=== PATIENT | female | born 1950 | race Caucasian/White ===

== ENCOUNTER 2020-05-15 08:18 | Inpatient (IN) ==
[2020-05-15] MEDS ORDERED: LORazepam 1 MG/2 ML VIAL IV STA (08:55)
[2020-05-15 08:59] LABS: Appearance Urine Clear (Clear); Bilirubin Urine Negative (Negative); Blood Urine Negative (Negative); Color Urine Yellow; Glucose Urine UA Negative (Negative); Ketones Urine Negative (Negative); Leukocyte Esterase Urine Negative (Negative); Nitrite Urine Negative (Negative); Protein Urine Negative (Negative); Specific Gravity Urine 1.012 (1.000-1.030); Urobilinogen Urine Negative (Negative); pH Urine 5.5 (4.5-7.5)
--- NOTE | 2020-05-15 09:24 | Emergency Department Note ---
History of Present Illness General Chief complaint: Illness Stated complaint: AMS, DISTENDED AB, BILAT. EDEMA TO LOWER LEGS Time Seen by Provider: 05/15/20 08:28 Source: patient, family (I did talk to multiple family members on the phone) and EMS Mode of arrival: EMS Limitations: altered mental status History of Present Illness Maximum Pain Intensity: 4 This patient is brought in by EMS from [place] after having abdominal distention ascites bilateral lower extremity edema and altered mental status. Apparent she was found this way she has known liver problems and it may be on the liver transplant list she had Covid 1 months ago by report. The patient is unable to give me any further history and looking through her computer it looks like she was had paracentesis done on 03 May there is no other report found. Home Medications Medication Instructions Recorded Confirmed Type bupropion HCl 300 mg PO DAILY 01/23/20 05/03/20 History nifedipine 30 mg PO DAILY 01/23/20 05/03/20 History omeprazole 20 mg PO DAILY 01/23/20 05/03/20 History spironolactone 50 mg PO DAILY 05/03/20 05/03/20 History torsemide 40 mg PO DAILY 05/03/20 05/03/20 History Allergies Allergy/AdvReac Type Severity Reaction Status Date / Time Penicillins Allergy Rash Verified 05/03/20 08:49 adhesive AdvReac Redness of Verified 05/03/20 08:49 Skin Past Med/Surg History Medical History Abnormal liver function Acid reflux Ascites Hypertension Surgical History Hx of appendectomy Social History Smoking Status: Never smoker Second Hand Exposure: Yes (son smokes outside); Hx Alcohol Use: No Hx Substance Use: No Preferred Language: Serbian Communication Ability: Effective Beliefs That Will Affect Care: None Current Living Situation: Spouse Feels Safe at Home: Yes Assistive Devices: None, Glasses, Hearing Aid - Left and Hearing Aid - Right Review of Systems Unobtainable due to reduced consciousness Physical Exam Vital Signs Vital Signs - 24 hr 05/15/20 08:33 05/15/20 08:35 05/15/20 08:36 Temperature Temperature Source Pulse Rate 85 84 Pulse Rate [Apical] Pulse Rate from SpO2 Sensor 86 84 Respiratory Rate 15 29 H Respiratory Effort / Characteristics Blood Pressure 126/69 Blood Pressure [Right Arm] Blood Pressure Mean 75 Blood Pressure Mean [Right Arm] Pulse Oximetry 100 100 98 Oxygen Delivery Method Room Air Sepsis Recent Fever Within 48 Hours Sepsis New/Unexplained Change in Mental Status Sepsis Action Taken by Nursing 05/15/20 08:40 05/15/20 08:41 05/15/20 08:50 Temperature 36.8 C Temperature Source Oral Pulse Rate 83 85 82 Pulse Rate [Apical] Pulse Rate from SpO2 Sensor 83 82 Respiratory Rate 15 20 13 Respiratory Effort / Characteristics Non-Labored Blood Pressure 126/69 Blood Pressure [Right Arm] Blood Pressure Mean 88 Blood Pressure Mean [Right Arm] Pulse Oximetry 99 100 100 Oxygen Delivery Method Room Air Sepsis Recent Fever Within 48 Hours No Sepsis New/Unexplained Change in Mental Status N/A Sepsis Action Taken by Nursing No Action Required 05/15/20 09:00 05/15/20 09:01 05/15/20 09:10 Temperature Temperature Source Pulse Rate 86 85 82 Pulse Rate [Apical] Pulse Rate from SpO2 Sensor 86 85 75 Respiratory Rate 18 16 14 Respiratory Effort / Characteristics Blood Pressure 139/72 Blood Pressure [Right Arm] Blood Pressure Mean 86 Blood Pressure Mean [Right Arm] Pulse Oximetry 100 99 98 Oxygen Delivery Method Sepsis Recent Fever Within 48 Hours Sepsis New/Unexplained Change in Mental Status Sepsis Action Taken by Nursing 05/15/20 09:20 05/15/20 09:30 05/15/20 09:31 Temperature Temperature Source Pulse Rate 78 75 77 Pulse Rate [Apical] Pulse Rate from SpO2 Sensor 74 73 74 Respiratory Rate 13 20 14 Respiratory Effort / Characteristics Blood Pressure 108/70 Blood Pressure [Right Arm] Blood Pressure Mean 87 Blood Pressure Mean [Right Arm] Pulse Oximetry 99 99 100 Oxygen Delivery Method Sepsis Recent Fever Within 48 Hours Sepsis New/Unexplained Change in Mental Status Sepsis Action Taken by Nursing 05/15/20 09:32 05/15/20 09:40 05/15/20 09:50 Temperature Temperature Source Pulse Rate 78 77 Pulse Rate [Apical] 79 Pulse Rate from SpO2 Sensor 77 72 Respiratory Rate 18 12 12 Respiratory Effort / Characteristics Blood Pressure Blood Pressure [Right Arm] 108/70 Blood Pressure Mean Blood Pressure Mean [Right Arm] 82 Pulse Oximetry 99 100 100 Oxygen Delivery Method Sepsis Recent Fever Within 48 Hours Sepsis New/Unexplained Change in Mental Status Sepsis Action Taken by Nursing 05/15/20 10:00 05/15/20 10:01 05/15/20 10:10 Temperature Temperature Source Pulse Rate 74 76 74 Pulse Rate [Apical] Pulse Rate from SpO2 Sensor 71 71 70 Respiratory Rate 12 12 12 Respiratory Effort / Characteristics Blood Pressure 99/54 L Blood Pressure [Right Arm] Blood Pressure Mean 68 Blood Pressure Mean [Right Arm] Pulse Oximetry 99 100 99 Oxygen Delivery Method Sepsis Recent Fever Within 48 Hours Sepsis New/Unexplained Change in Mental Status Sepsis Action Taken by Nursing 05/15/20 10:30 05/15/20 11:00 05/15/20 11:31 Temperature Temperature Source Pulse Rate 76 77 83 Pulse Rate [Apical] Pulse Rate from SpO2 Sensor 73 75 83 Respiratory Rate 12 13 15 Respiratory Effort / Characteristics Blood Pressure 102/52 L 105/54 L 124/91 Blood Pressure [Right Arm] Blood Pressure Mean 70 77 106 Blood Pressure Mean [Right Arm] Pulse Oximetry 98 99 98 Oxygen Delivery Method Room Air Room Air Room Air Sepsis Recent Fever Within 48 Hours Sepsis New/Unexplained Change in Mental Status Sepsis Action Taken by Nursing 05/15/20 12:00 05/15/20 12:30 05/15/20 13:00 Temperature Temperature Source Pulse Rate 82 82 89 Pulse Rate [Apical] Pulse Rate from SpO2 Sensor 82 83 79 Respiratory Rate 15 17 22 Respiratory Effort / Characteristics Blood Pressure 119/65 112/54 L 111/46 L Blood Pressure [Right Arm] Blood Pressure Mean 90 73 64 Blood Pressure Mean [Right Arm] Pulse Oximetry 98 99 99 Oxygen Delivery Method Sepsis Recent Fever Within 48 Hours Sepsis New/Unexplained Change in Mental Status Sepsis Action Taken by Nursing 05/15/20 13:30 05/15/20 14:00 05/15/20 14:30 Temperature Temperature Source Pulse Rate 83 88 80 Pulse Rate [Apical] Pulse Rate from SpO2 Sensor 85 88 80 Respiratory Rate 16 17 14 Respiratory Effort / Characteristics Blood Pressure 111/62 122/63 106/50 L Blood Pressure [Right Arm] Blood Pressure Mean 79 77 68 Blood Pressure Mean [Right Arm] Pulse Oximetry 99 96 99 Oxygen Delivery Method Sepsis Recent Fever Within 48 Hours Sepsis New/Unexplained Change in Mental Status Sepsis Action Taken by Nursing General: [place] ill-appearing older female who has a distended abdomen appears jaundiced. She is agitated. No respiratory symptoms. Normal speech. HEENT: Normal cephalic atraumatic. Pupils are equal round and reactive to light. Sclera are icteric extraocular movements are intact. Oropharynx is pink with moist mucous membranes. No swelling of the mouth lips or tongue. Neck: Supple with a midline trachea. No meningeal signs or stiffness, no JVD or bruits. No Stridor. Chest: Clear to auscultation bilaterally. No wheezes or rhonchi. No increased work of breathing. Heart: Regular rate and rhythm without murmurs or gallops. Abdomen: Disstended with a ascites without rebound guarding or rigidity. Extremities: No cyanosis clubbing or edema. No calf tenderness or assymetry Spine/Back. Non tender to palpation. No CVA tenderness Skin: Good turgor without rashes. Neurologic exam: Nonfocal and appears to move all 4 extremities Course Administered Medications Discontinued Medications Lorazepam (Ativan) 1 mg in 2 mls @ 2 mls/min IV NOW STA Stop: 05/15/20 08:56 Last Admin: 05/15/20 09:01 Dose: 2 mls/min Documented by: [id number] Sodium Chloride (Nss 1000ml) 1,000 mls @ 999 mls/hr IV .[id number] ONE Stop: 05/15/20 11:14 Last Infusion: 05/15/20 12:23 Dose: 0 mls/hr Documented by: [id number] Admin: 05/15/20 10:24 Dose: 999 mls/hr Documented by: [id number] Ceftriaxone Sodium (Rocephin) 2,000 mg in 70 mls @ 140 mls/hr IV NOW STA Stop: 05/15/20 10:59 Last Infusion: 05/15/20 12:24 Dose: 0 mls/hr Documented by: [id number] Admin: 05/15/20 11:45 Dose: 140 mls/hr Documented by: [id number] Medical Decision Making Differential Diagnosis Hepatic encephalopathy, sepsis, UTI, dehydration, liver failure, electrolyte or metabolic abnormality Medical Records Attestation: I reviewed the patient's medical records. Home Medications Current Medication List: was personally reviewed by me Laboratory Data Attestation: I reviewed the patient's lab results. Result diagrams: 05/15/20 09:27 05/15/20 09:27 Lab Results 05/15/20 05/15/20 05/15/20 Range/Units 08:35 08:35 09:27 WBC 10.27 (4.8-10.8) K/uL RBC 3.71 L (4.2-5.4) M/uL Hgb 12.9 (12.0-16.0) g/dL Hct 36.0 L (37-47) % MCV 97.0 (80-100) fL MCH 34.8 H (25-34) pg MCHC 35.8 (32-36) g/dL RDW Std Deviation 57.5 H (36.4-46.3) fL RDW Coeff of Julieth 16.3 H (11.5-14.5) % Plt Count 170 (130-400) K/uL MPV 10.3 (7.4-10.4) fL Immature Gran % (Auto) 0.4 % Neut % (Auto) 73.0 % Lymph % (Auto) 14.0 % [place] % (Auto) 11.5 % Eos % (Auto) 0.8 % Baso % (Auto) 0.3 % Neut # (Auto) 7.50 H (1.4-6.5) K/uL Lymph # (Auto) 1.44 (1.2-3.4) K/uL [place] # (Auto) 1.18 H (0.11-0.59) K/uL Eos # (Auto) 0.08 (0-0.5) K/uL Baso # (Auto) 0.03 (0-0.2) K/uL Immature Gran # (Auto) 0.04 H (0.00-0.02) K/uL PT (9.0-12.0) Seconds INR (0.9-1.1) APTT (21.0-31.0) Seconds PTT Ratio Sodium (136-145) mmol/L Potassium (3.5-5.1) mmol/L Chloride (98-107) mmol/L Carbon Dioxide (21-32) mmol/L Anion Gap (3-11) BUN (7-18) mg/dl Creatinine (0.6-1.2) mg/dl Est Cr Clr Drug Dosing Est GFR ( Amer) Est GFR (Non-Af Amer) BUN/Creatinine Ratio (10-20) Glucose (70-99) mg/dl Lactate (0.4-2.0) mmol/L Calcium (8.5-10.1) mg/dl Magnesium (1.8-2.4) mg/dl Total Bilirubin (0.2-1) mg/dl AST (15-37) U/L ALT (12-78) U/L Alkaline Phosphatase (45-117) U/L Ammonia (11-32) umol/L Troponin I (0-0.045) ng/ml Total Protein (6.4-8.2) gm/dl Albumin (3.4-5.0) gm/dl Globulin (2.5-4.0) gm/dl Albumin/Globulin Ratio (0.9-2) Procalcitonin (0-0.5) ng/ml Urine Color Yellow Urine Appearance Clear (Clear) Urine pH 5.5 (4.5-7.5) Ur Specific [place] 1.012 (1.000-1.030) Urine Protein Negative (Negative) Urine Glucose (UA) Negative (Negative) Urine Ketones Negative (Negative) Urine Blood Negative (Negative) Urine Nitrite Negative (Negative) Urine Bilirubin Negative (Negative) Urine Urobilinogen Negative (Negative) Ur Leukocyte Esterase Negative (Negative) Urine Opiates Screen Neg (Neg) Ur Methadone, Qual Neg (Neg) Urine Barbiturates Neg (Neg) Ur Phencyclidine (PCP) Neg (Neg) U Amphetamin/Meth Scrn Neg (Neg) MDMA (Ecstasy) Screen Pos H (Neg) U Benzodiazepines Scrn Neg (Neg) Ur Cocaine Metabolite Neg (Neg) U Marijuana (THC) Screen Neg (Neg) COVID-19 Eval Order SARS-CoV-2, RNA, NAAT (NEGATIVE) 05/15/20 05/15/20 05/15/20 Range/Units 09:27 09:27 09:27 WBC (4.8-10.8) K/uL RBC (4.2-5.4) M/uL Hgb (12.0-16.0) g/dL Hct (37-47) % MCV (80-100) fL MCH (25-34) pg MCHC (32-36) g/dL RDW Std Deviation (36.4-46.3) fL RDW Coeff of Julieth (11.5-14.5) % Plt Count (130-400) K/uL MPV (7.4-10.4) fL Immature Gran % (Auto) % Neut % (Auto) % Lymph % (Auto) % [place] % (Auto) % Eos % (Auto) % Baso % (Auto) % Neut # (Auto) (1.4-6.5) K/uL Lymph # (Auto) (1.2-3.4) K/uL [place] # (Auto) (0.11-0.59) K/uL Eos # (Auto) (0-0.5) K/uL Baso # (Auto) (0-0.2) K/uL Immature Gran # (Auto) (0.00-0.02) K/uL PT 13.1 H (9.0-12.0) Seconds INR 1.3 H (0.9-1.1) APTT 31.1 H (21.0-31.0) Seconds PTT Ratio 1.1 Sodium 130 L (136-145) mmol/L Potassium 3.8 (3.5-5.1) mmol/L Chloride 99 (98-107) mmol/L Carbon Dioxide 23 (21-32) mmol/L Anion Gap 8.0 (3-11) BUN 42 H (7-18) mg/dl Creatinine 2.16 H (0.6-1.2) mg/dl Est Cr Clr Drug Dosing Not Reportable Est GFR ( Amer) 25.9 Est GFR (Non-Af Amer) 22.3 BUN/Creatinine Ratio 19.7 (10-20) Glucose 115 H (70-99) mg/dl Lactate 3.1 H* (0.4-2.0) mmol/L Calcium 9.1 (8.5-10.1) mg/dl Magnesium 2.4 (1.8-2.4) mg/dl Total Bilirubin 2.3 H (0.2-1) mg/dl AST 62 H (15-37) U/L ALT 40 (12-78) U/L Alkaline Phosphatase 250 H (45-117) U/L Ammonia (11-32) umol/L Troponin I < 0.015 (0-0.045) ng/ml Total Protein 8.8 H (6.4-8.2) gm/dl Albumin 2.9 L (3.4-5.0) gm/dl Globulin 5.9 H (2.5-4.0) gm/dl Albumin/Globulin Ratio 0.5 L (0.9-2) Procalcitonin (0-0.5) ng/ml Urine Color Urine Appearance (Clear) Urine pH (4.5-7.5) Ur Specific [place] (1.000-1.030) Urine Protein (Negative) Urine Glucose (UA) (Negative) Urine Ketones (Negative) Urine Blood (Negative) Urine Nitrite (Negative) Urine Bilirubin (Negative) Urine Urobilinogen (Negative) Ur Leukocyte Esterase (Negative) Urine Opiates Screen (Neg) Ur Methadone, Qual (Neg) Urine Barbiturates (Neg) Ur Phencyclidine (PCP) (Neg) U Amphetamin/Meth Scrn (Neg) MDMA (Ecstasy) Screen (Neg) U Benzodiazepines Scrn (Neg) Ur Cocaine Metabolite (Neg) U Marijuana (THC) Screen (Neg) COVID-19 Eval Order SARS-CoV-2, RNA, NAAT (NEGATIVE) 05/15/20 05/15/20 05/15/20 Range/Units 09:27 11:38 11:38 WBC (4.8-10.8) K/uL RBC (4.2-5.4) M/uL Hgb (12.0-16.0) g/dL Hct (37-47) % MCV (80-100) fL MCH (25-34) pg MCHC (32-36) g/dL RDW Std Deviation (36.4-46.3) fL RDW Coeff of Julieth (11.5-14.5) % Plt Count (130-400) K/uL MPV (7.4-10.4) fL Immature Gran % (Auto) % Neut % (Auto) % Lymph % (Auto) % [place] % (Auto) % Eos % (Auto) % Baso % (Auto) % Neut # (Auto) (1.4-6.5) K/uL Lymph # (Auto) (1.2-3.4) K/uL [place] # (Auto) (0.11-0.59) K/uL Eos # (Auto) (0-0.5) K/uL Baso # (Auto) (0-0.2) K/uL Immature Gran # (Auto) (0.00-0.02) K/uL PT (9.0-12.0) Seconds INR (0.9-1.1) APTT (21.0-31.0) Seconds PTT Ratio Sodium (136-145) mmol/L Potassium (3.5-5.1) mmol/L Chloride (98-107) mmol/L Carbon Dioxide (21-32) mmol/L Anion Gap (3-11) BUN (7-18) mg/dl Creatinine (0.6-1.2) mg/dl Est Cr Clr Drug Dosing Est GFR ( Amer) Est GFR (Non-Af Amer) BUN/Creatinine Ratio (10-20) Glucose (70-99) mg/dl Lactate 2.2 H* (0.4-2.0) mmol/L Calcium (8.5-10.1) mg/dl Magnesium (1.8-2.4) mg/dl Total Bilirubin (0.2-1) mg/dl AST (15-37) U/L ALT (12-78) U/L Alkaline Phosphatase (45-117) U/L Ammonia 91.0 H (11-32) umol/L Troponin I (0-0.045) ng/ml Total Protein (6.4-8.2) gm/dl Albumin (3.4-5.0) gm/dl Globulin (2.5-4.0) gm/dl Albumin/Globulin Ratio (0.9-2) Procalcitonin 0.77 H (0-0.5) ng/ml Urine Color Urine Appearance (Clear) Urine pH (4.5-7.5) Ur Specific [place] (1.000-1.030) Urine Protein (Negative) Urine Glucose (UA) (Negative) Urine Ketones (Negative) Urine Blood (Negative) Urine Nitrite (Negative) Urine Bilirubin (Negative) Urine Urobilinogen (Negative) Ur Leukocyte Esterase (Negative) Urine Opiates Screen (Neg) Ur Methadone, Qual (Neg) Urine Barbiturates (Neg) Ur Phencyclidine (PCP) (Neg) U Amphetamin/Meth Scrn (Neg) MDMA (Ecstasy) Screen (Neg) U Benzodiazepines Scrn (Neg) Ur Cocaine Metabolite (Neg) U Marijuana (THC) Screen (Neg) COVID-19 Eval Order SARS-CoV-2, RNA, NAAT (NEGATIVE) 05/15/20 05/15/20 Range/Units 12:10 12:10 WBC (4.8-10.8) K/uL RBC (4.2-5.4) M/uL Hgb (12.0-16.0) g/dL Hct (37-47) % MCV (80-100) fL MCH (25-34) pg MCHC (32-36) g/dL RDW Std Deviation (36.4-46.3) fL RDW Coeff of Julieth (11.5-14.5) % Plt Count (130-400) K/uL MPV (7.4-10.4) fL Immature Gran % (Auto) % Neut % (Auto) % Lymph % (Auto) % [place] % (Auto) % Eos % (Auto) % Baso % (Auto) % Neut # (Auto) (1.4-6.5) K/uL Lymph # (Auto) (1.2-3.4) K/uL [place] # (Auto) (0.11-0.59) K/uL Eos # (Auto) (0-0.5) K/uL Baso # (Auto) (0-0.2) K/uL Immature Gran # (Auto) (0.00-0.02) K/uL PT (9.0-12.0) Seconds INR (0.9-1.1) APTT (21.0-31.0) Seconds PTT Ratio Sodium (136-145) mmol/L Potassium (3.5-5.1) mmol/L Chloride (98-107) mmol/L Carbon Dioxide (21-32) mmol/L Anion Gap (3-11) BUN (7-18) mg/dl Creatinine (0.6-1.2) mg/dl Est Cr Clr Drug Dosing Est GFR ( Amer) Est GFR (Non-Af Amer) BUN/Creatinine Ratio (10-20) Glucose (70-99) mg/dl Lactate (0.4-2.0) mmol/L Calcium (8.5-10.1) mg/dl Magnesium (1.8-2.4) mg/dl Total Bilirubin (0.2-1) mg/dl AST (15-37) U/L ALT (12-78) U/L Alkaline Phosphatase (45-117) U/L Ammonia (11-32) umol/L Troponin I (0-0.045) ng/ml Total Protein (6.4-8.2) gm/dl Albumin (3.4-5.0) gm/dl Globulin (2.5-4.0) gm/dl Albumin/Globulin Ratio (0.9-2) Procalcitonin (0-0.5) ng/ml Urine Color Urine Appearance (Clear) Urine pH (4.5-7.5) Ur Specific [place] (1.000-1.030) Urine Protein (Negative) Urine Glucose (UA) (Negative) Urine Ketones (Negative) Urine Blood (Negative) Urine Nitrite (Negative) Urine Bilirubin (Negative) Urine Urobilinogen (Negative) Ur Leukocyte Esterase (Negative) Urine Opiates Screen (Neg) Ur Methadone, Qual (Neg) Urine Barbiturates (Neg) Ur Phencyclidine (PCP) (Neg) U Amphetamin/Meth Scrn (Neg) MDMA (Ecstasy) Screen (Neg) U Benzodiazepines Scrn (Neg) Ur Cocaine Metabolite (Neg) U Marijuana (THC) Screen (Neg) COVID-19 Eval Order Covid19 [facility]Now [facility] SARS-CoV-2, RNA, NAAT NEGATIVE (NEGATIVE) Imaging Data Attestation: I personally reviewed and interpreted this imaging study as follows: My Impression: Chest x-rayshows hypoinflation which I suspect is from her marked ascites in her abdomen. Radiologist's Impression: XR chest 1V portable HISTORY: 69 years-old Female SEPSIS acute sepsis COMPARISON: None TECHNIQUE: Portable AP view of the chest FINDINGS: Cardiac silhouette is enlarged. Lungs are hypoinflated with bronchovascular crowding. Bilateral interstitial coarsening. No pneumothorax or large pleural effusion. Mild blunting of the costophrenic angles. Bones appear grossly intact. The patient's hand projects over the lower chest which limits the study. IMPRESSION: 1. Limited exam as above. 2. Hypoinflation with bronchovascular crowding. 3. Interstitial coarsening is likely secondary to hypoinflation with mild pulmo nary vascular congestion or interstitial pneumonitis considered less likely. ECG Data Attestation: I personally reviewed and interpreted this ECG as follows: Indication: + altered mental status Rate (beats per minute): 78 Rhythm: + normal sinus and + other (Low voltage) ECG Intervals/blocks: + Normal QRS, + Normal QT and + Normal NC ECG [place]: + Normal ECG ST segments: + Normal ST segments ECG Findings: no PACs and no PVCs Comparison ECG Date: no prior available MDM Narrative This patient comes in with altered mental status and abdominal distention. She has known liver failure and had her abdomen tapped just over a week ago. She is afebrile and has stable vital signs. she is in no respiratory distress she is confused and likely hepatic encephalopathy. She was given Ativan 1 mg IV for her safety and also in for us to be able to get the work-up obtained. Blood work was obtained as well as EKG and urinalysis and culture. She was reassessed frequently. With the Ativan she was resting comfortably and had stable vital signs. Her ammonia came back elevated at greater than 90 and she likely has hepatic encephalopathy. Her lactate is mildly elevated at above 3. She was given IV hydration as well as Rocephin IV antibiotics 2 g. Her EKG does not suggest acute coronary process. She does have ascites and will likely need paracentesis as well as further treatment for hepatic encephalopathy she will likely need lactulose and further treatment. [facility]. Continuous cardiac monitoring: Order was placed in the EMR for continuous cardiac monitoring. The patient was noted to be in normal sinus rhythm with a pulse of 80. Impression & Plan Hepatic encephalopathy, Elevated lactic acid level, Acute renal failure, Ascites of liver, Altered mental status Discharge Plan Visit Data Chief Complaint: Illness Stated Complaint: AMS, DISTENDED AB, BILAT. EDEMA TO LOWER LEGS ED Provider: Alex Royal Discharge Problem: Hepatic encephalopathy, Elevated lactic acid level, Acute renal failure, Ascites of liver, Altered mental status Forms Stand Alone Forms: My [facility] Prescriptions Prescriptions: No Action torsemide 20 mg Tablet 40 mg PO DAILY RF: 0 spironolactone 50 mg Tablet 50 mg PO DAILY RF: 0 nifedipine tablet 30 mg PO DAILY RF: 0 bupropion HCl tablet 300 mg PO DAILY RF: 0 omeprazole tablet 20 mg PO DAILY RF: 0 Discharge Problem: Acute renal failure Qualifiers: Acute renal failure type: unspecified Qualified Code(s): N17.9 - Acute kidney failure, unspecified Altered mental status Qualifiers: Altered mental status type: unspecified Qualified Code(s): R41.82 - Altered mental status, unspecified
[2020-05-15 09:41] LABS: Basophils # (auto) 0.03 K/uL (0-0.2); Basophils % (auto) 0.3 %; Eosinophils # (auto) 0.08 K/uL (0-0.5); Eosinophils % (auto) 0.8 %; Hemoglobin 12.9 g/dL (12.0-16.0); Immature Granulocytes # (auto) 0.04 K/uL (0.00-0.02); Immature Granulocytes % (auto) 0.4 %; Lymphocytes # (auto) 1.44 K/uL (1.2-3.4); Mean Corpuscular Hemoglobin 34.8 pg (25-34); Mean Corpuscular Hgb Conc 35.8 g/dL (32-36); Mean Platelet Volume 10.3 fL (7.4-10.4); Monocytes # (auto) 1.18 K/uL (0.11-0.59); Monocytes % (auto) 11.5 %; Platelet Count 170 K/uL (130-400); RDW Coefficient of Variation 16.3 % (11.5-14.5); RDW Standard Deviation 57.5 fL (36.4-46.3); Red Blood Count 3.71 M/uL (4.2-5.4); White Blood Count 10.27 K/uL (4.8-10.8)
[2020-05-15 09:52] LABS: INR 1.3 (0.9-1.1); Partial Thromboplastin Ratio 1.1; Partial Thromboplastin Time 31.1 Seconds (21.0-31.0); Prothrombin Time 13.1 Seconds (9.0-12.0)
--- NOTE | 2020-05-15 09:57 | XRay Report ---
XR chest 1V portable HISTORY: 69 years-old Female SEPSIS acute sepsis COMPARISON: None TECHNIQUE: Portable AP view of the chest FINDINGS: Cardiac silhouette is enlarged. Lungs are hypoinflated with bronchovascular crowding. Bilateral inter stitial coarsening. No pneumothorax or large pleural effusion. Mild blunting of the costophrenic angl es. Bones appear grossly intact. The patient's hand projects over the lower chest which limits the st udy. IMPRESSION: 1. Limited exam as above. 2. Hypoinflation with bronchovascular crowding. 3. Interstitial coarsening is likely secondary to hypoinflation with mild pulmonary vascular congesti on or interstitial pneumonitis considered less likely. ACT 112: Negative or not required by law. The above report was generated using voice recognition software. It may contain grammatical, syntax o r spelling errors. Electronically signed by: Manuel Hess M.D. 05/15/2020 9:56 AM
[2020-05-15 10:00] LABS: Alanine Aminotransferase 40 U/L (12-78); Albumin Level 2.9 gm/dl (3.4-5.0); Aspartate Aminotransferase 62 U/L (15-37); BUN Creatinine Ratio 19.7 (10-20); Blood Urea Nitrogen 42 mg/dl (7-18); Calcium 9.1 mg/dl (8.5-10.1); Carbon Dioxide 23 mmol/L (21-32); Chloride 99 mmol/L (98-107); Est GFR (African American) 25.9; Est GFR (Non-African American) 22.3; Glucose 115 mg/dl (70-99); Magnesium 2.4 mg/dl (1.8-2.4); Potassium 3.8 mmol/L (3.5-5.1); Sodium 130 mmol/L (136-145)
[2020-05-15 10:05] LABS: Albumin Globulin Ratio 0.5 (0.9-2); Alkaline Phosphatase 250 U/L (45-117); Bilirubin,Total 2.3 mg/dl (0.2-1); Globulin 5.9 gm/dl (2.5-4.0); Total Protein 8.8 gm/dl (6.4-8.2); Troponin I < 0.015 ng/ml (0-0.045)
[2020-05-15] MEDS ORDERED: SODIUM CHLORIDE 0.9% 1000ML 1,000 ML IV ONE (10:14)
[2020-05-15] MEDS ORDERED: cefTRIAXone SODIUM 2,000 MG/70 ML BAG IV STA (10:30)
[2020-05-15] MEDS ORDERED: ONDANSETRON INJ 2 MG/ML 2 ML VIAL IV PRN (11:11)
--- NOTE | 2020-05-15 11:11 | History & Physical Report ---
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 pt has been requiring frequent paracentesis MRI Of abdomen 12/19/19 : no suspicious liver lesion ,stable mild intrahepatic duct dilatation , Cirrhotic liver with evidence of portal hypertension , IVC thrombus ,no change in thrombus size in last 1 yr follows with Transactiv GI Chronic thrombocytopenia /IVC filter thrombus : due to above , recently seen by Hematology /oncology for evaluation of anticoagulation 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 with progressive decrease in platelet count risk of bleeding is high with anticoagulation , recommendation was to monitor for any worsening of clinical symptoms (2) Elevated lactic acid level: possible due to acute renal failure , dehydration mild elevation of procalcitonin no overt s/s of sepsis supportive care repeat labs IV fluids not ordered as pt is volume overloaded with large abdominal ascites (3) Acute renal failure: due to dehydration , other possible cause : large abdominal ascites , causing 3rd spacing and intravascular vol depletion ordered for IV Albumin hold diuretics for now nephrology consulted (4) Ascites of liver: recent paracentesis on 05/03/20 -peritoneal fluid gram stain -negative for organism , culture no growth CT abdomen /pelvis as above will schedule repeat diagnosis /therapeutic paracentesis by radiology on Sunday05/17/20 IV Abx for possible SBP (5) Hypotension: due to chronic liver disease , dehydration doubt due to sepsis /diuretics kept on hold monitor in tele (6) Hyponatremia: due to chronic liver disease monitor labs FULL CODE DVT Prophylaxis: scd and teds given advanced liver disease high risk for bleeding /anticoagulation avoided Disposition : to be determined will need PT /OT eval social service consulted for dc planning History of Present Illness Chief Complaint: Confusion, Lethargy Primary Care Provider: Laura Dale PA-C This is a 69-year-old female with medical history significant for 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 Patient remains encephalopathic Unable to obtain any information from the patient /no family members present at bedside, called patient's , no one picked up the phone, No option to leave a message. Information obtained mostly from your doctors sign out, note and documentation. Patient had paracentesis done at [facility] on May 03, 2020, Resents with worsening of abdominal distention, confusion lethargy afebrile in the ER, no hypoxia COVID-[address] abdomen pelvis shows large abdominal ascites Allergies Allergy/AdvReac Type Severity Reaction Status Date / Time Penicillins Allergy Rash Verified 05/03/20 08:49 adhesive AdvReac Redness of Verified 05/03/20 08:49 Skin Home Medications Medication Instructions Recorded Confirmed Type bupropion HCl 300 mg PO DAILY 01/23/20 05/03/20 History nifedipine 30 mg PO DAILY 01/23/20 05/03/20 History omeprazole 20 mg PO DAILY 01/23/20 05/03/20 History spironolactone 50 mg PO DAILY 05/03/20 05/03/20 History torsemide 40 mg PO DAILY 05/03/20 05/03/20 History Past Med/Surg History Medical History Abnormal liver function Acid reflux Ascites Hypertension Surgical History Hx of appendectomy Social History Smoking Status: Never smoker Second Hand Exposure: Yes (son smokes outside); Hx Alcohol Use: No Hx Substance Use: No Preferred Language: Faroese Communication Ability: Effective Beliefs That Will Affect Care: None Current Living Situation: Spouse Feels Safe at Home: Yes Assistive Devices: None, Glasses, Hearing Aid - Left and Hearing Aid - Right Review of Systems Review of Systems: Unobtainable due to cognitive status (Encephalopathic) Physical Exam Constitutional: WD/WN, vitals as above + ill appearing Eyes: + scleral abnormality (Mildly icteric sclera) ENMT: Dry oral mucosa Neck: trachea midline, no thyromegaly Respiratory: normal respiratory effort and + respiratory distress; no cough Auscultation: + diminished lung sounds and + wheezes Gastrointestinal (Abdomen): Inspection/Auscultation: + abdomen distended (Ascites) Percussion/Palpation: + ascites (Large ascites) and + abdomen firm Neurologic: moves all extremities and + confused (Encephalopathic); no focal motor deficits Results & Data Results & Data ([facility]) Vital Signs (Past 12 Hours) Vital Signs Temp Pulse Pulse Resp BP BP Pulse Ox 05/15/20 10:10 74 12 99 05/15/20 10:01 76 12 100 05/15/20 10:00 74 12 99/54 L 99 05/15/20 09:50 77 12 100 05/15/20 09:40 78 12 100 05/15/20 09:32 79 18 108/70 99 05/15/20 09:31 77 14 100 05/15/20 09:30 75 20 108/70 99 05/15/20 09:20 78 13 99 05/15/20 09:10 82 14 98 05/15/20 09:01 85 16 99 05/15/20 09:00 86 18 139/72 100 05/15/20 08:50 82 13 100 05/15/20 08:41 36.8 C 85 20 126/69 100 05/15/20 08:40 83 15 99 05/15/20 08:36 84 29 H 98 05/15/20 08:35 100 05/15/20 08:33 85 15 126/69 100 Diagnostic Findings Abdomen ultrasound: FINDINGS/IMPRESSION: Heterogeneous appearance of liver is noted with ascites present within all 4 quadrants of the abdomen CT abdomen pelvis: IMPRESSION: 1. No bowel obstruction or bowel wall thickening. 2. Cirrhotic liver disease with abdominal pelvic ascites. 3. Distended gallbladder without cholelithiasis identified. 4. Additional findings as above. IMPRESSION: 1. Limited exam as above. 2. Hypoinflation with bronchovascular crowding. 3. Interstitial coarsening is likely secondary to hypoinflation with mild pulmonary vascular congestion or interstitial pneumonitis considered less likely.
--- NOTE | 2020-05-15 11:15 | Electrocardiogram Report ---
Test Reason : Blood Pressure : / mmHG Vent. Rate : 078 BPM Atrial Rate : 078 BPM P-R Int : 194 ms QRS Dur : 062 ms QT Int : 532 ms P-R-T Axes : 062 -05 054 degrees QTc Int : 606 ms Normal sinus rhythm Possible Left atrial enlargement Low voltage QRS Possible Anterolateral infarct , age undetermined Abnormal ECG No previous ECGs available Confirmed by Bjorn Vegas ([id number]) on 05/15/2020 11:15:20 AM Referred By: REFERRED SELF Confirmed By:Mikey Vegas
--- NOTE | 2020-05-15 11:44 | CT Scan Report ---
ABDOMEN AND PELVIS CT WITHOUT CONTRAST CT DOSE: 621.24 mGy.cm HISTORY: Ascites with hepatic encephalopathy ascities /hepatic encephalopahty TECHNIQUE: Multiaxial CT images of the abdomen and pelvis were performed without contrast. A dose lo wering technique was utilized adhering to the principles of ALARA. COMPARISON STUDY: Ultrasound-guided paracentesis 05/03/2020 FINDINGS: Bibasilar dependent opacities suggest atelectasis. Limited study secondary to positioning a nd lack of IV contrast. Respiratory motion artifact also limits the exam. Mild cardiomegaly. Coronary artery calcifications. The unenhanced spleen, pancreas and visualized adrenal glands are unremarkabl e. Distended gallbladder. Cirrhotic morphology of the liver. Unremarkable kidneys. No hydronephrosis. Clayton catheter noted within a partially decompressed urinary bladder. Some centimeter calcification of the mid uterus. Calcified plaque the abdominal aorta. No a denopathy. Ascites extends into a small right femoral hernia. Recannulization of the umbilical vein. Abdominal varices. Tiny hiatal hernia. No bowel obstruction or definite bowel wall thickening. Large volume of abdominal pelvic ascites with diffuse mesenteric and body wall edema. Air-filled nondilated tubular structure posterior to the cecum is suggestive of a normal appendix on image 297 series 3. T iny fat filled periumbilical hernia. No acute fracture. Degenerative changes of the spine, pelvis and hips. IMPRESSION: 1. No bowel obstruction or bowel wall thickening. 2. Cirrhotic liver disease with abdominal pelvic ascites. 3. Distended gallbladder without cholelithiasis identified. 4. Additional findings as above. ACT 112: Negative or not required by law. The above report was generated using voice recognition software. It may contain grammatical, syntax o r spelling errors. Electronically signed by: Manuel Hess M.D. 05/15/2020 11:42 AM
[2020-05-15 12:21] LABS: Amphetamines+Metham, Urine Neg (Neg); Barbiturates, Urine Neg (Neg); Benzodiazepine, Urine Neg (Neg); Cocaine, Urine Neg (Neg); MDMA (Ecstacy), Urine Pos (Neg); Methadone, Urine Neg (Neg); Opiate, Urine Neg (Neg); Phencyclidine, Urine Neg (Neg)
--- NOTE | 2020-05-15 15:04 | Communication Note ---
Date of Service: May 15, 2020 CT abdomen/pelvis showed large abdominal ascites s/p recent paracentesis on 05/03/21 ordered for IV Rocephin to cover for possible SBP pt will need repeat Diagnostic and therapeutic paracentesis -by radiology on Sunday05/17/20 will order Albumin IV to limit 3rd spacing of fluids Lasix not ordered for Acute renal failure ( was on Aldactone and Lasix at home - kept on hold ) Nephrology consulted repeat BMP @ 6 pm hepatic encephalopathy with confusion /elevated ammonia level : ordered Lactulose plan of care D/w front end manager RENNY Vela MD
--- NOTE | 2020-05-15 17:57 | Ultrasound Report ---
US abdomen limited HISTORY: 69 years-old Female ascites cirrhosis with recurrent ascites COMPARISON: CT abdomen and pelvis of same day, ultrasound guided paracentesis 05/03/2020 TECHNIQUE: Multiple real-time sonographic images of the abdomen were obtained assessing grayscale tomasa earance FINDINGS/IMPRESSION: Heterogeneous appearance of liver is noted with ascites present within all 4 quadrants of the abdomen . ACT 112: Negative or not required by law. The above report was generated using voice recognition software. It may contain grammatical, syntax o r spelling errors. Electronically signed by: Manuel Hess M.D. 05/15/2020 5:55 PM
[2020-05-15] MEDS: LACTULOSE SYRUP 30 GM/45 ML UDP PO SCH ×2 (18:02→20:53)
[2020-05-15] MEDS: ALBUMIN 25% 12.5 GM/50 ML VIAL IV SCH ×6 (18:02→22:45)
[2020-05-15 19:20] LABS: BUN Creatinine Ratio 21.6 (10-20); Calcium 8.9 mg/dl (8.5-10.1); Creatinine Clr Calc Pharmacy 26.6 ml/min; Est GFR (African American) 30.4; Est GFR (Non-African American) 26.2; Potassium 3.8 mmol/L (3.5-5.1)
[2020-05-16] MEDS: ACETAMINOPHEN 325 MG TAB PO PRN ×3 (06:14→21:43)
[2020-05-16] MEDS: LACTULOSE SYRUP 30 GM/45 ML UDP PO SCH ×2 (07:48→21:43)
[2020-05-16] MEDS: PANTOprazole 40 MG TAB PO SCH (07:48)
[2020-05-16 07:54] LABS: Hematocrit (blood only) 31.3 % (37-47); Hemoglobin 10.7 g/dL (12.0-16.0); Mean Corpuscular Hgb Conc 34.2 g/dL (32-36); Mean Corpuscular Volume 99.4 fL (80-100); RDW Coefficient of Variation 16.9 % (11.5-14.5); RDW Standard Deviation 60.6 fL (36.4-46.3); Red Blood Count 3.15 M/uL (4.2-5.4); White Blood Count 6.03 K/uL (4.8-10.8)
[2020-05-16 08:17] LABS: Albumin Level 3.3 gm/dl (3.4-5.0); BUN Creatinine Ratio 22.8 (10-20); Calcium 9.2 mg/dl (8.5-10.1); Creatinine Clr Calc Pharmacy 30.5 ml/min; Est GFR (African American) 35.8; Est GFR (Non-African American) 30.9; Potassium 3.6 mmol/L (3.5-5.1)
[2020-05-16 08:20] LABS: Albumin Globulin Ratio 0.9 (0.9-2); Bilirubin,Total 3.1 mg/dl (0.2-1); Globulin 3.6 gm/dl (2.5-4.0); Total Protein 6.9 gm/dl (6.4-8.2)
[2020-05-16 08:23] LABS: Basophils # (auto) 0.02 K/uL (0-0.2); Basophils % (auto) 0.3 %; Eosinophils # (auto) 0.08 K/uL (0-0.5); Eosinophils % (auto) 1.4 %; Immature Granulocytes # (auto) 0.02 K/uL (0.00-0.02); Immature Granulocytes % (auto) 0.3 %; Lymphocytes # (auto) 0.98 K/uL (1.2-3.4); Lymphocytes % (auto) 16.9 %; Mean Platelet Volume 10.2 fL (7.4-10.4); Monocytes % (auto) 15.5 %; Neutrophils % (auto) 65.6 %; Platelet Count 97 K/uL (130-400); Platelet Estimate Decreased (Normal)
[2020-05-16] MEDS ORDERED: cefTRIAXone SODIUM 2,000 MG/70 ML BAG IV SCH (09:00)
--- NOTE | 2020-05-16 10:28 | Communication Note ---
Date of Service: May 16, 2020 Patient is scheduled for paracentesis tomorrow by radiology at 8 AM Both diagnostic and therapeutic paracentesis- With expectation of drainage of 4-5 L of peritoneal fluids tomorrow 1 unit of albumin(25 g in 100 mL) will be infused after paracentesis Does not need to be n.p.o. past midnight Continue diet. Ordered for Gram stain culture, AFB, patient on fluid protein/albumin, cytology Patient will continue with IV Rocephin for possible SBP Jessie Vela MD
[2020-05-16] MEDS: ALBUMIN 25% 12.5 GM/50 ML VIAL IV SCH ×2 (10:58→12:04)
--- NOTE | 2020-05-16 11:05 | Nephrology Consultation ---
Date of Consultation May 16, 2020 Assessment & Plan (1) Acute renal failure: Patient with acute kidney injury likely prerenal azotemia in setting of diuretics and poor p.o. intake. Patient had altered mental status and was not eating or drinking. There is also component of renal venous congestion in setting of intra-abdominal hypertension. Urinalysis was bland. Creatinine was 2.1 but improving to 1.6 after albumin infusions. -Continue holding Lasix and Aldactone -Therapeutic paracentesis in the morning -Daily BMP -Albumin infusions as needed if creatinine is worsening again (2) Ascites of liver: Patient with decompensated liver disease. She has massive ascites. She will need therapeutic paracentesis tomorrow. Hold diuretics. She will need to resume diuretics on discharge (3) Hepatic encephalopathy: Mental status is improving with lactulose History of Present Illness Reason for Consultation: CLAUDIA Requesting Physician: Jessie Vela MD Attending Physician: Jessie Vela MD History of Present Illness This is a 19-year-old female with history of decompensated cirrhosis due to primary sclerosing cholangitis, IVC and hepatic vein thrombosis, requires freq uent paracentesis was admitted on 05/15/2020 with the encephalopathy. She has improved with lactulose. She was found to have CLAUDIA with creatinine of 2.1 on admission. Creatinine is improving to 1.65 today after albumin infusions. She is on Lasix and Aldactone at home which were held on admission. She feels better this morning. Main complaint is weakness. No shortness of breath. She also complains of abdominal distention. Legs are mildly swollen. She has a Clayton catheter and making urine. Blood pressure is acceptable with systolic in the 100s. Allergies Allergy/AdvReac Type Severity Reaction Status Date / Time Penicillins Allergy Rash Verified 05/03/20 08:49 adhesive AdvReac Redness of Verified 05/03/20 08:49 Skin Home Medications Medication Instructions Recorded Confirmed Type bupropion HCl 300 mg PO DAILY 01/23/20 05/03/20 History nifedipine 30 mg PO DAILY 01/23/20 05/03/20 History omeprazole 20 mg PO DAILY 01/23/20 05/03/20 History spironolactone 50 mg PO DAILY 05/03/20 05/03/20 History torsemide 40 mg PO DAILY 05/03/20 05/03/20 History Patient History Medical History Abnormal liver function Acid reflux Ascites Hypertension Surgical History Hx of appendectomy Social History Smoking Status: Unknown if ever smoked Second Hand Exposure: Yes (son smokes outside); Hx Alcohol Use: No Hx Substance Use: No Preferred Language: Indonesian Communication Ability: Effective Beliefs That Will Affect Care: None Current Living Situation: Family Other Information That Helps Us Care for You: No Feels Safe at Home: Yes Safety Concerns: Feels Safe At This Time Assistive Devices: None Review of Systems Review of Systems: All systems reviewed & are unremarkable except as noted in HPI & below Physical Exam Physical Exam: General exam: Appears comfortable, no acute distress HEENT: Pupils are equal and reactive to light Neck: No JVD, neck is supple trachea is midline Respiratory system: Clear breath sounds bilaterally. Gastrointestinal: Abdomen is distended, non tender, bowel sounds are present CVS: Regular rate and rhythm. No murmurs, rubs or gallops Musculoskeletal: No joint or muscle tenderness Extremities: Non tender, no edema, peripheral pulses are present Neuro: Oriented, no tremors, no focal neurological deficits Skin: No rashes Results & Data ([facility]) Vital Signs (Past 12 Hours) Vital Signs Temp Pulse Pulse Pulse Resp BP Pulse Ox 05/16/20 08:22 36.5 C 75 16 100/61 92 05/16/20 07:09 77 05/16/20 02:57 36.6 C 82 20 90/55 L 95 05/15/20 23:59 86 Laboratory Results 05/16/20 07:41 05/16/20 05/16/20 07:41 07:41 WBC 6.03 RBC 3.15 L MCV 99.4 MCH 34.0 MCHC 34.2 RDW Std Deviation 60.6 H RDW Coeff of Julieth 16.9 H Plt Count 97 L MPV 10.2 Albumin 3.3 L (1) Acute renal failure Acute renal failure type: unspecified Qualified Code(s): N17.9 - Acute kidney failure, unspecified
--- NOTE | 2020-05-16 11:10 | Electrocardiogram Report ---
Test Reason : Blood Pressure : / mmHG Vent. Rate : 077 BPM Atrial Rate : 077 BPM P-R Int : 178 ms QRS Dur : 074 ms QT Int : 422 ms P-R-T Axes : 062 002 054 degrees QTc Int : 477 ms Normal sinus rhythm Low voltage QRS Abnormal ECG When compared with ECG of 15-MAY-2020 09:43, QT has shortened Confirmed by Bjorn Vegas ([id number]) on 05/16/2020 11:10:05 AM Referred By: REFERRED SELF Confirmed By:Mikey Vegas
--- NOTE | 2020-05-16 13:54 | Communication Note ---
Date of Service: May 16, 2020 Patient admitted yesterday with hepatic encephalopathy/confusion, acute renal failure and large abdominal ascites. A.m. labs reviewed, Renal function improved creatinine: From [id number] improvement of GFR from 22.330.9 Lactic acid level normalized, mental status improved more awake and alert more responsive today, Blood culture sample drawn on 05/15/2020 no growth to date. IV Rocephin for possible SBP Scheduled for diagnostic and therapeutic paracentesis by radiology tomorrow morning. Thrombocytopenia noted secondary to chronic liver disease Avoid antiplatelets and anticoagulation Metabolic encephalopathy: Secondary to dehydration, possible infection SBP, elevated ammonia levelhepatic encephalopathy Ammonia level normalized after patient started with lactulose Mental status improved to baseline Will reduce lactulose dose to 30 mg twice daily as needed, limit multiple loose bowel movement which can provoke further dehydration/acute renal failure Jessie Vela MD Family contacted to update patient's status: Called patient's [phone] given update to both and daughter family comfortable and in agreement with treatment plan all questions answered
--- NOTE | 2020-05-16 14:17 | Gastrointestinal Consultation ---
Date of Consultation May 16, 2020 Assessment & Plan (1) 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: (2) Ascites of liver: (3) Hepatic encephalopathy: Doing much better at present Continue Lactulose 30 g PO BID titrate to have at least 3 BM's per day Consider Xifaxan 550 mg by mouth BID Paracentesis tomorrow with studies to evaluate for SBP, though I think it is doubtful at present Continue supportive care [facility] will resume care of her in the AM History of Present Illness Reason for Consultation: Hepatic encephalopathy, Ascites Attending Physician: Jessie Vela MD History of Present Illness Akiko Wing is a pleasant 69 yo CF with a significant PMHx of PBC induced cirrhosis, ascites, and chronic hepatic vein and IVC thrombus, who presented to the ER yesterday obtunded with profound ascites. In the ER, she was noted to have acute on chronic renal failure, and an elevated ammonia and lactate level. She does not have a history of hepatic encephalopathy, and was not taking any lactulose or Xifaxan therapy at home. A CT abd/pelvis in the ER showed a large amount of ascites, but no other significant findings. She was subsequently admitted, and given multiple doses of lactulose resulting in several BM's. Her mental status quickly improved, as did her kidney function, based on this AM's labs. At the time I saw her, she was able to answer all questions appropriately. As per nursing, she was obtunded upon arrival to the floor yesterday. At present she denies any fevers, chills, nausea, vomiting, hematemesis, melena or hematochezia. She does complain of her abdominal distention from her ascites, but reports no increased pain, just her normal level of distention. She states that she has had multiple paracenteses in the past, most recently at the beginning of April, and states she, "tries to hold off on getting these as long as I can." Allergies Allergy/AdvReac Type Severity Reaction Status Date / Time Penicillins Allergy Rash Verified 05/03/20 08:49 adhesive AdvReac Redness of Verified 05/03/20 08:49 Skin Home Medications Medication Instructions Recorded Confirmed Type bupropion HCl 300 mg PO DAILY 01/23/20 05/03/20 History nifedipine 30 mg PO DAILY 01/23/20 05/03/20 History omeprazole 20 mg PO DAILY 01/23/20 05/03/20 History spironolactone 50 mg PO DAILY 05/03/20 05/03/20 History torsemide 40 mg PO DAILY 05/03/20 05/03/20 History Patient History Medical History Abnormal liver function Acid reflux Ascites Hypertension Surgical History Hx of appendectomy Social History Smoking Status: Unknown if ever smoked Second Hand Exposure: Yes (son smokes outside); Hx Alcohol Use: No Hx Substance Use: No Preferred Language: Swedish Communication Ability: Effective Beliefs That Will Affect Care: None Current Living Situation: Family Other Information That Helps Us Care for You: No Feels Safe at Home: Yes Safety Concerns: Feels Safe At This Time Assistive Devices: None Review of Systems Review of Systems: All systems reviewed & are unremarkable except as noted in HPI & below Physical Exam Constitutional: + ill appearing (Chronic) and + frail appearing Eyes: + anicteric sclerae ENMT: external ear and nose normal, oropharynx normal Neck: normal visual inspection Respiratory: normal respiratory effort; no respiratory distress and no labored breathing Cardiovascular: RRR, no murmur, no edema Gastrointestinal (Abdomen): Inspection/Auscultation: + abdomen distended and normal bowel sounds Percussion/Palpation: + ascites Skin: no rashes, warm and dry Psychiatric: A+Ox3, euthymic affect Results & Data ([facility]) Vital Signs (Past 12 Hours) Vital Signs Temp Pulse Pulse Pulse Resp BP Pulse Ox 05/16/20 08:22 36.5 C 75 16 100/61 92 05/16/20 07:09 77 05/16/20 02:57 36.6 C 82 20 90/55 L 95 Laboratory Results 05/15/20 09:27 Troponin I < 0.015 05/16/20 07:41 05/16/20 07:41 INR 1.3 (0.9-1.1) H 05/15/20 09:27 Diagnostic Findings ABDOMEN AND PELVIS CT WITHOUT CONTRAST CT DOSE: 621.24 mGy.cm HISTORY: Ascites with hepatic encephalopathy ascities /hepatic encephalopahty TECHNIQUE: Multiaxial CT images of the abdomen and pelvis were performed without contrast. A dose lowering technique was utilized adhering to the principles of ALARA. COMPARISON STUDY: Ultrasound-guided paracentesis 05/03/2020 FINDINGS: Bibasilar dependent opacities suggest atelectasis. Limited study seco ndary to positioning and lack of IV contrast. Respiratory motion artifact also limits the exam. Mild cardiomegaly. Coronary artery calcifications. The unenhanced spleen, pancreas and visualized adrenal glands are unremarkable. Distended gallbladder. Cirrhotic morphology of the liver. Unremarkable kidneys. No hydronephrosis. Clayton catheter noted within a partially decompressed urinary bladder. Some centimeter calcification of the mid uterus. Calcified plaque the abdominal aorta. No adenopathy. Ascites extends into a small right femoral hernia. Recannulization of the umbilical vein. Abdominal v arices. Tiny hiatal hernia. No bowel obstruction or definite bowel wall thickening. Large volume of abdominal pelvic ascites with diffuse mesenteric and body wall edema. Air-filled nondilated tubular structure posterior to the cecum is suggestive of a normal appendix on image 297 series 3. Tiny fat filled periumbilical hernia. No acute fracture. Degenerative changes of the spine, pelvis and hips. IMPRESSION: 1. No bowel obstruction or bowel wall thickening. 2. Cirrhotic liver disease with abdominal pelvic ascites. 3. Distended gallbladder without cholelithiasis identified. 4. Additional findings as above. PG Care Time/CCT Total # of Minutes Spent Total Time Spent with Patient: Total time spent is greater than 50% in coordination of care (as documented) at patient's floor/unit and/or counseling patient: Coding Level of Care Code 76347 Inpt Consult Level 3 Diagnoses 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 K74.3 Ascites of liver R18.8 Hepatic encephalopathy K72.90
[2020-05-16] MEDS ORDERED: ZOLPIDEM TARTRATE 5 MG TAB PO STA (21:02)
[2020-05-17 07:04] LABS: Hematocrit (blood only) 33.8 % (37-47); Hemoglobin 11.9 g/dL (12.0-16.0); Mean Corpuscular Hemoglobin 35.1 pg (25-34); Mean Corpuscular Hgb Conc 35.2 g/dL (32-36); Mean Corpuscular Volume 99.7 fL (80-100); RDW Coefficient of Variation 16.7 % (11.5-14.5); RDW Standard Deviation 60.6 fL (36.4-46.3); Red Blood Count 3.39 M/uL (4.2-5.4); White Blood Count 5.57 K/uL (4.8-10.8)
[2020-05-17 07:37] LABS: BUN Creatinine Ratio 21.8 (10-20); Calcium 8.5 mg/dl (8.5-10.1); Creatinine Clr Calc Pharmacy 33.3 ml/min; Est GFR (African American) 39.9; Est GFR (Non-African American) 34.4; Potassium 3.4 mmol/L (3.5-5.1)
[2020-05-17 07:41] LABS: Mean Platelet Volume 10.1 fL (7.4-10.4); Platelet Count 92 K/uL (130-400)
[2020-05-17 07:42] LABS: Basophils # (auto) 0.02 K/uL (0-0.2); Basophils % (auto) 0.4 %; Eosinophils # (auto) 0.16 K/uL (0-0.5); Eosinophils % (auto) 2.9 %; Immature Granulocytes # (auto) 0.01 K/uL (0.00-0.02); Immature Granulocytes % (auto) 0.2 %; Lymphocytes # (auto) 1.18 K/uL (1.2-3.4); Lymphocytes % (auto) 21.2 %; Monocytes % (auto) 16.2 %; Neutrophils % (auto) 59.1 %; Platelet Estimate Decreased (Normal); Toxic Vacuolation 1+
[2020-05-17] MEDS: PANTOprazole 40 MG TAB PO SCH (08:36)
[2020-05-17] MEDS: LACTULOSE SYRUP 30 GM/45 ML UDP PO SCH ×2 (08:36→20:52)
[2020-05-17] MEDS: ALBUMIN 25% 12.5 GM/50 ML VIAL IV SCH ×2 (08:49→10:28)
[2020-05-17] MEDS ORDERED: cefTRIAXone SODIUM 2,000 MG in DEXTROSE 5% 50 ML IV SCH (09:00)
--- NOTE | 2020-05-17 09:34 | Communication Note ---
Date of Service: May 17, 2020 Pt not in room during assessment. Chart reviewed. Cirrhosis, admitted w/ mental status changes. Started on Lactulose w/ report of improvement. Would continue Lactulose titrated to BM 2-3 times daily Start Xifaxan 550 BID Follow Paracentesis Send fluid for cell count, culture, protein and albumin Albumin replacement 25G 25% before and after if large volume fluid removed Drug/alcohol cessation Less than 2G tylenol No NSAIDs Thank you for allowing us to participate in the care of this patient. Please call with any acute changes, questions or concerns. Please see addendum below with additional recommendation from my supervising physician. The patient was not available during time of rounds. It appears that her encephalopathy improved with use of lactulose. Would recommend that the patient be transitioned to rifaximin 550 twice daily and undergo paracentesis as previously scheduled. Patient will continue to follow with her outpatient RENNY smith as previously scheduled. Please call with any questions or concerns
--- NOTE | 2020-05-17 09:49 | Electrocardiogram Report ---
Test Reason : Blood Pressure : / mmHG Vent. Rate : 076 BPM Atrial Rate : 076 BPM P-R Int : 176 ms QRS Dur : 082 ms QT Int : 400 ms P-R-T Axes : 063 038 068 degrees QTc Int : 450 ms Normal sinus rhythm Low voltage QRS Nonspecific T wave abnormality Abnormal ECG When compared with ECG of 16-MAY-2020 07:18, No significant change Confirmed by Leandro Sanabria ([id number]) on 05/17/2020 9:49:43 AM Referred By: REFERRED SELF Confirmed By:Leandro Sanabria
--- NOTE | 2020-05-17 11:03 | Nephrology Progress Note ---
Date of Service May 17, 2020 Assessment & Plan (1) Acute renal failure: Patient with acute kidney injury likely prerenal azotemia in setting of diuretics and poor p.o. intake. Patient had altered mental status and was not eating or drinking; improving now. There is also component of renal venous congestion in setting of intra-abdominal hypertension. Urinalysis was bland. Creatinine was 2.1 but improving to 1.5 after albumin infusions. outpt baselien in recent months 1.6-1.8; K on lower side today -Continue holding Lasix and Aldactone -Therapeutic paracentesis for today -Daily BMP -Albumin infusions as needed if creatinine is worsening again -will give po K 20 mEq daily for now, first dose today for hypokalemia Would not resume OP diuretics until hospital discharge Pt follows in CKD clinic and has 05/21/[address] Ziggy Hunt which she should keep. (2) Ascites of liver: Patient with decompensated liver disease. She has massive ascites. She will need therapeutic paracentesis today. Hold diuretics. She will need to r esume diuretics on discharge (3) Hepatic encephalopathy: Mental status is improving with lactulose Admission and Anticipated Discharge Date Admission Date: May 15, 2020 Subjective NPO waiting on paracetnesis; mild dyspnea; no n/v Review of Systems Review of Systems: All systems reviewed & are unremarkable except as noted in Subjective Physical Exam Constitutional: well developed and + cachectic lying flat on RA Eyes: EOM intact bilaterally ENMT: Ears: no external ear abnormality Nose: no external nose abnormality Mouth: + dry oral mucous membranes Neck: no nuchal rigidity Respiratory: normal respiratory effort Auscultation: + diminished lung gerard nds (mayra BL bases) and + crackles (L base) Cardiovascular: Rate/Rhythm: regular rate and regular rhythm Extremities: no edema Gastrointestinal (Abdomen): Inspection/Auscultation: + abdomen distended and normal bowel sounds Percussion/Palpation: abdomen soft and + ascites; abdomen nontender Musculoskeletal: Extremities: strength 5/5 throughout Skin: no rashes, warm and dry + jaundice Neurologic: vaughn, fluent speech, no tremor Psychiatric: A+Ox3, euthymic affect Genitourinary: gan w/ ample urine Results & Data ([facility]) Vital Signs (Past 12 Hours) Vital Signs Temp Pulse Pulse Resp BP BP Pulse Ox 05/17/20 10:10 36.7 C 75 16 126/65 93 05/17/20 09:39 36.6 C 76 18 122/68 93 05/17/20 09:35 36.6 C 74 18 124/69 94 05/17/20 07:20 36.6 C 74 18 119/67 94 05/17/20 07:00 73 05/17/20 03:07 37 C 77 18 138/79 94 Laboratory Results 05/17/20 06:50 05/17/20 06:50 (1) Acute renal failure Acute renal failure type: unspecified Qualified Code(s): N17.9 - Acute kidney failure, unspecified
--- NOTE | 2020-05-17 14:16 | Ultrasound Report ---
ULTRASOUND GUIDED DIAGNOSTIC AND THERAPEUTIC PARACENTESIS CLINICAL HISTORY: Ascites. COMPARISON STUDY: Abdominal ultrasound May 15, 2020. PROCEDURE: The risks, benefits, and alternatives to the procedure were discussed with the patient inc luding the risk of bleeding, infection and injury to adjacent structures. The patient agreed to the procedure and informed written consent was obtained. Following real-time ultrasound localization, the skin of the left lower quadrant was prepped and draped. Following local anesthesia with Xylocaine, t he sheath paracentesis needle was inserted and approximately 4 liters of straw-colored fluid was shahla jacques by vacuum suction. The patient tolerated the procedure well and no immediate complications were evident. IMPRESSION: Ultrasound-guided paracentesis with removal of 4 liters of ascites. 1 L of ascites was s ent to the laboratory for analysis as ordered. ACT 112: Negative or not required by law. Electronically signed by: Aaron Ramos M.D. 05/17/2020 2:15 PM
[2020-05-17] MEDS: POTASSIUM CHLORIDE CRTAB 20 MEQ TABCR PO SCH (14:18)
[2020-05-17 14:56] LABS: Albumin Peritoneal Fluid 0.7 g/dl; Glucose Peritoneal Fluid 102 mg/dl
[2020-05-17 15:10] LABS: LDH Peritoneal Fluid 53 U/L; Total Protein Peritoneal Fluid 1.5 g/dl
[2020-05-17 16:12] LABS: Appearance Peritoneal Fluid CLEAR; Basophils, Fluid 0 %; Color Peritoneal Fluid YELLOW; Eosinophils, Fluid 0 %; Lymphocytes, Fluid 32 %; Mono,Macrophage,Mesothelial 42 %; Neutrophils, Fluid 26 %; RBC Peritoneal Fluid (A) < 3000 /uL; WBC Peritoneal Fluid (A) 226 /ul (0-300)
--- NOTE | 2020-05-17 21:31 | Communication Note ---
Date of Service: May 17, 2020 pt had paracentesis earlier today with removal of approx 4 L ascitic fluid pt reports improvement of abdominal pain /discomfort after paracentesis ascitic fluid wbc > 200 suggestive of SBP appreciate input from GI pt will be started on Rifaximin hepatic encephalopathy : cont Lactulose Acute renal failure : cr improved after IV Albumin infusion appreciate in put from Nephrology -cont to hold Lasix and Aldactone during inpatient stay follow BMP Full code possible dc in next 1-2 days if clinically stable
[2020-05-17] MEDS: rifAXIMin 550 MG TABLET PO SCH (22:22)
[2020-05-18 07:44] LABS: BUN Creatinine Ratio 20.5 (10-20); Calcium 8.4 mg/dl (8.5-10.1); Est GFR (African American) 45.3; Est GFR (Non-African American) 39.1; Potassium 3.5 mmol/L (3.5-5.1)
[2020-05-18] MEDS: PANTOprazole 40 MG TAB PO SCH (09:38)
[2020-05-18] MEDS: LACTULOSE SYRUP 30 GM/45 ML UDP PO SCH ×2 (09:38→20:12)
[2020-05-18] MEDS: rifAXIMin 550 MG TABLET PO SCH ×2 (09:38→20:12)
--- NOTE | 2020-05-18 10:22 | Communication Note ---
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 encephalopathy has resolved, mental status improved to baseline appreciate input from GI - Pt will be started on PO Rifaximin PO Lactulose to titrate 2-3 soft bowel movements a day avoid ETOH , limit Tylenol intake < 2 gm a day routine follow up with GI at [facility] Jessie Vela MD
--- NOTE | 2020-05-18 10:30 | Nephrology Progress Note ---
Date of Service May 18, 2020 Assessment & Plan (1) Acute renal failure: Patient with acute kidney injury likely prerenal azotemia in setting of diuretics and poor p.o. intake. Patient had altered mental status and was not eating or drinking; improving now. There is also component of renal venous congestion in setting of intra-abdominal hypertension. Urinalysis was bland. Creatinine was 2.1 but improving to 1.4 after albumin infusions and about 4L paracentesis on 05/17. outpt baselien in recent months 1.6-1.8; K on lower side today -Continue holding Lasix and Aldactone -Daily BMP -will give po K 20 mEq daily for now, first dose today for hypokalemia -did d/w Dr Vela to remove gan BACK TO BASELIne; will sign off DISCHARGE RECOMMENDATIONS -Pt follows in CKD clinic and has 05/21/[address] Ziggy Hunt which she should keep. -Resume prior to admission OP diuretics at hospital d/c -continue current K dose at d/c (2) Ascites of liver: Patient with decompensated liver disease. paracentesis dependent (3) Hepatic encephalopathy: Mental status improved with lactulose Admission and Anticipated Discharge Date Admission Date: May 15, 2020 Subjective seen on rounds at about 1130; had 4L paracentesis yesterday, well tolerated but stiil more fluid she notes. feels improved. no n/v, breathing better, energy a bit better Review of Systems Review of Systems: All systems reviewed & are unremarkable except as noted in Subjective Physical Exam Constitutional: well developed and + cachectic; no acute distress Eyes: EOM intact bilaterally ENMT: Ears: no external ear abnormality Nose: no external nose abnormality Mouth: + dry oral mucous membranes Neck: no nuchal rigidity Respiratory: normal respiratory effort Auscultation: + diminished lung sounds and + crackles (bibasilar) Cardiovascular: Rate/Rhythm: regular rate and regular rhythm Extremities: no edema Gastrointestinal (Abdomen): Inspection/Auscultation: + abdomen distended and normal bowel sounds Percussion/Palpation: abdomen soft and + ascites; abdomen nontender Musculoskeletal: Extremities: strength 5/5 throughout Skin: no rashes, warm and dry + jaundice Neurologic: vaughn, fluent speech, no tremor Psychiatric: A+Ox3, euthymic affect Results & Data ([facility]) Vital Signs (Past 12 Hours) Vital Signs Temp Pulse Pulse Resp BP BP Pulse Ox 05/18/20 07:23 36.9 C 75 16 113/70 93 05/18/20 07:00 77 05/18/20 03:26 36.8 C 79 22 125/65 93 05/17/20 23:30 37.2 C 84 20 115/66 93 Laboratory Results 05/17/20 06:50 05/18/20 06:48 (1) Acute renal failure Acute renal failure type: unspecified Qualified Code(s): N17.9 - Acute kidney failure, unspecified
[2020-05-18] MEDS: POTASSIUM CHLORIDE CRTAB 20 MEQ TABCR PO SCH (11:43)
--- NOTE | 2020-05-18 17:59 | Hospitalist Progress Note ---
Date of Service May 18, 2020 Assessment & Plan (1) Hepatic encephalopathy: Acute hepatic encephalopathy admitted with confusion , obtundation History of chronic liver disease, admitted with elevated ammonia level, Acute hemiparetic encephalopathy positive secondary to acute renal failure dehydration/large ascites possible SBP She was treated with lactulose, status post paracentesis with large amount of acetic fluid/4 L drained Was treated empirically with IV Rocephin for SBP no evidence of GI bleed , H&H stable GI consult appreciated, patient will be discharged with p.o. rifaximin, p.o. lactulose dose to be titrated for 23 small soft bowel movement a day Strict abstinence alcohol, do not take Tylenol more than 2 g a day. GI follow-up as routine visit Cirrhosis of liver : hx of primary biliary cirrhosis dx approx 6yrs back hx of Hepatic vain and IVC thrombosis -not a candidate for anticoagulation per recent hematology oncology visit pt has been requiring frequent paracentesis MRI Of abdomen 12/19/19 : no suspicious liver lesion ,stable mild intrahepatic duct dilatation , Cirrhotic liver with evidence of portal hypertension , IVC thrombus ,no change in thrombus size in last 1 yr follows with [facility] Is post paracentesis with 4 L of fluid drained during this hospital stay Chronic thrombocytopenia /IVC filter thrombus : due to above , recently seen by Hematology /oncology for evaluation of anticoagulation 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 with progressive decrease in platelet count risk of bleeding is high with anticoagulation , recommendation was to monitor for any worsening of clinical symptoms (2) Elevated lactic acid level: Resolved, normal take acid level possible due to acute renal failure , dehydration mild elevation of procalcitonin no overt s/s of sepsis (3) Acute renal failure: due to dehydration , other possible cause : large abdominal ascites , causing 3rd spacing and intravascular vol depletion Remain diuretics kept on hold creatinine improved to approximate baseline nephrology consulted appreciate input Nephrology recommendation: -Pt follows in CKD clinic and has 05/21/[address] Ziggy Hutn which she should keep. -Resume prior to admission OP diuretics at hospital d/c -continue current K supplement dose at d/c (4) Ascites of liver: recent paracentesis on 05/03/20 -peritoneal fluid gram stain -negative for organism , culture no growth CT abdomen /pelvis as above Status post diagnosis /therapeutic paracentesis by radiology on Sunday05/17/20 Patient will be discharged with p.o. rifaximin (5) Hypotension: BP improved to baseline due to chronic liver disease , dehydration doubt due to sepsis /diuretics kept on hold (6) Hyponatremia: due to chronic liver disease monitor labs FULL CODE DVT Prophylaxis: scd and teds given advanced liver disease high risk for bleeding /anticoagulation avoided Disposition : Plan to discharge home with home health home PT tomorrow morning Referral made for [facility] Plan of care discussed with patient's over phone, all questions answered Admission and Anticipated Discharge Date Admission Date: May 15, 2020 Subjective Follow-up visit for acute hepatic encephalopathy/acute renal failure: Resolved Patient is awake and alert today, feels much better after paracentesis, Improvement of shortness of breath, no orthopnea, no fever chills No cough or shortness of breath Review of Systems Review of Systems: All systems reviewed & are unremarkable except as noted in HPI & below Physical Exam Constitutional: WD/WN, vitals as above + ill appearing Neck: trachea midline, no thyromegaly Respiratory: normal respiratory effort; no cough Auscultation: + diminished lung sounds Gastrointestinal (Abdomen): Percussion/Palpation: abdomen soft; abdomen nontender Musculoskeletal: no cyanosis or clubbing, extremities motor strength 5/5 Skin: no rashes, warm and dry Neurologic: PERRL, EOMI, accommodation nl, no face palsy, no dysarthria Psychiatric: A+Ox3, euthymic affect Results & Data Results & Data ([facility]) Vital Signs (Past 12 Hours) Vital Signs Temp Pulse Pulse Resp BP BP Pulse Ox 05/18/20 15:17 36.6 C 72 17 131/78 05/18/20 11:29 36.8 C 76 16 127/76 94 05/18/20 07:23 36.9 C 75 16 113/70 93 05/18/20 07:00 77 (1) Acute renal failure Acute renal failure type: unspecified Qualified Code(s): N17.9 - Acute kidney failure, unspecified
[2020-05-19 06:35] LABS: BUN Creatinine Ratio 20.4 (10-20); Calcium 7.9 mg/dl (8.5-10.1); Est GFR (African American) 43.7; Est GFR (Non-African American) 37.7; Potassium 3.8 mmol/L (3.5-5.1)
[2020-05-19] MEDS: rifAXIMin 550 MG TABLET PO SCH (08:52)
[2020-05-19] MEDS: LACTULOSE SYRUP 30 GM/45 ML UDP PO SCH (08:53)
[2020-05-19] MEDS: PANTOprazole 40 MG TAB PO SCH (08:53)
[2020-05-19] MEDS: POTASSIUM CHLORIDE CRTAB 20 MEQ TABCR PO SCH (08:53)
[2020-05-19 11:07] LABS: MDA negative; MDEA negative; MDMA (Ecstasy) Urine, Confirm negative
--- NOTE | 2020-05-19 12:47 | Hospitalist Progress Note ---
Date of Service May 19, 2020 Assessment & Plan (1) Hepatic encephalopathy: Acute hepatic encephalopathy H/O primary biliary cirrhosis Elevated ammonia levels Possible SBP CLAUDIA could have contributed as well S/P abdominal paracentesis--4 L of fluid drained CT ABD:No bowel obstruction or bowel wall thickening. Cirrhotic liver disease with abdominal pelvic ascites. Distended gallbladder without cholelithiasis identified. Appreciate GI input Continue lactulose, rifaximin Resume home diuretics Needs follow-up with GI upon discharge Blood cultures: Negative to date Peritoneal fluid culture negative to date Monitor volume status Avoid hepatotoxic meds as able Titrate lactulose to have 2-3 good bowel movements per day Cirrhosis of liver : H/O Primary biliary cirrhosis dx approx 6yrs back H/O Hepatic vain and IVC thrombosis -not a candidate for anticoagulation per recent hematology oncology visit Requires frequent paracentesis MRI Of abdomen 12/19/19 : no suspicious liver lesion ,stable mild intrahepatic duct dilatation , Cirrhotic liver with evidence of portal hypertension , IVC thrombus ,no change in thrombus size in last 1 yr [facility] Chronic thrombocytopenia /IVC filter thrombus : Secondary to above Recently seen by Hematology /oncology for evaluation of anticoagulation Has 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 High risk for bleeding with any anticoagulation given thrombocytopenia (2) Elevated lactic acid level: Resolved Hepatic failure, CLAUDIA likely contributed Mild elevation of procalcitonin No obvious source of infection (3) Acute renal failure: Likely due to intravascularly depleted Initially diuretics held Appreciate Nephrology consulted appreciate input Needs follow-up with nephrology upon discharge (4) Ascites of liver: management as above (5) Hypotension: Due to chronic liver disease , dehydration BP improved (6) Hyponatremia: Due to chronic liver disease monitor labs Code Status FULL CODE DVT Px: SCDs: Disposition : Home with home health Admission and Anticipated Discharge Date Admission Date: May 15, 2020 Subjective Patient is seen and examined at bedside Continues to have abdominal distention No new complaints Denies abdominal pain, nausea, vomiting, chest pain, dizziness, dyspnea Had 2 large bowel movements this morning No confusion Review of Systems Review of Systems: All systems reviewed & are unremarkable except as noted in HPI & below Physical Exam Physical Exam: Physical Exam: Vitals signs as noted above General Appearance:Moderately built and nourished, no apparent distress, chronically appearing Head: normocephalic, Atraumatic Eyes: normal inspection, EOMI, +Icteric Neck: supple, Trachea midline Respiratory/Chest: Normal breath sounds, CTA, No accessory muscle use Cardiovascular: S1, S2, No murmur Abdomen/GI:Soft, distended, Non tender, Bowel sounds present Extremities/Musculoskelatal:normal inspection, 1+ B/L E edema Neurologic/Psych:AAOX3, grossly no focal neurological deficits Skin: normal color, warm, + jaundiced Results & Data Results & Data ([facility]) Vital Signs (Past 12 Hours) Vital Signs Temp Pulse Resp BP Pulse Ox 05/19/20 07:03 36.5 C 72 18 127/78 96 Laboratory Results [facility] 05/19/20 05:33 Sodium 135 L Potassium 3.8 Chloride 102 Carbon Dioxide 27 BUN 29 H Creatinine 1.40 H Glucose 98 Calcium 7.9 L (1) Acute renal failure Acute renal failure type: unspecified Qualified Code(s): N17.9 - Acute kidney failure, unspecified
--- NOTE | 2020-05-19 18:36 | Discharge Summary ---
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 Patient remains encephalopathic Unable to obtain any information from the patient /no family members present at bedside, called patient's , no one picked up the phone, No option to leave a message. Information obtained mostly from your doctors sign out, note and documentation. Patient had paracentesis done at [facility] on May 03, 2020, Resents with worsening of abdominal distention, confusion lethargy afebrile in the ER, no hypoxia COVID-[address] abdomen pelvis shows large abdominal ascites Admission Exam Per Admitting Provider Physical Exam Constitutional: WD/WN, vitals as above + ill appearing Eyes: + scleral abnormality (Mildly icteric sclera) ENMT: Dry oral mucosa Neck: trachea midline, no thyromegaly Respiratory: normal respiratory effort and + respiratory distress; no cough Auscultation: + diminished lung sounds and + wheezes Gastrointestinal (Abdomen): Inspection/Auscultation: + abdomen distended (Ascites) Percussion/Palpation: + ascites (Large ascites) and + abdomen firm Neurologic: moves all extremities and + confused (Encephalopathic); no focal motor deficits Principal Diagnosis Acute hepatic encephalopathy-resolved Large ascites Possible SBP 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 Acute renal failure with CKD stage III, renal function improved to baseline Discharge Data Allergies Allergy/AdvReac Type Severity Reaction Status Date / Time Penicillins Allergy Rash Verified 05/03/20 08:49 adhesive AdvReac Redness of Verified 05/03/20 08:49 Skin Consultations 05/15/20 10:35 ED Decision to Admit Stat 05/15/20 11:11 Consult Gastroenterology Routine 05/15/20 11:14 Consult Case Management - Discharge Planning Routine 05/15/20 14:59 Consult Nephrology Routine Procedures Performed CT ABD:No bowel obstruction or bowel wall thickening. Cirrhotic liver disease with abdominal pelvic ascites. Distended gallbladder without cholelithiasis identified. Ordered Studies 05/15/20 10:35 CT abd pelvis wo con Stat 05/15/20 16:55 US abdomen limited Stat 05/17/20 13:00 US paracentesis abd w/image Routine Hospital Course (1) Hepatic encephalopathy: Acute hepatic encephalopathy H/O primary biliary cirrhosis Elevated ammonia levels Possible SBP CLAUDIA could have contributed as well S/P abdominal paracentesis--4 L of fluid drained CT ABD:No bowel obstruction or bowel wall thickening. Cirrhotic liver disease with abdominal pelvic ascites. Distended gallbladder without cholelithiasis identified. Appreciate GI input Continue lactulose, rifaximin Resume home diuretics Needs follow-up with GI upon discharge Blood cultures: Negative to date Peritoneal fluid culture negative to date Monitor volume status Avoid hepatotoxic meds as able Titrate lactulose to have 2-3 good bowel movements per day Cirrhosis of liver : H/O Primary biliary cirrhosis dx approx 6yrs back H/O Hepatic vain and IVC thrombosis -not a candidate for anticoagulation per recent hematology oncology visit Requires frequent paracentesis MRI Of abdomen 12/19/19 : no suspicious liver lesion ,stable mild intrahepatic duct dilatation , Cirrhotic liver with evidence of portal hypertension , IVC thrombus ,no change in thrombus size in last 1 yr Follows with [facility] GI Chronic thrombocytopenia /IVC filter thrombus : Secondary to above Recently seen by Hematology /oncology for evaluation of anticoagulation Has 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 High risk for bleeding with any anticoagulation given thrombocytopenia (2) Elevated lactic acid level: Resolved Hepatic failure, CLAUDIA likely contributed Mild elevation of procalcitonin No obvious source of infection (3) Acute renal failure: Likely due to intravascularly depleted Initially diuretics held Appreciate Nephrology consulted appreciate input Needs follow-up with nephrology upon discharge (4) Ascites of liver: management as above (5) Hypotension: Due to chronic liver disease , dehydration BP improved (6) Hyponatremia: Due to chronic liver disease monitor labs Code Status FULL CODE DVT Px: SCDs: Disposition : Home with home health Total Time Total Time Spent Total Time Spent (In Minutes): 43 minutes Total Time Includes: Examination of the Patient, Discharge Planning, Medication Reconciliation, Communication With Other Providers and Other Discharge Plan Discharge Items Patient Disposition: Home - Home Health Services Reason For Visit: HEPATIC ENCEPHALOPATHY Discharge Diagnosis: Acute hepatic encephalopathy-resolved Large ascites Possible SBP 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 Acute renal failure with CKD stage III, renal function improved to baseline Activity: As commented below Activity Comment: As tolerated Exercise/Sports: Gradually increase as tolerated Non-emergency contact: Primary Care Provider and Conference Concierge Call non-emergency contact if: you have any medication questions Follow-up/Referrals: Ziggy Hunt MD [Surgeon] - 05/21/20 2:20 pm Laura Dale PA-C [Primary Care Provider] - 05/24/20 9:20 am (Date & Time 05/24/2020 9:20 AM Provider Laura Dale PA-C Department [facility] [place] appointments: Date & Time 05/20/2020 3:00 PM Provider Katya Ramsey RN Department [facility] Date & Time 05/24/2020 2:30 PM Provider Krissy Del Rio PA-C Department [facility] [place] ) Diet: Low Sodium (2gm) Addtl Attending Provider Instructions: Medicine follow up with Laura Dale PA-C on 05/24/2020 9:20 AM as scheduled Nephrology follow-up as scheduled with Dr. Hunt on May 21, 2020 Gastroenterology follow up with /Rain Thomas PA-C in 1 week. Please call for appointment Lab: Basic metabolic panel with nephrology visit. Continue Lactulose 30 g PO BID titrate to have at least 3 bowel movements per day Seek immediate medical attention if your symptoms reoccur or worsen Pending Studies at Discharge: No Stand-Alone Forms: [facility] [place], Smoking Cessation Medications and DC Order Prescriptions: New Xifaxan 550 mg Tablet 550 mg PO BID 30 Days Qty: 60 RF: 3 lactulose 20 gram/30 mL Solution 30 ml PO BID 30 Days Qty: 1200 RF: 0 potassium chloride [Klor-Con M20] 20 mEq Tablet,Er Particles/Crystals 20 meq PO QAM Qty: 10 RF: 0 Continued torsemide 20 mg Tablet 40 mg PO DAILY RF: 0 spironolactone 50 mg Tablet 50 mg PO DAILY RF: 0 nifedipine tablet 30 mg PO DAILY RF: 0 bupropion HCl tablet 300 mg PO DAILY RF: 0 omeprazole tablet 20 mg PO DAILY RF: 0 Discharge Orders: Discharge Order (Routine); Ordered 05/19/20 Ordered By: Abimael Cohen Admission Data Admit Date/Time: 05/15/20 11:11 Attending Provider: Abimael Cohen Admit Provider: Jessie Vela Primary Care Provider: Laura Dale Other Providers: Jessie Vela ; Dary Welsh ; Noemy Yanes ; Es Barragan ; Christina Shirley ; Greg Junior ; Fifi Mathew ; Magnus Pérez ; Ke Morris ; Jose Guadalupe Estrada ; Rain Thomas ; Antoinette Sharif ; Amber Jauregui ; Barbara Nava ; Randy Tabares ; Marie Rios ; Ziggy Hunt ; Jayne Resendez ; Yaneth Gandara ; Gricelda Romero ; Kendra Moreira Other Interventions: Discharge Summary Assessment (RN) Last Done: 05/19/20 13:16
== END 2020-05-19 14:18 | disposition home health service (06) | DRG 432 ==
LOC: ED 08:18 → SUATTDRO 11:11 → 2W 11:11

== ENCOUNTER 2020-05-21 20:27 | Inpatient (IN) ==
[2020-05-21] MEDS ORDERED: LIDOCAINE/EPINEPHRINE 1% 20 ML VIAL INFIL ONE (20:52)
--- NOTE | 2020-05-21 21:06 | Emergency Department Note ---
History of Present Illness General Chief complaint: Abdominal Pain Stated complaint: SOB Time Seen by Provider: 05/21/20 20:38 Source: patient, RN notes reviewed and old records reviewed Mode of arrival: ambulatory Limitations: no limitations History of Present Illness Provider complaint: Swollen abdomen Onset (ago): day(s) 5 Location: abdomen Radiation: non-radiation Severity: mild Pain Consistency: + intermittent Maximum Pain Intensity: 6 Current Pain Intensity: 6 Quality: + aching Relieved By: + immobilization Exacerbated By: + movement Associated symptoms: no confusion, no chest pain, no diaphoresis, no fever/chills, no headaches, no nausea/vomiting and no shortness of breath Treatments prior to arrival: none This is a 69-year-old female who presents emergency department complaining of ascites in her abdomen causing her to be short of breath. The patient notes that she just had ascites removed on Sunday and it is since reaccumulated. She is requesting that more be drained off. She has a follow-up already scheduled gastroenterology on Sunday. She denies any other issues including abdominal pain fever chills. Home Medications Medication Instructions Recorded Confirmed Type bupropion HCl 300 mg PO DAILY 05/21/20 05/21/20 History cholecalciferol (vitamin D3) 0 mcg PO DAILY 05/21/20 05/21/20 History [Vitamin D3] lactulose 30 ml PO BID 05/21/20 05/21/20 History nifedipine 30 mg PO DAILY 05/21/20 05/21/20 History omeprazole 20 mg PO DAILY 05/21/20 05/21/20 History potassium chloride 20 meq PO QAM 05/21/20 05/21/20 History rifaximin [Xifaxan] 550 mg PO BID 05/21/20 05/21/20 History spironolactone 50 mg PO DAILY 05/21/20 05/21/20 History torsemide 40 mg PO DAILY 05/21/20 05/21/20 History vit C,Z-Ow-hhxcx-lutein-zeaxan 1 tab PO QAM 05/21/20 05/21/20 History [PreserVision AREDS-2] warfarin 5 mg PO DAILY 05/21/20 05/21/20 History Allergies Allergy/AdvReac Type Severity Reaction Status Date / Time Penicillins Allergy Rash Verified 05/21/20 22:27 adhesive AdvReac Redness of Verified 05/21/20 22:27 Skin Past Med/Surg History Medical History Abnormal liver function Acid reflux Ascites Hypertension Surgical History Hx of appendectomy Social History Smoking Status: Unknown if ever smoked Second Hand Exposure: Yes (son smokes outside); Do You Dip or Chew Tobacco: No; Hx Alcohol Use: No Hx Substance Use: No Preferred Language: Spanish Communication Ability: Effective Beliefs That Will Affect Care: None Current Living Situation: Family Other Information That Helps Us Care for You: No Feels Safe at Home: Yes Safety Concerns: Feels Safe At This Time Assistive Devices: Glasses, Hearing Aid - Bilateral and Walker Review of Systems A total of 10 systems reviewed and were otherwise negative Physical Exam Vital Signs Vital Signs - 24 hr 05/21/20 20:29 05/21/20 21:00 05/21/20 21:15 Temperature 36.5 C Temperature Source Temporal Artery Scan Pulse Rate 69 75 74 Pulse Rate from SpO2 Sensor 74 Pulse Rhythm Regular Regular Pulse Strength Normal Respiratory Rate 20 20 24 Respiratory Effort / Characteristics Non-Labored Spontaneous Respiratory Depth Normal Respiratory Pattern Regular Blood Pressure 101/58 L Blood Pressure Mean 69 Blood Pressure Position Sitting Pulse Oximetry 92 94 93 Oxygen Delivery Method Room Air Room Air Room Air Sepsis Recent Fever Within 48 Hours No Sepsis New/Unexplained Change in Mental Status N/A Sepsis Action Taken by Nursing No Action Required 05/21/20 21:20 05/21/20 21:25 05/21/20 21:30 Temperature Temperature Source Pulse Rate 76 73 74 Pulse Rate from SpO2 Sensor 76 73 74 Pulse Rhythm Pulse Strength Respiratory Rate 24 22 19 Respiratory Effort / Characteristics Respiratory Depth Respiratory Pattern Blood Pressure 98/59 L 103/56 L 102/58 L Blood Pressure Mean 69 67 70 Blood Pressure Position Pulse Oximetry 93 93 93 Oxygen Delivery Method Room Air Room Air Room Air Sepsis Recent Fever Within 48 Hours Sepsis New/Unexplained Change in Mental Status Sepsis Action Taken by Nursing 05/21/20 21:35 05/21/20 21:40 05/21/20 21:45 Temperature Temperature Source Pulse Rate 74 74 74 Pulse Rate from SpO2 Sensor 74 74 74 Pulse Rhythm Pulse Strength Respiratory Rate 19 21 20 Respiratory Effort / Characteristics Respiratory Depth Respiratory Pattern Blood Pressure 104/56 L 110/53 L 107/54 L Blood Pressure Mean 69 71 67 Blood Pressure Position Pulse Oximetry 94 94 94 Oxygen Delivery Method Room Air Room Air Sepsis Recent Fever Within 48 Hours Sepsis New/Unexplained Change in Mental Status Sepsis Action Taken by Nursing 05/21/20 21:50 05/21/20 21:55 05/21/20 22:00 Temperature Temperature Source Pulse Rate 77 77 84 Pulse Rate from SpO2 Sensor 77 77 84 Pulse Rhythm Pulse Strength Respiratory Rate 23 20 23 Respiratory Effort / Characteristics Respiratory Depth Respiratory Pattern Blood Pressure 103/53 L 110/57 L 95/62 L Blood Pressure Mean 75 82 63 Blood Pressure Position Pulse Oximetry 93 94 92 Oxygen Delivery Method Sepsis Recent Fever Within 48 Hours Sepsis New/Unexplained Change in Mental Status Sepsis Action Taken by Nursing 05/21/20 22:05 05/21/20 22:10 05/21/20 22:15 Temperature Temperature Source Pulse Rate 78 80 77 Pulse Rate from SpO2 Sensor 78 80 77 Pulse Rhythm Pulse Strength Respiratory Rate 22 26 H 20 Respiratory Effort / Characteristics Respiratory Depth Respiratory Pattern Blood Pressure 110/55 L 107/55 L 111/55 L Blood Pressure Mean 72 66 66 Blood Pressure Position Pulse Oximetry 94 93 95 Oxygen Delivery Method Sepsis Recent Fever Within 48 Hours Sepsis New/Unexplained Change in Mental Status Sepsis Action Taken by Nursing 05/21/20 22:20 05/21/20 22:25 05/21/20 22:30 Temperature Temperature Source Pulse Rate 77 77 77 Pulse Rate from SpO2 Sensor 77 77 76 Pulse Rhythm Pulse Strength Respiratory Rate 19 16 17 Respiratory Effort / Characteristics Respiratory Depth Respiratory Pattern Blood Pressure 102/58 L 103/52 L 104/53 L Blood Pressure Mean 66 69 70 Blood Pressure Position Pulse Oximetry 95 95 96 Oxygen Delivery Method Sepsis Recent Fever Within 48 Hours Sepsis New/Unexplained Change in Mental Status Sepsis Action Taken by Nursing 05/21/20 22:35 05/21/20 22:40 05/21/20 22:45 Temperature Temperature Source Pulse Rate 81 78 79 Pulse Rate from SpO2 Sensor 81 78 79 Pulse Rhythm Pulse Strength Respiratory Rate 17 17 21 Respiratory Effort / Characteristics Respiratory Depth Respiratory Pattern Blood Pressure 109/55 L 107/53 L 106/57 L Blood Pressure Mean 72 68 73 Blood Pressure Position Pulse Oximetry 96 96 96 Oxygen Delivery Method Sepsis Recent Fever Within 48 Hours Sepsis New/Unexplained Change in Mental Status Sepsis Action Taken by Nursing 05/21/20 22:50 05/21/20 23:00 05/21/20 23:30 Temperature Temperature Source Pulse Rate 79 79 83 Pulse Rate from SpO2 Sensor 78 79 82 Pulse Rhythm Pulse Strength Respiratory Rate 23 18 18 Respiratory Effort / Characteristics Respiratory Depth Respiratory Pattern Blood Pressure 108/53 L 102/51 L 99/55 L Blood Pressure Mean 68 67 66 Blood Pressure Position Pulse Oximetry 95 95 96 Oxygen Delivery Method Sepsis Recent Fever Within 48 Hours Sepsis New/Unexplained Change in Mental Status Sepsis Action Taken by Nursing VITAL SIGNS - Vital signs and nursing notes were reviewed. GENERAL - 69-year-old female appearing stated age who is in no acute distress. Communicates well with provider and answers questions appropriately. SKIN - Without rashes. HEAD - NC/AT. EYES - PERRL with EOMI bilaterally. Sclera anicteric. Palpebral conjunctiva pink and moist with no injection noted. EARS - No deformities of external structures noted on gross examination bilaterally. No pain elicited with palpation of the tragus bilaterally. External auditory canals without discharge or otorrhea. Tympanic membranes pearly quinn without retraction or bulging. No fluid or purulent material visualized behind the TM. Handle of malleus, umbo, cone of light, pars tensa/flaccid all easily visualized. NOSE - Midline and without cyanosis. No epistaxis or purulent drainage noted. Septum midline without deviation or septal hematoma noted. MOUTH/OROPHARYNX - Without perioral cyanosis. Buccal mucosa pink and moist and without leukoplakia. Tongue midline with equal elevation of palate bilaterally. No tonsillar hypertrophy, erythema, or exudates noted. dentition noted. NECK - Neck with FROM. Supple to palpation. lymphadenopathy noted. No nuchal rigidity. LUNGS - Chest wall symmetric without accessory muscle use, intercostals retractions, or central cyanosis. Normal vesicular breath sounds CTA B/L. No wheezes, rales, or rhonchi appreciated. CARDIAC - RRR with S1/S2. No murmur, rubs, or gallops appreciated. ABDOMEN - Distended with fluid wave present EXTREMITIES - No clubbing or peripheral cyanosis. No pretibial edema present. +3/5 radial, posterior tibial, and dorsalis pedis pulses palpated throughout. +5/5 strength noted in UE/LE bilaterally. NEUROLOGIC - Cranial nerves II through XII grossly intact. Sensory intact to light touch throughout. Patellar reflexes +2/4. PSYCH - A&Ox3 and cooperates fully with examiner. Pt is very pleasant and inte racts well with examiner. Procedures Paracentesis Time Out Performed: Yes (I performed the procedure, approx 9 L of ascites removed) Local Anesthetic: lidocaine 1% and with epi Amount of anesthesia used (mL): 4 Fluid: bloody and sent to lab for analysis Post Procedure Exam: awake, alert, normal BP, normal HR and normal SpO2 Patient Tolerated Procedure: well and no complications Course Administered Medications Bupropion HCl (Bupropion Xl 300 Mg Tabcr) 300 mg PO DAILY RONNIE Stop: 06/21/20 08:59 Last Admin: 05/22/20 07:43 Dose: 300 mg Documented by: [id number] Lactulose (Lactulose Syrup 20 Gm/30 Ml Udc) 20 gm PO BID RONNIE Stop: 06/21/20 02:54 Last Admin: 05/22/20 07:44 Dose: 20 gm Documented by: [id number] Admin: 05/22/20 03:28 Dose: 20 gm Documented by: [id number] Pantoprazole Sodium (Pantoprazole 40 Mg Tab) 40 mg PO DAILY RONNIE Stop: 06/21/20 08:59 Last Admin: 05/22/20 08:30 Dose: 40 mg Documented by: [id number] Rifaximin (Rifaximin 550 Mg Tablet) 550 mg PO BID RONNIE Stop: 06/21/20 02:54 Last Admin: 05/22/20 07:43 Dose: 550 mg Documented by: [id number] Admin: 05/22/20 03:28 Dose: 550 mg Documented by: [id number] Discontinued Medications Albumin Human (Albumin 25%) 12.5 gm in 50 mls @ 50 mls/hr IV Q1H RONNIE Stop: 05/21/20 22:59 Last Infusion: 05/21/20 23:18 Dose: 0 mls/hr Documented by: [id number] Admin: 05/21/20 22:29 Dose: 50 mls/hr Documented by: [id number] Infusion: 05/21/20 22:29 Dose: 0 mls/hr Documented by: [id number] Admin: 05/21/20 21:17 Dose: 50 mls/hr Documented by: [id number] Albumin Human (Albumin 25%) 12.5 gm in 50 mls @ 50 mls/hr IV Q1H RONNIE Stop: 05/21/20 23:59 Last Infusion: 05/22/20 02:00 Dose: 0 mls/hr Documented by: [id number] Admin: 05/22/20 01:06 Dose: 50 mls/hr Documented by: [id number] Admin: 05/22/20 00:51 Dose: Not Given Documented by: [id number] Albumin Human (Albumin 25%) 12.5 gm in 50 mls @ 50 mls/hr IV Q1H RONNIE Stop: 05/21/20 23:59 Last Infusion: 05/22/20 01:13 Dose: 0 mls/hr Documented by: [id number] Admin: 05/22/20 00:19 Dose: 50 mls/hr Documented by: [id number] Infusion: 05/22/20 00:18 Dose: 0 mls/hr Documented by: [id number] Admin: 05/21/20 23:18 Dose: 50 mls/hr Documented by: [id number] Albumin Human (Albumin 25%) 12.5 gm in 50 mls @ 50 mls/hr IV ONE ONE Stop: 05/21/20 22:54 Last Admin: 05/21/20 22:45 Dose: Not Given Documented by: [id number] Albumin Human (Albumin 25%) 12.5 gm in 50 mls @ 50 mls/hr IV ONE ONE Stop: 05/21/20 22:54 Last Admin: 05/21/20 22:46 Dose: Not Given Documented by: [id number] Sodium Chloride (Nss 1000ml) 1,000 mls @ 999 mls/hr IV .Q1H1M ONE Stop: 05/21/20 23:29 Last Infusion: 05/21/20 23:57 Dose: 0 mls/hr Documented by: [id number] Admin: 05/21/20 22:53 Dose: 999 mls/hr Documented by: [id number] Lidocaine/Epinephrine (Lidocaine/Epinephrine 1% 20 Ml Vial) 20 ml INFIL NOW ONE Stop: 05/21/20 20:53 Last Admin: 05/21/20 21:17 Dose: 20 ml Documented by: [id number] Warfarin Sodium (Warfarin Sod 5 Mg Tab) 5 mg PO NOW ONE Stop: 05/21/20 23:59 Last Admin: 05/22/20 00:56 Dose: 5 mg Documented by: [id number] Medical Decision Making Differential Diagnosis Appendicitis, ovarian cyst, ovarian torsion, ectopic , TOA, PID, infections, diverticulitis, UTI, obstruction, mesenteric ischemia, aortic pathology, inflammatory bowel disease, renal colic, PUD, pancreatitis, biliary pathology, hernia, volvulus, constipation, as well as other pathologies. Medical Records Attestation: I reviewed the patient's medical records. Home Medications Current Medication List: was personally reviewed by me Laboratory Data Attestation: I reviewed the patient's lab results. Result diagrams: 05/22/20 05:20 05/22/20 05:20 Lab Results 05/21/20 05/21/20 05/21/20 Range/Units 20:56 20:56 20:56 WBC 10.17 (4.8-10.8) K/uL RBC 3.63 L (4.2-5.4) M/uL Hgb 12.6 (12.0-16.0) g/dL Hct 35.4 L (37-47) % MCV 97.5 (80-100) fL MCH 34.7 H (25-34) pg MCHC 35.6 (32-36) g/dL RDW Std Deviation 58.8 H (36.4-46.3) fL RDW Coeff of Julieth 16.6 H (11.5-14.5) % Plt Count 144 (130-400) K/uL MPV 10.6 H (7.4-10.4) fL Immature Gran % (Auto) 0.4 % Neut % (Auto) 65.5 % Lymph % (Auto) 13.4 % [place] % (Auto) 16.7 % Eos % (Auto) 3.7 % Baso % (Auto) 0.3 % Neut # (Auto) 6.66 H (1.4-6.5) K/uL Lymph # (Auto) 1.36 (1.2-3.4) K/uL [place] # (Auto) 1.70 H (0.11-0.59) K/uL Eos # (Auto) 0.38 (0-0.5) K/uL Baso # (Auto) 0.03 (0-0.2) K/uL Immature Gran # (Auto) 0.04 H (0.00-0.02) K/uL PT Cancelled INR Cancelled APTT (21.0-31.0) Seconds PTT Ratio Sodium Cancelled Potassium Cancelled Chloride Cancelled Carbon Dioxide Cancelled Anion Gap Cancelled BUN Cancelled Creatinine Cancelled Est Cr Clr Drug Dosing Cancelled Est GFR ( Amer) Cancelled Est GFR (Non-Af Amer) Cancelled BUN/Creatinine Ratio Cancelled Glucose Cancelled Estimat Average Glucose mg/dl Hemoglobin A1c (4.5-5.6) % Calcium Cancelled Magnesium (1.8-2.4) mg/dl Total Bilirubin Cancelled AST Cancelled ALT Cancelled Alkaline Phosphatase Cancelled Ammonia Total Creatine Kinase Cancelled Troponin I Cancelled Total Protein Cancelled Albumin Cancelled Globulin Cancelled Albumin/Globulin Ratio Cancelled TSH Cancelled Urine Color Urine Appearance (Clear) Urine pH (4.5-7.5) Ur Specific [place] (1.000-1.030) Urine Protein (Negative) Urine Glucose (UA) (Negative) Urine Ketones (Negative) Urine Blood (Negative) Urine Nitrite (Negative) Urine Bilirubin (Negative) Urine Urobilinogen (Negative) Ur Leukocyte Esterase (Negative) Urine WBC (Auto) (0-5) /hpf Urine RBC (Auto) (0-4) /hpf U Hyaline Cast (Auto) (0-5) /lpf U Epithel Cells (Auto) (0-5) /lpf Urine Bacteria (Auto) (Negative) Ur Random Sodium mmol/L Fluid Neutrophils % % Fluid Lymphocytes % % Fluid Eosinophils % % Fluid Basophils % % Fluid Meso/Macro/[place] % % Peritoneal Color Peritoneal Appearance Peritoneal WBC (0-300) /ul Peritoneal RBC /uL Peritoneal Tot Protein g/dl Peritoneal Albumin g/dl COVID-19 Eval Order SARS-CoV-2, RNA, NAAT (NEGATIVE) 05/21/20 05/21/20 05/21/20 Range/Units 20:56 21:00 21:22 WBC (4.8-10.8) K/uL RBC (4.2-5.4) M/uL Hgb (12.0-16.0) g/dL Hct (37-47) % MCV (80-100) fL MCH (25-34) pg MCHC (32-36) g/dL RDW Std Deviation (36.4-46.3) fL RDW Coeff of Julieth (11.5-14.5) % Plt Count (130-400) K/uL MPV (7.4-10.4) fL Immature Gran % (Auto) % Neut % (Auto) % Lymph % (Auto) % [place] % (Auto) % Eos % (Auto) % Baso % (Auto) % Neut # (Auto) (1.4-6.5) K/uL Lymph # (Auto) (1.2-3.4) K/uL [place] # (Auto) (0.11-0.59) K/uL Eos # (Auto) (0-0.5) K/uL Baso # (Auto) (0-0.2) K/uL Immature Gran # (Auto) (0.00-0.02) K/uL PT INR APTT (21.0-31.0) Seconds PTT Ratio Sodium Potassium Chloride Carbon Dioxide Anion Gap BUN Creatinine Est Cr Clr Drug Dosing Est GFR ( Amer) Est GFR (Non-Af Amer) BUN/Creatinine Ratio Glucose Estimat Average Glucose 74 mg/dl Hemoglobin A1c 4.2 L (4.5-5.6) % Calcium Magnesium (1.8-2.4) mg/dl Total Bilirubin AST ALT Alkaline Phosphatase Ammonia Cancelled Total Creatine Kinase Troponin I Total Protein Albumin Globulin Albumin/Globulin Ratio TSH Urine Color Urine Appearance (Clear) Urine pH (4.5-7.5) Ur Specific [place] (1.000-1.030) Urine Protein (Negative) Urine Glucose (UA) (Negative) Urine Ketones (Negative) Urine Blood (Negative) Urine Nitrite (Negative) Urine Bilirubin (Negative) Urine Urobilinogen (Negative) Ur Leukocyte Esterase (Negative) Urine WBC (Auto) (0-5) /hpf Urine RBC (Auto) (0-4) /hpf U Hyaline Cast (Auto) (0-5) /lpf U Epithel Cells (Auto) (0-5) /lpf Urine Bacteria (Auto) (Negative) Ur Random Sodium mmol/L Fluid Neutrophils % 6 % Fluid Lymphocytes % 65 % Fluid Eosinophils % 1 % Fluid Basophils % 0 % Fluid Meso/Macro/[place] % 28 % Peritoneal Color YELLOW Peritoneal Appearance CLOUDY Peritoneal WBC 189 (0-300) /ul Peritoneal RBC 7000 /uL Peritoneal Tot Protein 1.4 g/dl Peritoneal Albumin 0.7 g/dl COVID-19 Eval Order SARS-CoV-2, RNA, NAAT (NEGATIVE) 05/21/20 05/21/2005/21/21 Range/Units 21:52 21:52 21:52 WBC (4.8-10.8) K/uL RBC (4.2-5.4) M/uL Hgb (12.0-16.0) g/dL Hct (37-47) % MCV (80-100) fL MCH (25-34) pg MCHC (32-36) g/dL RDW Std Deviation (36.4-46.3) fL RDW Coeff of Julieth (11.5-14.5) % Plt Count (130-400) K/uL MPV (7.4-10.4) fL Immature Gran % (Auto) % Neut % (Auto) % Lymph % (Auto) % [place] % (Auto) % Eos % (Auto) % Baso % (Auto) % Neut # (Auto) (1.4-6.5) K/uL Lymph # (Auto) (1.2-3.4) K/uL [place] # (Auto) (0.11-0.59) K/uL Eos # (Auto) (0-0.5) K/uL Baso # (Auto) (0-0.2) K/uL Immature Gran # (Auto) (0.00-0.02) K/uL PT 17.8 H INR 1.7 H APTT (21.0-31.0) Seconds PTT Ratio Sodium 129 L Potassium 5.0 Chloride 98 Carbon Dioxide 22 Anion Gap 9.0 BUN 44 H Creatinine 2.22 H Est Cr Clr Drug Dosing 20.9 Est GFR ( Amer) 25.0 Est GFR (Non-Af Amer) 21.6 BUN/Creatinine Ratio 20.0 Glucose 114 H Estimat Average Glucose mg/dl Hemoglobin A1c (4.5-5.6) % Calcium 8.8 Magnesium (1.8-2.4) mg/dl Total Bilirubin 1.9 H AST 59 H ALT 37 Alkaline Phosphatase 234 H Ammonia 20.3 Total Creatine Kinase 47 Troponin I < 0.015 Total Protein 7.9 Albumin 3.4 Globulin 4.5 H Albumin/Globulin Ratio 0.8 L TSH 3.120 Urine Color Urine Appearance (Clear) Urine pH (4.5-7.5) Ur Specific [place] (1.000-1.030) Urine Protein (Negative) Urine Glucose (UA) (Negative) Urine Ketones (Negative) Urine Blood (Negative) Urine Nitrite (Negative) Urine Bilirubin (Negative) Urine Urobilinogen (Negative) Ur Leukocyte Esterase (Negative) Urine WBC (Auto) (0-5) /hpf Urine RBC (Auto) (0-4) /hpf U Hyaline Cast (Auto) (0-5) /lpf U Epithel Cells (Auto) (0-5) /lpf Urine Bacteria (Auto) (Negative) Ur Random Sodium mmol/L Fluid Neutrophils % % Fluid Lymphocytes % % Fluid Eosinophils % % Fluid Basophils % % Fluid Meso/Macro/[place] % % Peritoneal Color Peritoneal Appearance Peritoneal WBC (0-300) /ul Peritoneal RBC /uL Peritoneal Tot Protein g/dl Peritoneal Albumin g/dl COVID-19 Eval Order SARS-CoV-2, RNA, NAAT (NEGATIVE) 05/21/20 05/21/20 05/21/20 Range/Units 21:52 21:52 22:52 WBC (4.8-10.8) K/uL RBC (4.2-5.4) M/uL Hgb (12.0-16.0) g/dL Hct (37-47) % MCV (80-100) fL MCH (25-34) pg MCHC (32-36) g/dL RDW Std Deviation (36.4-46.3) fL RDW Coeff of Julieth (11.5-14.5) % Plt Count (130-400) K/uL MPV (7.4-10.4) fL Immature Gran % (Auto) % Neut % (Auto) % Lymph % (Auto) % [place] % (Auto) % Eos % (Auto) % Baso % (Auto) % Neut # (Auto) (1.4-6.5) K/uL Lymph # (Auto) (1.2-3.4) K/uL [place] # (Auto) (0.11-0.59) K/uL Eos # (Auto) (0-0.5) K/uL Baso # (Auto) (0-0.2) K/uL Immature Gran # (Auto) (0.00-0.02) K/uL PT INR APTT 33.0 H (21.0-31.0) Seconds PTT Ratio 1.2 Sodium Potassium Chloride Carbon Dioxide Anion Gap BUN Creatinine Est Cr Clr Drug Dosing Est GFR ( Amer) Est GFR (Non-Af Amer) BUN/Creatinine Ratio Glucose Estimat Average Glucose mg/dl Hemoglobin A1c (4.5-5.6) % Calcium Magnesium 2.5 H (1.8-2.4) mg/dl Total Bilirubin AST ALT Alkaline Phosphatase Ammonia Total Creatine Kinase Troponin I Total Protein Albumin Globulin Albumin/Globulin Ratio TSH Urine Color Urine Appearance (Clear) Urine pH (4.5-7.5) Ur Specific [place] (1.000-1.030) Urine Protein (Negative) Urine Glucose (UA) (Negative) Urine Ketones (Negative) Urine Blood (Negative) Urine Nitrite (Negative) Urine Bilirubin (Negative) Urine Urobilinogen (Negative) Ur Leukocyte Esterase (Negative) Urine WBC (Auto) (0-5) /hpf Urine RBC (Auto) (0-4) /hpf U Hyaline Cast (Auto) (0-5) /lpf U Epithel Cells (Auto) (0-5) /lpf Urine Bacteria (Auto) (Negative) Ur Random Sodium mmol/L Fluid Neutrophils % % Fluid Lymphocytes % % Fluid Eosinophils % % Fluid Basophils % % Fluid Meso/Macro/[place] % % Peritoneal Color Peritoneal Appearance Peritoneal WBC (0-300) /ul Peritoneal RBC /uL Peritoneal Tot Protein g/dl Peritoneal Albumin g/dl COVID-19 Eval Order Covid19 [facility]Now [facility] SARS-CoV-2, RNA, NAAT (NEGATIVE) 05/21/20 05/21/20 05/21/20 Range/Units 22:52 23:19 23:19 WBC (4.8-10.8) K/uL RBC (4.2-5.4) M/uL Hgb (12.0-16.0) g/dL Hct (37-47) % MCV (80-100) fL MCH (25-34) pg MCHC (32-36) g/dL RDW Std Deviation (36.4-46.3) fL RDW Coeff of Julieth (11.5-14.5) % Plt Count (130-400) K/uL MPV (7.4-10.4) fL Immature Gran % (Auto) % Neut % (Auto) % Lymph % (Auto) % [place] % (Auto) % Eos % (Auto) % Baso % (Auto) % Neut # (Auto) (1.4-6.5) K/uL Lymph # (Auto) (1.2-3.4) K/uL [place] # (Auto) (0.11-0.59) K/uL Eos # (Auto) (0-0.5) K/uL Baso # (Auto) (0-0.2) K/uL Immature Gran # (Auto) (0.00-0.02) K/uL PT INR APTT (21.0-31.0) Seconds PTT Ratio Sodium Potassium Chloride Carbon Dioxide Anion Gap BUN Creatinine Est Cr Clr Drug Dosing Est GFR ( Amer) Est GFR (Non-Af Amer) BUN/Creatinine Ratio Glucose Estimat Average Glucose mg/dl Hemoglobin A1c (4.5-5.6) % Calcium Magnesium (1.8-2.4) mg/dl Total Bilirubin AST ALT Alkaline Phosphatase Ammonia Total Creatine Kinase Troponin I Total Protein Albumin Globulin Albumin/Globulin Ratio TSH Urine Color Dark Yellow Urine Appearance Clear (Clear) Urine pH 5.0 (4.5-7.5) Ur Specific [place] 1.015 (1.000-1.030) Urine Protein Negative (Negative) Urine Glucose (UA) Negative (Negative) Urine Ketones Negative (Negative) Urine Blood Negative (Negative) Urine Nitrite Negative (Negative) Urine Bilirubin Negative (Negative) Urine Urobilinogen Negative (Negative) Ur Leukocyte Esterase Trace H (Negative) Urine WBC (Auto) 1-5 (0-5) /hpf Urine RBC (Auto) 0-4 (0-4) /hpf U Hyaline Cast (Auto) 10-30 H (0-5) /lpf U Epithel Cells (Auto) 20-30 H (0-5) /lpf Urine Bacteria (Auto) Negative (Negative) Ur Random Sodium 10 mmol/L Fluid Neutrophils % % Fluid Lymphocytes % % Fluid Eosinophils % % Fluid Basophils % % Fluid Meso/Macro/[place] % % Peritoneal Color Peritoneal Appearance Peritoneal WBC (0-300) /ul Peritoneal RBC /uL Peritoneal Tot Protein g/dl Peritoneal Albumin g/dl COVID-19 Eval Order SARS-CoV-2, RNA, NAAT NEGATIVE (NEGATIVE) MDM Narrative This is a 69-year-old female who presents emergency department requesting her ascites be removed off her abdomen. 9 L was removed and a paracentesis as above. I am going to replete her albumin with 57 g. She is going to be here for at least 4 hours while this diffuses in. In the meantime however the patient appears to have worsening renal function with her creatinine bumped up to 2.22. In addition the patient's sodium is also down to 129. Based on these findings I did discuss the case with the hospitalist service. Patient was seen and evaluated as above in room A2. Review was performed of nursing notes and vital signs. I did review pertinent previous visits and patient history. After obtaining a thorough history and physical examination the above work up was performed. An order was placed for continuous cardiac monitoring. The monitor shows a rate of 74 with Normal Sinus rhythm. The patient was evaluated during a period of high volume and high acuity while the hospital was at overcapacity during the global COVID-19 pandemic, and that diagnosis was suspected/considered upon their initial presentation. Their evaluation, treatment and testing was consistent with current guidelines for patients who present with complaints or symptoms that may be related to COVID- 19. 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
[2020-05-21] MEDS: ALBUMIN 25% 12.5 GM/50 ML VIAL IV SCH ×3 (21:17→23:18)
[2020-05-21 21:24] LABS: Basophils # (auto) 0.03 K/uL (0-0.2); Basophils % (auto) 0.3 %; Eosinophils # (auto) 0.38 K/uL (0-0.5); Eosinophils % (auto) 3.7 %; Hematocrit (blood only) 35.4 % (37-47); Hemoglobin 12.6 g/dL (12.0-16.0); Immature Granulocytes # (auto) 0.04 K/uL (0.00-0.02); Immature Granulocytes % (auto) 0.4 %; Lymphocytes # (auto) 1.36 K/uL (1.2-3.4); Lymphocytes % (auto) 13.4 %; Mean Corpuscular Hemoglobin 34.7 pg (25-34); Mean Corpuscular Hgb Conc 35.6 g/dL (32-36); Mean Corpuscular Volume 97.5 fL (80-100); Mean Platelet Volume 10.6 fL (7.4-10.4); Monocytes % (auto) 16.7 %; Neutrophils # (auto) 6.66 K/uL (1.4-6.5); Neutrophils % (auto) 65.5 %; Platelet Count 144 K/uL (130-400); RDW Coefficient of Variation 16.6 % (11.5-14.5); RDW Standard Deviation 58.8 fL (36.4-46.3); Red Blood Count 3.63 M/uL (4.2-5.4); White Blood Count 10.17 K/uL (4.8-10.8)
[2020-05-21] MEDS ORDERED: ALBUMIN 25% 12.5 GM/50 ML VIAL IV ONE ×2 (21:55)
[2020-05-21 22:11] LABS: INR 1.7 (0.9-1.1); Prothrombin Time 17.8 Seconds (9.0-12.0)
[2020-05-21 22:22] LABS: Alanine Aminotransferase 37 U/L (12-78); Albumin Level 3.4 gm/dl (3.4-5.0); Aspartate Aminotransferase 59 U/L (15-37); Blood Urea Nitrogen 44 mg/dl (7-18); Calcium 8.8 mg/dl (8.5-10.1); Carbon Dioxide 22 mmol/L (21-32); Chloride 98 mmol/L (98-107); Creatinine Clr Calc Pharmacy 20.9 ml/min; Est GFR (Non-African American) 21.6; Glucose 114 mg/dl (70-99); Sodium 129 mmol/L (136-145)
[2020-05-21] MEDS ORDERED: SODIUM CHLORIDE 0.9% 1000ML 1,000 ML IV ONE (22:29)
[2020-05-21 22:31] LABS: Albumin Peritoneal Fluid 0.7 g/dl; Total Protein Peritoneal Fluid 1.4 g/dl
[2020-05-21 22:32] LABS: Albumin Globulin Ratio 0.8 (0.9-2); Alkaline Phosphatase 234 U/L (45-117); Bilirubin,Total 1.9 mg/dl (0.2-1); Creatine Kinase 47 U/L (26-192); Globulin 4.5 gm/dl (2.5-4.0); Total Protein 7.9 gm/dl (6.4-8.2); Troponin I < 0.015 ng/ml (0-0.045)
[2020-05-21 23:08] LABS: Partial Thromboplastin Ratio 1.2
[2020-05-21 23:20] LABS: Appearance Peritoneal Fluid CLOUDY; Basophils, Fluid 0 %; Color Peritoneal Fluid YELLOW; Eosinophils, Fluid 1 %; Lymphocytes, Fluid 65 %; Mono,Macrophage,Mesothelial 28 %; Neutrophils, Fluid 6 %; RBC Peritoneal Fluid (A) 7000 /uL; WBC Peritoneal Fluid (A) 189 /ul (0-300)
--- NOTE | 2020-05-21 23:35 | History & Physical Report ---
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 Coumadin INR goal between 2 and 3 Full code Text document was generated using [employer] voice recognition software. It may contain grammatical or spelling errors. Kindly contact undersigned for clarification of any documentation item in question. History of Present Illness Chief Complaint: Abdominal distention, shortness of breath Primary Care Provider: Laura Dale PA-C History obtained from patient and records. 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 Last confinement last week for decompensated cirrhosis. Paracentesis done during confinement. Cultures negative. Upon discharge, patient noted increased fluid retention again despite compliance with diuretic regimen. Denies dietary indiscretion or NSAID intake. Outpatient serum creatinine from 2 days ago was noted to be 1.7. Patient informed [facility] presales senior specialist during video meeting today ofl fluid retention symptoms. Specialist recommended increasing torsemide dose and stopping nifedipine. Patient noted worsening abdominal distention causing shortness of breath without pain, fever, cough, chills. Paracentesis done at the ER with a total of 9 L removed. Subsequent albumin infusion replacements administered at the ER. Medical History as above Surgical History : Appendectomy, breast biopsy Family History : DM, heart disease, stroke Personal/Social history : Non-smoker, no EtOH intake, retired [facility] Allergies Allergy/AdvReac Type Severity Reaction Status Date / Time Penicillins Allergy Rash Verified 05/21/20 22:27 adhesive AdvReac Redness of Verified 05/21/20 22:27 Skin Home Medications Medication Instructions Recorded Confirmed Type bupropion HCl 300 mg PO DAILY 05/21/20 05/21/20 History cholecalciferol (vitamin D3) 0 mcg PO DAILY 05/21/20 05/21/20 History [Vitamin D3] lactulose 30 ml PO BID 05/21/20 05/21/20 History nifedipine 30 mg PO DAILY 05/21/20 05/21/20 History omeprazole 20 mg PO DAILY 05/21/20 05/21/20 History potassium chloride 20 meq PO QAM 05/21/20 05/21/20 History rifaximin [Xifaxan] 550 mg PO BID 05/21/20 05/21/20 History spironolactone 50 mg PO DAILY 05/21/20 05/21/20 History torsemide 40 mg PO DAILY 05/21/20 05/21/20 History vit C,R-Ok-xtelj-lutein-zeaxan 1 tab PO QAM 05/21/20 05/21/20 History [PreserVision AREDS-2] warfarin 5 mg PO DAILY 05/21/20 05/21/20 History Past Med/Surg History Medical History Abnormal liver function Acid reflux Ascites Hypertension Surgical History Hx of appendectomy Social History Smoking Status: Never smoker Second Hand Exposure: Yes (son smokes outside); Hx Alcohol Use: No Hx Substance Use: No Preferred Language: Citizen Of [place] Communication Ability: Effective Beliefs That Will Affect Care: None Current Living Situation: Family Feels Safe at Home: Yes Assistive Devices: None Review of Systems Review of Systems: As per HPI, all 10 systems reviewed, all other ROS negative Physical Exam Physical Exam: GENERAL: slightly uncomfortable, episodic tachypnea SKIN: Normal color, warm HEENT: Bespectacled, [place] palpebral conjunctivae, no ptosis, dry buccal mucosa NECK : Supple, no tenderness CHEST : CTA, no tenderness HEART : RRR, no obvious murmurs ABDOMEN: Some distention, nontender EXTREMITIES : Minimal LE swelling, no LE tenderness, no other conspicuous deformities noted NEUROLOGIC : Coherent, no facial asymmetry, no other gross focality Results & Data Results & Data ([facility]) Vital Signs (Past 12 Hours) Vital Signs Temp Pulse Resp BP Pulse Ox 05/21/20 23:30 83 18 99/55 L 96 05/21/20 23:00 79 18 102/51 L 95 05/21/20 22:50 79 23 108/53 L 95 05/21/20 22:45 79 21 106/57 L 96 05/21/20 22:40 78 17 107/53 L 96 05/21/20 22:35 81 17 109/55 L 96 05/21/20 22:30 77 17 104/53 L 96 05/21/20 22:25 77 16 103/52 L 95 05/21/20 22:20 77 19 102/58 L 95 05/21/20 22:15 77 20 111/55 L 95 05/21/20 22:10 80 26 H 107/55 L 93 05/21/20 22:05 78 22 110/55 L 94 05/21/20 22:00 84 23 95/62 L 92 05/21/20 21:55 77 20 110/57 L 94 05/21/20 21:50 77 23 103/53 L 93 05/21/20 21:45 74 20 107/54 L 94 05/21/20 21:40 74 21 110/53 L 94 05/21/20 21:35 74 19 104/56 L 94 05/21/20 21:30 74 19 102/58 L 93 05/21/20 21:25 73 22 103/56 L 93 05/21/20 21:20 76 24 98/59 L 93 05/21/20 21:15 74 24 101/58 L 93 05/21/20 21:00 75 20 94 05/21/20 20:29 36.5 C 69 20 92 Laboratory Results Laboratory Results WBC 10.17 K/uL (4.8-10.8) 05/21/20 20:56 RBC 3.63 M/uL (4.2-5.4) L 05/21/20 20:56 Hgb 12.6 g/dL (12.0-16.0) 05/21/20 20:56 Hct 35.4 % (37-47) L 05/21/20 20:56 MCV 97.5 fL (80-100) 05/21/20 20:56 MCH 34.7 pg (25-34) H 05/21/20 20:56 MCHC 35.6 g/dL (32-36) 05/21/20 20:56 RDW Std Deviation 58.8 fL (36.4-46.3) H 05/21/20 20:56 RDW Coeff of Julieth 16.6 % (11.5-14.5) H 05/21/20 20:56 Plt Count 144 K/uL (130-400) 05/21/20 20:56 MPV 10.6 fL (7.4-10.4) H 05/21/20 20:56 Immature Gran % (Auto) 0.4 % 05/21/20 20:56 Neut % (Auto) 65.5 % 05/21/20 20:56 Lymph % (Auto) 13.4 % 05/21/20 20:56 [place] % (Auto) 16.7 % 05/21/20 20:56 Eos % (Auto) 3.7 % 05/21/20 20:56 Baso % (Auto) 0.3 % 05/21/20 20:56 Neut # (Auto) 6.66 K/uL (1.4-6.5) H 05/21/20 20:56 Lymph # (Auto) 1.36 K/uL (1.2-3.4) 05/21/20 20:56 [place] # (Auto) 1.70 K/uL (0.11-0.59) H 05/21/20 20:56 Eos # (Auto) 0.38 K/uL (0-0.5) 05/21/20 20:56 Baso # (Auto) 0.03 K/uL (0-0.2) 05/21/20 20:56 Immature Gran # (Auto) 0.04 K/uL (0.00-0.02) H 05/21/20 20:56 PT 17.8 Seconds (9.0-12.0) H 05/21/20 21:52 INR 1.7 (0.9-1.1) H 05/21/20 21:52 APTT 33.0 Seconds (21.0-31.0) H 05/21/20 21:52 PTT Ratio 1.2 05/21/20 21:52 Sodium 129 mmol/L (136-145) L 05/21/20 21:52 Potassium 5.0 mmol/L (3.5-5.1) 05/21/20 21:52 Chloride 98 mmol/L (98-107) 05/21/20 21:52 Carbon Dioxide 22 mmol/L (21-32) 05/21/20 21:52 Anion Gap 9.0 (3-11) 05/21/20 21:52 BUN 44 mg/dl (7-18) H 05/21/20 21:52 Creatinine 2.22 mg/dl (0.6-1.2) H 05/21/20 21:52 Est Cr Clr Drug Dosing 20.9 ml/min 05/21/20 21:52 Est GFR ( Amer) 25.0 05/21/20 21:52 Est GFR (Non-Af Amer) 21.6 05/21/20 21:52 BUN/Creatinine Ratio 20.0 (10-20) 05/21/20 21:52 Glucose 114 mg/dl (70-99) H 05/21/20 21:52 Calcium 8.8 mg/dl (8.5-10.1) 05/21/20 21:52 Magnesium 2.5 mg/dl (1.8-2.4) H 05/21/20 21:52 Total Bilirubin 1.9 mg/dl (0.2-1) H 05/21/20 21:52 AST 59 U/L (15-37) H 05/21/20 21:52 ALT 37 U/L (12-78) 05/21/20 21:52 Alkaline Phosphatase 234 U/L (45-117) H 05/21/20 21:52 Ammonia 20.3 umol/L (11-32) 05/21/20 21:52 Total Creatine Kinase 47 U/L (26-192) 05/21/20 21:52 Troponin I < 0.015 ng/ml (0-0.045) 05/21/20 21:52 Total Protein 7.9 gm/dl (6.4-8.2) 05/21/20 21:52 Albumin 3.4 gm/dl (3.4-5.0) 05/21/20 21:52 Globulin 4.5 gm/dl (2.5-4.0) H 05/21/20 21:52 Albumin/Globulin Ratio 0.8 (0.9-2) L 05/21/20 21:52 TSH 3.120 uIu/ml (0.300-4.500) 05/21/20 21:52 Fluid Neutrophils % 6 % 05/21/20 21:22 Fluid Lymphocytes % 65 % 05/21/20 21:22 Fluid Eosinophils % 1 % 05/21/20 21:22 Fluid Basophils % 0 % 05/21/20 21:22 Fluid Meso/Macro/[place] % 28 % 05/21/20 21:22 Peritoneal Color YELLOW 05/21/20 21:22 Peritoneal Appearance CLOUDY 05/21/20 21:22 Peritoneal WBC 189 /ul (0-300) 05/21/20 21:22 Peritoneal RBC 7000 /uL 05/21/20 21:22 Peritoneal Tot Protein 1.4 g/dl 05/21/20 21:22 Peritoneal Albumin 0.7 g/dl 05/21/20 21:22 COVID[facility]19 [facility]/21/20 22:52 Diagnostic Findings Chest x-ray as per my interpretation: Cardiomegaly, elevated right hemidiaphragm EKG as per my interpretation : Rate 75, NSR, LAD, LAFB, T wave abnormalities inferior leads
[2020-05-21 23:41] LABS: Appearance Urine Clear (Clear); Bacteria Urine Automated Negative (Negative); Bilirubin Urine Negative (Negative); Blood Urine Negative (Negative); Color Urine Dark Yellow; Epithelial Cell Urine Auto 20-30 /lpf (0-5); Glucose Urine UA Negative (Negative); Ketones Urine Negative (Negative); Leukocyte Esterase Urine Trace (Negative); Nitrite Urine Negative (Negative); Protein Urine Negative (Negative); RBC Urine Automated 0-4 /hpf (0-4); Specific Gravity Urine 1.015 (1.000-1.030); Urobilinogen Urine Negative (Negative)
[2020-05-21] MEDS ORDERED: WARFARIN SOD 5 MG TAB PO ONE (23:58)
[2020-05-22] MEDS: ALBUMIN 25% 12.5 GM/50 ML VIAL IV SCH ×3 (00:19→01:06)
[2020-05-22] MEDS ORDERED: PROMETHAZINE HCL 6.25 MG in SODIUM CHLORIDE 0.9% 50 ML IV PRN (02:55)
[2020-05-22] MEDS ORDERED: HYDROmorphone INJ 0.5 MG/0.5 ML SYR IV PRN (02:55)
[2020-05-22] MEDS ORDERED: oxyCODONE HCL IR 5 MG TAB (IMMEDIATE RELEASE) PO PRN (02:55)
[2020-05-22] MEDS ORDERED: ACETAMINOPHEN 325 MG TAB PO PRN (02:55)
[2020-05-22] MEDS: rifAXIMin 550 MG TABLET PO SCH ×3 (03:28→19:55)
[2020-05-22] MEDS: LACTULOSE SYRUP 20 GM/30 ML UDC PO SCH ×3 (03:28→19:55)
[2020-05-22 06:09] LABS: Hematocrit (blood only) 29.6 % (37-47); Hemoglobin 10.5 g/dL (12.0-16.0); Mean Corpuscular Hemoglobin 34.7 pg (25-34); Mean Corpuscular Hgb Conc 35.5 g/dL (32-36); Mean Corpuscular Volume 97.7 fL (80-100); RDW Coefficient of Variation 16.7 % (11.5-14.5); RDW Standard Deviation 58.6 fL (36.4-46.3); Red Blood Count 3.03 M/uL (4.2-5.4); White Blood Count 6.18 K/uL (4.8-10.8)
[2020-05-22 06:17] LABS: INR 1.9 (0.9-1.1); Prothrombin Time 19.3 Seconds (9.0-12.0)
[2020-05-22 06:31] LABS: Basophils # (auto) 0.03 K/uL (0-0.2); Basophils % (auto) 0.5 %; Eosinophils # (auto) 0.21 K/uL (0-0.5); Eosinophils % (auto) 3.4 %; Immature Granulocytes # (auto) 0.02 K/uL (0.00-0.02); Immature Granulocytes % (auto) 0.3 %; Lymphocytes # (auto) 1.02 K/uL (1.2-3.4); Lymphocytes % (auto) 16.5 %; Mean Platelet Volume 10.7 fL (7.4-10.4); Monocytes # (auto) 0.87 K/uL (0.11-0.59); Monocytes % (auto) 14.1 %; Neutrophils # (auto) 4.03 K/uL (1.4-6.5); Neutrophils % (auto) 65.2 %; Platelet Count 83 K/uL (130-400); Platelet Estimate Decreased (Normal); RBC Morphology Unremarkable
[2020-05-22 06:53] LABS: Albumin Globulin Ratio 0.9 (0.9-2); Albumin Level 3.2 gm/dl (3.4-5.0); BUN Creatinine Ratio 22.6 (10-20); Bilirubin,Total 1.6 mg/dl (0.2-1); Calcium 8.2 mg/dl (8.5-10.1); Creatinine Clr Calc Pharmacy 23.2 ml/min; Est GFR (African American) 28.4; Est GFR (Non-African American) 24.5; Globulin 3.6 gm/dl (2.5-4.0); Potassium 3.9 mmol/L (3.5-5.1); Total Protein 6.8 gm/dl (6.4-8.2)
[2020-05-22 07:22] LABS: Estimated Average Glucose 74 mg/dl; Hemoglobin A1C 4.2 % (4.5-5.6)
[2020-05-22] MEDS: buPROPion XL 300 MG TABCR PO SCH (07:43)
[2020-05-22] MEDS: PANTOprazole 40 MG TAB PO SCH (08:30)
--- NOTE | 2020-05-22 09:15 | Nephrology Consultation ---
Date of Consultation May 22, 2020 Assessment & Plan (1) Acute renal failure: Patient has ARF likely secondary to prerenal azotemia in the setting of worsening ascites and diuretics, there is also a component of creased intra- abdominal pressure. Functions have already started improving with paracentesis, and albumin infusion Agree with withholding the diuretics for now, Low-sodium diet. Blood pressure is at baseline and she generally runs in the low 100s, for blood pressure of pulse of rather she can be started on midodrine 5 mg 3 times daily, increased to 10 mg 3 times daily to get to her baseline Agree with a GI review Has increased INR of 1.9 recommend vitamin K oral Follow-up on the peritoneal fluid analysis and culture, possible SBP Present on Admission?: Yes (2) Ascites: Noted to have decompensated liver disease with repeated paracentesis. Continue you to hold diuretics With lactulose and rifaximin Rest as above History of Present Illness Reason for Consultation: Acute kidney injury Attending Physician: Abimael Cohen MD History of Present Illness 19-year-old female recently discharged from hospital when she had presented with decompensated liver disease with ascites and acute kidney injury represented with [facility] with increased fluid retention increase in ascites . Baseline creatinine is around 1.6 and was 1.7 days before the outpatient clinic she was advised by her utility operator yarn to increase her torsemide and stop nifedipine as she had complained of increased fluid retention and televisit. Patient continued to notice worsening abdominal distention and shortness of breath presented to the ER. He was noticed to have a serum creatinine of 2.2 which has now improved to 2.0 after the stoppage of diuretic yesterday, patient had 9 L of paracentesis done with subsequent albumin infusions in the ER. She continues to make urine. Continues to make urine although this has come down. On review she was lying down comfortably, feeling lot better than yesterday. Not in any distress, no pain, no dysuric symptoms. Home diuretic regimen is torsemide 40 and spironolactone Pt complicated past medical history of decompensated liver disease due to primary sclerosing cholangitis, IVC and hepatic vein thrombosis, frequent paracentesis. Allergies Allergy/AdvReac Type Severity Reaction Status Date / Time Penicillins Allergy Rash Verified 05/21/20 22:27 adhesive AdvReac Redness of Verified 05/21/20 22:27 Skin Home Medications Medication Instructions Recorded Confirmed Type bupropion HCl 300 mg PO DAILY 05/21/20 05/21/20 History cholecalciferol (vitamin D3) 0 mcg PO DAILY 05/21/20 05/21/20 History [Vitamin D3] lactulose 30 ml PO BID 05/21/20 05/21/20 History nifedipine 30 mg PO DAILY 05/21/20 05/21/20 History omeprazole 20 mg PO DAILY 05/21/20 05/21/20 History potassium chloride 20 meq PO QAM 05/21/20 05/21/20 History rifaximin [Xifaxan] 550 mg PO BID 05/21/20 05/21/20 History spironolactone 50 mg PO DAILY 05/21/20 05/21/20 History torsemide 40 mg PO DAILY 05/21/20 05/21/20 History vit C,B-Mj-wcyec-lutein-zeaxan 1 tab PO QAM 05/21/20 05/21/20 History [PreserVision AREDS-2] warfarin 5 mg PO DAILY 05/21/20 05/21/20 History Patient History Medical History Abnormal liver function Acid reflux Ascites Hypertension Surgical History Hx of appendectomy Social History Smoking Status: Unknown if ever smoked Second Hand Exposure: Yes (son smokes outside); Do You Dip or Chew Tobacco: No; Hx Alcohol Use: No Hx Substance Use: No Preferred Language: Libyan Communication Ability: Effective Beliefs That Will Affect Care: None Current Living Situation: Family Other Information That Helps Us Care for You: No Feels Safe at Home: Yes Safety Concerns: Feels Safe At This Time Assistive Devices: Glasses, Hearing Aid - Bilateral and Walker Review of Systems Review of Systems: All systems reviewed & are unremarkable except as noted in HPI & below Physical Exam Physical Exam: General exam: Appears comfortable, no acute distress HEENT: Pupils are equal and reactive to light Neck: No JVD, neck is supple trachea is midline Respiratory system: Clear breath sounds bilaterally. Gastrointestinal: Abdomen is distended, non tender, bowel sounds are present CVS: Regular rate and rhythm. No murmurs, rubs or gallops Musculoskeletal: No joint or muscle tenderness Extremities: Non tender, no edema, peripheral pulses are present Neuro: Oriented, no tremors, no focal neurological deficits Skin: No rashes Results & Data ([facility]) Vital Signs (Past 12 Hours) Vital Signs Temp Pulse Pulse Resp BP BP BP 05/22/20 08:00 70 05/22/20 07:22 36.9 C 70 18 100/41 L 05/22/20 03:05 36.8 C 77 16 112/53 L 05/22/20 01:00 79 22 101/57 L 05/22/20 00:30 78 20 105/53 L 05/22/20 00:00 75 16 93/51 L 05/21/20 23:30 83 18 99/55 L 05/21/20 23:00 79 18 102/51 L 05/21/20 22:50 79 23 108/53 L 05/21/20 22:45 79 21 106/57 L 05/21/20 22:40 78 17 107/53 L 05/21/20 22:35 81 17 109/55 L 05/21/20 22:30 77 17 104/53 L 05/21/20 22:25 77 16 103/52 L 05/21/20 22:20 77 19 102/58 L 05/21/20 22:15 77 20 111/55 L 05/21/20 22:10 80 26 H 107/55 L 05/21/20 22:05 78 22 110/55 L 05/21/20 22:00 84 23 95/62 L 05/21/20 21:55 77 20 110/57 L 05/21/20 21:50 77 23 103/53 L 05/21/20 21:45 74 20 107/54 L 05/21/20 21:40 74 21 110/53 L 05/21/20 21:35 74 19 104/56 L 05/21/20 21:30 74 19 102/58 L 05/21/20 21:25 73 22 103/56 L 05/21/20 21:20 76 24 98/59 L 05/21/20 21:15 74 24 101/58 L Pulse Ox 05/22/20 08:00 05/22/20 07:22 92 05/22/20 03:05 95 05/22/20 01:00 94 01/16/21 00:30 94 05/22/20 00:00 93 05/21/20 23:30 96 05/21/20 23:00 95 05/21/20 22:50 95 05/21/20 22:45 96 05/21/20 22:40 96 05/21/20 22:35 96 05/21/20 22:30 96 05/21/20 22:25 95 05/21/20 22:20 95 05/21/20 22:15 95 05/21/20 22:10 93 05/21/20 22:05 94 05/21/20 22:00 92 05/21/20 21:55 94 05/21/20 21:50 93 05/21/20 21:45 94 05/21/20 21:40 94 05/21/20 21:35 94 05/21/20 21:30 93 05/21/20 21:25 93 05/21/20 21:20 93 05/21/20 21:15 93 (1) Ascites Ascites type: other type Qualified Code(s): R18.8 - Other ascites (2) Acute renal failure Acute renal failure type: unspecified Qualified Code(s): N17.9 - Acute kidney failure, unspecified
--- NOTE | 2020-05-22 09:30 | XRay Report ---
XR chest 1V portable HISTORY: Shortness of breath. Pt c/o ascites COMPARISON: Chest 05/15/2020. FINDINGS: Improved aeration within the lungs. No focal lung consolidations to suggest pneumonia. No e vidence for pulmonary edema. A few small linear densities within the right midlung zone left lung bas e favor subsegmental atelectasis. Cardiac silhouette is mildly enlarged. No pleural effusions. No pne umothorax. IMPRESSION: Improved aeration within the lungs with a few linear densities consistent with subsegmental atelectas is. No focal lung consolidations to suggest pneumonia. ACT 112: Negative or not required by law. Electronically signed by: Kam Walton M.D. 05/22/2020 9:28 AM
--- NOTE | 2020-05-22 14:02 | Gastrointestinal Consultation ---
Date of Consultation May 22, 2020 Assessment & Plan (1) Ascites: (2) 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: decompensated by ascites, MELD-Na is now 24, with worsening renal function. s/p paracentesis with 9 L fluid removed and albumin replacement. Recs: --1.5 L daily fluid restriction --2 g Na diet -- monitor Cr daily --will need outpatient OLT evaluation with [facility] or [facility], she is scheduled for a follow up appointment with her regular GI team on friday 05/26 Thank you for allowing me to participate in the care of this patient History of Present Illness Attending Physician: Abimael Cohen MD 69 yo female with hx PSC, hepatic vein thrombosis on coumadin, HTN, GERD, CKD here with worsening ascites/decompensated cirrhosis. She was just discharged 4 days ago and notes her abdomen reaccumulated fluid in the interim at home. Normally she gets a paracentesis every 2 weeks, but required a second one just 4 days later on admission with 9L removed. MELD-Na today is 24. Denies any confusion, insomnia, hematochezia, hematemesis, urinary issues or other symptoms. labs reviewed, worsening Cr noted. VSS. Allergies Allergy/AdvReac Type Severity Reaction Status Date / Time Penicillins Allergy Rash Verified 05/21/20 22:27 adhesive AdvReac Redness of Verified 05/21/20 22:27 Skin Home Medications Medication Instructions Recorded Confirmed Type bupropion HCl 300 mg PO DAILY 05/21/20 05/21/20 History cholecalciferol (vitamin D3) 0 mcg PO DAILY 05/21/20 05/21/20 History [Vitamin D3] lactulose 30 ml PO BID 05/21/20 05/21/20 History nifedipine 30 mg PO DAILY 05/21/20 05/21/20 History omeprazole 20 mg PO DAILY 05/21/20 05/21/20 History potassium chloride 20 meq PO QAM 05/21/20 05/21/20 History rifaximin [Xifaxan] 550 mg PO BID 05/21/20 05/21/20 History spironolactone 50 mg PO DAILY 05/21/20 05/21/20 History torsemide 40 mg PO DAILY 05/21/20 05/21/20 History vit C,E-Zr-ngitz-lutein-zeaxan 1 tab PO QAM 05/21/20 05/21/20 History [PreserVision AREDS-2] warfarin 5 mg PO DAILY 05/21/20 05/21/20 History Patient History Medical History Abnormal liver function Acid reflux Ascites Hypertension Surgical History Hx of appendectomy Social History Smoking Status: Unknown if ever smoked Second Hand Exposure: Yes (son smokes outside); Do You Dip or Chew Tobacco: No; Hx Alcohol Use: No Hx Substance Use: No Preferred Language: Latvian Communication Ability: Effective Beliefs That Will Affect Care: None Current Living Situation: Family Other Information That Helps Us Care for You: No Feels Safe at Home: Yes Safety Concerns: Feels Safe At This Time Assistive Devices: Glasses, Hearing Aid - Bilateral and Walker Review of Systems Constitutional: no fever, no chills and no weight loss Eyes: as per Subjective / HPI Ear, Nose, Mouth, Throat: as per Subjective / HPI Respiratory: no dyspnea and no dyspnea on exertion Cardiovascular: no chest pain and no palpitations Gastrointestinal: as per Subjective / HPI Musculoskeletal: no joint pain and no swelling Integumentary: no rash and no lesions Neurologic: no numbness and no paresthesia Psychiatric: no depression and no anxiety Endocrine: no fatigue Hematologic / Lymphatic: no easy bleeding and no easy bruising Physical Exam Constitutional: WD/WN, vitals as above Eyes: EOM intact bilaterally Neck: normal visual inspection Respiratory: normal respiratory effort, lungs clear to auscultation Cardiovascular: RRR, no murmur, no edema Gastrointestinal (Abdomen): Inspection/Auscultation: abdomen normal to inspection and + abdomen distended (moderate) Percussion/Palpation: abdomen soft; abdomen nontender and no hepatosplenomegaly no asterixis Musculoskeletal: Extremities: no cyanosis Gait: normal gait Skin: no rashes, warm and dry Neurologic: moves all extremities Psychiatric: A+Ox3, euthymic affect Results & Data ([facility]) Vital Signs (Past 12 Hours) Vital Signs Temp Pulse Pulse Resp BP BP Pulse Ox 05/22/20 11:41 36.8 C 72 18 114/57 L 94 01/16/21 08:00 70 05/22/20 07:22 36.9 C 70 18 100/41 L 92 05/22/20 03:05 36.8 C 77 16 112/53 L 95 PG Care Time/CCT Total # of Minutes Spent Total Time Spent with Patient: Total time spent is greater than 50% in coordination of care (as documented) at patient's floor/unit and/or counseling patient: Coding Level of Care Code 30692 Initial Inpt Care Lvl 3 Diagnoses Ascites R18.8 Ascites type: other type 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 K74.3 (1) Ascites Ascites type: other type Qualified Code(s): R18.8 - Other ascites
--- NOTE | 2020-05-22 14:15 | Hospitalist Progress Note ---
Date of Service May 22, 2020 Assessment & Plan (1) Decompensation of cirrhosis of liver: Recurrent Ascites H/O primary biliary cirrhosis No signs of infection S/O Paracentesis-- 9 liters removed in ED on 05/21/19 Received IV albumin Continue rifaximin, lactulose Continue low-salt diet Diuretics on hold secondary to CLAUDIA Acute Kidney Injury Secondary to diuretics, prerenal Avoid nephrotoxic agents as able Diuretics on hold Appreciate neurology input Monitor renal function Cr:2.22>2.0 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 as outpatient Restarted on Coumadin recently as per patient Monitor INR:1.9 Continue Coumadin Thrombocytopenia Secondary to cirrhosis No acute bleeding issues Monitor platelets Chronic hyponatremia Monitor sodium levels Sodium :134 GERD Continue PPI Anxiety/mood disorder Continue bupropion DVT Px: On Coumadin Code Status Full code Admission and Anticipated Discharge Date Admission Date: May 21, 2020 Subjective Patient is seen and examined at bedside States feeling better today Had abdominal paracentesis while in ED yesterday Denies chest pain, shortness of breath, dizziness, nausea, abdominal pain Offers no other complaints Afebrile Review of Systems Review of Systems: All systems reviewed & are unremarkable except as noted in HPI & below Physical Exam Physical Exam: Physical Exam: Vitals signs as noted above General Appearance:Moderately built and nourished, no apparent distress, chronically appearing Head: normocephalic, Atraumatic Eyes: normal inspection, EOMI Neck: supple, Trachea midline Respiratory/Chest: Normal breath sounds, CTA Cardiovascular: S1, S2, + murmur Abdomen/GI:Soft, distended, Non tender, Bowel sounds present Extremities/Musculoskelatal:normal inspection, No pedal edema Neurologic/Psych:AAOX3, grossly no focal neurological deficits Skin: normal color, warm Results & Data Results & Data ([facility]) Vital Signs (Past 12 Hours) Vital Signs Temp Pulse Pulse Resp BP BP Pulse Ox 05/22/20 11:41 36.8 C 72 18 114/57 L 94 05/22/20 08:00 70 05/22/20 07:22 36.9 C 70 18 100/41 L 92 05/22/20 03:05 36.8 C 77 16 112/53 L 95 Laboratory Results Short CBC 05/21/20 05/22/20 Range/Units 20:56 05:20 WBC 10.17 6.18 (4.8-10.8) K/uL Hgb 12.6 10.5 L (12.0-16.0) g/dL Hct 35.4 L 29.6 L (37-47) % Plt Count 144 83 L (130-400) K/uL BMP 05/21/20 05/21/20 05/22/20 20:56 21:52 05:20 Sodium Cancelled 129 L 134 L Potassium Cancelled 5.0 3.9 D Chloride Cancelled 98 103 Carbon Dioxide Cancelled 22 22 BUN Cancelled 44 H 45 H Creatinine Cancelled 2.22 H 2.00 H Glucose Cancelled 114 H 107 H Calcium Cancelled 8.8 8.2 L Cardiac Enzymes 05/21/20 05/21/20 Range/Units 20:56 21:52 Total Creatine Kinase Cancelled 47 Troponin I Cancelled < 0.015 Liver Function 05/21/20 05/21/20 05/22/20 Range/Units 20:56 21:52 05:20 Total Bilirubin Cancelled 1.9 H 1.6 H AST Cancelled 59 H 39 H ALT Cancelled 37 27 Alkaline Phosphatase Cancelled 234 H 185 H Albumin Cancelled 3.4 3.2 L Urine 05/21/20 Range/Units 23:19 Urine Color Dark Yellow Urine Appearance Clear (Clear) Urine pH 5.0 (4.5-7.5) Ur Specific [place] 1.015 (1.000-1.030) Urine Protein Negative (Negative) Urine Glucose (UA) Negative (Negative)
[2020-05-22] MEDS ORDERED: WARFARIN SOD 5 MG TAB PO SCH (16:00)
--- NOTE | 2020-05-22 22:00 | Electrocardiogram Report ---
Test Reason : Blood Pressure : / mmHG Vent. Rate : 075 BPM Atrial Rate : 075 BPM P-R Int : 148 ms QRS Dur : 076 ms QT Int : 384 ms P-R-T Axes : 029 -09 016 degrees QTc Int : 428 ms Normal sinus rhythm Inferior infarct , age undetermined Anterolateral infarct , age undetermined Nonspecific T wave abnormality Abnormal ECG When compared with ECG of 17-MAY-2020 06:36, Anterolateral infarct is now Present Inferior infarct is now Present Confirmed by Richard Salcedo ([id number]) on 05/22/2020 9:59:30 PM Referred By: REFERRED SELF Confirmed By:Richard Salcedo
[2020-05-23 06:03] LABS: Hematocrit (blood only) 32.4 % (37-47); Hemoglobin 11.1 g/dL (12.0-16.0); Mean Corpuscular Hemoglobin 34.2 pg (25-34); Mean Corpuscular Hgb Conc 34.3 g/dL (32-36); Mean Corpuscular Volume 99.7 fL (80-100); RDW Coefficient of Variation 17.1 % (11.5-14.5); RDW Standard Deviation 62.5 fL (36.4-46.3); Red Blood Count 3.25 M/uL (4.2-5.4); White Blood Count 6.25 K/uL (4.8-10.8)
[2020-05-23 06:06] LABS: Mean Platelet Volume 10.4 fL (7.4-10.4); Platelet Count 83 K/uL (130-400)
[2020-05-23 06:11] LABS: INR 2.9 (0.9-1.1); Prothrombin Time 29.3 Seconds (9.0-12.0)
[2020-05-23 06:37] LABS: BUN Creatinine Ratio 25.1 (10-20); Creatinine Clr Calc Pharmacy 25.2 ml/min; Est GFR (African American) 31.4; Est GFR (Non-African American) 27.1; Potassium 3.7 mmol/L (3.5-5.1)
[2020-05-23] MEDS: rifAXIMin 550 MG TABLET PO SCH ×2 (07:52→21:13)
[2020-05-23] MEDS: LACTULOSE SYRUP 20 GM/30 ML UDC PO SCH ×2 (07:52→21:12)
[2020-05-23] MEDS: PANTOprazole 40 MG TAB PO SCH (07:53)
[2020-05-23] MEDS: buPROPion XL 300 MG TABCR PO SCH (07:53)
--- NOTE | 2020-05-23 10:22 | Communication Note ---
Date of Service: May 23, 2020 GI brief note: was notified by nursing that patient continues to leak ascites from her paracentesis site done by the ER on 05/21. Has an ostomy bag to collect the fluid currently. afebrile, VSS. Recs: --would recommend a wound care consultation to close up the wound --continue with ostomy bag for now Ancelmo Knight MD Gastroenterology
--- NOTE | 2020-05-23 10:32 | Nephrology Progress Note ---
Date of Service May 23, 2020 Assessment & Plan (1) Acute renal failure: Patient has ARF likely secondary to prerenal azotemia in the setting of worsening ascites and diuretics, with component of increased intra-abdominal pressure. - Functions improved with paracentesis, further improved to 1.8 today -Continue to hold the diuretics for now. -Low-sodium diet. -Blood pressure is at baseline and she generally runs in the low 100s, for blood pressure of pulse of rather she can be started on midodrine 5 mg 3 times daily, increased to 10 mg 3 times daily to get to her baseline -Daily weights, need to be started on diuretic again, if weight shows an upward trend and her renal function starts getting worse. (2) Ascites: Noted to have decompensated liver disease with repeated paracentesis. With lactulose and rifaximin GI on board Admission and Anticipated Discharge Date Admission Date: May 21, 2020 Subjective Seen for CLAUDIA, Admitted with decompensated liver disease and ascites States feeling better today No shortness of breath, UOP has improved Some leak around the surgical site. Review of Systems Review of Systems: All systems reviewed & are unremarkable except as noted in HPI & below Physical Exam Physical Exam: General exam: Appears comfortable, no acute distress HEENT: Pupils are equal and reactive to light Neck: No JVD, neck is supple trachea is midline Respiratory system: Clear breath sounds bilaterally. Gastrointestinal: Abdomen is distended, non tender, bowel sounds are present CVS: Regular rate and rhythm. No murmurs, rubs or gallops Musculoskeletal: No joint or muscle tenderness Extremities: Non tender, no edema, peripheral pulses are present Neuro: Oriented, no tremors, no focal neurological deficits Skin: No rashes Results & Data ([facility]) Vital Signs (Past 12 Hours) Vital Signs Temp Pulse Pulse Resp BP Pulse Ox 05/23/20 08:32 36.7 C 75 18 105/59 L 97 05/23/20 07:07 72 05/23/20 03:52 36.7 C 73 18 105/55 L 98 05/22/20 23:00 36.6 C 75 18 102/54 L 97 Laboratory Results 05/23/20 05:51 05/23/20 05:51 (1) Ascites Ascites type: other type Qualified Code(s): R18.8 - Other ascites (2) Acute renal failure Acute renal failure type: unspecified Qualified Code(s): N17.9 - Acute kidney failure, unspecified
[2020-05-23] MEDS ORDERED: ALBUMIN 25% 12.5 GM/50 ML VIAL IV ONE (14:53)
--- NOTE | 2020-05-23 15:09 | Hospitalist Progress Note ---
Date of Service May 23, 2020 Assessment & Plan (1) Decompensation of cirrhosis of liver: Recurrent Ascites H/O primary biliary cirrhosis No signs of infection S/O Paracentesis-- 9 liters removed in ED on 05/21/19 Received IV albumin Continue rifaximin, lactulose Continue low-salt diet Diuretics on hold secondary to CLAUDIA Fluid restriction Daily weight Needs to follow up with [place] for eval of possible transplant Acute Kidney Injury Secondary to diuretics, prerenal Avoid nephrotoxic agents as able Appreciate neurology input Monitor renal function Cr:2.22>2.0>1.8 Continue to hold diuretics today 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 as outpatient Restarted on Coumadin recently as per patient Monitor INR:1.9>2.9 Decrease Coumadin to 1mg daily Thrombocytopenia Secondary to cirrhosis No acute bleeding issues Monitor platelets Chronic hyponatremia Monitor sodium levels Sodium :134>135 Continue fluid restriction GERD Continue PPI Anxiety/mood disorder Continue bupropion DVT Px: On Coumadin Code Status Full code Admission and Anticipated Discharge Date Admission Date: May 21, 2020 Subjective Patient is seen and examined at bedside Reports having ascitic fluid leakage from paracentesis site Other have no complaints Denies chest pain, dyspnea, and pain, dizziness, nausea Afebrile Review of Systems Review of Systems: All systems reviewed & are unremarkable except as noted in HPI & below Physical Exam Physical Exam: Physical Exam: Vitals signs as noted above General Appearance:Moderately built and nourished, no apparent distress, chronically appearing Head: normocephalic, Atraumatic Eyes: normal inspection, EOMI Neck: supple, Trachea midline Respiratory/Chest: Normal breath sounds, CTA Cardiovascular: S1, S2, + murmur Abdomen/GI:Soft, distended, Non tender, Bowel sounds present Extremities/Musculoskelatal:normal inspection, No pedal edema Neurologic/Psych:AAOX3, grossly no focal neurological deficits Skin: normal color, warm Results & Data Results & Data ([facility]) Vital Signs (Past 12 Hours) Vital Signs Temp Pulse Pulse Resp BP Pulse Ox 05/23/20 11:23 36.8 C 65 20 130/76 95 05/23/20 08:32 36.7 C 75 18 105/59 L 97 05/23/20 07:07 72 05/23/20 03:52 36.7 C 73 18 105/55 L 98 Laboratory Results Short CBC 05/23/20 Range/Units 05:51 WBC 6.25 (4.8-10.8) K/uL Hgb 11.1 L (12.0-16.0) g/dL Hct 32.4 L (37-47) % Plt Count 83 L (130-400) K/uL BMP 05/23/20 05:51 Sodium 135 L Potassium 3.7 Chloride 105 Carbon Dioxide 24 BUN 46 H Creatinine 1.84 H Glucose 82 Calcium 8.0 L
[2020-05-23] MEDS: WARFARIN SOD 1 MG TAB PO SCH (16:09)
[2020-05-23] MEDS ORDERED: SALINE NASAL 225 SPRAYS, GENTAMICIN SULFATE 60 MG, BARCODE IDENTIFIER 0 EA PRN (21:15)
[2020-05-23] MEDS ORDERED: SODIUM CHLORIDE 0.65% NA SOLN 45 ML (OCEAN) PRN (21:22)
[2020-05-24 07:50] LABS: Hematocrit (blood only) 35.3 % (37-47); Hemoglobin 11.7 g/dL (12.0-16.0); Mean Corpuscular Hemoglobin 33.6 pg (25-34); Mean Corpuscular Hgb Conc 33.1 g/dL (32-36); Mean Corpuscular Volume 101.4 fL (80-100); RDW Coefficient of Variation 17.4 % (11.5-14.5); RDW Standard Deviation 63.4 fL (36.4-46.3); Red Blood Count 3.48 M/uL (4.2-5.4); White Blood Count 5.96 K/uL (4.8-10.8)
[2020-05-24 07:59] LABS: Prothrombin Time 29.8 Seconds (9.0-12.0)
[2020-05-24] MEDS: PANTOprazole 40 MG TAB PO SCH (08:00)
[2020-05-24] MEDS: rifAXIMin 550 MG TABLET PO SCH ×2 (08:00→21:01)
[2020-05-24] MEDS: LACTULOSE SYRUP 20 GM/30 ML UDC PO SCH ×2 (08:00→21:01)
[2020-05-24] MEDS: buPROPion XL 300 MG TABCR PO SCH (08:00)
[2020-05-24 08:02] LABS: Mean Platelet Volume 10.1 fL (7.4-10.4); Platelet Count 97 K/uL (130-400)
[2020-05-24 08:16] LABS: BUN Creatinine Ratio 23.6 (10-20); Calcium 8.8 mg/dl (8.5-10.1); Creatinine Clr Calc Pharmacy 26.8 ml/min; Est GFR (African American) 33.8; Est GFR (Non-African American) 29.2; Potassium 3.7 mmol/L (3.5-5.1)
[2020-05-24] MEDS: TORSEMIDE 10 MG TAB PO SCH (10:02)
--- NOTE | 2020-05-24 10:27 | Progress Notes ---
DATE: 05/24/2020 SUBJECTIVE: Overnight, the patient had some leakage around the abdominal paracentesis site, otherwise she feels about the same. OBJECTIVE: GENERAL: Awake and alert, oriented x3. HEENT: Mucous membranes moist. NECK: Supple. VITAL SIGNS: Blood pressure is 151/91, which is quite high for a liver cirrhotic patient. CHEST: Decreased breath sound at the bases. CARDIOVASCULAR: S1, S2 regular. ABDOMEN: Massive ascites. EXTREMITIES: Shows no edema. LABORATORY TESTS: Sodium is 137, BUN 41, creatinine 1.73, hemoglobin 11.7, platelet count 97,000. ASSESSMENT AND PLAN: A 69-year-old female with worsening decompensated liver cirrhosis, admitted with significant abdominal distention. Renal failure, this is not acute renal failure. Please do not try to improve the renal function by holding diuretics or giving IV fluid. Worsening renal function is part of the worsening decompensated liver cirrhosis. She will not have a baseline creatinine like she had before. RECOMMENDATIONS: 1. Restart torsemide 20 daily. This predominantly works for the lower extremity edema which she does not have now, but had significant edema prior to torsemide. 2. Continue paracentesis. Almost certainly she needs a weekly paracentesis. 3. I would call her baseline creatinine going forward to be around 2.
[2020-05-24] MEDS ORDERED: ALBUMIN 25% 12.5 GM/50 ML VIAL IV SCH ×2 (14:00→16:30)
--- NOTE | 2020-05-24 14:49 | Hospitalist Progress Note ---
Date of Service May 24, 2020 Assessment & Plan (1) Decompensation of cirrhosis of liver: Recurrent Ascites H/O primary biliary cirrhosis No signs of infection S/O Paracentesis-- 9 liters removed in ED on 05/21/19 Received IV albumin Continue rifaximin, lactulose Continue low-salt diet Diuretics on hold secondary to CLAUDIA Fluid restriction Daily weight Needs to follow up with [place] for eval of possible transplant We will plan for large-volume paracentesis tomorrow We will hold Coumadin for today Resume home diuretics as per nephrology Acute Kidney Injury Baseline Cr ~2 Secondary to diuretics, prerenal Avoid nephrotoxic agents as able Appreciate neurology input Monitor renal function Cr:2.22>2.0>1.8>1.7 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 as outpatient Restarted on Coumadin recently as per patient Monitor INR:1.9>2.9>3.0 Hold Coumadin today as planned for paracentesis tomorrow Thrombocytopenia Secondary to cirrhosis No acute bleeding issues Monitor platelets Chronic hyponatremia Monitor sodium levels Sodium :134>135>137 Continue fluid restriction GERD Continue PPI Anxiety/mood disorder Continue bupropion DVT Px: On Coumadin Code Status Full code Admission and Anticipated Discharge Date Admission Date: May 21, 2020 Subjective Patient is seen and examined at bedside Offers no complaints Discussed with GI today Usually plan to get paracentesis today, but given INR 3.0--we will plan for tomorrow Also discussed with nephrology today Reports abdominal distention Denies chest pain, dyspnea, and pain, dizziness, nausea Review of Systems Review of Systems: All systems reviewed & are unremarkable except as noted in HPI & below Physical Exam Physical Exam: Physical Exam: Vitals signs as noted above General Appearance:Moderately built and nourished, no apparent distress, chronically appearing Head: normocephalic, Atraumatic Eyes: normal inspection, EOMI Neck: supple, Trachea midline Respiratory/Chest: Normal breath sounds, CTA Cardiovascular: S1, S2, + murmur Abdomen/GI:Soft, distended, Non tender, Bowel sounds present Extremities/Musculoskelatal:normal inspection, No pedal edema Neurologic/Psych:AAOX3, grossly no focal neurological deficits Skin: normal color, warm Results & Data Results & Data ([facility]) Vital Signs (Past 12 Hours) Vital Signs Temp Pulse Pulse Resp BP Pulse Ox 05/24/20 11:23 36.9 C 102 H 19 136/75 97 05/24/20 08:07 36.8 C 97 H 19 151/91 H 99 05/24/20 07:30 69 05/24/20 04:00 36.6 C 69 18 120/57 L 97 Laboratory Results Short CBC 05/24/20 Range/Units 07:30 WBC 5.96 (4.8-10.8) K/uL Hgb 11.7 L (12.0-16.0) g/dL Hct 35.3 L (37-47) % Plt Count 97 L (130-400) K/uL BMP 05/24/20 07:30 Sodium 137 Potassium 3.7 Chloride 106 Carbon Dioxide 25 BUN 41 H Creatinine 1.73 H Glucose 84 Calcium 8.8
[2020-05-25] MEDS: ALBUMIN 25% 12.5 GM/50 ML VIAL IV SCH ×4 (05:39→10:38)
[2020-05-25 07:07] LABS: Hematocrit (blood only) 32.2 % (37-47); Mean Corpuscular Hemoglobin 34.2 pg (25-34); Mean Corpuscular Hgb Conc 34.2 g/dL (32-36); RDW Coefficient of Variation 17.4 % (11.5-14.5); RDW Standard Deviation 62.7 fL (36.4-46.3); Red Blood Count 3.22 M/uL (4.2-5.4); White Blood Count 5.74 K/uL (4.8-10.8)
[2020-05-25 07:14] LABS: Platelet Count 98 K/uL (130-400)
[2020-05-25 07:24] LABS: INR 2.6 (0.9-1.1); Prothrombin Time 25.8 Seconds (9.0-12.0)
[2020-05-25 07:43] LABS: BUN Creatinine Ratio 24.9 (10-20); Calcium 8.4 mg/dl (8.5-10.1); Creatinine Clr Calc Pharmacy 27.2 ml/min; Est GFR (African American) 34.3; Est GFR (Non-African American) 29.6; Potassium 3.2 mmol/L (3.5-5.1)
[2020-05-25] MEDS ORDERED: POTASSIUM CHLORIDE CRTAB 20 MEQ TABCR PO ONE (08:33)
[2020-05-25] MEDS: buPROPion XL 300 MG TABCR PO SCH (10:09)
[2020-05-25] MEDS: TORSEMIDE 10 MG TAB PO SCH (10:09)
[2020-05-25] MEDS: PANTOprazole 40 MG TAB PO SCH (10:09)
[2020-05-25] MEDS: rifAXIMin 550 MG TABLET PO SCH (10:09)
--- NOTE | 2020-05-25 10:09 | Ultrasound Report ---
PARACENTESIS UNDER ULTRASOUND GUIDANCE CLINICAL HISTORY: Abdominal ascites. COMPARISON STUDY: Abdominal CT dated 05/15/2020. PROCEDURE: The risks, benefits, and alternatives to the procedure were discussed with the patient who voiced understanding. Written informed consent was obtained. Following real-time ultrasound localiza tion of a suitable pocket of fluid in the right lower quadrant, the abdomen was prepped and draped in the usual sterile fashion. The skin and soft tissues were anesthetized with 1% lidocaine. The sheath ed paracentesis needle was inserted and approximately 3.3 liters of straw-colored ascitic fluid was r emoved by vacuum suction. The procedure was well tolerated and without immediate complication. The pa tient left the department in satisfactory condition. IMPRESSION: Successful ultrasound-guided paracentesis with removal of approximately 3.3 liters of asc itic fluid. ACT 112: Negative or not required by law. Electronically signed by: Mau Carvajal M.D. 05/25/2020 10:08 AM
[2020-05-25] MEDS: LACTULOSE SYRUP 20 GM/30 ML UDC PO SCH (10:10)
[2020-05-25] MEDS ORDERED: SPIRONOLACTONE 25 MG TAB PO SCH (10:15)
--- NOTE | 2020-05-25 10:57 | Progress Notes ---
DATE: 05/25/2020 NEPHROLOGY PROGRESS NOTE SUBJECTIVE: Overnight, no new issues. She did not get a paracentesis yesterday but had done today. She feels better after the paracentesis. No new issues. OBJECTIVE: VITAL SIGNS: Blood pressure 120/71, pulse rate 68, temperature 36.5, and 97% on room air. HEENT: Mucous membranes moist. NECK: Supple. She appears to be cachectic as expected for advanced cirrhosis. CARDIOVASCULAR: S1, S2 regular. CHEST: Bilaterally decreased breath sounds. EXTREMITIES: Show no edema. ABDOMEN: Ascites present, but less. LABORATORY TESTS: From this morning shows sodium is normal at 139, potassium 3.2, BUN 43, creatinine is stable at 1.71, calcium 8.4, hemoglobin 11, platelet count 98. ASSESSMENT AND PLAN: A 69-year-old female with worsening decompensated liver cirrhosis, admitted with significant abdominal distention. Acute renal failure (this is not exactly acute renal failure). I believe this is worsening renal function as part of the worsening decompensated liver cirrhosis. She will not have a baseline creatinine like she had before. As long as creatinine is around 2, I would accept that as her new baseline. RECOMMENDATIONS: 1. Continue torsemide 20 daily. In her case, this is being used for management of lower extremity edema. She does not have any edema now, but prior to torsemide, she had significant edema, so we will continue same. 2. Continue paracentesis, almost certainly she needs at least weekly paracentesis and possibly even more frequent. 3. Potassium is slightly low now and given this, I would add spironolactone 50 daily and we will continue that for the discharge too.
--- NOTE | 2020-05-25 11:24 | Hospitalist Progress Note ---
Date of Service May 25, 2020 Assessment & Plan (1) Decompensation of cirrhosis of liver: Recurrent Ascites H/O primary biliary cirrhosis No signs of infection S/O Paracentesis-- 9 liters removed in ED on 05/21/19 Received IV albumin Continue rifaximin, lactulose Continue low-salt diet Diuretics on hold secondary to CLAUDIA Fluid restriction Daily weight Had repeat paracentesis today Resume home diuretics as per nephrology Start on Doxycycline empirically for abd wall erythema at paracentesis site Needs to follow up with 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 Admission and Anticipated Discharge Date Admission Date: May 21, 2020 Subjective Patient is seen and examined at bedside Had abdominal Paracentesis today: 3.3 L removed Noted some minimal erythema at prior paracentesis site Denies any abdominal pain, nausea, chest pain, dyspnea, dizziness Currently getting IV albumin Offers no other complaints Review of Systems Review of Systems: All systems reviewed & are unremarkable except as noted in HPI & below Physical Exam Physical Exam: Physical Exam: Vitals signs as noted above General Appearance:Moderately built and nourished, no apparent distress, chronically appearing Head: normocephalic, Atraumatic Eyes: normal inspection, EOMI Neck: supple, Trachea midline Respiratory/Chest: Normal breath sounds, CTA Cardiovascular: S1, S2, + murmur Abdomen/GI:Soft, distended, Non tender, Minimal erythema at paracentesis site, Bowel sounds present Extremities/Musculoskelatal:normal inspection, No pedal edema Neurologic/Psych:AAOX3, grossly no focal neurological deficits Skin: normal color, warm Results & Data Results & Data ([facility]) Vital Signs (Past 12 Hours) Vital Signs Temp Pulse Pulse Resp BP BP Pulse Ox 05/25/20 11:05 36.4 C L 64 16 123/56 L 112/53 L 97 05/25/20 10:39 36.4 C L 64 16 123/56 L 05/25/20 09:07 36.5 C 68 16 120/71 97 05/25/20 08:14 67 05/25/20 03:00 36.6 C 65 18 116/64 98 Laboratory Results Short CBC 05/25/20 Range/Units 06:16 WBC 5.74 (4.8-10.8) K/uL Hgb 11.0 L (12.0-16.0) g/dL Hct 32.2 L (37-47) % Plt Count 98 L (130-400) K/uL BMP 05/25/20 06:16 Sodium 139 Potassium 3.2 L Chloride 106 Carbon Dioxide 24 BUN 43 H Creatinine 1.71 H Glucose 82 Calcium 8.4 L
[2020-05-25] MEDS ORDERED: DOXYCYCLINE HYCLATE 100 MG CAP PO SCH (11:30)
--- NOTE | 2020-05-25 11:36 | Discharge Summary ---
Date of Service May 25, 2020 Admission HPI Per Admitting Provider History obtained from patient and records. 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 Last confinement last week for decompensated cirrhosis. Paracentesis done during confinement. Cultures negative. Upon discharge, patient noted increased fluid retention again despite compliance with diuretic regimen. Denies dietary indiscretion or NSAID intake. Outpatient serum creatinine from 2 days ago was noted to be 1.7. Patient informed [facility] sorting livestock worker during video meeting today ofl fluid retention symptoms. Specialist recommended increasing torsemide dose and stopping nifedipine. Patient noted worsening abdominal distention causing shortness of breath without pain, fever, cough, chills. Paracentesis done at the ER with a total of 9 L removed. Subsequent albumin infusion replacements administered at the ER. 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 Admission Exam Per Admitting Provider Physical Exam Physical Exam: GENERAL: slightly uncomfortable, episodic tachypnea SKIN: Normal color, warm HEENT: Bespectacled, [place] palpebral conjunctivae, no ptosis, dry buccal mucosa NECK : Supple, no tenderness CHEST : CTA, no tenderness HEART : RRR, no obvious murmurs ABDOMEN: Some distention, nontender EXTREMITIES : Minimal LE swelling, no LE tenderness, no other conspicuous deformities noted NEUROLOGIC : Coherent, no facial asymmetry, no other gross focality Principal Diagnosis Recurrent Ascites Acute Kidney Injury Discharge Data Allergies Allergy/AdvReac Type Severity Reaction Status Date / Time Penicillins Allergy Rash Verified 05/21/20 22:27 adhesive AdvReac Redness of Verified 05/21/20 22:27 Skin Consultations 05/21/20 22:33 ED Decision to Admit Stat 05/22/20 02:55 Consult Gastroenterology Routine Consult Nephrology Routine Ordered Studies 05/25/20 09:00 US paracentesis abd w/image Routine Hospital Course (1) Decompensation of cirrhosis of liver: Recurrent Ascites H/O primary biliary cirrhosis No signs of infection S/O Paracentesis-- 9 liters removed in ED on 05/21/19 Received IV albumin Continue rifaximin, lactulose Continue low-salt diet Diuretics on hold secondary to CLAUDIA Fluid restriction Daily weight Had repeat paracentesis today Resume home diuretics as per nephrology Start on Doxycycline empirically for abd wall erythema at paracentesis site Needs to follow up with [place] for eval of possible transplant Needs follow up with GI upon discharge Acute Kidney Injury Baseline Cr ~2 Secondary to diuretics, prerenal Avoid nephrotoxic agents as able Appreciate neurology input Monitor renal function Cr:2.22>2.0>1.8>1.7 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 Total Time Total Time Spent Total Time Spent (In Minutes): 41 minutes Total Time Includes: Examination of the Patient, Discharge Planning, Medication Reconciliation, Communication With Other Providers and Other Discharge Plan Discharge Items Patient Disposition: Home - Home Health Services Reason For Visit: ARF Discharge Diagnosis: Recurrent Ascites Acute Kidney Injury Activity: Resume your previous activity Exercise/Sports: Gradually increase as tolerated Non-emergency contact: Primary Care Provider, Director Of Student Life and [employer] Team Members Call non-emergency contact if: you have any medication questions, your symptoms worsen, your pain is not controlled, your pain is worsening, your pain is unusual for you, your pain is concerning for you and you have a fever Follow-up/Referrals: Amber Jauregui CRNP [Nurse Practitioner] - (Date & Time 05/26/2020 12:00 PM Provider EMETERIO Sarmiento Department Gastroenterology, [facility] ) Laura Dale PA-C [Primary Care Provider] - (Date & Time 05/27/2020 9:20 AM Provider Laura Dale PA-C Department [facility] ) Diet: Low Sodium (2gm) Fluids: 1500ml (6 cups) Addtl Attending Provider Instructions: Follow up with your PCP Laura Dale PA-C on 05/27/2020 9:20 AM as scheduled Follow-up with your nursery school attendant Amber Jauregui PA-C on 05/26/2020 12:00 PM as scheduled Follow up with coumadin clinic on 05/26/20 with blood test PT/INR for further dosing of your Coumadin Follow up with your [employer] Team Members as recommended Your torsemide dose is decreased to 20 mg daily as recommended by your sorting livestock worker Complete antibiotic course doxycycline 100 mg twice a day for 6 more days. Your PT/INR is 2.6 today (05/25/20). Take 1 mg Coumadin today. Get blood test tomorrow as advised and follow up with Coumadin clinic for further Coumadin dosing. Seek immediate medical attention if your symptoms reoccur or worsen Pending Studies at Discharge: No Stand-Alone Forms: My [employer], Smoking Cessation Medications and DC Order Prescriptions: New doxycycline hyclate 100 mg Capsule 100 mg PO BID Qty: 13 RF: 0 warfarin 1 mg tablet 1 mg PO UD Qty: 60 RF: 0 Continued nifedipine 30 mg tablet extended release 24hr 30 mg PO DAILY RF: 0 potassium chloride 20 mEq tablet,ER particles/crystals 20 meq PO QAM RF: 0 warfarin 5 mg tablet 5 mg PO DAILY RF: 0 omeprazole 20 mg capsule,delayed release(DR/EC) 20 mg PO DAILY RF: 0 spironolactone 50 mg tablet 50 mg PO DAILY RF: 0 bupropion HCl 300 mg tablet extended release 24 hr 300 mg PO DAILY RF: 0 cholecalciferol (vitamin D3) [Vitamin D3] 25 mcg (1,000 unit) Tablet 0 mcg PO DAILY RF: 0 Xifaxan 550 mg tablet 550 mg PO BID RF: 0 lactulose 20 gram/30 mL solution 30 ml PO BID RF: 0 PreserVision AREDS-2 [id number] Capsule 1 tab PO QAM RF: 0 Changed torsemide 20 mg tablet 20 mg PO DAILY Qty: 0 RF: 0 Discharge Orders: Discharge Order (Routine); Ordered 05/25/20 Ordered By: Abimael Cohen Admission Data Admit Date/Time: 05/21/20 23:58 Attending Provider: Abimael Cohen Admit Provider: Justus Pederson Primary Care Provider: Laura Dale Other Providers: Justus Pederson ; Dary Welsh ; Noemy Yanes ; Es Barragan ; Christina Shirley ; Greg Junior ; Fifi Mathew ; Magnus Pérez ; Ke Morris ; Jose Guadalupe Estrada ; Rain Thomas ; Antoinette Sharif ; Amber Jauregui ; Barbara Nava ; Randy Tabares ; Marie Rios ; Ziggy Hunt ; Jayne Resendez ; Yaneth Gandara ; Gricelda Romero ; Kendra Moreira Other Interventions: Discharge Summary Assessment (RN) Last Done: 05/25/20 11:05
[2020-05-25] MEDS: WARFARIN SOD 1 MG TAB PO SCH (13:04)
== END 2020-05-25 14:05 | disposition home health service (06) | DRG 445 ==
LOC: ED 20:27 → 2N 23:58
DX: N17.9 Acute kidney failure, unspecified; Z79.899 Other long term (current) drug therapy; K74.60 Unspecified cirrhosis of liver; Z79.01 Long term (current) use of anticoagulants; F41.9 Anxiety disorder, unspecified; R18.8 Other ascites; I10 Essential (primary) hypertension; E87.1 Hypo-osmolality and hyponatremia; R73.9 Hyperglycemia, unspecified; K21.9 Gastro-esophageal reflux disease without esophagitis; D69.59 Other secondary thrombocytopenia; K83.01 Primary sclerosing cholangitis

== ENCOUNTER 2020-09-11 23:45 | Inpatient (IN) ==
--- NOTE | 2020-09-12 00:13 | Emergency Department Note ---
Impression & Plan Weakness, CLAUDIA (acute kidney injury), Hyperbilirubinemia ED Provider Note NAME: URSZULA SAINZ AGE: 70 SEX: F : 1950 ARRIVES VIA: Walk-In INFORMANT: Patient, the patient's family member ED PROVIDER(S): Ke Ordoñez DO CHIEF COMPLAINT: Weakness HPI: The patient is a 70-year-old female who presented to the emergency department for an evaluation of generalized weakness. The patient has a history of chronic cirrhosis as well as abnormal kidney function. She has had ascites in the past. Her ascites was drained last week. She did present to the emergency department after the paracentesis because of a continued fluid leak. This was treated in the emergency department and the patient has had no further problems with it. The patient was noted to have decreased energy today. She appeared to be shaking. She had no recent falls and has no headache but she has been very confused recently. Her family member states that she has had similar episodes in the past with an elevated ammonia level. There is been no fever. She denies having any cough. There is been no trauma or head injury. The patient denies having any lower extremity swelling. Otherwise she has been compliant with all of her outpatient medication regimen. ROS: See above HPI for pertinent positives & negatives. A total of 10 systems reviewed and were otherwise negative. PAST MEDICAL HISTORY: See Below PAST SURGICAL HISTORY: See Below FAMILY HISTORY: See Below SOCIAL HISTORY: See Below HOME MEDICATIONS: See Below ALLERGIES: See Below VITALS: See Below PHYSICAL EXAMINATION: GENERAL: The patient was awake and alert. She is answer questions appropriately. EYES: The conjunctivae are icteric. The pupils are round and reactive. EARS, NOSE, MOUTH AND THROAT: The nose is without any evidence of any deformity. NECK: The neck is nontender and supple. RESPIRATORY: Normal respiratory effort is noted there is no evidence of wheezing rhonchi or rales CARDIOVASCULAR: Regular rate and rhythm noted there no murmurs rubs or gallops normal S1 normal S2. GASTROINTESTINAL: The abdomen is soft and mildly distended. There is ecchymosis over the right side of the abdomen consistent with recent paracentesis. No fluid leaking was noted MUSCULOSKELETAL/EXTREMITIES: There is no evidence of gross deformity full range of motion is noted in the hips and shoulders. SKIN: Skin is warm and dry. There is no significant pedal edema. NEUROLOGIC: Patient is awake to verbal commands. She is oriented to person place and situation. The patient did have some clonus on physical exam in the lower extremities. MEDICAL DECISION MAKING: The patient is a 70-year-old female who presented to the emergency department for an evaluation of altered mental status and generalized weakness. The patient has a history of hepatic encephalopathy. The patient was treated with IV fluids in the emergency department. I discussed the patient's laboratory and radiographic studies with her and her family member. At this time she does not appear to have a significantly elevated ammonia level. I did recommend that she continue all medications as prescribed and follow-up with her primary care roshan hogue for further evaluation. Otherwise I did recommend that she return emergency department immediately if symptoms change worsen or the need arises. I also recommended that she increase her lactulose and take 1 extra dose each day for the next 3 days. Prior to discharge I did discuss the patient's case with the on-call gastroenterology group. We discussed possible options of management for the patient however ultimately he was very concerned about the patient's elevation in creatinine compared to baseline as well as the elevated bilirubin from baseline. Given the patient's status and consideration for transplant down the road he does recommend inpatient management to continue to monitor the patient's renal function. He also asked me to give the patient albumin IV as well as an ultrasound of the abdomen. The patient currently does take Eliquis. I discussed this case with the on-call [facility] hospitalist. Triage Nursing notes reviewed. Prior medical records reviewed Vital Signs: reviewed and remarkable for elevated blood pressure. Differential diagnosis: Infection, dehydration, metabolic abnormality, hypo/hyperglycemia, electrolyte disturbance, anemia, hypoxia, cardiac sources, intracerebral event, toxicologic, neurologic, as well as other pathologies. ER treatment provided: See below Diagnostics interpreted by me: ECG: EKG was obtained in the emergency department. My interpretation is sinus rhythm at 70 bpm. PACs were noted. There was no acute ST segment abnormalities noted. This was compared to a tracing from May 21, 2020. No significant changes were noted. Cardiac Monitoring: An order was placed for continuous cardiac monitoring. The monitor shows a rate of 85 bpm with sinus rhythm. Laboratory studies: As stated above and show below. Imaging studies: See below Consultation(s): 0240: I discussed this case with Dr. Tabares who is on-call for gastroenterology. 0250: I discussed this case with Dr. Mcdonald who is on-call for the [facility] hospitalist group. 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 Beliefs That Will Affect Care: None Current Living Situation: Spouse Feels Safe at Home: Yes Assistive Devices: Glasses, Hearing Aid - Left and Hearing Aid - Right Allergies Allergies Allergy/AdvReac Type Severity Reaction Status Date / Time Penicillins Allergy Rash Verified 09/06/20 10:56 adhesive AdvReac Redness of Verified 09/06/20 10:56 Skin Home Meds Home Medications Medication Instructions Recorded Confirmed PreserVision AREDS-2 1 tab PO QAM 05/21/20 09/12/20 Xifaxan 550 mg PO BID 05/21/20 09/12/20 bupropion HCl [Wellbutrin XL] 300 mg PO DAILY 05/21/20 09/12/20 cholecalciferol (vitamin D3) 25 mcg PO DAILY 05/21/20 09/12/20 [Vitamin D3] omeprazole 20 mg PO DAILY 05/21/20 09/12/20 spironolactone [Aldactone] 50 mg PO DAILY 05/21/20 09/12/20 lorazepam 0.5 mg PO Q6 PRN 06/02/20 09/12/20 apixaban [Eliquis] 2.5 mg PO BID 07/09/20 09/12/20 multivitamin 1 tab PO DAILY 07/09/20 09/12/20 lactulose [Enulose] 30 ml PO BID 09/12/20 09/12/20 ondansetron 4 mg PO Q8 PRN 09/12/20 09/12/20 torsemide 40 mg PO DAILY 09/12/20 09/12/20 Results & Data (ED) Vital Signs Vital Signs - 24 hr 09/11/20 23:49 09/12/20 00:19 09/12/20 00:21 Temperature 36.8 C 36.4 C L Temperature Source Temporal Artery Scan Oral Pulse Rate 78 72 Pulse Rate [Apical] 72 Pulse Rhythm Regular Pulse Rhythm [Apical] Regular Pulse Strength [Apical] Normal Respiratory Rate 20 18 18 Respiratory Effort / Characteristics Non-Labored Spontaneous Respiratory Depth Normal Respiratory Pattern Regular Blood Pressure 156/73 H Blood Pressure [Left Arm] 142/69 H Blood Pressure Mean 100 Blood Pressure Mean [Left Arm] 93 Blood Pressure Position [Left Arm] Lying Pulse Oximetry 99 100 100 Oxygen Delivery Method Room Air Room Air Room Air Sepsis Recent Fever Within 48 Hours No Sepsis New/Unexplained Change in Mental Status N/A Sepsis Action Taken by Nursing No Action Required 09/12/20 01:31 Temperature Temperature Source Pulse Rate Pulse Rate [Apical] 71 Pulse Rhythm Pulse Rhythm [Apical] Regular Pulse Strength [Apical] Normal Respiratory Rate 18 Respiratory Effort / Characteristics Non-Labored Spontaneous Respiratory Depth Normal Respiratory Pattern Regular Blood Pressure Blood Pressure [Left Arm] 146/75 H Blood Pressure Mean Blood Pressure Mean [Left Arm] 98 Blood Pressure Position [Left Arm] Lying Pulse Oximetry 98 Oxygen Delivery Method Room Air Sepsis Recent Fever Within 48 Hours Sepsis New/Unexplained Change in Mental Status Sepsis Action Taken by Long Term Medications Current Medication List: was personally reviewed by me Laboratory Data Attestation: I reviewed the patient's lab results. Result diagrams: 09/12/20 00:32 09/12/20 00:32 Lab Results 09/12/20 09/12/20 09/12/20 Range/Units 00:32 00:32 00:32 WBC 8.21 (4.8-10.8) K/uL RBC 3.43 L (4.2-5.4) M/uL Hgb 11.7 L (12.0-16.0) g/dL Hct 33.6 L (37-47) % MCV 98.0 (80-100) fL MCH 34.1 H (25-34) pg MCHC 34.8 (32-36) g/dL RDW Std Deviation 58.1 H (36.4-46.3) fL RDW Coeff of Julieth 16.3 H (11.5-14.5) % Plt Count 104 L (130-400) K/uL MPV 10.1 (7.4-10.4) fL Immature Gran % (Auto) 0.7 % Neut % (Auto) 60.4 % Lymph % (Auto) 19.7 % [place] % (Auto) 15.6 % Eos % (Auto) 3.0 % Baso % (Auto) 0.6 % Neut # (Auto) 4.95 (1.4-6.5) K/uL Lymph # (Auto) 1.62 (1.2-3.4) K/uL [place] # (Auto) 1.28 H (0.11-0.59) K/uL Eos # (Auto) 0.25 (0-0.5) K/uL Baso # (Auto) 0.05 (0-0.2) K/uL Immature Gran # (Auto) 0.06 H (0.00-0.02) K/uL PT 15.3 H (9.0-12.0) Seconds INR 1.6 H (0.9-1.1) Sodium 134 L (136-145) mmol/L Potassium 3.7 (3.5-5.1) mmol/L Chloride 101 (98-107) mmol/L Carbon Dioxide 26 (21-32) mmol/L Anion Gap 7.0 (3-11) BUN 27 H (7-18) mg/dl Creatinine 2.25 H (0.6-1.2) mg/dl Est Cr Clr Drug Dosing 20.3 ml/min Est GFR ( Amer) 24.5 Est GFR (Non-Af Amer) 21.1 BUN/Creatinine Ratio 12.0 (10-20) Glucose 105 H (70-99) mg/dl Calcium 8.9 (8.5-10.1) mg/dl Magnesium 2.2 (1.8-2.4) mg/dl Total Bilirubin 7.9 H (0.2-1) mg/dl AST 160 H (15-37) U/L ALT 65 (12-78) U/L Alkaline Phosphatase 228 H (45-117) U/L Ammonia (11-32) umol/L Total Creatine Kinase 42 (26-192) U/L Troponin I < 0.015 (0-0.045) ng/ml Total Protein 8.9 H (6.4-8.2) gm/dl Albumin 2.7 L (3.4-5.0) gm/dl Globulin 6.2 H (2.5-4.0) gm/dl Albumin/Globulin Ratio 0.4 L (0.9-2) TSH 3.430 (0.300-4.500) uIu/ml Urine Color Urine Appearance (Clear) Urine pH (4.5-7.5) Ur Specific [place] (1.000-1.030) Urine Protein (Negative) Urine Glucose (UA) (Negative) Urine Ketones (Negative) Urine Blood (Negative) Urine Nitrite (Negative) Urine Bilirubin (Negative) Urine Urobilinogen (Negative) Ur Leukocyte Esterase (Negative) Urine WBC (Auto) (0-5) /hpf Urine RBC (Auto) (0-4) /hpf U Hyaline Cast (Auto) (0-5) /lpf U Epithel Cells (Auto) (0-5) /lpf Urine Bacteria (Auto) (Negative) 09/12/20 09/12/20 Range/Units 00:50 02:07 WBC (4.8-10.8) K/uL RBC (4.2-5.4) M/uL Hgb (12.0-16.0) g/dL Hct (37-47) % MCV (80-100) fL MCH (25-34) pg MCHC (32-36) g/dL RDW Std Deviation (36.4-46.3) fL RDW Coeff of Julieth (11.5-14.5) % Plt Count (130-400) K/uL MPV (7.4-10.4) fL Immature Gran % (Auto) % Neut % (Auto) % Lymph % (Auto) % [place] % (Auto) % Eos % (Auto) % Baso % (Auto) % Neut # (Auto) (1.4-6.5) K/uL Lymph # (Auto) (1.2-3.4) K/uL [place] # (Auto) (0.11-0.59) K/uL Eos # (Auto) (0-0.5) K/uL Baso # (Auto) (0-0.2) K/uL Immature Gran # (Auto) (0.00-0.02) K/uL PT (9.0-12.0) Seconds INR (0.9-1.1) Sodium (136-145) mmol/L Potassium (3.5-5.1) mmol/L Chloride (98-107) mmol/L Carbon Dioxide (21-32) mmol/L Anion Gap (3-11) BUN (7-18) mg/dl Creatinine (0.6-1.2) mg/dl Est Cr Clr Drug Dosing ml/min Est GFR ( Amer) Est GFR (Non-Af Amer) BUN/Creatinine Ratio (10-20) Glucose (70-99) mg/dl Calcium (8.5-10.1) mg/dl Magnesium (1.8-2.4) mg/dl Total Bilirubin (0.2-1) mg/dl AST (15-37) U/L ALT (12-78) U/L Alkaline Phosphatase (45-117) U/L Ammonia 23.0 (11-32) umol/L Total Creatine Kinase (26-192) U/L Troponin I (0-0.045) ng/ml Total Protein (6.4-8.2) gm/dl Albumin (3.4-5.0) gm/dl Globulin (2.5-4.0) gm/dl Albumin/Globulin Ratio (0.9-2) TSH (0.300-4.500) uIu/ml Urine Color Dark Yellow Urine Appearance Cloudy A (Clear) Urine pH 6.0 (4.5-7.5) Ur Specific [place] 1.011 (1.000-1.030) Urine Protein Negative (Negative) Urine Glucose (UA) Negative (Negative) Urine Ketones Negative (Negative) Urine Blood Negative (Negative) Urine Nitrite Negative (Negative) Urine Bilirubin Negative (Negative) Urine Urobilinogen Negative (Negative) Ur Leukocyte Esterase Negative (Negative) Urine WBC (Auto) 1-5 (0-5) /hpf Urine RBC (Auto) 0-4 (0-4) /hpf U Hyaline Cast (Auto) 10-30 H (0-5) /lpf U Epithel Cells (Auto) >30 H (0-5) /lpf Urine Bacteria (Auto) Negative (Negative) Administered Medications Discontinued Medications Sodium Chloride (Nss 1000ml) 500 mls @ 999 mls/hr IV .Q31M ONE Stop: 09/12/20 01:54 Last Infusion: 09/12/20 02:08 Dose: 0 mls/hr Documented by: [id number] Admin: 09/12/20 01:31 Dose: 999 mls/hr Documented by: [id number] Imaging Data Attestation: I personally reviewed and interpreted this imaging study as follows: My Impression: Chest x-ray was obtained in the emergency department. My interpretation is platelike atelectasis at the left base. Heart size is normal. There is no free air. There was no infiltrate noted. This was compared to a chest x-ray from May 212020. No significant changes were noted. Radiologist's Impression: Patient: URSZULA SAINZ (Female) : 46 Status: ER Date: 09/12/20 00:53 Room #: History: WEAKNESS, DIFFICULTY AMBULATING Slices: 58 Priors: Tech: Nigel Morales @ [phone] Exams: CT HEAD Contrast: Accession Numbers: [id number] Preliminary Findings Only See Final Report For Complete Findings CT HEAD: No acute intracranial hemorrhage or mass effect. White matter hypodensities, which are nonspecific but most likely related to moderate chronic small vessel ischemic changes. Consider further evaluation with MRI if there is concern for acute infarct. No hydrocephalus. Radiologist: Boy Ambriz MD Study ready at 00:57 and initial results transmitted at 01:54 Discharge Plan Visit Data Chief Complaint: Illness Stated Complaint: CANT WALK, FELT WEIRD ALL DAY ED Provider: Ke Ordoñez Discharge Problem: Weakness, CLAUDIA (acute kidney injury), Hyperbilirubinemia Patient Disposition: Being Evaluated by Hospitalist Condition: Good Discharge Instructions Krames/Other Patient Handouts: ED Weakness (Uncertain Cause) Activity Restrictions/Additional Instructions: Call your family doctor Sunday morning to schedule a follow-up appointment. Continue all medications as prescribed. I would recommend an extra dose of your lactulose each day for the next 3 days. Return the emergency department immediately if symptoms change worsen or the need arises. Forms Stand Alone Forms: My [facility], [facility], [facility] Emergency Department, Important Visit Information Prescriptions Prescriptions: No Action omeprazole 20 mg capsule,delayed release(DR/EC) 20 mg PO DAILY RF: 0 spironolactone [Aldactone] 50 mg tablet 50 mg PO DAILY RF: 0 bupropion HCl [Wellbutrin XL] 300 mg tablet extended release 24 hr 300 mg PO DAILY RF: 0 cholecalciferol (vitamin D3) [Vitamin D3] 25 mcg (1,000 unit) Tablet 25 mcg PO DAILY RF: 0 Xifaxan 550 mg tablet 550 mg PO BID RF: 0 PreserVision AREDS-2 [id number] Capsule 1 tab PO QAM RF: 0 lorazepam 0.5 mg Tablet 0.5 mg PO Q6 PRN (Reason: Anxiety) RF: 0 ondansetron 4 mg tablet,disintegrating 4 mg PO Q8 PRN (Reason: Nausea And Vomiting) RF: 0 torsemide 20 mg tablet 40 mg PO DAILY RF: 0 lactulose [Enulose] 10 gram/15 mL solution 30 ml PO BID RF: 0 multivitamin Tablet 1 tab PO DAILY RF: 0 Eliquis 2.5 mg tablet 2.5 mg PO BID RF: 0 Referrals Referrals: Laura Dale PA-C [Primary Care Provider] -
[2020-09-12 00:51] LABS: Basophils # (auto) 0.05 K/uL (0-0.2); Basophils % (auto) 0.6 %; Eosinophils # (auto) 0.25 K/uL (0-0.5); Hematocrit (blood only) 33.6 % (37-47); Hemoglobin 11.7 g/dL (12.0-16.0); Immature Granulocytes # (auto) 0.06 K/uL (0.00-0.02); Immature Granulocytes % (auto) 0.7 %; Lymphocytes # (auto) 1.62 K/uL (1.2-3.4); Lymphocytes % (auto) 19.7 %; Mean Corpuscular Hemoglobin 34.1 pg (25-34); Mean Corpuscular Hgb Conc 34.8 g/dL (32-36); Mean Platelet Volume 10.1 fL (7.4-10.4); Monocytes # (auto) 1.28 K/uL (0.11-0.59); Monocytes % (auto) 15.6 %; Neutrophils # (auto) 4.95 K/uL (1.4-6.5); Neutrophils % (auto) 60.4 %; Platelet Count 104 K/uL (130-400); RDW Coefficient of Variation 16.3 % (11.5-14.5); RDW Standard Deviation 58.1 fL (36.4-46.3); Red Blood Count 3.43 M/uL (4.2-5.4); White Blood Count 8.21 K/uL (4.8-10.8)
[2020-09-12 01:04] LABS: INR 1.6 (0.9-1.1); Prothrombin Time 15.3 Seconds (9.0-12.0)
[2020-09-12 01:22] LABS: Glucose 105 mg/dl (70-99)
[2020-09-12 01:23] LABS: Alanine Aminotransferase 65 U/L (12-78); Albumin Globulin Ratio 0.4 (0.9-2); Albumin Level 2.7 gm/dl (3.4-5.0); Alkaline Phosphatase 228 U/L (45-117); Aspartate Aminotransferase 160 U/L (15-37); Bilirubin,Total 7.9 mg/dl (0.2-1); Blood Urea Nitrogen 27 mg/dl (7-18); Calcium 8.9 mg/dl (8.5-10.1); Carbon Dioxide 26 mmol/L (21-32); Chloride 101 mmol/L (98-107); Creatine Kinase 42 U/L (26-192); Creatinine Clr Calc Pharmacy 20.3 ml/min; Est GFR (African American) 24.5; Est GFR (Non-African American) 21.1; Globulin 6.2 gm/dl (2.5-4.0); Magnesium 2.2 mg/dl (1.8-2.4); Potassium 3.7 mmol/L (3.5-5.1); Sodium 134 mmol/L (136-145); Total Protein 8.9 gm/dl (6.4-8.2); Troponin I < 0.015 ng/ml (0-0.045)
[2020-09-12] MEDS ORDERED: SODIUM CHLORIDE 0.9% 1000ML 500 ML IV ONE (01:24)
[2020-09-12 02:18] LABS: Appearance Urine Cloudy (Clear); Bacteria Urine Automated Negative (Negative); Bilirubin Urine Negative (Negative); Blood Urine Negative (Negative); Color Urine Dark Yellow; Epithelial Cell Urine Auto >30 /lpf (0-5); Glucose Urine UA Negative (Negative); Ketones Urine Negative (Negative); Leukocyte Esterase Urine Negative (Negative); Nitrite Urine Negative (Negative); Protein Urine Negative (Negative); RBC Urine Automated 0-4 /hpf (0-4); Specific Gravity Urine 1.011 (1.000-1.030); Urobilinogen Urine Negative (Negative)
[2020-09-12] MEDS: ALBUMIN 25% 12.5 GM/50 ML VIAL IV SCH ×5 (03:01→06:06)
[2020-09-12 03:04] LABS: Bilirubin Direct 3.5 mg/dl (0-0.2)
--- NOTE | 2020-09-12 03:42 | History & Physical Report ---
Date of Service September 12, 2020 Assessment & Plan (1) Acute renal failure: Normal ultrasoundARF on CKD Mild clinical dehydration from poor p.o. 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 [employer] Full code Text document was generated using [employer] voice recognition software. It may contain grammatical or spelling errors. Kindly contact undersigned for clarification of any documentation item in question. History of Present Illness Chief Complaint: Weakness, poor appetite as per patient Primary Care Provider: Laura Dale PA-C History obtained from patient and records. 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 Last confinement May 2020 for decompensated cirrhosis. Patient seen at the ER 2 days ago for evaluation of leaking from paracentesis site. Patient denies abdominal pain, fever, chills. Dermabond placed over area and bandage was applied stopping leakage as per patient. Yesterday, patient noted decreased energy and shaking. No abdominal pain, unusual abdominal distention, fever, chills. Patient denies cough, S OB. Appetite poor. Patient denies unusual depression. Legs and arms felt weak as per patient. Patient brought to the ER for evaluation. NSS administered at the ER. IV albumin administered at the ER as per GI specialist recommendation as per ER provider. Patient currently feels much better. 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 Allergies Allergy/AdvReac Type Severity Reaction Status Date / Time Penicillins Allergy Rash Verified 09/06/20 10:56 adhesive AdvReac Redness of Verified 09/06/20 10:56 Skin Home Medications Medication Instructions Recorded Confirmed Type PreserVision AREDS-2 1 tab PO QAM 05/21/20 09/12/20 History Xifaxan 550 mg PO BID 05/21/20 09/12/20 History bupropion HCl [Wellbutrin XL] 300 mg PO DAILY 05/21/20 09/12/20 History cholecalciferol (vitamin D3) 25 mcg PO DAILY 05/21/20 09/12/20 History [Vitamin D3] omeprazole 20 mg PO DAILY 05/21/20 09/12/20 History spironolactone [Aldactone] 50 mg PO DAILY 05/21/20 09/12/20 History lorazepam 0.5 mg PO Q6 PRN 06/02/20 09/12/20 History apixaban [Eliquis] 2.5 mg PO BID 07/09/20 09/12/20 History multivitamin 1 tab PO DAILY 07/09/20 09/12/20 History lactulose [Enulose] 30 ml PO BID 09/12/20 09/12/20 History ondansetron 4 mg PO Q8 PRN 09/12/20 09/12/20 History torsemide 40 mg PO DAILY 09/12/20 09/12/20 History Past Med/Surg History Medical History A-fib Abnormal liver function Acid reflux Ascites Hypertension Surgical History Hx of appendectomy Social History Smoking Status: Never smoker Second Hand Exposure: No; Do You Dip or Chew Tobacco: No; Tobacco Cessation Education Requested by Patient: No Hx Alcohol Use: No Hx Substance Use: No Preferred Language: Nigerian Communication Ability: Effective Water Registrar Required: No Beliefs That Will Affect Care: None Current Living Situation: Spouse Other Information That Helps Us Care for You: No Feels Safe at Home: Yes Safety Concerns: Feels Safe At This Time Assistive Devices: Glasses, Hearing Aid - Left and Hearing Aid - Right Review of Systems Review of Systems: As per HPI, all 10 systems reviewed, all other ROS negative Physical Exam Physical Exam: GENERAL: Comfortable, pleasant slightly hard of hearing, no respiratory distress SKIN: Pallor, warm HEENT: Bespectacled, pale palpebral conjunctivae, no ptosis, dry buccal mucosa NECK : Supple, no tenderness CHEST : CTA, no tenderness HEART : RRR, no obvious murmurs ABDOMEN: Minimal distention, nontender EXTREMITIES : No LE swelling/tenderness, no other conspicuous deformities noted NEUROLOGIC : Coherent, no facial asymmetry, no other gross focality Results & Data Results & Data ([facility]) Vital Signs (Past 12 Hours) Vital Signs Temp Pulse Pulse Resp BP BP Pulse Ox 09/12/20 02:58 71 18 136/68 99 09/12/20 01:31 71 18 146/75 H 98 09/12/20 00:21 72 18 100 09/12/20 00:19 36.4 C L 72 18 142/69 H 100 09/11/20 23:49 36.8 C 78 20 156/73 H 99 Laboratory Results Laboratory Results WBC 8.21 K/uL (4.8-10.8) 09/12/20 00:32 RBC 3.43 M/uL (4.2-5.4) L 09/12/20 00:32 Hgb 11.7 g/dL (12.0-16.0) L 09/12/20 00:32 Hct 33.6 % (37-47) L 09/12/20 00:32 MCV 98.0 fL (80-100) 09/12/20 00:32 MCH 34.1 pg (25-34) H 09/12/20 00:32 MCHC 34.8 g/dL (32-36) 09/12/20 00:32 RDW Std Deviation 58.1 fL (36.4-46.3) H 09/12/20 00:32 RDW Coeff of Julieth 16.3 % (11.5-14.5) H 09/12/20 00:32 Plt Count 104 K/uL (130-400) L 09/12/20 00:32 MPV 10.1 fL (7.4-10.4) 09/12/20 00:32 Immature Gran % (Auto) 0.7 % 09/12/20 00:32 Neut % (Auto) 60.4 % 09/12/20 00:32 Lymph % (Auto) 19.7 % 09/12/20 00:32 [place] % (Auto) 15.6 % 09/12/20 00:32 Eos % (Auto) 3.0 % 09/12/20 00:32 Baso % (Auto) 0.6 % 09/12/20 00:32 Neut # (Auto) 4.95 K/uL (1.4-6.5) 09/12/20 00:32 Lymph # (Auto) 1.62 K/uL (1.2-3.4) 09/12/20 00:32 [place] # (Auto) 1.28 K/uL (0.11-0.59) H 09/12/20 00:32 Eos # (Auto) 0.25 K/uL (0-0.5) 09/12/20 00:32 Baso # (Auto) 0.05 K/uL (0-0.2) 09/12/20 00:32 Immature Gran # (Auto) 0.06 K/uL (0.00-0.02) H 09/12/20 00:32 PT 15.3 Seconds (9.0-12.0) H 09/12/20 00:32 INR 1.6 (0.9-1.1) H 09/12/20 00:32 Sodium 134 mmol/L (136-145) L 09/12/20 00:32 Potassium 3.7 mmol/L (3.5-5.1) 09/12/20 00:32 Chloride 101 mmol/L (98-107) 09/12/20 00:32 Carbon Dioxide 26 mmol/L (21-32) 09/12/20 00:32 Anion Gap 7.0 (3-11) 09/12/20 00:32 BUN 27 mg/dl (7-18) H 09/12/20 00:32 Creatinine 2.25 mg/dl (0.6-1.2) H 09/12/20 00:32 Est Cr Clr Drug Dosing 20.3 ml/min 09/12/20 00:32 Est GFR ( Amer) 24.5 09/12/20 00:32 Est GFR (Non-Af Amer) 21.1 09/12/20 00:32 BUN/Creatinine Ratio 12.0 (10-20) 09/12/20 00:32 Glucose 105 mg/dl (70-99) H 09/12/20 00:32 Calcium 8.9 mg/dl (8.5-10.1) 09/12/20 00:32 Magnesium 2.2 mg/dl (1.8-2.4) 09/12/20 00:32 Total Bilirubin 7.9 mg/dl (0.2-1) H 09/12/20 00:32 Direct Bilirubin 3.5 mg/dl (0-0.2) H 09/12/20 00:32 AST 160 U/L (15-37) H 09/12/20 00:32 ALT 65 U/L (12-78) 09/12/20 00:32 Alkaline Phosphatase 228 U/L (45-117) H 09/12/20 00:32 Ammonia 23.0 umol/L (11-32) 09/12/20 00:50 Total Creatine Kinase 42 U/L (26-192) 09/12/20 00:32 Troponin I < 0.015 ng/ml (0-0.045) 09/12/20 00:32 Total Protein 8.9 gm/dl (6.4-8.2) H 09/12/20 00:32 Albumin 2.7 gm/dl (3.4-5.0) L 09/12/20 00:32 Globulin 6.2 gm/dl (2.5-4.0) H 09/12/20 00:32 Albumin/Globulin Ratio 0.4 (0.9-2) L 09/12/20 00:32 TSH 3.430 uIu/ml (0.300-4.500) 09/12/20 00:32 Urine Color Dark Yellow 09/12/20 02:07 Urine Appearance Cloudy (Clear) A 09/12/20 02:07 Urine pH 6.0 (4.5-7.5) 09/12/20 02:07 Ur Specific [place] 1.011 (1.000-1.030) 09/12/20 02:07 Urine Protein Negative (Negative) 09/12/20 02:07 Urine Glucose (UA) Negative (Negative) 09/12/20 02:07 Urine Ketones Negative (Negative) 09/12/20 02:07 Urine Blood Negative (Negative) 09/12/20 02:07 Urine Nitrite Negative (Negative) 09/12/20 02:07 Urine Bilirubin Negative (Negative) 09/12/20 02:07 Urine Urobilinogen Negative (Negative) 09/12/20 02:07 Ur Leukocyte Esterase Negative (Negative) 09/12/20 02:07 Urine WBC (Auto) 1-5 /hpf (0-5) 09/12/20 02:07 Urine RBC (Auto) 0-4 /hpf (0-4) 09/12/20 02:07 U Hyaline Cast (Auto) 10-30 /lpf (0-5) H 09/12/20 02:07 U Epithel Cells (Auto) >30 /lpf (0-5) H 09/12/20 02:07 Urine Bacteria (Auto) Negative (Negative) 09/12/20 02:07 COVID-19 Eval Order [facility]FluRsv at [facility] 09/12/20 02:57 Diagnostic Findings Chest x-ray as per my interpretation atelectasis CT head initial read: No acute intracranial hemorrhage or mass-effect. White matter hypodensities secondary to moderate chronic small vessel ischemic changes. Consider further evaluation with MRI if there is concern for acute infarct. Abdominal ultrasound read pending EKG as per my interpretation : Rate 70, NSR, normal axis, T wave abnormalities inferior leads, PACs (1) Acute renal failure Acute renal failure type: unspecified Qualified Code(s): N17.9 - Acute kidney failure, unspecified
[2020-09-12 03:52] LABS: Influenza A virus by PCR Negative (Neg); Influenza B virus by PCR Negative (Neg); RSV by PCR Negative (Neg); SARS CoV2 RNA(COVID-19) InHosp NEGATIVE (Negative)
[2020-09-12] MEDS ORDERED: LORazepam 0.5 MG TAB PO PRN (05:44)
[2020-09-12] MEDS ORDERED: traMADol HCL 50 MG TABLET PO PRN (05:44)
[2020-09-12] MEDS ORDERED: ACETAMINOPHEN 325 MG TAB PO PRN (05:44)
--- NOTE | 2020-09-12 07:23 | Ultrasound Report ---
ULTRASOUND RIGHT UPPER QUADRANT ABDOMEN CLINICAL HISTORY: Right upper quadrant abdominal pain. COMPARISON STUDY: Abdominal CT dated 05/15/2020. TECHNIQUE: Real-time, grayscale, and color flow sonography of the right upper quadrant of the abdomen was performed. Images are reviewed in the transverse and longitudinal planes. FINDINGS: Liver: The liver is cirrhotic in morphology and heterogeneous in echotexture. There is nodularity of the hepatic surface contour. There is no intrahepatic biliary ductal dilatation. The main portal vein is patent. There is recanalization of the periumbilical vein. Gallbladder: There is nonspecific gallbladder wall thickening which measures up to 5 mm. This is like ly related to cirrhosis and ascites. There are gallstones and biliary sludge. A sonographic Foster's sign is reportedly absent. The common bile duct measures up to 0.3 cm in diameter. Pancreas: Visualized portions of the pancreatic head and body are normal in appearance. The splenic v ein is patent. Right kidney: Survey images of the right kidney demonstrate normal size and echotexture. There is no hydronephrosis. Ascites: There is a small volume of upper abdominal ascites. IMPRESSION: 1. The liver is cirrhotic in morphology and heterogeneous in echotexture. 2. Nonspecific gallbladder wall thickening is nonspecific and likely related to cirrhosis and ascites . 3. There are gallstones and biliary sludge with no clear sonographic evidence of acute cholecystitis. 4. A small volume of abdominal ascites and recanalization of the umbilical vein indicate portal hyper tension. ACT 112: Negative or not required by law. Electronically signed by: Mau Carvajal M.D. 09/12/2020 7:22 AM
--- NOTE | 2020-09-12 08:26 | CT Scan Report ---
CT SCAN OF THE BRAIN WITHOUT IV CONTRAST CLINICAL HISTORY: Generalized weakness. Difficulty with ambulation. COMPARISON STUDY: No priors. TECHNIQUE: Unenhanced axial CT scan of the brain is performed from the vertex to the skull base. A do se lowering technique was utilized adhering to the principles of ALARA. CT DOSE: 537.48 mGy.cm FINDINGS: Brain parenchyma: There are age-related involutional changes noting moderate subcortical and periven tricular microangiopathic change. There is no hemorrhage, mass effect, or evidence of acute territori al ischemia by CT criteria. Mayen-white matter differentiation is preserved. No extra-axial fluid yen ection is seen. Ventricles, sulci, cisterns: Prominent secondary to involutional change. Intracranial vasculature: There is atherosclerotic calcification of the cavernous carotid and vertebr al arteries. Calvarium: Unremarkable. Sinuses and mastoids: The visualized paranasal sinuses are clear. The mastoid air cells are well pneu matized. Orbits: The bony orbits are grossly intact. IMPRESSION: There is no hemorrhage, mass effect, or evidence of acute territorial ischemia by CT kenya billy. ACT 112: Negative or not required by law. Electronically signed by: Mau Carvajal M.D. 09/12/2020 8:24 AM
--- NOTE | 2020-09-12 08:50 | XRay Report ---
XR chest 1V portable CLINICAL HISTORY: weakness COMPARISON STUDY: Chest radiograph May 21, 2020. FINDINGS: Lung volumes are normal. Linear left basilar opacity is again noted. This favors atelectasi s or scarring. There is no pneumothorax or pleural effusion. Cardiac size is normal. Mediastinal cont ours are normal. There is no evidence for pulmonary edema. IMPRESSION: No acute cardiopulmonary findings. ACT 112: Negative or not required by law. Electronically signed by: Aaron Ramos M.D. 09/12/2020 8:48 AM
--- NOTE | 2020-09-12 10:00 | Nephrology Consultation ---
Date of Consultation September 12, 2020 Assessment & Plan (1) CLAUDIA (acute kidney injury): Patient with acute kidney injury likely hemodynamically mediated in setting of recent large volume paracentesis. Admission creatinine of 2.2. Baseline creatinine 1.7. Agree with albumin infusions. -Monitor renal function with daily BMP while in-house -Hold diuretics today. -Avoid contrast unless lifesaving. (2) Decompensation of cirrhosis of liver: Patient with decompensated cirrhosis on diuretics and requiring paracentesis. She has not required paracentesis for 2 months prior to this week. -Consider resuming diuretics tomorrow if blood pressure allows. 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 Patient had paracentesis for 4-1/2 L on Sunday this week. Patient received albumin on Sunday. She then developed significant weakness and presented to the emergency room. She was thought to be dehydrated and received albumin in the emergency room. Admission creatinine was 2.2 from baseline of 1.7. She feels better this morning denies any shortness of breath. No urinary symptoms. No vomiting or diarrhea. She denied NSAID use. Her abdomen is still slightly distended but no pain. Abdominal ultrasound only notable for liver cirrhosis and ascites. No hydronephrosis. Allergies Allergy/AdvReac Type Severity Reaction Status Date / Time Penicillins Allergy Rash Verified 09/06/20 10:56 adhesive AdvReac Redness of Verified 09/06/20 10:56 Skin Home Medications Medication Instructions Recorded Confirmed Type PreserVision AREDS-2 1 tab PO QAM 05/21/20 09/12/20 History Xifaxan 550 mg PO BID 05/21/20 09/12/20 History bupropion HCl [Wellbutrin XL] 300 mg PO DAILY 05/21/20 09/12/20 History cholecalciferol (vitamin D3) 25 mcg PO DAILY 05/21/20 09/12/20 History [Vitamin D3] omeprazole 20 mg PO DAILY 05/21/20 09/12/20 History spironolactone [Aldactone] 50 mg PO DAILY 05/21/20 09/12/20 History lorazepam 0.5 mg PO Q6 PRN 06/02/20 09/12/20 History apixaban [Eliquis] 2.5 mg PO BID 07/09/20 09/12/20 History multivitamin 1 tab PO DAILY 07/09/20 09/12/20 History lactulose [Enulose] 30 ml PO BID 09/12/20 09/12/20 History ondansetron 4 mg PO Q8 PRN 09/12/20 09/12/20 History torsemide 40 mg PO DAILY 09/12/20 09/12/20 History Patient History Medical History A-fib Abnormal liver function Acid reflux Ascites Hypertension Surgical History Hx of appendectomy Social History Smoking Status: Never smoker Second Hand Exposure: No; Do You Dip or Chew Tobacco: No; Tobacco Cessation Education Requested by Patient: No Hx Alcohol Use: No Hx Substance Use: No Preferred Language: Bolivian Communication Ability: Effective Interpretive Program Coordinator Required: No Beliefs That Will Affect Care: None Current Living Situation: Spouse Other Information That Helps Us Care for You: No Feels Safe at Home: Yes Safety Concerns: Feels Safe At This Time Assistive Devices: Glasses, Hearing Aid - Left and Hearing Aid - Right Review of Systems Review of Systems: All systems reviewed & are unremarkable except as noted in HPI & below Physical Exam Physical Exam: General exam: Appears comfortable, no acute distress HEENT: Pupils are equal and reactive to light Neck: No JVD, neck is supple trachea is midline Respiratory system: Clear breath sounds bilaterally. Gastrointestinal: Abdomen is soft, slightly distended, non tender, bowel sounds are present CVS: Regular rate and rhythm. No murmurs, rubs or gallops Musculoskeletal: No joint or muscle tenderness Extremities: Non tender, no edema, peripheral pulses are present Neuro: Oriented, no tremors, no focal neurological deficits Skin: No rashes Results & Data ([facility]) Vital Signs (Past 12 Hours) Vital Signs Temp Pulse Pulse Pulse Resp BP BP 09/12/20 07:52 36.6 C 79 20 122/61 05/09/21 07:00 75 09/12/20 06:32 73 09/12/20 05:53 36.7 C 76 18 155/68 H 09/12/20 04:54 77 18 142/68 H 09/12/20 02:58 71 18 136/68 09/12/20 01:31 71 18 146/75 H 09/12/20 00:21 72 18 09/12/20 00:19 36.4 C L 72 18 142/69 H 09/11/20 23:49 36.8 C 78 20 156/73 H Pulse Ox 09/12/20 07:52 97 09/12/20 07:00 09/12/20 06:32 09/12/20 05:53 99 09/12/20 04:54 97 09/12/20 02:58 99 09/12/20 01:31 98 09/12/20 00:21 100 09/12/20 00:19 100 09/11/20 23:49 99 Laboratory Results 09/12/20 09/12/20 00:32 00:32 WBC 8.21 RBC 3.43 L MCV 98.0 MCH 34.1 H MCHC 34.8 RDW Std Deviation 58.1 H RDW Coeff of Julieth 16.3 H Plt Count 104 L MPV 10.1 Albumin 2.7 L
[2020-09-12] MEDS: APIXABAN 2.5 MG TAB PO SCH ×2 (10:38→21:26)
[2020-09-12] MEDS: buPROPion XL 300 MG TABCR PO SCH (10:39)
[2020-09-12] MEDS: rifAXIMin 550 MG TABLET PO SCH ×2 (10:39→21:26)
[2020-09-12] MEDS: PANTOprazole 40 MG TAB PO SCH (10:39)
[2020-09-12] MEDS: MULTIVITAMIN TAB PO SCH (10:39)
[2020-09-12] MEDS: LACTULOSE SYRUP 20 GM/30 ML UDC PO SCH ×2 (10:39→21:11)
--- NOTE | 2020-09-12 11:07 | Gastrointestinal Consultation ---
Date of Consultation September 12, 2020 Assessment & Plan (1) PSC (primary sclerosing cholangitis): Obtain MRCP to r/o new dominant CBD stricture in view of sudden rise in bilirubin. Obtain Portal/IVC Doppler US as patient had Hx of hepatic vein/IVC thrombosis. Check Cr tomorrow, if remains elevated then give another round of Albumin 1gm/kg. If improved then resume diuretics. Resume home meds including Lactulose and Xifaxan. Avoid Opioids. (2) Decompensation of cirrhosis of liver: (3) Ascites: (4) Acute renal failure: (5) Hyperbilirubinemia: History of Present Illness Attending Physician: Abimael Cohen MD 70 years old female patient with medical comorbids of PSC with liver cirrhosis, MELD=27, Hx of HE ans ascites requiring intermittent LVP, last LVP a week ago and 4.5 L removed, no SBP, presented with generalized weakness, Ammonia level was normal however labs showed mild CLAUDIA and decompensated cirrhosis with elevated bilirubin. Denies any recent ABx or new meds use. She feels better today after she received Albumin infusion. Denies any nausea or vomiting, no diarrhea but has occasional constipation despite using Lactulose BID. Allergies Allergy/AdvReac Type Severity Reaction Status Date / Time Penicillins Allergy Rash Verified 09/06/20 10:56 adhesive AdvReac Redness of Verified 09/06/20 10:56 Skin Home Medications Medication Instructions Recorded Confirmed Type PreserVision AREDS-2 1 tab PO QAM 05/21/20 09/12/20 History Xifaxan 550 mg PO BID 05/21/20 09/12/20 History bupropion HCl [Wellbutrin XL] 300 mg PO DAILY 05/21/20 09/12/20 History cholecalciferol (vitamin D3) 25 mcg PO DAILY 05/21/20 09/12/20 History [Vitamin D3] omeprazole 20 mg PO DAILY 05/21/20 09/12/20 History spironolactone [Aldactone] 50 mg PO DAILY 05/21/20 09/12/20 History lorazepam 0.5 mg PO Q6 PRN 06/02/20 09/12/20 History apixaban [Eliquis] 2.5 mg PO BID 07/09/20 09/12/20 History multivitamin 1 tab PO DAILY 07/09/20 09/12/20 History lactulose [Enulose] 30 ml PO BID 09/12/20 09/12/20 History ondansetron 4 mg PO Q8 PRN 09/12/20 09/12/20 History torsemide 40 mg PO DAILY 09/12/20 09/12/20 History Patient History Medical History A-fib Abnormal liver function Acid reflux Ascites Hypertension Surgical History Hx of appendectomy Social History Smoking Status: Never smoker Second Hand Exposure: No; Do You Dip or Chew Tobacco: No; Tobacco Cessation Education Requested by Patient: No Hx Alcohol Use: No Hx Substance Use: No Preferred Language: Mauritian Communication Ability: Effective Office System Analyst Required: No Beliefs That Will Affect Care: None Current Living Situation: Spouse Other Information That Helps Us Care for You: No Feels Safe at Home: Yes Safety Concerns: Feels Safe At This Time Assistive Devices: Glasses, Hearing Aid - Left and Hearing Aid - Right Review of Systems Constitutional: no fever, no chills, no fatigue and no weight loss Eyes: no eye pain and no worsening vision Ear, Nose, Mouth, Throat: no tinnitus, no dizziness, no nasal discharge and no epistaxis Respiratory: no cough, no dyspnea, no dyspnea on exertion and no wheezing Cardiovascular: no chest pain, no orthopnea, no palpitations and no edema Gastrointestinal: as per Subjective / HPI Genitourinary: no dysuria, no urinary frequency, no urinary incontinence and no hematuria Musculoskeletal: no stiffness and no myalgia Neurologic: no localized weakness, no paralysis, no tremor(s) and no headache(s) Endocrine: no polydipsia and no polyuria Hematologic / Lymphatic: no easy bleeding and no night sweats Physical Exam Constitutional: + well hydrated, cooperative and comfortable Eyes: + anicteric sclerae and PERRL + icterus ENMT: external ear and nose normal, oropharynx normal Neck: normal visual inspection and trachea midline Respiratory: normal respiratory effort, lungs clear to auscultation Auscultation: no wheezes Cardiovascular: RRR, no murmur, no edema Gastrointestinal (Abdomen): Inspection/Auscultation: + abdomen distended Percussion/Palpation: abdomen soft; abdomen nontender and no guarding Musculoskeletal: no cyanosis or clubbing, extremities motor strength 5/5 Skin: no rashes, warm and dry Neurologic: awake; no focal motor deficits Motor/Sensory: no tremor Results & Data ([facility]) Vital Signs (Past 12 Hours) Vital Signs Temp Pulse Pulse Pulse Resp BP BP 09/12/20 07:52 36.6 C 79 20 122/61 09/12/20 07:00 75 09/12/20 06:32 73 09/12/20 05:53 36.7 C 76 18 155/68 H 09/12/20 04:54 77 18 142/68 H 09/12/20 02:58 71 18 136/68 09/12/20 01:31 71 18 146/75 H 09/12/20 00:21 72 18 09/12/20 00:19 36.4 C L 72 18 142/69 H 09/11/20 23:49 36.8 C 78 20 156/73 H Pulse Ox 09/12/20 07:52 97 09/12/20 07:00 09/12/20 06:32 09/12/20 05:53 99 09/12/20 04:54 97 09/12/20 02:58 99 09/12/20 01:31 98 09/12/20 00:21 100 09/12/20 00:19 100 09/11/20 23:49 99 Laboratory Results Laboratory Results - last 24 hr 09/12/20 09/12/20 09/12/20 00:32 00:32 00:32 WBC 8.21 RBC 3.43 L Hgb 11.7 L Hct 33.6 L MCV 98.0 MCH 34.1 H MCHC 34.8 RDW Std Deviation 58.1 H RDW Coeff of Julieth 16.3 H Plt Count 104 L MPV 10.1 Immature Gran % (Auto) 0.7 Neut % (Auto) 60.4 Lymph % (Auto) 19.7 [place] % (Auto) 15.6 Eos % (Auto) 3.0 Baso % (Auto) 0.6 Neut # (Auto) 4.95 Lymph # (Auto) 1.62 [place] # (Auto) 1.28 H Eos # (Auto) 0.25 Baso # (Auto) 0.05 Immature Gran # (Auto) 0.06 H PT 15.3 H INR 1.6 H Sodium 134 L Potassium 3.7 Chloride 101 Carbon Dioxide 26 Anion Gap 7.0 BUN 27 H Creatinine 2.25 H Est Cr Clr Drug Dosing 20.3 Est GFR ( Amer) 24.5 Est GFR (Non-Af Amer) 21.1 BUN/Creatinine Ratio 12.0 Glucose 105 H Calcium 8.9 Magnesium 2.2 Total Bilirubin 7.9 H Direct Bilirubin 3.5 H AST 160 H ALT 65 Alkaline Phosphatase 228 H Ammonia Total Creatine Kinase 42 Troponin I < 0.015 Total Protein 8.9 H Albumin 2.7 L Globulin 6.2 H Albumin/Globulin Ratio 0.4 L TSH 3.430 Urine Color Urine Appearance Urine pH Ur Specific [place] Urine Protein Urine Glucose (UA) Urine Ketones Urine Blood Urine Nitrite Urine Bilirubin Urine Urobilinogen Ur Leukocyte Esterase Urine WBC (Auto) Urine RBC (Auto) U Hyaline Cast (Auto) U Epithel Cells (Auto) Urine Bacteria (Auto) COVID-19 Eval Order SARS-CoV-2 (PCR) Influenza Type A (PCR) Influenza Type B (PCR) RSV (RT-PCR) 09/12/20 09/12/20 09/12/20 00:50 02:07 02:57 WBC RBC Hgb Hct MCV MCH MCHC RDW Std Deviation RDW Coeff of Julieth Plt Count MPV Immature Gran % (Auto) Neut % (Auto) Lymph % (Auto) [place] % (Auto) Eos % (Auto) Baso % (Auto) Neut # (Auto) Lymph # (Auto) [place] # (Auto) Eos # (Auto) Baso # (Auto) Immature Gran # (Auto) PT INR Sodium Potassium Chloride Carbon Dioxide Anion Gap BUN Creatinine Est Cr Clr Drug Dosing Est GFR ( Amer) Est GFR (Non-Af Amer) BUN/Creatinine Ratio Glucose Calcium Magnesium Total Bilirubin Direct Bilirubin AST ALT Alkaline Phosphatase Ammonia 23.0 Total Creatine Kinase Troponin I Total Protein Albumin Globulin Albumin/Globulin Ratio TSH Urine Color Dark Yellow Urine Appearance Cloudy A Urine pH 6.0 Ur Specific [place] 1.011 Urine Protein Negative Urine Glucose (UA) Negative Urine Ketones Negative Urine Blood Negative Urine Nitrite Negative Urine Bilirubin Negative Urine Urobilinogen Negative Ur Leukocyte Esterase Negative Urine WBC (Auto) 1-5 Urine RBC (Auto) 0-4 U Hyaline Cast (Auto) 10-30 H U Epithel Cells (Auto) >30 H Urine Bacteria (Auto) Negative COVID-19 Eval Order CovFluRsv at [facility] [place] SARS-CoV-2 (PCR) Influenza Type A (PCR) Influenza Type B (PCR) RSV (RT-PCR) 09/12/20 02:57 WBC RBC Hgb Hct MCV MCH MCHC RDW Std Deviation RDW Coeff of Julieth Plt Count MPV Immature Gran % (Auto) Neut % (Auto) Lymph % (Auto) [place] % (Auto) Eos % (Auto) Baso % (Auto) Neut # (Auto) Lymph # (Auto) [place] # (Auto) Eos # (Auto) Baso # (Auto) Immature Gran # (Auto) PT INR Sodium Potassium Chloride Carbon Dioxide Anion Gap BUN Creatinine Est Cr Clr Drug Dosing Est GFR ( Amer) Est GFR (Non-Af Amer) BUN/Creatinine Ratio Glucose Calcium Magnesium Total Bilirubin Direct Bilirubin AST ALT Alkaline Phosphatase Ammonia Total Creatine Kinase Troponin I Total Protein Albumin Globulin Albumin/Globulin Ratio TSH Urine Color Urine Appearance Urine pH Ur Specific [place] Urine Protein Urine Glucose (UA) Urine Ketones Urine Blood Urine Nitrite Urine Bilirubin Urine Urobilinogen Ur Leukocyte Esterase Urine WBC (Auto) Urine RBC (Auto) U Hyaline Cast (Auto) U Epithel Cells (Auto) Urine Bacteria (Auto) COVID-19 Eval Order SARS-CoV-2 (PCR) NEGATIVE Influenza Type A (PCR) Negative Influenza Type B (PCR) Negative RSV (RT-PCR) Negative Ultrasound abdomen showed gallstones and small volume ascites, normal sized CBD (1) Ascites Ascites type: other type Qualified Code(s): R18.8 - Other ascites (2) Acute renal failure Acute renal failure type: unspecified Qualified Code(s): N17.9 - Acute kidney failure, unspecified
--- NOTE | 2020-09-12 11:50 | Electrocardiogram Report ---
Test Reason : Blood Pressure : / mmHG Vent. Rate : 070 BPM Atrial Rate : 070 BPM P-R Int : 162 ms QRS Dur : 086 ms QT Int : 408 ms P-R-T Axes : 058 004 030 degrees QTc Int : 440 ms Sinus rhythm with Premature atrial complexes Inferior infarct (cited on or before 21-MAY-2020) Poor R wave progression, consider anterior [place] vs. lead placement vs. LVH Abnormal ECG When compared with ECG of 21-MAY-2020 21:10, Premature atrial complexes are now Present Questionable change in initial forces of Lateral leads Nonspecific T wave abnormality now evident in Lateral leads Confirmed by Ke Chew ([id number]) on 09/12/2020 11:50:41 AM Referred By: REFERRED SELF Confirmed By:Ke Chew
--- NOTE | 2020-09-12 13:08 | Hospitalist Progress Note ---
Date of Service September 12, 2020 Assessment & Plan (1) Acute renal failure: 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 Likely multifactorial Had large volume paracentesis recently Cr:2.25 Hold home diuretics today Monitor renal function Avoid nephrotoxic agents as able Appreciate nephrology input Plan to resume diuretics if renal function remains stable tomorrow Received IV albumin Appreciate Nephrology Input Primary sclerosing cholangitis Recurrent ascites Recently had paracentesis H/O hepatic vein/IVC filter thrombosis Hyperbilirubinemia ABD USD:The liver is cirrhotic in morphology and heterogeneous in echotexture. Nonspecific gallbladder wall thickening is nonspecific and likely related to cirrhosis and ascites. There are gallstones and biliary sludge with no clear sonographic evidence of acute cholecystitis. A small volume of abdominal ascites and recanalization of the umbilical vein indicate portal hypertension. --Plan for [facility] evaluation for possible transplantation Continue rifaximin, lactulose On Eliquis for anticoagulation MRCP to rule out CBD stricture We will obtain portal/IVC Doppler ultrasound given history of hepatic/IVC thrombosis Resume home diuretics as able Monitor LFTs Appreciate GI Input 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 anticoagulation GERD Continue pantoprazole Anxiety/mood disorder Continue home medications Thrombocytopenia Secondary to liver disease Monitor Hyponatremia Chronic Monitor sodium levels DVT Px: Eliquis Code Status Full code Admission and Anticipated Discharge Date Admission Date: September 12, 2020 Subjective Patient is seen and examined at bedside States feeling better today Generalized weakness, shakiness slightly better Denies chest pain, shortness of air, dizziness, nausea, abdominal pain Discussed with gastroenterology today Review of Systems Review of Systems: All systems reviewed & are unremarkable except as noted in HPI & below Physical Exam Physical Exam: Physical Exam: Vitals signs as noted above General Appearance:Moderately built and nourished, no apparent distress, chronically appearing Head: normocephalic, Atraumatic Eyes: normal inspection, EOMI Neck: supple, Trachea midline Respiratory/Chest: Normal breath sounds, CTA Cardiovascular: S1, S2, + murmur Abdomen/GI:Soft, distended, Non tender, + ecchymosis at paracentesis site, bowel sounds present Extremities/Musculoskeletal:normal inspection, No pedal edema Neurologic/Psych:AAOX3, grossly no focal neurological deficits Skin: normal color, warm Results & Data Results & Data ([facility] [place]) Vital Signs (Past 12 Hours) Vital Signs Temp Pulse Pulse Pulse Resp BP BP 09/12/20 12:24 36.6 C 74 20 125/63 09/12/20 07:52 36.6 C 79 20 122/61 09/12/20 07:00 75 09/12/20 06:32 73 09/12/20 05:53 36.7 C 76 18 155/68 H 09/12/20 04:54 77 18 142/68 H 09/12/20 02:58 71 18 136/68 09/12/20 01:31 71 18 146/75 H Pulse Ox 09/12/20 12:24 98 09/12/20 07:52 97 09/12/20 07:00 09/12/20 06:32 09/12/20 05:53 99 09/12/20 04:54 97 09/12/20 02:58 99 09/12/20 01:31 98 Laboratory Results Short CBC 09/12/20 Range/Units 00:32 WBC 8.21 (4.8-10.8) K/uL Hgb 11.7 L (12.0-16.0) g/dL Hct 33.6 L (37-47) % Plt Count 104 L (130-400) K/uL BMP 09/12/20 00:32 Sodium 134 L Potassium 3.7 Chloride 101 Carbon Dioxide 26 BUN 27 H Creatinine 2.25 H Glucose 105 H Calcium 8.9 Cardiac Enzymes 09/12/20 Range/Units 00:32 Total Creatine Kinase 42 (26-192) U/L Troponin I < 0.015 (0-0.045) ng/ml Liver Function 09/12/20 Range/Units 00:32 Total Bilirubin 7.9 H (0.2-1) mg/dl Direct Bilirubin 3.5 H (0-0.2) mg/dl AST 160 H (15-37) U/L ALT 65 (12-78) U/L Alkaline Phosphatase 228 H (45-117) U/L Albumin 2.7 L (3.4-5.0) gm/dl Urine 09/12/20 Range/Units 02:07 Urine Color Dark Yellow Urine Appearance Cloudy A (Clear) Urine pH 6.0 (4.5-7.5) Ur Specific [place] 1.011 (1.000-1.030) Urine Protein Negative (Negative) Urine Glucose (UA) Negative (Negative) (1) Acute renal failure Acute renal failure type: unspecified Qualified Code(s): N17.9 - Acute kidney failure, unspecified
--- NOTE | 2020-09-12 13:44 | Ultrasound Report ---
ULTRASOUND OF THE ABDOMINAL AORTA, ILIAC ARTERIES, AND IVC CLINICAL HISTORY: History of IVC thrombosis. COMPARISON STUDY: Abdominal CT dated 05/15/2020. TECHNIQUE: Real-time grayscale, color Doppler, and spectral Doppler sonograms of the abdominal aorta were obtained. The IVC was also imaged. Imaging of the iliac vessels was also attempted. Images are r eviewed in the transverse and longitudinal planes. The examination is significantly degraded by exten sive bowel gas. FINDINGS: The IVC is patent as visualized. Only the superior portions were visualized. There is mild atheroscle rotic calcification and irregularity noted in the visualized abdominal aorta. Only the proximal abdom inal aorta is identified. This is patent and measures up to 2.5 cm in diameter. The mid to distal abd ominal aorta and iliac vessels are not visualized. Velocities within the imaged abdominal aorta measu re up to 98 cm/s. Cirrhotic liver morphology and pelvic ascites are noted. IMPRESSION: 1. The proximal abdominal aorta was patent and normal in caliber. The remainder of the abdominal aort a was not visualized. 2. Imaged portions of the upper IVC are patent. 3. The iliac vessels were not visualized. ACT 112: Negative or not required by law. Electronically signed by: Mau Carvajal M.D. 09/12/2020 1:43 PM
--- NOTE | 2020-09-12 15:30 | Ultrasound Report ---
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 COMPARISON STUDY: Abdominal CT dated 05/15/2020. TECHNIQUE: Real-time grayscale and color Doppler sonography of the hepatic and portal vasculature is performed. The examination is significantly degraded by overlying bowel gas FINDINGS: The main portal vein is patent with normal direction of flow. The right and left lobe margaret l branches are patent. The hepatic veins are patent as visualized with loss of the normal hepatic yvette ous waveforms. The hepatic artery is patent with velocities measured 133 cm/s. The liver is cirrhotic in morphology and heterogeneous in echotexture with nodularity of the surface contour. There is a sm all volume of perihepatic ascites. IMPRESSION: 1. The hepatic veins and portal veins are patent with normal direction of flow. 2. Cirrhotic liver morphology and small volume ascites. Electronically signed by: Mau Carvajal M.D. 09/12/2020 3:28 PM
--- NOTE | 2020-09-12 19:56 | Magnetic Resonance Report ---
MRCP CLINICAL HISTORY: Hepatic cirrhosis. COMPARISON STUDY: Abdominal ultrasound dated 09/12/2020. Abdominal CT dated 05/15/2020. TECHNIQUE: Abdominal MRCP is performed utilizing various T2-weighted sequences in the axial and coron al planes. IV contrast was not administered for this examination. 3-D reformats were created and asse ssed. The examination is degraded by large volume of abdominopelvic ascites. FINDINGS: The gallbladder is mildly distended and thick-walled. There are gallstones and biliary sludge. The ce ntral intrahepatic ducts are normal in caliber. The common bile duct measures up to 3 mm. There are n o intraluminal filling defects to suggest choledocholithiasis. The pancreatic duct is normal in calib er and not well visualized. The liver is cirrhotic in morphology and heterogeneous in signal intensity. There is nodularity of th e hepatic surface contour. The left lobe is atrophic with biliary ductal dilatation suggested. The sp krishna is top normal in size and normal in signal intensity. The kidneys demonstrate cortical atrophy a nd are without hydronephrosis. The adrenal glands are grossly unremarkable. The abdominal aorta is no rmal in caliber. No bowel obstruction is identified. There is a large volume of abdominopelvic ascite s. No pleural effusion is identified. IMPRESSION: 1. The examination is degraded by a large volume of abdominopelvic ascites. 2. Cirrhotic liver morphology. 3. The left hepatic lobe is atrophic with mild dilatation of the left lobe bile ducts. This is of ind eterminate significance, and similar to the 05/15/2020 CT scan. The cause of these findings is unclear. A contrast-enhanced liver protocol CT could be considered for further assessment. 4. The central intrahepatic bile ducts and the common bile duct are normal in caliber with no evidenc e of choledocholithiasis. 5. There are gallstones and biliary sludge within a thick-walled gallbladder. This is nonspecific, an d wall thickening is likely related to cirrhosis and ascites. Clinical correlation will be required. 6. Additional findings as above. Dictated: 09/12/2020 6:29 PM Transcribed: 09/12/2020 7:49 PM Sheeba [id number] Electronically signed by: Mau Carvajal M.D. 09/12/2020 7:54 PM
[2020-09-13 06:24] LABS: Hematocrit (blood only) 28.2 % (37-47); Hemoglobin 9.6 g/dL (12.0-16.0); Mean Corpuscular Hemoglobin 33.9 pg (25-34); Mean Corpuscular Volume 99.6 fL (80-100); RDW Coefficient of Variation 16.2 % (11.5-14.5); RDW Standard Deviation 59.1 fL (36.4-46.3); Red Blood Count 2.83 M/uL (4.2-5.4); White Blood Count 5.74 K/uL (4.8-10.8)
[2020-09-13 06:31] LABS: INR 1.8 (0.9-1.1); Prothrombin Time 17.4 Seconds (9.0-12.0)
[2020-09-13 06:42] LABS: Mean Platelet Volume 10.9 fL (7.4-10.4); Platelet Count 80 K/uL (130-400)
[2020-09-13 06:52] LABS: Basophils # (auto) 0.03 K/uL (0-0.2); Basophils % (auto) 0.5 %; Eosinophils # (auto) 0.22 K/uL (0-0.5); Eosinophils % (auto) 3.8 %; Immature Granulocytes # (auto) 0.02 K/uL (0.00-0.02); Immature Granulocytes % (auto) 0.3 %; Lymphocytes # (auto) 1.38 K/uL (1.2-3.4); Monocytes # (auto) 0.96 K/uL (0.11-0.59); Monocytes % (auto) 16.7 %; Neutrophils # (auto) 3.13 K/uL (1.4-6.5); Neutrophils % (auto) 54.7 %
[2020-09-13 07:45] LABS: Albumin Globulin Ratio 0.5 (0.9-2); Albumin Level 2.4 gm/dl (3.4-5.0); BUN Creatinine Ratio 13.3 (10-20); Bilirubin,Total 5.8 mg/dl (0.2-1); Calcium 8.8 mg/dl (8.5-10.1); Est GFR (African American) 25.4; Est GFR (Non-African American) 21.9; Globulin 4.5 gm/dl (2.5-4.0); Potassium 3.9 mmol/L (3.5-5.1); Total Protein 6.9 gm/dl (6.4-8.2)
[2020-09-13] MEDS: APIXABAN 2.5 MG TAB PO SCH ×2 (08:04→21:39)
[2020-09-13] MEDS: buPROPion XL 300 MG TABCR PO SCH (08:04)
[2020-09-13] MEDS: rifAXIMin 550 MG TABLET PO SCH ×2 (08:04→21:39)
[2020-09-13] MEDS: MULTIVITAMIN TAB PO SCH (08:04)
[2020-09-13] MEDS: LACTULOSE SYRUP 20 GM/30 ML UDC PO SCH ×2 (08:05→21:38)
[2020-09-13] MEDS: PANTOprazole 40 MG TAB PO SCH (08:05)
--- NOTE | 2020-09-13 08:52 | Gastroenterology Progress Note ---
Date of Service September 13, 2020 Assessment & Plan (1) PSC (primary sclerosing cholangitis): 70 year old female with history of dyslipidemia, HTN, aflutter, CKD-3, anxiety/depression, cirrhosis MELD 27 (HE on lactulose, ascites requiring intermittent LVP, last LVP a week ago and 4.5 L removed, no SBP) admitted w/ weakness, CLAUDIA. MRCP negative Portal US negative Paracentesis 09/06 negative for SBP Would recommend infectious workup to include chest xr, blood culture, urine cultures Albumin 1gm/kg Continue Lactulose and Xifaxan as ordered Avoid Opioids analgesia Hold diuresis until cleared by nephrology Establish with transplant as OP, referral had been placed Admission and Anticipated Discharge Date Admission Date: September 12, 2020 Supervising Physician Co-Signing Physician Notes Attending attestation I have seen, examined this patient, and agree with the findings and above by our mid-level provider EMETERIO Sunshine, with the following additions: Overall decline and worsened liver function Will reach out to [facility] transplant and see if can expediate work up, treatment for ARF. Falk culture now with blood, urine, CXR Will follow Subjective Pt was seen and evaluated, chart reviewed. Offers no concerns. Is feeling better. No abd pain. No nausea, vomiting. Tolerating PO. Moving bowels. No black or bloody stools. No fever, chills, CP, SOB. MUSHTAQ, AMA, SPEP, Ceruloplasmin, alpha 1 antitrypsin, celiac ab panel normal. Elevated Anti smooth muscle antibody, iron screens (Ferritin >300, Trans sat 32%) Portal Vein US 2020: The hepatic veins and portal veins are patent with normal direction of flow. Cirrhotic liver morphology and small volume ascites. MRCP 2020: The examination is degraded by a large volume of abdominopelvic ascites. Cirrhotic liver morphology. The left hepatic lobe is atrophic with mild dilatation of the left lobe bile ducts. This is of indeterminate significance, and similar to the 05/15/2020 CT scan. The cause of these findings is unclear. A contrast-enhanced liver protocol CT could be considered for further assessment.The central intrahepatic bile ducts and the common bile duct are normal in caliber with no evidence of choledocholithiasis.There are gallstones and biliary sludge within a thick-walled gallbladder. This is nonspecific, and wall thickening is likely related to cirrhosis and ascites. Clinical correlation will be required. MRCP/MRI 2019:Cirrhotic liver with similar left hepatic atrophy and associated biliary ectasia. Scattered areas of confluent fibrosis. No liver lesion identified. Biliary ducts: Similar intrahepatic stricturing and ductal ectasia with dilation of the bile ducts in the lateral left liver, compatible with the reported history of PSC. Gallbladder: Similar pericholecystic edema, in keeping with cirrhosis. Gallbladder is not distended. Pancreas: Dorsal duct drains via accessory duct to the minor papilla, with ventral duct not visualized, implying divisum. No pancreatic ductal distention. Spleen: Similar mild splenomegaly with 13 cm span. EGD 03/24/16 - normal findings. EGD 07/16/18:Normal esophagus. No varicesPortal hypertensive gastropathy. Normal examined duodenum.No specimens collected. Up to date on colonoscopy for colorectal ca screening (2008, 2011, 2014, 2016) w/o signs of IBD or colorectal ca Review of Systems Constitutional: no fever, no chills and no fatigue Respiratory: no cough, no dyspnea and no dyspnea on exertion Cardiovascular: no chest pain, no dyspnea and no palpitations Gastrointestinal: + diarrhea/loose stools; no abdominal pain, no nausea, no vomiting, no hematemesis, no change in stools, no constipation and no blood in stools Physical Exam Constitutional: WD/WN, vitals as above + ill appearing (chronically) and + thin; no acute distress Neck: trachea midline Respiratory: normal respiratory effort, lungs clear to auscultation Gastrointestinal (Abdomen): normal bowel sounds, soft, nontender, no hepatosplenomegaly Percussion/Palpation: + ascites Skin: no rashes, warm and dry + jaundice Results & Data ([facility]) Vital Signs (Past 12 Hours) Vital Signs Temp Pulse Resp BP Pulse Ox 09/13/20 07:36 36.6 C 83 18 105/58 L 94 09/13/20 07:30 36.6 C 18 105/58 L 94 09/13/20 03:07 36.8 C 74 17 126/64 98 09/12/20 22:59 36.6 C 78 18 104/54 L 98 Laboratory Results 09/13/20 09/13/20 09/13/20 Range/Units 05:38 05:38 05:38 WBC 5.74 (4.8-10.8) K/uL RBC 2.83 L (4.2-5.4) M/uL Hgb 9.6 L (12.0-16.0) g/dL Hct 28.2 L (37-47) % MCV 99.6 (80-100) fL MCH 33.9 (25-34) pg MCHC 34.0 (32-36) g/dL RDW Std Deviation 59.1 H (36.4-46.3) fL RDW Coeff of Julieth 16.2 H (11.5-14.5) % Plt Count 80 L (130-400) K/uL MPV 10.9 H (7.4-10.4) fL Immature Gran % (Auto) 0.3 % Neut % (Auto) 54.7 % Lymph % (Auto) 24.0 % [place] % (Auto) 16.7 % Eos % (Auto) 3.8 % Baso % (Auto) 0.5 % Neut # (Auto) 3.13 (1.4-6.5) K/uL Lymph # (Auto) 1.38 (1.2-3.4) K/uL [place] # (Auto) 0.96 H (0.11-0.59) K/uL Eos # (Auto) 0.22 (0-0.5) K/uL Baso # (Auto) 0.03 (0-0.2) K/uL Immature Gran # (Auto) 0.02 (0.00-0.02) K/uL PT 17.4 H (9.0-12.0) Seconds INR 1.8 H (0.9-1.1) Sodium 136 (136-145) mmol/L Potassium 3.9 (3.5-5.1) mmol/L Chloride 104 (98-107) mmol/L Carbon Dioxide 28 (21-32) mmol/L Anion Gap 5.0 (3-11) BUN 29 H (7-18) mg/dl Creatinine 2.18 H (0.6-1.2) mg/dl Est Cr Clr Drug Dosing 21.0 ml/min Est GFR ( Amer) 25.4 Est GFR (Non-Af Amer) 21.9 BUN/Creatinine Ratio 13.3 (10-20) Glucose 72 (70-99) mg/dl Calcium 8.8 (8.5-10.1) mg/dl Total Bilirubin 5.8 H (0.2-1) mg/dl AST 100 H (15-37) U/L ALT 42 (12-78) U/L Alkaline Phosphatase 154 H (45-117) U/L Total Protein 6.9 D (6.4-8.2) gm/dl Albumin 2.4 L (3.4-5.0) gm/dl Globulin 4.5 H (2.5-4.0) gm/dl Albumin/Globulin Ratio 0.5 L (0.9-2)
--- NOTE | 2020-09-13 11:38 | Progress Notes ---
DATE: 09/13/2020 NEPHROLOGY PROGRESS NOTE SUBJECTIVE: Overnight, no new issues. She appears fairly comfortable, does not appear to be confused or encephalopathic. OBJECTIVE: GENERAL: She does appear significantly jaundiced. VITAL SIGNS: Blood pressure 117/72, pulse rate 72, temperature 36.5, 92% on room air. HEENT: Mucous membranes moist. NECK: Supple. No jugular venous distention. CARDIOVASCULAR: S1 and S2 regular. ABDOMEN: Distended with ascites. EXTREMITIES: Show no edema at all. LABORATORY TEST: From this morning reviewed and shows slowly improving renal function. Creatinine is down to 2.18, BUN is 29, sodium is 136. Bilirubin is 5.8, albumin is 2.4. ASSESSMENT AND PLAN: A 70-year-old female with known liver cirrhosis, admitted with weakness. She was found to have slight acute renal failure on the background of chronic kidney disease. Acute renal failure: The acute component is fairly minimal and it is quite possible that this might be her new baseline. Prior creatinine was 1.7, now it is 2.1. She does not have any lower extremity edema at all, so I do not think we necessarily need to restart diuretics at this point. Also, we do not need to give IV fluid at this point. We will continue to monitor her input and output as well as daily renal function. No further workup needed for today.
--- NOTE | 2020-09-13 13:58 | Hospitalist Progress Note ---
Date of Service September 13, 2020 Assessment & Plan (1) Acute renal failure: 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 Likely multifactorial Had large volume paracentesis recently Cr:2.25>2.1 Monitor renal function Avoid nephrotoxic agents as able Appreciate nephrology input Received IV albumin Appreciate Nephrology Input Continue to hold diuretics today. Primary sclerosing cholangitis Recurrent ascites Recently had paracentesis H/O hepatic vein/IVC filter thrombosis Hyperbilirubinemia ABD USD:The liver is cirrhotic in morphology and heterogeneous in echotexture. Nonspecific gallbladder wall thickening is nonspecific and likely related to cirrhosis and ascites. There are gallstones and biliary sludge with no clear sonographic evidence of acute cholecystitis. A small volume of abdominal ascites and recanalization of the umbilical vein indicate portal hypertension. --MRCP:The examination is degraded by a large volume of abdominopelvic ascites. Cirrhotic liver morphology. The left hepatic lobe is atrophic with mild dilatation of the left lobe bile ducts. This is of indeterminate significance, and similar to the 05/15/2020 CT scan. The cause of these findings is unclear. A contrast-enhanced liver protocol CT could be consid ered for further assessment. The central intrahepatic bile ducts and the common bile duct are normal in caliber with no evidence of choledocholithiasis. There are gallstones and biliary sludge within a thick-walled gallbladder. This is nonspecific, and wall thickening is likely related to cirrhosis and ascites. Clinical correlation will be required. --Portal Vein USD:The hepatic veins and portal veins are patent with normal direction of flow. Cirrhotic liver morphology and small volume ascites. --Aorta Iliac USD:The proximal abdominal aorta was patent and normal in caliber. The remainder of the abdominal aorta was not visualized. Imaged portions of the upper IVC are patent. The iliac vessels were not visualized. Continue rifaximin, lactulose On Eliquis for anticoagulation Resume home diuretics as able Monitor LFTs Appreciate GI Input discussed with Transplant team at [facility] and recommended transfer given worsening Liver failure. Abhilash Barajas at [facility] kidly accepted the patient for further evaluation. 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 anticoagulation GERD Continue pantoprazole Anxiety/mood disorder Continue home medications Thrombocytopenia Secondary to liver disease Monitor Hyponatremia Chronic Monitor sodium levels DVT Px: Eliquis Code Status Full code Disposition [facility] Admission and Anticipated Discharge Date Admission Date: September 12, 2020 Subjective Patient is seen and examined at bedside States having generalized weakness and tiredness Discussed with GI today Denies chest pain, shortness of air, dizziness, nausea, abdominal pain Also discussed with [facility] for transfer Review of Systems Review of Systems: All systems reviewed & are unremarkable except as noted in HPI & below Physical Exam Physical Exam: Physical Exam: Vitals signs as noted above General Appearance:Moderately built and nourished, no apparent distress, chronically appearing Head: normocephalic, Atraumatic Eyes: normal inspection, EOMI Neck: supple, Trachea midline Respiratory/Chest: Normal breath sounds, CTA Cardiovascular: S1, S2, + murmur Abdomen/GI:Soft, distended, Non tender, + ecchymosis at paracentesis site, bowel sounds present Extremities/Musculoskeletal:normal inspection, No pedal edema Neurologic/Psych:AAOX3, grossly no focal neurological deficits Skin: normal color, warm Results & Data Results & Data ([facility]) Vital Signs (Past 12 Hours) Vital Signs Temp Pulse Pulse Resp BP BP Pulse Ox 09/13/20 11:45 36.9 C 74 12 132/71 100 09/13/20 10:59 36.5 C 72 18 117/72 92 09/13/20 10:53 71 09/13/20 07:36 36.6 C 83 18 105/58 L 94 09/13/20 07:30 36.6 C 18 105/58 L 94 09/13/20 03:07 36.8 C 74 17 126/64 98 Laboratory Results Short CBC 09/13/20 Range/Units 05:38 WBC 5.74 (4.8-10.8) K/uL Hgb 9.6 L (12.0-16.0) g/dL Hct 28.2 L (37-47) % Plt Count 80 L (130-400) K/uL BMP 09/13/20 05:38 Sodium 136 Potassium 3.9 Chloride 104 Carbon Dioxide 28 BUN 29 H Creatinine 2.18 H Glucose 72 Calcium 8.8 Liver Function 09/13/20 Range/Units 05:38 Total Bilirubin 5.8 H (0.2-1) mg/dl AST 100 H (15-37) U/L ALT 42 (12-78) U/L Alkaline Phosphatase 154 H (45-117) U/L Albumin 2.4 L (3.4-5.0) gm/dl (1) Acute renal failure Acute renal failure type: unspecified Qualified Code(s): N17.9 - Acute kidney failure, unspecified
--- NOTE | 2020-09-13 14:25 | Discharge Summary ---
Date of Service September 13, 2020 Admission HPI Per Admitting Provider History obtained from patient and records. 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 Last confinement May 2020 for decompensated cirrhosis. Patient seen at the ER 2 days ago for evaluation of leaking from paracentesis site. Patient denies abdominal pain, fever, chills. Dermabond placed over area and bandage was applied stopping leakage as per patient. Yesterday, patient noted decreased energy and shaking. No abdominal pain, unusual abdominal distention, fever, chills. Patient denies cough, S OB. Appetite poor. Patient denies unusual depression. Legs and arms felt weak as per patient. Patient brought to the ER for evaluation. NSS administered at the ER. IV albumin administered at the ER as per GI specialist recommendation as per ER provider. Patient currently feels much better. Medical History as above Surgical History : Appendectomy, breast biopsy Family History : DM, heart disease, stroke Personal/Social history : Non-smoker, no EtOH intake, retired [employer] Admission Exam Per Admitting Provider Physical Exam Physical Exam: GENERAL: Comfortable, pleasant slightly hard of hearing, no respiratory distress SKIN: Pallor, warm HEENT: Bespectacled, pale palpebral conjunctivae, no ptosis, dry buccal mucosa NECK : Supple, no tenderness CHEST : CTA, no tenderness HEART : RRR, no obvious murmurs ABDOMEN: Minimal distention, nontender EXTREMITIES : No LE swelling/tenderness, no other conspicuous deformities noted NEUROLOGIC : Coherent, no facial asymmetry, no other gross focality Principal Diagnosis Primary sclerosing cholangitis Recurrent ascites 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 Discharge Data Allergies Allergy/AdvReac Type Severity Reaction Status Date / Time Penicillins Allergy Rash Verified 09/06/20 10:56 adhesive AdvReac Redness of Verified 09/06/20 10:56 Skin Consultations 09/12/20 02:48 ED Decision to Admit Stat 09/12/20 08:08 Consult Nephrology Routine 09/12/20 08:09 Consult Gastroenterology Routine 09/13/20 13:57 Burn CD for patient Routine Procedures Performed ABD USD:The liver is cirrhotic in morphology and heterogeneous in echotexture. Nonspecific gallbladder wall thickening is nonspecific and likely related to cirrhosis and ascites. There are gallstones and biliary sludge with no clear sonographic evidence of acute cholecystitis. A small volume of abdominal ascites and recanalization of the umbilical vein indicate portal hypertension. --MRCP:The examination is degraded by a large volume of abdominopelvic ascites. Cirrhotic liver morphology. The left hepatic lobe is atrophic with mild dilatation of the left lobe bile ducts. This is of indeterminate significance, and similar to the 05/15/2020 CT scan. The cause of these findings is unclear. A contrast-enhanced liver protocol CT could be consid ered for further assessment. The central intrahepatic bile ducts and the common bile duct are normal in caliber with no evidence of choledocholithiasis. There are gallstones and biliary sludge within a thick-walled gallbladder. This is nonspecific, and wall thickening is likely related to cirrhosis and ascites. Clinical correlation will be required. --Portal Vein USD:The hepatic veins and portal veins are patent with normal direction of flow. Cirrhotic liver morphology and small volume ascites. --Aorta Iliac USD:The proximal abdominal aorta was patent and normal in caliber. The remainder of the abdominal aorta was not visualized. Imaged portions of the upper IVC are patent. The iliac vessels were not visualized. Ordered Studies 09/12/20 00:01 CT head/brain wo con Urgent 09/12/20 02:46 US abdomen limited Stat 09/12/20 12:02 MR MRCP Routine US duplex aorta/iliacs/IVC ltd Routine US duplex portal hepatic veins Routine Hospital Course (1) Acute renal failure: 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 Likely multifactorial Had large volume paracentesis recently Cr:2.25>2.1 Monitor renal function Avoid nephrotoxic agents as able Appreciate nephrology input Received IV albumin Appreciate Nephrology Input Continue to hold diuretics today. Primary sclerosing cholangitis Recurrent ascites Recently had paracentesis H/O hepatic vein/IVC filter thrombosis Hyperbilirubinemia ABD USD:The liver is cirrhotic in morphology and heterogeneous in echotexture. Nonspecific gallbladder wall thickening is nonspecific and likely related to cirrhosis and ascites. There are gallstones and biliary sludge with no clear sonographic evidence of acute cholecystitis. A small volume of abdominal ascites and recanalization of the umbilical vein indicate portal hypertension. --MRCP:The examination is degraded by a large volume of abdominopelvic ascites. Cirrhotic liver morphology. The left hepatic lobe is atrophic with mild dilatation of the left lobe bile ducts. This is of indeterminate significance, and similar to the 05/15/2020 CT scan. The cause of these findings is unclear. A contrast-enhanced liver protocol CT could be consid ered for further assessment. The central intrahepatic bile ducts and the common bile duct are normal in caliber with no evidence of choledocholithiasis. There are gallstones and biliary sludge within a thick-walled gallbladder. This is nonspecific, and wall thickening is likely related to cirrhosis and ascites. Clinical correlation will be required. --Portal Vein USD:The hepatic veins and portal veins are patent with normal direction of flow. Cirrhotic liver morphology and small volume ascites. --Aorta Iliac USD:The proximal abdominal aorta was patent and normal in caliber. The remainder of the abdominal aorta was not visualized. Imaged portions of the upper IVC are patent. The iliac vessels were not visualized. Continue rifaximin, lactulose On Eliquis for anticoagulation Resume home diuretics as able Monitor LFTs Appreciate GI Input discussed with Transplant team at [facility] and recommended transfer given worsening Liver failure. Abhilash Barajas at [facility] kidly accepted the patient for further evaluation. 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 anticoagulation GERD Continue pantoprazole Anxiety/mood disorder Continue home medications Thrombocytopenia Secondary to liver disease Monitor Hyponatremia Chronic Monitor sodium levels DVT Px: Eliquis Code Status Full code Disposition [facility] Total Time Total Time Spent Total Time Spent (In Minutes): 46 minutes Total Time Includes: Examination of the Patient, Discharge Planning, Medication Reconciliation, Communication With Other Providers and Other Discharge Plan Discharge Items Patient Disposition: Transfer Acute Care Hospital Reason For Visit: ARF Discharge Diagnosis: Primary sclerosing cholangitis Recurrent ascites 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 Condition on Discharge: Good Activity: Per Instructions section Exercise/Sports: Wait until after follow-up appointment Non-emergency contact: Primary Care Provider and Account Solutions Analyst Call non-emergency contact if: you have any medication questions, your symptoms worsen, your pain is concerning for you and you have a fever Follow-up/Referrals: Laura Dale PA-C [Primary Care Provider] - Diet: Low Sodium (2gm) Fluids: 1200ml (5 cups) Addtl Attending Provider Instructions: Follow up with Abhilash Barajas at [facility] for further evaluation and management Pending Studies at Discharge: No Stand-Alone Forms: My [facility] Skilled Items Patient informed of condition?: Yes DNR: No Discharge Level of Care: Other Communicable Disease: No Discharge Prognosis: Stable Lines: Peripheral IV Urinary Catheter: No Medications and DC Order Prescriptions: Continued omeprazole 20 mg capsule,delayed release(DR/EC) 20 mg PO DAILY RF: 0 spironolactone [Aldactone] 50 mg tablet 50 mg PO DAILY RF: 0 bupropion HCl [Wellbutrin XL] 300 mg tablet extended release 24 hr 300 mg PO DAILY RF: 0 cholecalciferol (vitamin D3) [Vitamin D3] 25 mcg (1,000 unit) Tablet 25 mcg PO DAILY RF: 0 Xifaxan 550 mg tablet 550 mg PO BID RF: 0 PreserVision AREDS-2 [id number] Capsule 1 tab PO QAM RF: 0 lorazepam 0.5 mg Tablet 0.5 mg PO Q6 PRN (Reason: Anxiety) RF: 0 ondansetron 4 mg tablet,disintegrating 4 mg PO Q8 PRN (Reason: Nausea And Vomiting) RF: 0 torsemide 20 mg tablet 40 mg PO DAILY RF: 0 lactulose [Enulose] 10 gram/15 mL solution 30 ml PO BID RF: 0 multivitamin Tablet 1 tab PO DAILY RF: 0 Eliquis 2.5 mg tablet 2.5 mg PO BID RF: 0 Discharge Orders: Discharge Order (Routine); Ordered 09/13/20 Ordered By: Abimael Cohen Admission Data Admit Date/Time: 09/12/20 03:56 Attending Provider: Abimael Cohen Admit Provider: Justus Pederson Primary Care Provider: Laura Dale Other Providers: Justus Pederson ; Gricelda Romero Molham ; Abimael Cohen
[2020-09-13] MEDS: PROMETHAZINE HCL 6.25 MG in SODIUM CHLORIDE 0.9% 50 ML IV PRN (18:44)
[2020-09-14 06:58] LABS: Hematocrit (blood only) 30.8 % (37-47); Hemoglobin 10.4 g/dL (12.0-16.0); Mean Corpuscular Hemoglobin 34.2 pg (25-34); Mean Corpuscular Hgb Conc 33.8 g/dL (32-36); Mean Corpuscular Volume 101.3 fL (80-100); RDW Coefficient of Variation 16.3 % (11.5-14.5); Red Blood Count 3.04 M/uL (4.2-5.4); White Blood Count 5.24 K/uL (4.8-10.8)
[2020-09-14 07:06] LABS: INR 1.6 (0.9-1.1); Prothrombin Time 16.1 Seconds (9.0-12.0)
[2020-09-14 07:36] LABS: Mean Platelet Volume 9.7 fL (7.4-10.4); Platelet Count 74 K/uL (130-400)
[2020-09-14 07:37] LABS: BUN Creatinine Ratio 11.6 (10-20); Creatinine Clr Calc Pharmacy 22.4 ml/min; Est GFR (African American) 27.5; Est GFR (Non-African American) 23.8; Potassium 3.8 mmol/L (3.5-5.1)
[2020-09-14 08:10] LABS: Albumin Globulin Ratio 0.5 (0.9-2); Albumin Level 2.6 gm/dl (3.4-5.0); Globulin 4.9 gm/dl (2.5-4.0); Total Protein 7.5 gm/dl (6.4-8.2)
[2020-09-14] MEDS: rifAXIMin 550 MG TABLET PO SCH ×2 (08:30→20:34)
[2020-09-14] MEDS: PANTOprazole 40 MG TAB PO SCH (08:30)
[2020-09-14] MEDS: APIXABAN 2.5 MG TAB PO SCH ×2 (08:30→20:34)
[2020-09-14] MEDS: LACTULOSE SYRUP 20 GM/30 ML UDC PO SCH ×2 (08:30→20:34)
[2020-09-14] MEDS: MULTIVITAMIN TAB PO SCH (08:30)
[2020-09-14] MEDS: buPROPion XL 300 MG TABCR PO SCH (08:31)
--- NOTE | 2020-09-14 09:38 | Nephrology Progress Note ---
Date of Service September 14, 2020 Assessment & Plan Admission and Anticipated Discharge Date Admission Date: September 12, 2020 Subjective NEPHROLOGY PROGRESS NOTE SUBJECTIVE: Overnight, no new issues. She appears fairly comfortable, does not appear to be confused or encephalopathic. Transfer to [facility] got Postponed for now OBJECTIVE: GENERAL: She does appear significantly jaundiced. HEENT: Mucous membranes moist. NECK: Supple. No jugular venous distention. CARDIOVASCULAR: S1 and S2 regular. ABDOMEN: Distended with ascites. EXTREMITIES: Show no edema at all. LABORATORY TEST: From this morning reviewed and shows slowly improving renal function. Creatinine is down to 2 now ASSESSMENT AND PLAN: A 70-year-old female with known liver cirrhosis, admitted with weakness. She was found to have slight acute renal failure on the background of chronic kidney disease. Acute renal failure: The acute component is fairly minimal and it is quite possible that this might be her new baseline. Prior creatinine was 1.7, now it is 2.0. She does not have any lower extremity edema at all, so I do not think we necessarily need to restart diuretics today. Also, we do not need to give IV fluid at this point. We will continue to monitor her input and output as well as daily renal function. No further workup needed for today. BP is quite good--So does not need Midodrine. Also given Creat trending down I dont think we need to use HRS treatment as such. Can give Albumin if GI feels needed. Likely will restart Diuretics from tomorrow Results & Data ([facility]) Vital Signs (Past 12 Hours) Vital Signs Temp Pulse Resp BP Pulse Ox 09/14/20 07:20 37.0 C 76 18 118/73 100 09/14/20 04:15 36.6 C 73 18 105/61 99 09/13/20 23:33 36.9 C 77 18 109/67 99
--- NOTE | 2020-09-14 10:23 | Gastroenterology Progress Note ---
Date of Service September 14, 2020 Assessment & Plan (1) PSC (primary sclerosing cholangitis): 70 year old female with history of dyslipidemia, HTN, aflutter, CKD-3, anxiety/depression, cirrhosis MELD 27 (HE on lactulose, ascites requiring intermittent LVP, last LVP a week ago and 4.5 L removed, no SBP) admitted w/ weakness, CLAUDIA. MRCP negative Portal US negative Paracentesis 09/06 negative for SBP Would recommend infectious workup to include chest xr, blood culture, urine cultures Albumin 1gm/kg Continue Lactulose and Xifaxan as ordered Avoid Opioids analgesia Discuss with nephrology not thought to be HRS Hold diuresis until cleared by nephrology Establish with transplant as OP, referral had been placed, please try to expedite this referral Recall as needed. Thank you for allowing us to participate in the care of this patient. Please call with any acute changes, questions or concerns. Please see addendum below with additional recommendation from my supervising physician. Admission and Anticipated Discharge Date Admission Date: September 12, 2020 Supervising Physician Co-Signing Physician Notes Attending attestation I have seen, examined this patient, and agree with the findings and above by our mid-level provider EMETERIO Sunshine, with the following additions: Overall decline and worsened liver function When discussed with [facility] transplant pathology yesterday, they recommended transfer, I am unsure of the insurance issues that is an obstacle at this time. However she continues to improve renal function is better today, spoke with nephrology who did not support treatment for HRS only IV albumin. Falk culture now with blood, urine, CXR Will follow Please discuss with case management the plan for inpatient versus expedited outpatient care. Subjective Attempted inpatient transfer for transplant evaluation Spoke to case management at [facility] who noted "patient needs full medical optimization before transfer as her insurance only covers transplant services" Offers no concerns this AM Feeling well No abd pain, nausea/vomiting. No black or bloody stools. 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 Review of Systems Review of Systems: All systems reviewed & are unremarkable except as noted in HPI & below Physical Exam Constitutional: WD/WN, vitals as above + ill appearing (chronically) and + thin; no acute distress Neck: trachea midline Respiratory: normal respiratory effort, lungs clear to auscultation Gastrointestinal (Abdomen): normal bowel sounds, soft, nontender, no hepatosplenomegaly Percussion/Palpation: + ascites Skin: no rashes, warm and dry + jaundice Results & Data ([facility]) Vital Signs (Past 12 Hours) Vital Signs Temp Pulse Resp BP Pulse Ox 09/14/20 07:20 37.0 C 76 18 118/73 100 09/14/20 04:15 36.6 C 73 18 105/61 99 09/13/20 23:33 36.9 C 77 18 109/67 99 Laboratory Results 09/14/20 09/14/20 09/14/20 Range/Units 06:45 06:45 06:45 WBC 5.24 (4.8-10.8) K/uL RBC 3.04 L (4.2-5.4) M/uL Hgb 10.4 L (12.0-16.0) g/dL Hct 30.8 L (37-47) % MCV 101.3 H (80-100) fL MCH 34.2 H (25-34) pg MCHC 33.8 (32-36) g/dL RDW Std Deviation 60.0 H (36.4-46.3) fL RDW Coeff of Julieth 16.3 H (11.5-14.5) % Plt Count 74 L (130-400) K/uL MPV 9.7 (7.4-10.4) fL PT 16.1 H (9.0-12.0) Seconds INR 1.6 H (0.9-1.1) Sodium 138 (136-145) mmol/L Potassium 3.8 (3.5-5.1) mmol/L Chloride 104 (98-107) mmol/L Carbon Dioxide 28 (21-32) mmol/L Anion Gap 6.0 (3-11) BUN 24 H (7-18) mg/dl Creatinine 2.04 H (0.6-1.2) mg/dl Est Cr Clr Drug Dosing 22.4 ml/min Est GFR ( Amer) 27.5 Est GFR (Non-Af Amer) 23.8 BUN/Creatinine Ratio 11.6 (10-20) Glucose 85 (70-99) mg/dl Calcium 9.0 (8.5-10.1) mg/dl Total Bilirubin 5.0 H (0.2-1) mg/dl AST 98 H (15-37) U/L ALT 43 (12-78) U/L Alkaline Phosphatase 183 H (45-117) U/L Total Protein 7.5 (6.4-8.2) gm/dl Albumin 2.6 L (3.4-5.0) gm/dl Globulin 4.9 H (2.5-4.0) gm/dl Albumin/Globulin Ratio 0.5 L (0.9-2)
--- NOTE | 2020-09-14 16:20 | Hospitalist Progress Note ---
Date of Service September 14, 2020 Assessment & Plan (1) Acute renal failure: 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 Likely multifactorial Had large volume paracentesis recently Cr:2.25>2.1>2.0 Monitor renal function Avoid nephrotoxic agents as able Appreciate nephrology input Received IV albumin Appreciate Nephrology Input Renal function continues to improve Hold diuretics today Likely to restart diuretics tomorrow Primary sclerosing cholangitis Recurrent ascites Recently had paracentesis H/O hepatic vein/IVC filter thrombosis Hyperbilirubinemia ABD USD:The liver is cirrhotic in morphology and heterogeneous in echotexture. Nonspecific gallbladder wall thickening is nonspecific and likely related to cirrhosis and ascites. There are gallstones and biliary sludge with no clear sonographic evidence of acute cholecystitis. A small volume of abdominal ascites and recanalization of the umbilical vein indicate portal hypertension. --MRCP:The examination is degraded by a large volume of abdominopelvic ascites. Cirrhotic liver morphology. The left hepatic lobe is atrophic with mild dilatat ion of the left lobe bile ducts. This is of indeterminate significance, and similar to the 05/15/2020 CT scan. The cause of these findings is unclear. A contrast-enhanced liver protocol CT could be consid ered for further assessment. The central intrahepatic bile ducts and the common bile duct are normal in caliber with no evidence of choledocholithiasis. There are gallstones and biliary sludge within a thick-walled gallbladder. This is nonspecific, and wall thickening is likely related to cirrhosis and ascites. Clinical correlation will be required. --Portal Vein USD:The hepatic veins and portal veins are patent with normal direction of flow. Cirrhotic liver morphology and small volume ascites. --Aorta Iliac USD:The proximal abdominal aorta was patent and normal in caliber. The remainder of the abdominal aorta was not visualized. Imaged portions of the upper IVC are patent. The iliac vessels were not visualized. 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 GERD Continue pantoprazole Anxiety/mood disorder Continue home medications Thrombocytopenia Secondary to liver disease Monitor Hyponatremia Chronic Monitor sodium levels DVT Px: Eliquis Code Status Full code Disposition Discharge home when stable Admission and Anticipated Discharge Date Admission Date: September 12, 2020 Subjective Patient is seen and examined at bedside No new complaints Discussed with GI today Continue to have generalized weakness and tiredness Denies chest pain, shortness of air, dizziness, nausea, abdominal pain Review of Systems Review of Systems: All systems reviewed & are unremarkable except as noted in HPI & below Physical Exam Physical Exam: Physical Exam: Vitals signs as noted above General Appearance:Moderately built and nourished, no apparent distress, chronically appearing Head: normocephalic, Atraumatic Eyes: normal inspection, EOMI Neck: supple, Trachea midline Respiratory/Chest: Normal breath sounds, CTA Cardiovascular: S1, S2, + murmur Abdomen/GI:Soft, distended, Non tender, + ecchymosis at paracentesis site, bowel sounds present Extremities/Musculoskeletal:normal inspection, No pedal edema Neurologic/Psych:AAOX3, grossly no focal neurological deficits Skin: normal color, warm Results & Data Results & Data ([facility]) Vital Signs (Past 12 Hours) Vital Signs Temp Pulse Resp BP BP Pulse Ox 09/14/20 15:22 36.7 C 79 20 133/70 98 09/14/20 11:03 36.5 C 75 20 119/70 99 09/14/20 07:20 37.0 C 76 18 118/73 100 Laboratory Results Short CBC 09/14/20 Range/Units 06:45 WBC 5.24 (4.8-10.8) K/uL Hgb 10.4 L (12.0-16.0) g/dL Hct 30.8 L (37-47) % Plt Count 74 L (130-400) K/uL BMP 09/14/20 06:45 Sodium 138 Potassium 3.8 Chloride 104 Carbon Dioxide 28 BUN 24 H Creatinine 2.04 H Glucose 85 Calcium 9.0 Liver Function 09/14/20 Range/Units 06:45 Total Bilirubin 5.0 H (0.2-1) mg/dl AST 98 H (15-37) U/L ALT 43 (12-78) U/L Alkaline Phosphatase 183 H (45-117) U/L Albumin 2.6 L (3.4-5.0) gm/dl (1) Acute renal failure Acute renal failure type: unspecified Qualified Code(s): N17.9 - Acute kidney failure, unspecified
[2020-09-15 07:11] LABS: Hematocrit (blood only) 30.1 % (37-47); Hemoglobin 10.3 g/dL (12.0-16.0); Mean Corpuscular Hemoglobin 33.9 pg (25-34); Mean Corpuscular Hgb Conc 34.2 g/dL (32-36); RDW Coefficient of Variation 16.3 % (11.5-14.5); RDW Standard Deviation 58.8 fL (36.4-46.3); Red Blood Count 3.04 M/uL (4.2-5.4); White Blood Count 5.51 K/uL (4.8-10.8)
[2020-09-15 07:21] LABS: Mean Platelet Volume 10.2 fL (7.4-10.4); Platelet Count 76 K/uL (130-400)
[2020-09-15 07:33] LABS: INR 1.6 (0.9-1.1); Prothrombin Time 15.8 Seconds (9.0-12.0)
[2020-09-15 08:18] LABS: Albumin Globulin Ratio 0.5 (0.9-2); Albumin Level 2.4 gm/dl (3.4-5.0); BUN Creatinine Ratio 13.7 (10-20); Bilirubin,Total 5.3 mg/dl (0.2-1); Calcium 8.6 mg/dl (8.5-10.1); Creatinine Clr Calc Pharmacy 29.1 ml/min; Est GFR (African American) 37.8; Est GFR (Non-African American) 32.6; Globulin 4.8 gm/dl (2.5-4.0); Potassium 3.5 mmol/L (3.5-5.1); Total Protein 7.2 gm/dl (6.4-8.2)
[2020-09-15] MEDS: LACTULOSE SYRUP 20 GM/30 ML UDC PO SCH ×2 (08:31→20:22)
[2020-09-15] MEDS: APIXABAN 2.5 MG TAB PO SCH ×2 (08:31→20:24)
[2020-09-15] MEDS: buPROPion XL 300 MG TABCR PO SCH (08:31)
[2020-09-15] MEDS: PANTOprazole 40 MG TAB PO SCH (08:32)
[2020-09-15] MEDS: MULTIVITAMIN TAB PO SCH (08:32)
[2020-09-15] MEDS: rifAXIMin 550 MG TABLET PO SCH ×2 (08:32→20:24)
--- NOTE | 2020-09-15 08:40 | Hospitalist Progress Note ---
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 Will discuss about resuming diuretic today Primary sclerosing cholangitis Recurrent ascites Recently had paracentesis H/O hepatic vein/IVC filter thrombosis Hyperbilirubinemia ABD USD:The liver is cirrhotic in morphology and heterogeneous in echotexture. Nonspecific gallbladder wall thickening is nonspecific and likely related to cirrhosis and ascites. There are gallstones and biliary sludge with no clear sonographic evidence of acute cholecystitis. A small volume of abdominal ascites and recanalization of the umbilical vein indicate portal hypertension. --MRCP:The examination is degraded by a large volume of abdominopelvic ascites. Cirrhotic liver morphology. The left hepatic lobe is atrophic with mild dilatation of the left lobe bile ducts. This is of indeterminate significance, and similar to the 05/15/2020 CT scan. The cause of these findings is unclear. A contrast-enhanced liver protocol CT could be consid ered for further assessment. The central intrahepatic bile ducts and the common bile duct are normal in caliber with no evidence of choledocholithiasis. There are gallstones and biliary sludge within a thick-walled gallbladder. This is nonspecific, and wall thickening is likely related to cirrhosis and ascites. Clinical correlation will be required. --Portal Vein USD:The hepatic veins and portal veins are patent with normal direction of flow. Cirrhotic liver morphology and small volume ascites. --Aorta Iliac USD:The proximal abdominal aorta was patent and normal in caliber. The remainder of the abdominal aorta was not visualized. Imaged portions of the upper IVC are patent. The iliac vessels were not visualized. Continue rifaximin, lactulose Reports no bowel movement yesterday. Discussed with RN. 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 Being managed for CLAUDIA on CKD Patient seen and examined this morning. Still reports some weakness especially in the legs. Reports some shaking in the hands sometimes. Denies any nausea, vomiting. Reports no bowel movement yesterday. Denies chest pain, cough, shortness of breath Review of Systems Constitutional: + fatigue and + anorexia; no fever and no chills Eyes: no problem reported Ear, Nose, Mouth, Throat: + hearing loss Respiratory: no cough and no dyspnea Cardiovascular: no chest pain, no dyspnea, no dyspnea on exertion and no p alpitations Gastrointestinal: + constipation; no abdominal pain, no nausea, no vomiting and no diarrhea/loose stools Genitourinary: no dysuria and no urinary frequency Musculoskeletal: + muscle weakness Neurologic: no dizziness, no headache(s) and no confusion Psychiatric: no depression and no anxiety Physical Exam Constitutional: + well hydrated; no acute distress Eyes: + conjunctival abnormality (Icteric) and PERRL ENMT: Ears: + hearing impairment Respiratory: normal respiratory effort, lungs clear to auscultation Cardiovascular: Rate/Rhythm: regular rate and regular rhythm S1-S2 Gastrointestinal (Abdomen): Inspection/Auscultation: abdomen normal to inspection Percussion/Palpation: abdomen soft and + ascites; abdomen nontender Musculoskeletal: no cyanosis or clubbing, extremities motor strength 5/5 No pedal edema Neurologic: PERRL, EOMI, accommodation nl, no face palsy, no dysarthria Psychiatric: A+Ox3, euthymic affect Results & Data Results & Data ([facility]) Vital Signs (Past 12 Hours) Vital Signs Temp Pulse Pulse Resp BP BP Pulse Ox 09/15/20 07:27 36.6 C 82 20 121/68 100 09/15/20 06:21 70 09/15/20 04:00 36.4 C L 86 18 124/60 97 09/14/20 23:17 36.4 C L 87 18 125/75 99 09/14/20 23:03 73 Laboratory Results Laboratory Results - last 24 hr 09/15/20 09/15/20 09/15/20 07:00 07:00 07:00 WBC 5.51 RBC 3.04 L Hgb 10.3 L Hct 30.1 L MCV 99.0 MCH 33.9 MCHC 34.2 RDW Std Deviation 58.8 H RDW Coeff of Julieth 16.3 H Plt Count 76 L MPV 10.2 PT 15.8 H INR 1.6 H Sodium 139 Potassium 3.5 Chloride 106 Carbon Dioxide 26 Anion Gap 7.0 BUN 21 H Creatinine 1.57 H D Est Cr Clr Drug Dosing 29.1 Est GFR ( Amer) 37.8 Est GFR (Non-Af Amer) 32.6 BUN/Creatinine Ratio 13.7 Glucose Pending Calcium 8.6 Total Bilirubin 5.3 H AST 93 H ALT 42 Alkaline Phosphatase 172 H Total Protein 7.2 Albumin 2.4 L Globulin 4.8 H Albumin/Globulin Ratio 0.5 L (1) Acute renal failure Acute renal failure type: unspecified Qualified Code(s): N17.9 - Acute kidney failure, unspecified
--- NOTE | 2020-09-15 09:40 | Nephrology Progress Note ---
Date of Service September 15, 2020 Assessment & Plan Admission and Anticipated Discharge Date Admission Date: September 12, 2020 Subjective NEPHROLOGY PROGRESS NOTE SUBJECTIVE: Overnight, no new issues. She appears fairly comfortable, does not appear to be confused or encephalopathic. Transfer to [facility] got Postponed for now OBJECTIVE: GENERAL: She does appear significantly jaundiced. HEENT: Mucous membranes moist. NECK: Supple. No jugular venous distention. CARDIOVASCULAR: S1 and S2 regular. ABDOMEN: Distended with ascites. EXTREMITIES: Show no edema at all. LABORATORY TEST: From this morning reviewed and shows slowly improving renal function. Creatinine is down to 2 now ASSESSMENT AND PLAN: A 70-year-old female with known liver cirrhosis, admitted with weakness. She was found to have slight acute renal failure on the background of chronic kidney disease. Acute renal failure: The acute component is fairly minimal and it is quite possible that this might be her new baseline. Prior creatinine was 1.7, now it is 1.57. She does not have any lower extremity edema at all. BP is quite good--So does not need Midodrine. Also given Creat trending down I dont think we need to use HRS treatment as such. Can give Albumin if GI feels needed. will restart Diuretics from now one at a time--Aldactone today. Results & Data ([facility]) Vital Signs (Past 12 Hours) Vital Signs Temp Pulse Pulse Resp BP BP Pulse Ox 09/15/20 07:27 36.6 C 82 20 121/68 100 09/15/20 06:21 70 09/15/20 04:00 36.4 C L 86 18 124/60 97 09/14/20 23:17 36.4 C L 87 18 125/75 99 09/14/20 23:03 73
[2020-09-15] MEDS: SPIRONOLACTONE 25 MG TAB PO SCH (11:39)
[2020-09-15] MEDS ORDERED: LACTULOSE SYRUP 20 GM/30 ML UDC PO ONE ×2 (12:23→15:20)
[2020-09-15] MEDS ORDERED: bisacodyL 10 MG SUPP PR STA (15:20)
[2020-09-15] MEDS: PROMETHAZINE HCL 6.25 MG in SODIUM CHLORIDE 0.9% 50 ML IV PRN (18:26)
[2020-09-16 07:40] LABS: Hematocrit (blood only) 28.7 % (37-47); Hemoglobin 9.7 g/dL (12.0-16.0); Mean Corpuscular Hemoglobin 34.5 pg (25-34); Mean Corpuscular Hgb Conc 33.8 g/dL (32-36); Mean Corpuscular Volume 102.1 fL (80-100); RDW Coefficient of Variation 16.5 % (11.5-14.5); RDW Standard Deviation 60.2 fL (36.4-46.3); Red Blood Count 2.81 M/uL (4.2-5.4); White Blood Count 5.48 K/uL (4.8-10.8)
[2020-09-16] MEDS: rifAXIMin 550 MG TABLET PO SCH (07:59)
[2020-09-16] MEDS: buPROPion XL 300 MG TABCR PO SCH (07:59)
[2020-09-16] MEDS: MULTIVITAMIN TAB PO SCH (07:59)
[2020-09-16] MEDS: SPIRONOLACTONE 25 MG TAB PO SCH (07:59)
[2020-09-16] MEDS: APIXABAN 2.5 MG TAB PO SCH (07:59)
[2020-09-16] MEDS: PANTOprazole 40 MG TAB PO SCH (07:59)
[2020-09-16] MEDS: LACTULOSE SYRUP 20 GM/30 ML UDC PO SCH (07:59)
[2020-09-16 08:17] LABS: Albumin Level 2.3 gm/dl (3.4-5.0); Calcium 9.1 mg/dl (8.5-10.1); Magnesium 2.1 mg/dl (1.8-2.4); Potassium 3.8 mmol/L (3.5-5.1)
[2020-09-16 08:22] LABS: Mean Platelet Volume 10.2 fL (7.4-10.4); Platelet Count 81 K/uL (130-400)
[2020-09-16 08:24] LABS: Albumin Globulin Ratio 0.5 (0.9-2); BUN Creatinine Ratio 12.2 (10-20); Bilirubin,Total 5.1 mg/dl (0.2-1); Creatinine Clr Calc Pharmacy 28.6 ml/min; Est GFR (African American) 36.9 ml/min; Est GFR (Non-African American) 31.9 ml/min; Globulin 4.9 gm/dl (2.5-4.0); Total Protein 7.2 gm/dl (6.4-8.2)
--- NOTE | 2020-09-16 09:17 | Gastroenterology Progress Note ---
Date of Service September 16, 2020 Assessment & Plan (1) PSC (primary sclerosing cholangitis): 70 year old female with history of dyslipidemia, HTN, aflutter, CKD-3, anxiety/depression, cirrhosis MELD 23 (HE on lactulose, ascites requiring intermittent LVP, last LVP a week ago and 4.5 L removed, no SBP) admitted w/ weakness, CLAUDIA. 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 Thank you for allowing us to participate in the care of this patient. Please call with any acute changes, questions or concerns. Please see addendum below with additional recommendation from my supervising physician. Admission and Anticipated Discharge Date Admission Date: September 12, 2020 Supervising Physician Co-Signing Physician Notes Attending attestation I have seen, examined this patient, and agree with the findings and above by our mid-level provider EMETERIO Sunshine, with the following additions - Cr improved, looks well - Close follow up with [facility] eval - Telephonic visit next week with our office Subjective Pt was seen and evaluated. OOB in chair. No concerns this AM. No abd pain, nausea/vomiting, diarrhea. Review of Systems Review of Systems: All systems reviewed & are unremarkable except as noted in HPI & below Physical Exam Constitutional: + ill appearing (chronically ill); no acute distress Neck: trachea midline Respiratory: normal respiratory effort, lungs clear to auscultation Cardiovascular: RRR, no murmur, no edema Gastrointestinal (Abdomen): Percussion/Palpation: + abdomen tender, abdomen soft and + ascites; no guarding and abdomen not rigid Skin: no rashes, warm and dry + jaundice Neurologic: Motor/Sensory: + asterixis Results & Data ([facility]) Vital Signs (Past 12 Hours) Vital Signs Temp Pulse Pulse Resp BP BP Pulse Ox 09/16/20 07:52 79 09/16/20 07:08 36.7 C 77 20 119/68 97 09/16/20 03:49 36.8 C 75 20 105/62 98 09/16/20 01:12 80 09/15/20 23:27 36.7 C 85 20 104/51 L 98 Laboratory Results 09/16/20 09/16/20 09/15/20 Range/Units 07:23 07:23 07:00 WBC 5.48 (4.8-10.8) K/uL RBC 2.81 L (4.2-5.4) M/uL Hgb 9.7 L (12.0-16.0) g/dL Hct 28.7 L (37-47) % MCV 102.1 H (80-100) fL MCH 34.5 H (25-34) pg MCHC 33.8 (32-36) g/dL RDW Std Deviation 60.2 H (36.4-46.3) fL RDW Coeff of Julieth 16.5 H (11.5-14.5) % Plt Count 81 L (130-400) K/uL MPV 10.2 (7.4-10.4) fL Sodium 136 (136-145) mmol/L Potassium 3.8 (3.5-5.1) mmol/L Chloride 105 (98-107) mmol/L Carbon Dioxide 25 (21-32) mmol/L Anion Gap 6.0 (3-11) BUN 20 H (7-18) mg/dl Creatinine 1.60 H (0.6-1.2) mg/dl Est Cr Clr Drug Dosing 28.6 ml/min Est GFR ( Amer) 36.9 ml/min Est GFR (Non-Af Amer) 31.9 ml/min BUN/Creatinine Ratio 12.2 (10-20) Glucose 82 88 (70-99) mg/dl Calcium 9.1 (8.5-10.1) mg/dl Phosphorus 3.0 (2.5-4.9) mg/dl Magnesium 2.1 (1.8-2.4) mg/dl Total Bilirubin 5.1 H (0.2-1) mg/dl AST 96 H (15-37) U/L ALT 42 (12-78) U/L Alkaline Phosphatase 154 H (45-117) U/L Total Protein 7.2 (6.4-8.2) gm/dl Albumin 2.3 L (3.4-5.0) gm/dl Globulin 4.9 H (2.5-4.0) gm/dl Albumin/Globulin Ratio 0.5 L (0.9-2)
--- NOTE | 2020-09-16 09:44 | Discharge Summary ---
Date of Service September 16, 2020 Admission HPI Per Admitting Provider History obtained from patient and records. 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 Last confinement May 2020 for decompensated cirrhosis. Patient seen at the ER 2 days ago for evaluation of leaking from paracentesis site. Patient denies abdominal pain, fever, chills. Dermabond placed over area and bandage was applied stopping leakage as per patient. Yesterday, patient noted decreased energy and shaking. No abdominal pain, unusual abdominal distention, fever, chills. Patient denies cough, S OB. Appetite poor. Patient denies unusual depression. Legs and arms felt weak as per patient. Patient brought to the ER for evaluation. NSS administered at the ER. IV albumin administered at the ER as per GI specialist recommendation as per ER provider. Patient currently feels much better. 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 Admission Exam Per Admitting Provider GENERAL: Comfortable, pleasant slightly hard of hearing, no respiratory distress SKIN: Pallor, warm HEENT: Bespectacled, pale palpebral conjunctivae, no ptosis, dry buccal mucosa NECK : Supple, no tenderness CHEST : CTA, no tenderness HEART : RRR, no obvious murmurs ABDOMEN: Minimal distention, nontender EXTREMITIES : No LE swelling/tenderness, no other conspicuous deformities noted NEUROLOGIC : Coherent, no facial asymmetry, no other gross focality Principal Diagnosis Primary sclerosing cholangitis Recurrent ascites 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 Discharge Exam Constitutional + well hydrated; no acute distress Eyes + conjunctival abnormality (Icteric) and PERRL ENMT Ears: + hearing impairment Respiratory normal respiratory effort, lungs clear to auscultation Cardiovascular Rate/Rhythm: regular rate and regular rhythm S1 S2 Gastrointestinal (Abdomen) Inspection/Auscultation: normal bowel sounds Percussion/Palpation: abdomen soft and + ascites; abdomen nontender Musculoskeletal no cyanosis or clubbing, extremities motor strength 5/5 Neurologic PERRL, EOMI, accommodation nl, no face palsy, no dysarthria Psychiatric A+Ox3, euthymic affect Discharge Data Allergies Allergy/AdvReac Type Severity Reaction Status Date / Time Penicillins Allergy Rash Verified 09/06/20 10:56 adhesive AdvReac Redness of Verified 09/06/20 10:56 Skin Consultations 09/12/20 02:48 ED Decision to Admit Stat 09/12/20 08:08 Consult Nephrology Routine 09/12/20 08:09 Consult Gastroenterology Routine 09/13/20 13:57 Burn CD for patient Routine Ordered Studies 09/12/20 00:01 CT head/brain wo con Urgent 09/12/20 02:46 US abdomen limited Stat 09/12/20 12:02 MR MRCP Routine US duplex aorta/iliacs/IVC ltd Routine US duplex portal hepatic veins Routine Hospital Course (1) Acute renal failure: 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 Patient needs to follow up with a business development professional for continued management Primary sclerosing cholangitis Recurrent ascites Recently had paracentesis H/O hepatic vein/IVC filter thrombosis Hyperbilirubinemia ABD USD:The liver is cirrhotic in morphology and heterogeneous in echotexture. Nonspecific gallbladder wall thickening is nonspecific and likely related to cirrhosis and ascites. There are gallstones and biliary sludge with no clear sonographic evidence of acute cholecystitis. A small volume of abdominal ascites and recanalization of the umbilical vein indicate portal hypertension. --MRCP:The examination is degraded by a large volume of abdominopelvic ascites. Cirrhotic liver morphology. The left hepatic lobe is atrophic with mild dilatation of the left lobe bile ducts. This is of indeterminate significance, and similar to the 05/15/2020 CT scan. The cause of these findings is unclear. A c ontrast-enhanced liver protocol CT could be consid ered for further assessment. The central intrahepatic bile ducts and the common bile duct are normal in caliber with no evidence of choledocholithiasis. There are gallstones and biliary sludge within a thick-walled gallbladder. This is nonspecific, and wall thickening is likely related to cirrhosis and ascites. Clinical correlation will be required. --Portal Vein USD:The hepatic veins and portal veins are patent with normal direction of flow. Cirrhotic liver morphology and small volume ascites. --Aorta Iliac USD:The proximal abdominal aorta was patent and normal in caliber. The remainder of the abdominal aorta was not visualized. Imaged portions of the upper IVC are patent. The iliac vessels were not visualized. Continue rifaximin, lactulose Patient's lactulose increase to TID to ensure 3-4 BM per day On Eliquis for anticoagulation Elevated LFT Was comanaged with GI while inpatient Patient follows with [facility] and was being planned for transplant evaluation. 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 anticoagulation GERD Continue pantoprazole Anxiety/mood disorder Continue home medications Thrombocytopenia Secondary to liver disease Monitor Total Time Total Time Spent Total Time Spent (In Minutes): 40 Total Time Includes: Examination of the Patient, Discharge Planning, Medication Reconciliation and Communication With Other Providers Discharge Plan Discharge Items Patient Disposition: Home - Self-Care Reason For Visit: ARF Discharge Diagnosis: Primary sclerosing cholangitis Recurrent ascites 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 You will receive a binder in the mail from [facility] with further information. ) Diet: Low Sodium (2gm) Fluids: 1200ml (5 cups) Addtl Attending Provider Instructions: Ms Wing. You came to the hospital for weakness and poor appetite. You were evaluated and found to have acute on chronic kidney injury. This was managed. You need to follow up with Gastroenterology/Hepatology at [facility] for your liver transplant evaluation. Please ensure you keep the appointments on 09/29/20- 10/01/20. Your torsemide was reduced to 20mg daily As we discussed, you can take extra doses of lactulose in the afternoon to make it three times a day as needed to ensure 3-4 bowel movements per day. It was a pleasure taking care of you Addtl Ip Litigation Paralegal Provider Instructions: Follow up with [facility] for further evaluation and management with the information provided Pending Studies at Discharge: No Stand-Alone Forms: My [facility], Smoking Cessation Medications and DC Order Prescriptions: New torsemide 20 mg tablet 20 mg PO DAILY Qty: 30 RF: 0 lactulose [Enulose] 10 gram/15 mL solution 30 ml PO TID Qty: 946 RF: 0 Continued omeprazole 20 mg capsule,delayed release(DR/EC) 20 mg PO DAILY RF: 0 spironolactone [Aldactone] 50 mg tablet 50 mg PO DAILY RF: 0 bupropion HCl [Wellbutrin XL] 300 mg tablet extended release 24 hr 300 mg PO DAILY RF: 0 cholecalciferol (vitamin D3) [Vitamin D3] 25 mcg (1,000 unit) Tablet 25 mcg PO DAILY RF: 0 Xifaxan 550 mg tablet 550 mg PO BID RF: 0 PreserVision AREDS-2 [id number] Capsule 1 tab PO QAM RF: 0 lorazepam 0.5 mg Tablet 0.5 mg PO Q6 PRN (Reason: Anxiety) RF: 0 ondansetron 4 mg tablet,disintegrating 4 mg PO Q8 PRN (Reason: Nausea And Vomiting) RF: 0 multivitamin Tablet 1 tab PO DAILY RF: 0 Eliquis 2.5 mg tablet 2.5 mg PO BID RF: 0 Discharge Orders: Discharge Order (Routine); Ordered 09/16/20 Ordered By: Sita Awad Admission Data Admit Date/Time: 09/12/20 03:56 Attending Provider: Sita Awad I. Admit Provider: Justus Pederson Primary Care Provider: Laura Dale Other Providers: Justus Pederson ; Gricelda Romero ; Randy Tabares ; Abimael Cohen Other Interventions: Discharge Summary Assessment (RN) Last Done: 09/16/20 10:34
[2020-09-16] MEDS ORDERED: LACTULOSE SYRUP 30 GM/45 ML UDP PO SCH (14:00)
== END 2020-09-16 11:49 | disposition home or self-care (01) | DRG 445 ==
LOC: ED 23:45 → SUATTDRO 09-12 03:56 → 2N 09-12 03:56

== ENCOUNTER 2020-10-04 12:43 | Inpatient (IN) ==
[2020-10-04] MEDS ORDERED: SODIUM CHLORIDE 0.9% 1000ML 1,000 ML IV SCH (14:15)
[2020-10-04] MEDS ORDERED: ONDANSETRON INJ 2 MG/ML 2 ML VIAL IV STA (14:15)
--- NOTE | 2020-10-04 14:15 | Emergency Department Note ---
Impression & Plan Weakness ED Provider Note INFORMANT: Patient ED PROVIDER(S): Michael Russell MD CHIEF COMPLAINT: Weakness PLAN: Disposition: Admitted Condition: Good Outpatient prescription management: none Referral: None MEDICAL DECISION MAKING: patient presented to emergency department with progressive weakness, mild confusion and just generalized fatigue. She is undergoing an evaluation for a l iver transplant. The patient had blood work obtained. She had an unremarkable CBC except a mild anemia. Urinalysis was negative. Her ammonia level is minimally elevated. Her calcium is mildly low. She has baseline renal insufficiency. INR is mildly elevated 1.6. Her bilirubin is elevated however it is improved compared to prior. She was gently hydrated. She does have ascites on her physical examination without any pain to suggest SBP. She has not significantly tense or in any respiratory distress that would warrant emergent paracentesis. Given her current status and decline at home I discussed further management in the hospital with the patient and family. They were very much in agreement. [facility] The patient was evaluated in ER by Dr. Henry and admitted for further management. Triage Nursing notes reviewed and agree them. Vital Signs: reviewed and remarkable for no significant abnormalities Differential diagnosis: Infection, dehydration, metabolic abnormality, hypo/hyperglycemia, electrolyte disturbance, anemia, hypoxia, cardiac sources, intracerebral event, toxicologic, neurologic, as well as other pathologies. Diagnostics interpreted by me: ECG: Twelve-lead ECG reveals normal sinus rhythm at 81 bpm. Inferior Q waves present. Poor R wave progression anteriorly. No ST elevation or depression. Normal axis. Cardiac Monitoring: Cardiac monitoring ordered by me: The patient was placed on continuous cardiac monitoring and observed. It revealed a normal sinus rhythm at 79 beats per minute without ectopy or evidence of dysrhythmia. Imaging studies: Chest x-ray. Findings: A chest x-ray was performed and revealed no pneumothorax, effusion, infiltrate, pulmonary edema, free air under the diaphragm, or wide mediastinum. Impression: No acute disease. HPI: The patient is a 70 year old female who presents to the Emergency Room with complaints of weakness. This started over the last few days and is worsening. The patient also notes the following associated symptoms, shakiness, abdominal distension(has ascites), nausea and vomiting yesterday. The patient has found no relieving factors. Current pain is rated as 0/10. Has PSC. Just started eval for possible liver transplant. Pt denies LOC, headache, fevers, chills, diaphoresis, visual changes, neck pain, chest pain, breathing difficulties, abdominal pain, back pain, melena, hematochezia, urinary symptoms, numbness, lymphadenopathy, rash, or other complaints. ROS: See above HPI for pertinent positives & negatives. A total of 10 systems reviewed and were otherwise negative. PAST MEDICAL HISTORY:See Below , PSC PAST SURGICAL HISTORY:See Below, FAMILY HISTORY:See Below SOCIAL HISTORY:See Below, lives with family HOME MEDICATIONS:See Below ALLERGIES:See Below VITALS:See Below PHYSICAL EXAMINATION: GENERAL: Awake, alert, well-appearing, in no distress HENT: Normocephalic, atraumatic. Oropharynx unremarkable. EYES: Normal conjunctiva. Sclera moderately-icteric. NECK: Inspection normal. Non-tender. Supple. No nuchal rigidity. FROM. No masses. RESPIRATORY: Clear to auscultation. No wheezes. No rales. Normal respiratory effort. CARDIAC: Normal rate. Normal rhythm. No murmurs. No rubs. Extremities warm and well perfused. Pulses equal. No JVD. GI: Soft, +fluid wave, moderately distended. No tenderness to palpation. No rebound or guarding. No masses. RECTAL: Deferred. MUSCULOSKELETAL: Atraumatic. Chest examination reveals no tenderness. The back is symmetrical on inspection without obvious abnormality. There is no CVA tenderness to palpation. No joint edema. LOWER EXTREMITIES: Calves are equal size bilaterally and non-tender. No edema. No discoloration. NEURO: Normal sensorium. No sensory or motor deficits noted. SKIN: No rash or jaundice noted. Michael Russell MD Past Med/Surg History Medical History A-fib Abnormal liver function Acid reflux Ascites Hypertension Surgical History Hx of appendectomy Social History Smoking Status: Never smoker Second Hand Exposure: No; Hx Alcohol Use: No Hx Substance Use: No Preferred Language: Tanzanian Communication Ability: Effective Pumper Head Required: No Beliefs That Will Affect Care: None Current Living Situation: Spouse Feels Safe at Home: Yes Safety Concerns: Feels Safe At This Time Assistive Devices: Glasses, Hearing Aid - Bilateral and Walker Allergies Allergies Allergy/AdvReac Type Severity Reaction Status Date / Time Penicillins Allergy Mild Rash Verified 10/04/20 15:25 adhesive AdvReac Mild Redness of Verified 10/04/20 15:25 Skin Home Meds Home Medications Medication Instructions Recorded Confirmed PreserVision AREDS-2 1 tab PO QAM 05/21/20 10/04/20 Xifaxan 550 mg PO BID 05/21/20 10/04/20 bupropion HCl [Wellbutrin XL] 300 mg PO DAILY 05/21/20 10/04/20 cholecalciferol (vitamin D3) 25 mcg PO DAILY 05/21/20 10/04/20 [Vitamin D3] omeprazole 20 mg PO DAILY 05/21/20 10/04/20 lorazepam 0.5 mg PO Q6 PRN 06/02/20 10/04/20 Eliquis 2.5 mg PO BID 07/09/20 10/04/20 multivitamin 1 tab PO DAILY 07/09/20 10/04/20 ondansetron 4 mg PO Q8 PRN 09/12/20 10/04/20 Previous Rx's Medication Instructions Recorded lactulose [Enulose] 30 ml PO TID #946 ml 09/16/20 Results & Data (ED) Vital Signs Vital Signs - 24 hr 10/04/20 12:46 10/04/20 13:10 10/04/20 16:32 Temperature 36.2 C L Temperature Source Temporal Artery Scan Pulse Rate 82 Pulse Rate [Right Finger] 80 Pulse Rhythm Regular Pulse Strength Normal Respiratory Rate 20 18 Respiratory Effort / Characteristics Non-Labored Spontaneous Non-Labored Respiratory Depth Normal Normal Respiratory Pattern Regular Blood Pressure 132/76 Blood Pressure [Right Arm] 116/61 127/78 Blood Pressure Mean 94 Blood Pressure Mean [Right Arm] 79 94 Blood Pressure Position Sitting Pulse Oximetry 100 98 Oxygen Delivery Method Room Air Room Air Sepsis Recent Fever Within 48 Hours No Sepsis New/Unexplained Change in Mental Status No Sepsis Action Taken by Nursing No Action Required Laboratory Data Result diagrams: 10/04/20 Unknown 10/04/20 Unknown Lab Results 10/04/20 10/04/20 10/04/20 Range/Units 14:21 14:45 14:45 Ammonia 34.9 H (11-32) umol/L Urine Color Urine Appearance (Clear) Urine pH (4.5-7.5) Ur Specific [place] (1.000-1.030) Urine Protein (Negative) Urine Glucose (UA) (Negative) Urine Ketones (Negative) Urine Blood (Negative) Urine Nitrite (Negative) Urine Bilirubin (Negative) Urine Urobilinogen (Negative) Ur Leukocyte Esterase (Negative) COVID-19 Eval Order Covid19 at [facility] SARS-CoV-2 (PCR) NEGATIVE (Negative) 10/04/20 Range/Units 15:33 Ammonia (11-32) umol/L Urine Color Dark Yellow Urine Appearance Clear (Clear) Urine pH 5.0 (4.5-7.5) Ur Specific [place] 1.021 (1.000-1.030) Urine Protein Negative (Negative) Urine Glucose (UA) Negative (Negative) Urine Ketones Trace H (Negative) Urine Blood Negative (Negative) Urine Nitrite Negative (Negative) Urine Bilirubin Negative (Negative) Urine Urobilinogen Negative (Negative) Ur Leukocyte Esterase Negative (Negative) COVID-19 Eval Order SARS-CoV-2 (PCR) (Negative) Administered Medications Apixaban (Apixaban 2.5 Mg Tab) 2.5 mg PO BID RONNIE Stop: 11/03/20 20:59 Last Admin: 10/04/20 20:43 Dose: 2.5 mg Documented by: [id number] Potassium Chloride/Dextrose/Sod Cl (D5nss + 20meq Kcl) 20 meq in 1,000 mls @ 100 mls/hr IV .Q10H RONNIE Stop: 11/03/20 18:44 Last Admin: 10/04/20 20:42 Dose: 100 mls/hr Documented by: [id number] Lactulose (Lactulose Syrup 20 Gm/30 Ml Udc) 20 gm PO TID RONNIE Stop: 11/03/20 20:59 Last Admin: 10/04/20 20:42 Dose: 20 gm Documented by: [id number] Rifaximin (Rifaximin 550 Mg Tablet) 550 mg PO BID RONNIE Stop: 11/03/20 20:59 Last Admin: 10/04/20 20:43 Dose: 550 mg Documented by: [id number] Discontinued Medications Sodium Chloride (Nss 1000ml) 1,000 mls @ 125 mls/hr IV .Q8H RONNIE Stop: 10/04/20 22:14 Last Infusion: 10/04/20 18:36 Dose: 0 mls/hr Documented by: [id number] Admin: 10/04/20 14:23 Dose: 125 mls/hr Documented by: [id number] Ondansetron HCl (Ondansetron Inj 2 Mg/Ml 2 Ml Vial) 4 mg IV NOW STA Stop: 10/04/20 14:16 Last Admin: 10/04/20 14:24 Dose: 4 mg Documented by: [id number] Imaging Data Radiologist's Impression: Chest X-Ray 10/04/20 14:09 XR chest 1V portable CLINICAL HISTORY: weakness COMPARISON STUDY: 09/12/2020 FINDINGS: The heart is normal in size. There is no failure. There is no lobar consolidation. Minimal increased left basilar markings while nonspecific are l ikely atelectatic.[No pleural effusions are visualized. IMPRESSION: Minimal increase left basilar markings, while nonspecific are likely atelectatic. ACT 112: Negative or not required by law. Electronically signed by: Chan Membreno M.D. 10/04/2020 2:58 PM Discharge Plan Visit Data Chief Complaint: Abdominal Pain Stated Complaint: NEED STOMACH DRAINED-PARCENTISIS ED Provider: Michael Russell Discharge Problem: Weakness Patient Disposition: Admitted As Inpatient Discharge Instructions Interventions: ED Discharge Assessment Last Done: 10/04/20 18:15
[2020-10-04 14:21] LABS: Basophils # (auto) 0.04 K/uL (0-0.2); Basophils % (auto) 0.6 %; Eosinophils # (auto) 0.22 K/uL (0-0.5); Eosinophils % (auto) 3.1 %; Hematocrit (blood only) 33.4 % (37-47); Hemoglobin 11.4 g/dL (12.0-16.0); Immature Granulocytes # (auto) 0.03 K/uL (0.00-0.02); Immature Granulocytes % (auto) 0.4 %; Lymphocytes # (auto) 1.56 K/uL (1.2-3.4); Lymphocytes % (auto) 21.9 %; Mean Corpuscular Hemoglobin 35.1 pg (25-34); Mean Corpuscular Hgb Conc 34.1 g/dL (32-36); Mean Corpuscular Volume 102.8 fL (80-100); Mean Platelet Volume 10.5 fL (7.4-10.4); Monocytes # (auto) 0.95 K/uL (0.11-0.59); Monocytes % (auto) 13.4 %; Neutrophils # (auto) 4.31 K/uL (1.4-6.5); Neutrophils % (auto) 60.6 %; Platelet Count 146 K/uL (130-400); RDW Standard Deviation 60.1 fL (36.4-46.3); Red Blood Count 3.25 M/uL (4.2-5.4); White Blood Count 7.11 K/uL (4.8-10.8)
[2020-10-04 14:30] LABS: INR 1.6 (0.9-1.1); Prothrombin Time 15.5 Seconds (9.0-12.0)
[2020-10-04 14:51] LABS: Glucose 139 mg/dl (70-99)
[2020-10-04 14:52] LABS: Alanine Aminotransferase 40 U/L (12-78); Albumin Level 2.4 gm/dl (3.4-5.0); Aspartate Aminotransferase 77 U/L (15-37); BUN Creatinine Ratio 12.5 (10-20); Blood Urea Nitrogen 24 mg/dl (7-18); Calcium 7.9 mg/dl (8.5-10.1); Carbon Dioxide 27 mmol/L (21-32); Chloride 100 mmol/L (98-107); Est GFR (Non-African American) 25.9 ml/min; Magnesium 2.6 mg/dl (1.8-2.4); Potassium 3.5 mmol/L (3.5-5.1); Sodium 135 mmol/L (136-145)
[2020-10-04 14:54] LABS: Albumin Globulin Ratio 0.4 (0.9-2); Alkaline Phosphatase 249 U/L (45-117); Bilirubin,Total 3.7 mg/dl (0.2-1); Globulin 6.3 gm/dl (2.5-4.0); Total Protein 8.7 gm/dl (6.4-8.2); Troponin I < 0.015 ng/ml (0-0.045)
--- NOTE | 2020-10-04 14:59 | XRay Report ---
XR chest 1V portable CLINICAL HISTORY: weakness COMPARISON STUDY: 09/12/2020 FINDINGS: The heart is normal in size. There is no failure. There is no lobar consolidation. Minimal increased left basilar markings while nonspecific are likely atelectatic.[No pleural effusions are vi sualized. IMPRESSION: Minimal increase left basilar markings, while nonspecific are likely atelectatic. ACT 112: Negative or not required by law. Electronically signed by: Chan Membreno M.D. 10/04/2020 2:58 PM
[2020-10-04 16:01] LABS: Appearance Urine Clear (Clear); Bilirubin Urine Negative (Negative); Blood Urine Negative (Negative); Color Urine Dark Yellow; Glucose Urine UA Negative (Negative); Ketones Urine Trace (Negative); Leukocyte Esterase Urine Negative (Negative); Nitrite Urine Negative (Negative); Protein Urine Negative (Negative); Specific Gravity Urine 1.021 (1.000-1.030); Urobilinogen Urine Negative (Negative)
--- NOTE | 2020-10-04 17:10 | History & Physical Report ---
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 DVT prophylaxis with subcu heparin. N.p.o. after midnight History of Present Illness Chief Complaint: Ascites weakness and fatigue Primary Care Provider: Laura Dale PA-C 70-year-old female with a past medical history of primary sclerosing cholangitis, hepatic encephalopathy, acute renal failure, ascites, hypertension, hyponatremia, hepatic cirrhosis due to PSC, who was here earlier this month for acute kidney injury. Since then she has been to [facility] for possible liver transplant evaluation. She had a paracentesis 3 weeks ago. Today she comes in secondary to weakness, fatigue, nausea, and vomiting. She could not keep anything down so she came in for evaluation. She has electrolyte imbalances she has acute kidney injury and dehydration. She will be placed in inpatient status and admitted today. GI will see in the morning for paracentesis and I will give her IV fluids overnight. Allergies Allergy/AdvReac Type Severity Reaction Status Date / Time Penicillins Allergy Mild Rash Verified 10/04/20 15:25 adhesive AdvReac Mild Redness of Verified 10/04/20 15:25 Skin Home Medications Medication Instructions Recorded Confirmed Type PreserVision AREDS-2 1 tab PO QAM 05/21/20 10/04/20 History Xifaxan 550 mg PO BID 05/21/20 10/04/20 History bupropion HCl [Wellbutrin XL] 300 mg PO DAILY 05/21/20 10/04/20 History cholecalciferol (vitamin D3) 25 mcg PO DAILY 05/21/20 10/04/20 History [Vitamin D3] omeprazole 20 mg PO DAILY 05/21/20 10/04/20 History lorazepam 0.5 mg PO Q6 PRN 06/02/20 10/04/20 History Eliquis 2.5 mg PO BID 07/09/20 10/04/20 History multivitamin 1 tab PO DAILY 07/09/20 10/04/20 History ondansetron 4 mg PO Q8 PRN 09/12/20 10/04/20 History lactulose [Enulose] 30 ml PO TID #946 ml 09/16/20 10/04/20 Rx Past Med/Surg History Medical History A-fib Abnormal liver function Acid reflux Ascites Hypertension Surgical History Hx of appendectomy Social History Smoking Status: Never smoker Second Hand Exposure: No; Hx Alcohol Use: No Hx Substance Use: No Preferred Language: Romansh Communication Ability: Effective 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 Appetite is decreased, positive fatigue, Physical Exam Gen-AAO x 3, NAD, Afebrile, jaundiced, weak, pleasant Head-NCAT, EOMI, PERRLA, Anicteric Sclera, No Posterior Pharyngeal Erythema Neck-Supple, No JVD, No Thyromegaly, No Masses, No LAD, No Bruits Lungs-Clear to Auscultation Bilaterally, No Rales, No Rhonchi, No Wheezing, No Crepitus Chest-No S4, +S1, +S2, No S3, No Murmurs, No Rubs, No Gallops, No Ectopy Abdomen-Soft, Bowel Sounds Present, Non Tender, Distended, No Hepatomegaly, no succussion splash No Splenomegaly, No Palpable Masses, No Rebound, No Rigidity, No Guarding Musculoskeletal-Full Range of Motion Bilaterally, No CVAT Extremities-No Cyanosis, No Clubbing, No Edema Nuero-Cranial Nerves II-XII grossly intact, Motor WNL, DTRs WNL, Strength WNL, Non Focal Psych-Normal Mood Results & Data Results & Data ([facility]) Vital Signs (Past 12 Hours) Vital Signs Temp Pulse Pulse Resp BP BP Pulse Ox 10/04/20 16:32 80 18 127/78 98 10/04/20 13:10 116/61 10/04/20 12:46 36.2 C L 82 20 132/76 100 Allergies Penicillins Allergy (Mild, Verified 10/04/20 15:25) Rash adhesive Adverse Reaction (Mild, Verified 10/04/20 15:25) Redness of Skin Height/Weight/Isolation Height 5 ft 5 in CBC 10/04/20 10/04/20 10/04/20 14:21 14:45 14:45 WBC RBC Hgb Hct MCV MCH MCHC RDW Std Deviation RDW Coeff of Julieth Plt Count MPV Immature Gran % (Auto) Neut % (Auto) Lymph % (Auto) [place] % (Auto) Eos % (Auto) Baso % (Auto) Neut # (Auto) Lymph # (Auto) [place] # (Auto) Eos # (Auto) Baso # (Auto) Immature Gran # (Auto) PT INR Sodium Potassium Chloride Carbon Dioxide Anion Gap BUN Creatinine Est Cr Clr Drug Dosing Est GFR ( Amer) Est GFR (Non-Af Amer) BUN/Creatinine Ratio Glucose Calcium Magnesium Total Bilirubin AST ALT Alkaline Phosphatase Ammonia 34.9 H Troponin I Total Protein Albumin Globulin Albumin/Globulin Ratio TSH Urine Color Urine Appearance Urine pH Ur Specific [place] Urine Protein Urine Glucose (UA) Urine Ketones Urine Blood Urine Nitrite Urine Bilirubin Urine Urobilinogen Ur Leukocyte Esterase COVID-19 Eval Order Covid19 at [facility] SARS-CoV-2 (PCR) NEGATIVE 10/04/20 10/04/20 10/04/20 15:33 Unknown Unknown WBC 7.11 RBC 3.25 L Hgb 11.4 L Hct 33.4 L MCV 102.8 H MCH 35.1 H MCHC 34.1 RDW Std Deviation 60.1 H RDW Coeff of Julieth 16.0 H Plt Count 146 MPV 10.5 H Immature Gran % (Auto) 0.4 Neut % (Auto) 60.6 Lymph % (Auto) 21.9 [place] % (Auto) 13.4 Eos % (Auto) 3.1 Baso % (Auto) 0.6 Neut # (Auto) 4.31 Lymph # (Auto) 1.56 [place] # (Auto) 0.95 H Eos # (Auto) 0.22 Baso # (Auto) 0.04 Immature Gran # (Auto) 0.03 H PT 15.5 H INR 1.6 H Sodium Potassium Chloride Carbon Dioxide Anion Gap BUN Creatinine Est Cr Clr Drug Dosing Est GFR ( Amer) Est GFR (Non-Af Amer) BUN/Creatinine Ratio Glucose Calcium Magnesium Total Bilirubin AST ALT Alkaline Phosphatase Ammonia Troponin I Total Protein Albumin Globulin Albumin/Globulin Ratio TSH Urine Color Dark Yellow Urine Appearance Clear Urine pH 5.0 Ur Specific [place] 1.021 Urine Protein Negative Urine Glucose (UA) Negative Urine Ketones Trace H Urine Blood Negative Urine Nitrite Negative Urine Bilirubin Negative Urine Urobilinogen Negative Ur Leukocyte Esterase Negative COVID-19 Eval Order SARS-CoV-2 (PCR) 10/04/20 Unknown WBC RBC Hgb Hct MCV MCH MCHC RDW Std Deviation RDW Coeff of Julieth Plt Count MPV Immature Gran % (Auto) Neut % (Auto) Lymph % (Auto) [place] % (Auto) Eos % (Auto) Baso % (Auto) Neut # (Auto) Lymph # (Auto) [place] # (Auto) Eos # (Auto) Baso # (Auto) Immature Gran # (Auto) PT INR Sodium 135 L Potassium 3.5 Chloride 100 Carbon Dioxide 27 Anion Gap 8.0 BUN 24 H Creatinine 1.90 H Est Cr Clr Drug Dosing Not Reportable Est GFR ( Amer) 30.0 Est GFR (Non-Af Amer) 25.9 BUN/Creatinine Ratio 12.5 Glucose 139 H Calcium 7.9 L Magnesium 2.6 H Total Bilirubin 3.7 H AST 77 H ALT 40 Alkaline Phosphatase 249 H Ammonia Troponin I < 0.015 Total Protein 8.7 H Albumin 2.4 L Globulin 6.3 H Albumin/Globulin Ratio 0.4 L TSH 2.730 Urine Color Urine Appearance Urine pH Ur Specific [place] Urine Protein Urine Glucose (UA) Urine Ketones Urine Blood Urine Nitrite Urine Bilirubin Urine Urobilinogen Ur Leukocyte Esterase COVID-19 Eval Order SARS-CoV-2 (PCR) Chemistry 10/04/20 Unknown Sodium 135 L Potassium 3.5 Chloride 100 Carbon Dioxide 27 Anion Gap 8.0 BUN 24 H Creatinine 1.90 H Glucose 139 H Urinalysis 10/04/20 15:33 Urine Color Dark Yellow Urine Appearance Clear Urine pH 5.0 Ur Specific [place] 1.021 Urine Protein Negative Urine Glucose (UA) Negative Urine Ketones Trace H Urine Blood Negative Urine Nitrite Negative Urine Bilirubin Negative Code Status & VTE Plan Code Status Full code VTE Prophylaxis Plan VTE Prophylaxis will be ordered: Yes (1) Acute renal failure Acute renal failure type: unspecified Qualified Code(s): N17.9 - Acute kidney failure, unspecified (2) Ascites Ascites type: other type Qualified Code(s): R18.8 - Other ascites
[2020-10-04] MEDS ORDERED: ALUMINUM/MAGNESIUM SUSP 30 ML UDC PO PRN (18:23)
[2020-10-04] MEDS ORDERED: ONDANSETRON 4 MG OD TAB PO PRN (18:33)
[2020-10-04] MEDS: D5NSS + 20MEQ KCL 20 MEQ/1,000 ML BAG IV SCH (20:42)
[2020-10-04] MEDS: LACTULOSE SYRUP 20 GM/30 ML UDC PO SCH (20:42)
[2020-10-04] MEDS: rifAXIMin 550 MG TABLET PO SCH (20:43)
[2020-10-04] MEDS: APIXABAN 2.5 MG TAB PO SCH (20:43)
[2020-10-05 06:01] LABS: Basophils # (auto) 0.03 K/uL (0-0.2); Basophils % (auto) 0.5 %; Eosinophils # (auto) 0.24 K/uL (0-0.5); Eosinophils % (auto) 4.3 %; Hematocrit (blood only) 28.7 % (37-47); Hemoglobin 9.8 g/dL (12.0-16.0); Immature Granulocytes # (auto) 0.02 K/uL (0.00-0.02); Immature Granulocytes % (auto) 0.4 %; Lymphocytes # (auto) 1.26 K/uL (1.2-3.4); Lymphocytes % (auto) 22.7 %; Mean Corpuscular Hemoglobin 34.1 pg (25-34); Mean Corpuscular Hgb Conc 34.1 g/dL (32-36); Mean Platelet Volume 10.1 fL (7.4-10.4); Monocytes # (auto) 0.89 K/uL (0.11-0.59); Monocytes % (auto) 16.1 %; Platelet Count 105 K/uL (130-400); RDW Coefficient of Variation 16.1 % (11.5-14.5); RDW Standard Deviation 58.6 fL (36.4-46.3); Red Blood Count 2.87 M/uL (4.2-5.4); White Blood Count 5.54 K/uL (4.8-10.8)
[2020-10-05 06:11] LABS: INR 1.7 (0.9-1.1); Prothrombin Time 16.7 Seconds (9.0-12.0)
[2020-10-05] MEDS: D5NSS + 20MEQ KCL 20 MEQ/1,000 ML BAG IV SCH ×2 (06:25→16:25)
[2020-10-05 06:44] LABS: Albumin Globulin Ratio 0.4 (0.9-2); Albumin Level 1.9 gm/dl (3.4-5.0); BUN Creatinine Ratio 12.4 (10-20); Bilirubin,Total 3.1 mg/dl (0.2-1); Calcium 8.4 mg/dl (8.5-10.1); Creatinine Clr Calc Pharmacy 25.6 ml/min; Est GFR (African American) 32.2 ml/min; Est GFR (Non-African American) 27.8 ml/min; Globulin 5.3 gm/dl (2.5-4.0); Potassium 3.7 mmol/L (3.5-5.1); Total Protein 7.2 gm/dl (6.4-8.2)
[2020-10-05] MEDS: CEROVITE ADV FORMULA TAB PO SCH (08:50)
[2020-10-05] MEDS: APIXABAN 2.5 MG TAB PO SCH ×2 (08:50→20:34)
[2020-10-05] MEDS: CHOLECALCIFEROL 1,000 UNITS 25 MCG TAB PO SCH (08:50)
[2020-10-05] MEDS: buPROPion XL 300 MG TABCR PO SCH (08:50)
[2020-10-05] MEDS: rifAXIMin 550 MG TABLET PO SCH ×2 (08:50→20:34)
[2020-10-05] MEDS: PANTOprazole 40 MG TAB PO SCH (08:51)
[2020-10-05] MEDS: LACTULOSE SYRUP 20 GM/30 ML UDC PO SCH ×3 (08:51→20:34)
[2020-10-05] MEDS: MULTIVITAMIN TAB PO SCH (08:51)
--- NOTE | 2020-10-05 09:06 | Gastrointestinal Consultation ---
Date of Consultation October 05, 2020 Assessment & Plan (1) PSC (primary sclerosing cholangitis): 70 year old female with history of dyslipidemia, HTN, aflutter, CKD-3, anxiety/depression, cirrhosis MELD 23 (HE on lactulose, ascites requiring intermittent LVP, last LVP 3 week ago and 4.5 L removed, no SBP) evaluated as an OP by [facility] awaiting to hear back on transplant candidacy Small volume paracentesis, less than 3 L off Albumin 25% 25G before and after Continue Lactulose and Xifaxan as ordered Avoid Opioids analgesia Daily MELD labs Thank you for allowing us to participate in the care of this patient. Please call with any acute changes, questions or concerns. Please see addendum below with additional recommendation from my supervising physician. Supervising Physician Co-Signing Physician Notes I saw and evaluated the patient. We were consulted for evaluation of ascites. The patient does have a long history of liver disease as a result of primary sclerosing cholangitis. She was recently seen at [facility] for transplant evaluation, we are not certain if she was listed for transplantation at that center. Physical exam No obvious distress Mild abdominal distention noted Trace lower extremity edema noted Impression: Patient with a history of refractory ascites intolerant of diuretics due to renal insufficiency. We will recommend a low volume paracentesis for symptom control today in addition to periprocedural albumin infusion. Hopefully this will decrease the likelihood of her developing renal insufficiency post procedure. History of Present Illness Reason for Consultation: ascites Requesting Physician: Abhinav Attending Physician: Lowell Henry DO History of Present Illness 70 year old female with history of dyslipidemia, HTN, aflutter, CKD-3, anxiety/depression, cirrhosis MELD 23 (HE on lactulose, ascites requiring intermittent LVP, last LVP 3 weeks ago and 4.5 L removed, no SBP) admitted w/ weakness, CLAUDIA post paracentesis who was discharged home, evaluated by [facility] transplant team and is awaiting feedback regarding transplant candidacy status who is admitted through the ED w/ fatigue, weakness, ascites. GI asked to evaluate. She is tired, denies abd pain. No nausea, vomiting. Moving bowels. Denies black or bloody stools. No lower extremity edema. No fever, chills, CP, SOB. Allergies Allergy/AdvReac Type Severity Reaction Status Date / Time Penicillins Allergy Mild Rash Verified 10/04/20 15:25 adhesive AdvReac Mild Redness of Verified 10/04/20 15:25 Skin Home Medications Medication Instructions Recorded Confirmed Type PreserVision AREDS-2 1 tab PO QAM 05/21/20 10/04/20 History Xifaxan 550 mg PO BID 05/21/20 10/04/20 History bupropion HCl [Wellbutrin XL] 300 mg PO DAILY 05/21/20 10/04/20 History cholecalciferol (vitamin D3) 25 mcg PO DAILY 05/21/20 10/04/20 History [Vitamin D3] omeprazole 20 mg PO DAILY 05/21/20 10/04/20 History lorazepam 0.5 mg PO Q6 PRN 06/02/20 10/04/20 History Eliquis 2.5 mg PO BID 07/09/20 10/04/20 History multivitamin 1 tab PO DAILY 07/09/20 10/04/20 History ondansetron 4 mg PO Q8 PRN 09/12/20 10/04/20 History lactulose [Enulose] 30 ml PO TID #946 ml 09/16/20 10/04/20 Rx Patient History Medical History A-fib Abnormal liver function Acid reflux Ascites Hypertension Surgical History Hx of appendectomy Social History Smoking Status: Never smoker Second Hand Exposure: No; Hx Alcohol Use: No Hx Substance Use: No Preferred Language: Salvadorean Communication Ability: Effective 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 Beliefs That Will Affect Care: None Current Living Situation: Spouse Feels Safe at Home: Yes Safety Concerns: Feels Safe At This Time Assistive Devices: Glasses, Hearing Aid - Bilateral and Walker Review of Systems Review of Systems: All systems reviewed & are unremarkable except as noted in HPI & below Physical Exam Constitutional: + ill appearing and + thin; no acute distress Neck: trachea midline, no thyromegaly Respiratory: normal respiratory effort, lungs clear to auscultation Cardiovascular: Rate/Rhythm: regular rate and regular rhythm Gastrointestinal (Abdomen): Percussion/Palpation: abdomen soft and + ascites; abdomen nontender, no guarding and abdomen not rigid Skin: no rashes, warm and dry Results & Data ([facility]) Vital Signs (Past 12 Hours) Vital Signs Temp Pulse Resp BP Pulse Ox 10/05/20 07:37 36.9 C 71 18 123/69 98 10/04/20 22:43 36.6 C 78 18 115/68 96 Laboratory Results 10/05/20 10/05/20 10/05/20 Range/Units 05:47 05:47 05:47 WBC (4.8-10.8) K/uL RBC (4.2-5.4) M/uL Hgb (12.0-16.0) g/dL Hct (37-47) % MCV (80-100) fL MCH (25-34) pg MCHC (32-36) g/dL RDW Std Deviation (36.4-46.3) fL RDW Coeff of Julieth (11.5-14.5) % Plt Count (130-400) K/uL MPV (7.4-10.4) fL Immature Gran % (Auto) % Neut % (Auto) % Lymph % (Auto) % [place] % (Auto) % Eos % (Auto) % Baso % (Auto) % Neut # (Auto) (1.4-6.5) K/uL Lymph # (Auto) (1.2-3.4) K/uL [place] # (Auto) (0.11-0.59) K/uL Eos # (Auto) (0-0.5) K/uL Baso # (Auto) (0-0.2) K/uL Immature Gran # (Auto) (0.00-0.02) K/uL PT (9.0-12.0) Seconds INR (0.9-1.1) Sodium 136 (136-145) mmol/L Potassium 3.7 (3.5-5.1) mmol/L Chloride 104 (98-107) mmol/L Carbon Dioxide 28 (21-32) mmol/L Anion Gap 4.0 (3-11) BUN 22 H (7-18) mg/dl Creatinine 1.79 H (0.6-1.2) mg/dl Est Cr Clr Drug Dosing 25.6 Est GFR ( Amer) 32.2 ml/min Est GFR (Non-Af Amer) 27.8 ml/min BUN/Creatinine Ratio 12.4 (10-20) Glucose Pending (70-99) mg/dl Calcium 8.4 L (8.5-10.1) mg/dl Ionized Calcium 1.09 L (1.12-1.32) mmol/L Magnesium (1.8-2.4) mg/dl Total Bilirubin 3.1 H (0.2-1) mg/dl AST 60 H (15-37) U/L ALT 30 (12-78) U/L Alkaline Phosphatase 172 H (45-117) U/L Ammonia 104.6 H (11-32) umol/L Troponin I (0-0.045) ng/ml Total Protein 7.2 (6.4-8.2) gm/dl Albumin 1.9 L (3.4-5.0) gm/dl Globulin 5.3 H (2.5-4.0) gm/dl Albumin/Globulin Ratio 0.4 L (0.9-2) Lipase 163 (73-393) U/L TSH (0.300-4.500) uIu/ml Urine Color Urine Appearance (Clear) Urine pH (4.5-7.5) Ur Specific [place] (1.000-1.030) Urine Protein (Negative) Urine Glucose (UA) (Negative) Urine Ketones (Negative) Urine Blood (Negative) Urine Nitrite (Negative) Urine Bilirubin (Negative) Urine Urobilinogen (Negative) Ur Leukocyte Esterase (Negative) COVID-19 Eval Order SARS-CoV-2 (PCR) (Negative) 10/05/20 10/05/20 10/04/20 Range/Units 05:47 05:47 Unknown WBC 5.54 (4.8-10.8) K/uL RBC 2.87 L (4.2-5.4) M/uL Hgb 9.8 L (12.0-16.0) g/dL Hct 28.7 L (37-47) % MCV 100.0 (80-100) fL MCH 34.1 H (25-34) pg MCHC 34.1 (32-36) g/dL RDW Std Deviation 58.6 H (36.4-46.3) fL RDW Coeff of Julieth 16.1 H (11.5-14.5) % Plt Count 105 L (130-400) K/uL MPV 10.1 (7.4-10.4) fL Immature Gran % (Auto) 0.4 % Neut % (Auto) 56.0 % Lymph % (Auto) 22.7 % [place] % (Auto) 16.1 % Eos % (Auto) 4.3 % Baso % (Auto) 0.5 % Neut # (Auto) 3.10 (1.4-6.5) K/uL Lymph # (Auto) 1.26 (1.2-3.4) K/uL [place] # (Auto) 0.89 H (0.11-0.59) K/uL Eos # (Auto) 0.24 (0-0.5) K/uL Baso # (Auto) 0.03 (0-0.2) K/uL Immature Gran # (Auto) 0.02 (0.00-0.02) K/uL PT 16.7 H (9.0-12.0) Seconds INR 1.7 H (0.9-1.1) Sodium 135 L (136-145) mmol/L Potassium 3.5 (3.5-5.1) mmol/L Chloride 100 (98-107) mmol/L Carbon Dioxide 27 (21-32) mmol/L Anion Gap 8.0 (3-11) BUN 24 H (7-18) mg/dl Creatinine 1.90 H (0.6-1.2) mg/dl Est Cr Clr Drug Dosing Not Reportable Est GFR ( Amer) 30.0 ml/min Est GFR (Non-Af Amer) 25.9 ml/min BUN/Creatinine Ratio 12.5 (10-20) Glucose 139 H (70-99) mg/dl Calcium 7.9 L (8.5-10.1) mg/dl Ionized Calcium (1.12-1.32) mmol/L Magnesium 2.6 H (1.8-2.4) mg/dl Total Bilirubin 3.7 H (0.2-1) mg/dl AST 77 H (15-37) U/L ALT 40 (12-78) U/L Alkaline Phosphatase 249 H (45-117) U/L Ammonia (11-32) umol/L Troponin I < 0.015 (0-0.045) ng/ml Total Protein 8.7 H (6.4-8.2) gm/dl Albumin 2.4 L (3.4-5.0) gm/dl Globulin 6.3 H (2.5-4.0) gm/dl Albumin/Globulin Ratio 0.4 L (0.9-2) Lipase (73-393) U/L TSH 2.730 (0.300-4.500) uIu/ml Urine Color Urine Appearance (Clear) Urine pH (4.5-7.5) Ur Specific [place] (1.000-1.030) Urine Protein (Negative) Urine Glucose (UA) (Negative) Urine Ketones (Negative) Urine Blood (Negative) Urine Nitrite (Negative) Urine Bilirubin (Negative) Urine Urobilinogen (Negative) Ur Leukocyte Esterase (Negative) COVID-19 Eval Order SARS-CoV-2 (PCR) (Negative) 10/04/20 10/04/20 10/04/20 Range/Units Unknown Unknown 15:33 WBC 7.11 (4.8-10.8) K/uL RBC 3.25 L (4.2-5.4) M/uL Hgb 11.4 L (12.0-16.0) g/dL Hct 33.4 L (37-47) % MCV 102.8 H (80-100) fL MCH 35.1 H (25-34) pg MCHC 34.1 (32-36) g/dL RDW Std Deviation 60.1 H (36.4-46.3) fL RDW Coeff of Julieth 16.0 H (11.5-14.5) % Plt Count 146 (130-400) K/uL MPV 10.5 H (7.4-10.4) fL Immature Gran % (Auto) 0.4 % Neut % (Auto) 60.6 % Lymph % (Auto) 21.9 % [place] % (Auto) 13.4 % Eos % (Auto) 3.1 % Baso % (Auto) 0.6 % Neut # (Auto) 4.31 (1.4-6.5) K/uL Lymph # (Auto) 1.56 (1.2-3.4) K/uL [place] # (Auto) 0.95 H (0.11-0.59) K/uL Eos # (Auto) 0.22 (0-0.5) K/uL Baso # (Auto) 0.04 (0-0.2) K/uL Immature Gran # (Auto) 0.03 H (0.00-0.02) K/uL PT 15.5 H (9.0-12.0) Seconds INR 1.6 H (0.9-1.1) Sodium (136-145) mmol/L Potassium (3.5-5.1) mmol/L Chloride (98-107) mmol/L Carbon Dioxide (21-32) mmol/L Anion Gap (3-11) BUN (7-18) mg/dl Creatinine (0.6-1.2) mg/dl Est Cr Clr Drug Dosing Est GFR ( Amer) ml/min Est GFR (Non-Af Amer) ml/min BUN/Creatinine Ratio (10-20) Glucose (70-99) mg/dl Calcium (8.5-10.1) mg/dl Ionized Calcium (1.12-1.32) mmol/L Magnesium (1.8-2.4) mg/dl Total Bilirubin (0.2-1) mg/dl AST (15-37) U/L ALT (12-78) U/L Alkaline Phosphatase (45-117) U/L Ammonia (11-32) umol/L Troponin I (0-0.045) ng/ml Total Protein (6.4-8.2) gm/dl Albumin (3.4-5.0) gm/dl Globulin (2.5-4.0) gm/dl Albumin/Globulin Ratio (0.9-2) Lipase (73-393) U/L TSH (0.300-4.500) uIu/ml Urine Color Dark Yellow Urine Appearance Clear (Clear) Urine pH 5.0 (4.5-7.5) Ur Specific [place] 1.021 (1.000-1.030) Urine Protein Negative (Negative) Urine Glucose (UA) Negative (Negative) Urine Ketones Trace H (Negative) Urine Blood Negative (Negative) Urine Nitrite Negative (Negative) Urine Bilirubin Negative (Negative) Urine Urobilinogen Negative (Negative) Ur Leukocyte Esterase Negative (Negative) COVID-19 Eval Order SARS-CoV-2 (PCR) (Negative) 10/04/20 10/04/20 10/04/20 Range/Units 14:45 14:45 14:21 WBC (4.8-10.8) K/uL RBC (4.2-5.4) M/uL Hgb (12.0-16.0) g/dL Hct (37-47) % MCV (80-100) fL MCH (25-34) pg MCHC (32-36) g/dL RDW Std Deviation (36.4-46.3) fL RDW Coeff of Julieth (11.5-14.5) % Plt Count (130-400) K/uL MPV (7.4-10.4) fL Immature Gran % (Auto) % Neut % (Auto) % Lymph % (Auto) % [place] % (Auto) % Eos % (Auto) % Baso % (Auto) % Neut # (Auto) (1.4-6.5) K/uL Lymph # (Auto) (1.2-3.4) K/uL [place] # (Auto) (0.11-0.59) K/uL Eos # (Auto) (0-0.5) K/uL Baso # (Auto) (0-0.2) K/uL Immature Gran # (Auto) (0.00-0.02) K/uL PT (9.0-12.0) Seconds INR (0.9-1.1) Sodium (136-145) mmol/L Potassium (3.5-5.1) mmol/L Chloride (98-107) mmol/L Carbon Dioxide (21-32) mmol/L Anion Gap (3-11) BUN (7-18) mg/dl Creatinine (0.6-1.2) mg/dl Est Cr Clr Drug Dosing Est GFR ( Amer) ml/min Est GFR (Non-Af Amer) ml/min BUN/Creatinine Ratio (10-20) Glucose (70-99) mg/dl Calcium (8.5-10.1) mg/dl Ionized Calcium (1.12-1.32) mmol/L Magnesium (1.8-2.4) mg/dl Total Bilirubin (0.2-1) mg/dl AST (15-37) U/L ALT (12-78) U/L Alkaline Phosphatase (45-117) U/L Ammonia 34.9 H (11-32) umol/L Troponin I (0-0.045) ng/ml Total Protein (6.4-8.2) gm/dl Albumin (3.4-5.0) gm/dl Globulin (2.5-4.0) gm/dl Albumin/Globulin Ratio (0.9-2) Lipase (73-393) U/L TSH (0.300-4.500) uIu/ml Urine Color Urine Appearance (Clear) Urine pH (4.5-7.5) Ur Specific [place] (1.000-1.030) Urine Protein (Negative) Urine Glucose (UA) (Negative) Urine Ketones (Negative) Urine Blood (Negative) Urine Nitrite (Negative) Urine Bilirubin (Negative) Urine Urobilinogen (Negative) Ur Leukocyte Esterase (Negative) COVID-19 Eval Order Covid19 at [facility] SARS-CoV-2 (PCR) NEGATIVE (Negative)
[2020-10-05] MEDS: ALBUMIN 25% 12.5 GM/50 ML VIAL IV SCH ×4 (10:06→17:15)
[2020-10-05] MEDS ORDERED: XYLOCAINE 1%/SOD BICARB 20 ML VIAL INFIL ONE (10:21)
--- NOTE | 2020-10-05 10:41 | Hospitalist Progress Note ---
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 DVT prophylaxis with subcu heparin. Resume diet after Paracentesis. Labs Checked ROS-No Headache, No Visual Changes, positive nausea, positive vomiting, No Fever, No Chills, No Neck Pain or Stiffness, No Chest Pain, No Palpitations, No SOB, No KENT, No Cough, No Sputum, No Wheezing, No Abdominal Pain, No Diarrhea, No Hematemesis, No Hemoptysis, No Unexpected Weight Loss, No Flank pain, No Melena, No Hematochezia, No Frequency, No Urgency, No Burning, No Hematuria, No Rashes, No Diaphoresis. Appetite is decreased, positive fatigue, Distended Abd, Jaundice Physical Exam Gen-AAO x 3, NAD, Afebrile, jaundiced, weak, pleasant Head-NCAT, EOMI, PERRLA, Anicteric Sclera, No Posterior Pharyngeal Erythema Neck-Supple, No JVD, No Thyromegaly, No Masses, No LAD, No Bruits Lungs-Clear to Auscultation Bilaterally, No Rales, No Rhonchi, No Wheezing, No Crepitus Chest-No S4, +S1, +S2, No S3, No Murmurs, No Rubs, No Gallops, No Ectopy Abdomen-Soft, Bowel Sounds Present, Non Tender, Distended, No Hepatomegaly, no succussion splash No Splenomegaly, No Palpable Masses, No Rebound, No Rigidity, No Guarding Musculoskeletal-Full Range of Motion Bilaterally, No CVAT Extremities-No Cyanosis, No Clubbing, No Edema Nuero-Cranial Nerves II-XII grossly intact, Motor WNL, DTRs WNL, Strength WNL, Non Focal Psych-Normal Mood Admission and Anticipated Discharge Date Admission Date: October 04, 2020 Results & Data Results & Data ([facility]) Vital Signs (Past 12 Hours) Vital Signs Temp Pulse Resp BP Pulse Ox 10/05/20 10:04 36.7 C 75 16 113/65 96 10/05/20 07:37 36.9 C 71 18 123/69 98 10/04/20 22:43 36.6 C 78 18 115/68 96 (1) Acute renal failure Acute renal failure type: unspecified Qualified Code(s): N17.9 - Acute kidney failure, unspecified (2) Ascites Ascites type: other type Qualified Code(s): R18.8 - Other ascites
--- NOTE | 2020-10-05 10:58 | Electrocardiogram Report ---
Test Reason : Blood Pressure : / mmHG Vent. Rate : 081 BPM Atrial Rate : 081 BPM P-R Int : 174 ms QRS Dur : 082 ms QT Int : 392 ms P-R-T Axes : 050 006 033 degrees QTc Int : 455 ms Normal sinus rhythm Old Inferior infarct (cited on or before 21-MAY-2020) Possible Old Anterior infarct (cited on or before 21-MAY-2020) Abnormal ECG When compared with ECG of 12-SEP-2020 00:12, Premature atrial complexes are no longer Present Confirmed by Sherwin Parnell ([id number]) on 10/05/2020 10:58:27 AM Referred By: Confirmed By:Sherwin Parnell
[2020-10-05 14:35] LABS: Appearance Peritoneal Fluid HAZY; Basophils, Fluid 0 %; Color Peritoneal Fluid YELLOW; Eosinophils, Fluid 0 %; Lymphocytes, Fluid 50 %; Mono,Macrophage,Mesothelial 44 %; Neutrophils, Fluid 6 %; RBC Peritoneal Fluid (A) < 3000 /uL; WBC Peritoneal Fluid (A) 112 /ul (0-300)
--- NOTE | 2020-10-05 16:41 | Ultrasound Report ---
PARACENTESIS UNDER ULTRASOUND GUIDANCE CLINICAL HISTORY: ascites, cirrhosis, less than 3 L off, sent culture COMPARISON STUDY: No previous studies for comparison. FINDINGS: The risks, benefits, and alternatives to the procedure were discussed with the patient. Estee han informed consent was obtained. Following real-time ultrasound localization, the skin was prepped and draped. Following local anesthesia with Xylocaine, the sheath paracentesis needle was inserted a nd approximately 3 liters of straw-colored fluid was removed by vacuum suction. The patient tolerated the procedure well and left the department in satisfactory condition. IMPRESSION: Successful ultrasound-guided paracentesis with removal of approximately 3 liters of ascit ic fluid. ACT 112: Negative or not required by law. The above report was generated using voice recognition software. It may contain grammatical, syntax o r spelling errors. Electronically signed by: Shante Vasquez DO 10/05/2020 4:39 PM
[2020-10-06] MEDS: MoRPHine SULFATE 4 MG/ML 1 ML CARP\\VIAL IV PRN (01:21)
[2020-10-06] MEDS: D5NSS + 20MEQ KCL 20 MEQ/1,000 ML BAG IV SCH ×2 (02:24→12:08)
[2020-10-06 06:34] LABS: Hematocrit (blood only) 25.9 % (37-47); Hemoglobin 8.8 g/dL (12.0-16.0); Mean Corpuscular Hemoglobin 34.2 pg (25-34); Mean Corpuscular Volume 100.8 fL (80-100); RDW Coefficient of Variation 16.1 % (11.5-14.5); RDW Standard Deviation 58.2 fL (36.4-46.3); Red Blood Count 2.57 M/uL (4.2-5.4); White Blood Count 5.49 K/uL (4.8-10.8)
[2020-10-06 06:38] LABS: Mean Platelet Volume 10.4 fL (7.4-10.4); Platelet Count 83 K/uL (130-400)
[2020-10-06] MEDS: CHOLECALCIFEROL 1,000 UNITS 25 MCG TAB PO SCH (09:11)
[2020-10-06] MEDS: APIXABAN 2.5 MG TAB PO SCH ×2 (09:11→21:35)
[2020-10-06] MEDS: CEROVITE ADV FORMULA TAB PO SCH (09:11)
[2020-10-06] MEDS: MULTIVITAMIN TAB PO SCH (09:11)
[2020-10-06] MEDS: LACTULOSE SYRUP 20 GM/30 ML UDC PO SCH ×3 (09:11→21:35)
[2020-10-06] MEDS: rifAXIMin 550 MG TABLET PO SCH ×2 (09:11→21:35)
[2020-10-06] MEDS: buPROPion XL 300 MG TABCR PO SCH (09:11)
[2020-10-06] MEDS: PANTOprazole 40 MG TAB PO SCH (09:11)
--- NOTE | 2020-10-06 09:57 | Gastroenterology Progress Note ---
Date of Service October 06, 2020 Assessment & Plan (1) PSC (primary sclerosing cholangitis): 70 year old female with history of dyslipidemia, HTN, aflutter, CKD-3, anxiety/depression, cirrhosis MELD 23 (HE on lactulose, ascites requiring intermittent LVP, last LVP 3 week ago and 4.5 L removed, no SBP) evaluated as an OP by [facility] awaiting to hear back on transplant candidacy 3L off yesterday No SBP BMP pending Continue Lactulose and Xifaxan as ordered Avoid Opioids analgesia Daily MELD labs Pending BMP, if medically optimized and feeling well can consider discharge home. Thank you for allowing us to participate in the care of this patient. Please call with any acute changes, questions or concerns. Please see addendum below with additional recommendation from my supervising physician. Admission and Anticipated Discharge Date Admission Date: October 04, 2020 Supervising Physician Co-Signing Physician Notes I saw and evaluated the patient. She reports that she does feel better after her paracentesis yesterday. From our standpoint the patient can probably be discharged home at this point in time. I would recommend that she have a pa racentesis every 2 to 3 weeks as an outpatient to prevent recurrent hospital admissions for volume overload. Subjective Pt was seen and examined, chart reviewed Feeling better, no nausea/vomiting Tolerating PO intake Moving bowels, brown stools. No black or bloody stools. No fever, chills, CP, SOB. Review of Systems Constitutional: no fever, no chills and no fatigue Respiratory: no cough and no dyspnea Cardiovascular: no chest pain and no dyspnea Gastrointestinal: no abdominal pain, no heartburn, no nausea, no blood in stools and no melena Physical Exam Constitutional: + ill appearing and + thin; no acute distress Neck: trachea midline, no thyromegaly Respiratory: normal respiratory effort, lungs clear to auscultation Cardiovascular: Rate/Rhythm: regular rate and regular rhythm Gastrointestinal (Abdomen): Percussion/Palpation: abdomen soft and + ascites; abdomen nontender, no guarding and abdomen not rigid Skin: no rashes, warm and dry Results & Data ([facility]) Vital Signs (Past 12 Hours) Vital Signs Temp Pulse Resp BP Pulse Ox 10/06/20 07:37 36.5 C 71 16 96/58 L 95 10/05/20 22:12 36.7 C 79 16 127/66 97 Laboratory Results 10/06/20 10/06/20 10/05/20 Range/Units 06:04 06:00 Unknown WBC 5.49 (4.8-10.8) K/uL RBC 2.57 L (4.2-5.4) M/uL Hgb 8.8 L (12.0-16.0) g/dL Hct 25.9 L (37-47) % MCV 100.8 H (80-100) fL MCH 34.2 H (25-34) pg MCHC 34.0 (32-36) g/dL RDW Std Deviation 58.2 H (36.4-46.3) fL RDW Coeff of Julieth 16.1 H (11.5-14.5) % Plt Count 83 L (130-400) K/uL MPV 10.4 (7.4-10.4) fL Sodium Pending Potassium Pending Chloride Pending Carbon Dioxide Pending Anion Gap Pending BUN Pending Creatinine Pending Est Cr Clr Drug Dosing Pending Est GFR ( Amer) Pending Est GFR (Non-Af Amer) Pending BUN/Creatinine Ratio Pending Glucose Pending (70-99) mg/dl Calcium Pending Fluid Neutrophils % 6 % Fluid Lymphocytes % 50 % Fluid Eosinophils % 0 % Fluid Basophils % 0 % Fluid Meso/Macro/Sl[place] % 44 % Fluid Comment Peritoneal Color YELLOW Peritoneal Appearance HAZY Peritoneal WBC 112 (0-300) /ul Peritoneal RBC < 3000 /uL 10/05/20 Range/Units 05:47 WBC (4.8-10.8) K/uL RBC (4.2-5.4) M/uL Hgb (12.0-16.0) g/dL Hct (37-47) % MCV (80-100) fL MCH (25-34) pg MCHC (32-36) g/dL RDW Std Deviation (36.4-46.3) fL RDW Coeff of Julieth (11.5-14.5) % Plt Count (130-400) K/uL MPV (7.4-10.4) fL Sodium Potassium Chloride Carbon Dioxide Anion Gap BUN Creatinine Est Cr Clr Drug Dosing Est GFR ( Amer) Est GFR (Non-Af Amer) BUN/Creatinine Ratio Glucose 111 H (70-99) mg/dl Calcium Fluid Neutrophils % % Fluid Lymphocytes % % Fluid Eosinophils % % Fluid Basophils % % Fluid Meso/Macro/Slope % % Fluid Comment Peritoneal Color Peritoneal Appearance Peritoneal WBC (0-300) /ul Peritoneal RBC /uL
[2020-10-06 10:30] LABS: BUN Creatinine Ratio 11.6 (10-20); Creatinine Clr Calc Pharmacy 26.8 ml/min; Est GFR (African American) 34.1 ml/min; Est GFR (Non-African American) 29.4 ml/min; Potassium 4.6 mmol/L (3.5-5.1)
--- NOTE | 2020-10-06 12:01 | Hospitalist Progress Note ---
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: (3) Hyperbilirubinemia: (4) Ascites of liver: s/p Paracentesis with removal of 3L ascitic fluid Torsemide 20mg daily and Aldactone 50mg po daily on HOLD due to dehydration, nausea/vomiting, poor oral intake; BP also on the lower side continue Lactulose and Rifaximin (5) Nausea & vomiting: (6) Acute renal failure: secondary to dehydration crea 1.9 on admission given IV fluids now back to baseline 1.7 (7) Weakness: secondary to nausea/vomiting n/v improving continue gently IV fluids PT/OT evaluation (8) DVT prophylaxis: on Eliquis Disposition lives with at home needs PT/OT evaluation Admission and Anticipated Discharge Date Admission Date: October 04, 2020 Subjective ff up for nausea/vomiting, weakness, ascites, etc seen resting in bed, comfortable states she feels improved today had 1 episode of vomiting this morning non bloody denies abdominal pain, chest pain, dyspnea, palpitations no other symptoms Review of Systems Review of Systems: All systems reviewed & are unremarkable except as noted in Subjective Physical Exam Physical Exam: General- oriented x 3, not in distress, speaks in sentences with no effort or accessory muscle use Head- atraumatic Eyes- PERRL, EOMI, (+) mild icterus ENT- oropharynx clear Neck- supple, no JVD, no adenopathy, no thyromegaly; carotids +2/2, no bruits appreciated Lungs- clear to auscultation bilaterally, no rales/wheezes Heart- normal rate, regular rhythm; no murmur, no gallop, no rub appreciated Abdomen- normal bowel sounds, mildly distended, soft, nontender, no masses or h epatosplenomegaly Extremities- no pretibial edema, no calf tenderness; peripheral pulses intact Neuro- alert, oriented x 3; CN 2-12 grossly intact; motor 5/5 bilaterally;sensation 100% on all extremities; no other gross focal neurologic deficits Skin- warm & dry Results & Data Results & Data ([facility]) Vital Signs (Past 12 Hours) Vital Signs Temp Pulse Resp BP Pulse Ox 10/06/20 07:37 36.5 C 71 16 96/58 L 95 Laboratory Results Laboratory Results - last 24 hr 10/05/20 10/05/20 10/06/20 05:47 Unknown 06:00 WBC 5.49 RBC 2.57 L Hgb 8.8 L Hct 25.9 L MCV 100.8 H MCH 34.2 H MCHC 34.0 RDW Std Deviation 58.2 H RDW Coeff of Julieth 16.1 H Plt Count 83 L MPV 10.4 Sodium Potassium Chloride Carbon Dioxide Anion Gap BUN Creatinine Est Cr Clr Drug Dosing Est GFR ( Amer) Est GFR (Non-Af Amer) BUN/Creatinine Ratio Glucose 111 H Calcium Fluid Neutrophils % 6 Fluid Lymphocytes % 50 Fluid Eosinophils % 0 Fluid Basophils % 0 Fluid Meso/Macro/[place] % 44 Fluid Comment Peritoneal Color YELLOW Peritoneal Appearance HAZY Peritoneal WBC 112 Peritoneal RBC < 3000 10/06/20 06:04 WBC RBC Hgb Hct MCV MCH MCHC RDW Std Deviation RDW Coeff of Julieth Plt Count MPV Sodium 138 Potassium 4.6 D Chloride 109 H Carbon Dioxide 24 Anion Gap 5.0 BUN 20 H Creatinine 1.71 H Est Cr Clr Drug Dosing 26.8 Est GFR ( Amer) 34.1 Est GFR (Non-Af Amer) 29.4 BUN/Creatinine Ratio 11.6 Glucose 111 H Calcium 8.0 L Fluid Neutrophils % Fluid Lymphocytes % Fluid Eosinophils % Fluid Basophils % Fluid Meso/Macro/[place] % Fluid Comment Peritoneal Color Peritoneal Appearance Peritoneal WBC Peritoneal RBC (1) Acute renal failure Acute renal failure type: unspecified Qualified Code(s): N17.9 - Acute kidney failure, unspecified
[2020-10-07] MEDS: D5NSS + 20MEQ KCL 20 MEQ/1,000 ML BAG IV SCH ×2 (04:23→20:53)
[2020-10-07 07:16] LABS: Albumin Globulin Ratio 0.5 (0.9-2); Albumin Level 2.2 gm/dl (3.4-5.0); BUN Creatinine Ratio 12.1 (10-20); Bilirubin,Total 2.4 mg/dl (0.2-1); Calcium 8.1 mg/dl (8.5-10.1); Creatinine Clr Calc Pharmacy 29.1 ml/min; Est GFR (African American) 37.8 ml/min; Est GFR (Non-African American) 32.6 ml/min; Globulin 4.5 gm/dl (2.5-4.0); Potassium 4.9 mmol/L (3.5-5.1); Total Protein 6.7 gm/dl (6.4-8.2)
[2020-10-07] MEDS: rifAXIMin 550 MG TABLET PO SCH ×2 (08:42→20:54)
[2020-10-07] MEDS: PANTOprazole 40 MG TAB PO SCH (08:42)
[2020-10-07] MEDS: MULTIVITAMIN TAB PO SCH (08:42)
[2020-10-07] MEDS: buPROPion XL 300 MG TABCR PO SCH (08:42)
[2020-10-07] MEDS: APIXABAN 2.5 MG TAB PO SCH ×2 (08:42→20:54)
[2020-10-07] MEDS: LACTULOSE SYRUP 20 GM/30 ML UDC PO SCH ×3 (08:42→20:54)
[2020-10-07] MEDS: CEROVITE ADV FORMULA TAB PO SCH (08:42)
[2020-10-07] MEDS: CHOLECALCIFEROL 1,000 UNITS 25 MCG TAB PO SCH (08:43)
--- NOTE | 2020-10-07 11:26 | Hospitalist Progress Note ---
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: (3) Hyperbilirubinemia: (4) Ascites of liver: s/p Paracentesis with removal of 3L ascitic fluid Torsemide 20mg daily and Aldactone 50mg po daily on HOLD due to dehydration, nausea/vomiting, poor oral intake; BP also on the lower side continue Lactulose and Rifaximin (5) Nausea & vomiting: (6) Acute renal failure: secondary to dehydration crea 1.9 on admission given IV fluids now back to baseline 1.7 (7) Weakness: secondary to nausea/vomiting n/v improving continue gently IV fluids PT/OT evaluation (8) DVT prophylaxis: on Eliquis Anemia-Hb drop 1g /day, continue to monitor Disposition lives with at home needs PT/OT evaluation ROS-No Headache, No Visual Changes, positive nausea, positive vomiting, No Fever, No Chills, No Neck Pain or Stiffness, No Chest Pain, No Palpitations, No SOB, No KENT, No Cough, No Sputum, No Wheezing, No Abdominal Pain, No Diarrhea, No Hematemesis, No Hemoptysis, No Unexpected Weight Loss, No Flank pain, No Melena, No Hematochezia, No Frequency, No Urgency, No Burning, No Hematuria, No Rashes, No Diaphoresis. Appetite is decreased, positive fatigue, Distended Abd, Jaundice Physical Exam Gen-AAO x 3, NAD, Afebrile, jaundiced, weak, pleasant Head-NCAT, EOMI, PERRLA, Anicteric Sclera, No Posterior Pharyngeal Erythema Neck-Supple, No JVD, No Thyromegaly, No Masses, No LAD, No Bruits Lungs-Clear to Auscultation Bilaterally, No Rales, No Rhonchi, No Wheezing, No Crepitus Chest-No S4, +S1, +S2, No S3, No Murmurs, No Rubs, No Gallops, No Ectopy Abdomen-Soft, Bowel Sounds Present, Non Tender, Distended, No Hepatomegaly, no succussion splash No Splenomegaly, No Palpable Masses, No Rebound, No Rigidity, No Guarding Musculoskeletal-Full Range of Motion Bilaterally, No CVAT Extremities-No Cyanosis, No Clubbing, No Edema Nuero-Cranial Nerves II-XII grossly intact, Motor WNL, DTRs WNL, Strength WNL, Non Focal Psych-Normal Mood Admission and Anticipated Discharge Date Admission Date: October 04, 2020 Results & Data Results & Data ([facility]) Vital Signs (Past 12 Hours) Vital Signs Temp Pulse Resp BP Pulse Ox 10/07/20 07:22 36.4 C L 70 18 100/65 93 (1) Acute renal failure Acute renal failure type: unspecified Qualified Code(s): N17.9 - Acute kidney failure, unspecified
[2020-10-07 11:55] LABS: Ferritin 242.5 ng/ml (8-388)
[2020-10-08] MEDS: ONDANSETRON INJ 2 MG/ML 2 ML VIAL IV PRN ×3 (02:33→15:15)
[2020-10-08 06:18] LABS: Hematocrit (blood only) 29.5 % (37-47); Mean Corpuscular Hemoglobin 34.4 pg (25-34); Mean Corpuscular Hgb Conc 33.9 g/dL (32-36); Mean Corpuscular Volume 101.4 fL (80-100); Mean Platelet Volume 10.7 fL (7.4-10.4); Platelet Count 110 K/uL (130-400); RDW Coefficient of Variation 16.2 % (11.5-14.5); RDW Standard Deviation 59.7 fL (36.4-46.3); Red Blood Count 2.91 M/uL (4.2-5.4); White Blood Count 8.26 K/uL (4.8-10.8)
[2020-10-08 06:35] LABS: INR 1.5 (0.9-1.1); Prothrombin Time 15.1 Seconds (9.0-12.0)
[2020-10-08 07:35] LABS: Albumin Globulin Ratio 0.5 (0.9-2); Albumin Level 2.5 gm/dl (3.4-5.0); BUN Creatinine Ratio 10.9 (10-20); Bilirubin,Total 4.9 mg/dl (0.2-1); Calcium 8.1 mg/dl (8.5-10.1); Creatinine Clr Calc Pharmacy 24.7 ml/min; Est GFR (Non-African American) 26.7 ml/min; Potassium 5.5 mmol/L (3.5-5.1); Total Protein 7.5 gm/dl (6.4-8.2)
[2020-10-08] MEDS: rifAXIMin 550 MG TABLET PO SCH ×2 (08:11→20:28)
[2020-10-08] MEDS: APIXABAN 2.5 MG TAB PO SCH ×2 (08:12→20:28)
[2020-10-08] MEDS: LORazepam 0.5 MG TAB PO PRN (08:12)
[2020-10-08] MEDS: MULTIVITAMIN TAB PO SCH (08:12)
[2020-10-08] MEDS: buPROPion XL 300 MG TABCR PO SCH (08:12)
[2020-10-08] MEDS: PANTOprazole 40 MG TAB PO SCH (08:12)
[2020-10-08] MEDS: CHOLECALCIFEROL 1,000 UNITS 25 MCG TAB PO SCH (08:12)
[2020-10-08] MEDS: LACTULOSE SYRUP 20 GM/30 ML UDC PO SCH ×3 (08:41→20:28)
[2020-10-08] MEDS: CEROVITE ADV FORMULA TAB PO SCH (08:41)
[2020-10-08] MEDS ORDERED: CALCIUM GLUCONATE 10% 1,000 MG in SODIUM CHLORIDE 0.9% 50 ML IV ONE (09:00)
--- NOTE | 2020-10-08 15:02 | Ultrasound Report ---
US abdomen ltd ascites CLINICAL HISTORY: Ascites COMPARISON STUDY: Ultrasound guided paracentesis October 05, 2020. TECHNIQUE: Sonography of the 4 quadrants was performed to assess for ascites. FINDINGS: Moderate ascites is noted within the abdomen and pelvis. IMPRESSION: Moderate ascites. ACT 112: Negative or not required by law. Electronically signed by: Aaron Ramos M.D. 10/08/2020 3:01 PM
[2020-10-08] MEDS: MoRPHine SULFATE 4 MG/ML 1 ML CARP\\VIAL IV PRN ×2 (15:15→22:05)
[2020-10-08] MEDS ORDERED: ALBUMIN 25% 12.5 GM/50 ML VIAL IV ONE (15:54)
[2020-10-08 16:24] LABS: BUN Creatinine Ratio 12.6 (10-20); Calcium 8.8 mg/dl (8.5-10.1); Creatinine Clr Calc Pharmacy 22.1 ml/min; Est GFR (Non-African American) 23.3 ml/min; Potassium 5.3 mmol/L (3.5-5.1)
--- NOTE | 2020-10-08 18:44 | Hospitalist Progress Note ---
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: (3) Hyperbilirubinemia: (4) Ascites of liver: (5) Nausea & vomiting: (6) Acute renal failure: (7) Weakness: (8) DVT prophylaxis: Primary sclerosing cholangitis Recurrent ascites Cirrhosis Hyperbilirubinemia MELD: 23 S/P abdominal paracentesis- Removed 3 liters No SBP Continue lactulose, rifaximin Pain control Monitor LFTs, INR Appreciate GI input Waiting for [facility] evaluation for possible transplant Repeat USD showed moderate ascites Will plan for repeat paracentesis on Sunday Needs follow-up with GI upon discharge Patient requires paracentesis every 2 to 3 weeks as outpatient as well. Hyperkalemia Likely secondary to renal insufficiency Received calcium gluconate Monitor potassium levels Low potassium diet H/O hepatic vein/IVC filter thrombosis H/O Paroxysmal atrial flutter On Eliquis for anticoagulation CKD IV Baseline Cr ~1.7 -2.0 Evaluated by nephrology on prior admission Monitor renal function Bladder scan as needed Anemia of chronic disease Hemoglobin at baseline Monitor GERD Continue pantoprazole Anxiety/mood disorder Continue home medications Thrombocytopenia Secondary to liver disease Monitor Hyponatremia Chronic Monitor sodium levels DVT Px: Eliquis Code Status Full code Disposition Discharge home when stable Admission and Anticipated Discharge Date Admission Date: October 04, 2020 Subjective Patient is seen and examined at bedside States having generalized weakness, tiredness Feels abdomen more bloated, distended today Admits to having abdominal discomfort Reports nausea but no vomiting Discussed with GI today Denies chest pain, dyspnea, dizziness Offers no other complaints` Review of Systems Review of Systems: All systems reviewed & are unremarkable except as noted in HPI & below Physical Exam Physical Exam: Physical Exam: Vitals signs as noted above General Appearance:Moderately built and nourished, chronic ill appearing Head: normocephalic, Atraumatic Eyes: normal inspection, EOMI Neck: supple, Trachea midline Respiratory/Chest: Normal breath sounds, CTA Cardiovascular: S1, S2, + murmur Abdomen/GI:Soft, distended, Non tender, bowel sounds present Extremities/Musculoskeletal:normal inspection, 1-2+ B/L LE edema Neurologic/Psych:AAOX3, grossly no focal neurological deficits Skin: normal color, warm Results & Data Results & Data ([facility]) Vital Signs (Past 12 Hours) Vital Signs Temp Pulse Resp BP Pulse Ox 10/08/20 15:33 36.9 C 75 20 92/59 L 96 10/08/20 07:36 36.8 C 91 H 20 138/56 L 95 Laboratory Results Short CBC 10/08/20 Range/Units 05:54 WBC 8.26 (4.8-10.8) K/uL Hgb 10.0 L (12.0-16.0) g/dL Hct 29.5 L (37-47) % Plt Count 110 L (130-400) K/uL BMP 10/08/20 10/08/20 05:54 15:48 Sodium 136 133 L Potassium 5.5 H 5.3 H Chloride 109 H 108 H Carbon Dioxide 19 L 18 L BUN 20 H 26 H Creatinine 1.85 H 2.07 H Glucose 105 H 95 Calcium 8.1 L 8.8 Liver Function 10/08/20 Range/Units 05:54 Total Bilirubin 4.9 H D (0.2-1) mg/dl AST 57 H (15-37) U/L ALT 28 (12-78) U/L Alkaline Phosphatase 196 H (45-117) U/L Albumin 2.5 L (3.4-5.0) gm/dl (1) Acute renal failure Acute renal failure type: unspecified Qualified Code(s): N17.9 - Acute kidney failure, unspecified
[2020-10-08] MEDS: ALBUMIN 25% 12.5 GM/50 ML VIAL IV SCH ×4 (19:32→21:02)
[2020-10-09 06:53] LABS: Hematocrit (blood only) 25.4 % (37-47); Hemoglobin 8.5 g/dL (12.0-16.0); Mean Corpuscular Hemoglobin 34.6 pg (25-34); Mean Corpuscular Hgb Conc 33.5 g/dL (32-36); Mean Corpuscular Volume 103.3 fL (80-100); RDW Standard Deviation 60.3 fL (36.4-46.3); Red Blood Count 2.46 M/uL (4.2-5.4); White Blood Count 10.31 K/uL (4.8-10.8)
[2020-10-09 07:11] LABS: Mean Platelet Volume 10.7 fL (7.4-10.4); Platelet Count 89 K/uL (130-400)
[2020-10-09 07:48] LABS: Albumin Level 2.8 gm/dl (3.4-5.0); BUN Creatinine Ratio 13.4 (10-20); Bilirubin Direct 2.4 mg/dl (0-0.2); Bilirubin,Total 5.9 mg/dl (0.2-1); Calcium 8.5 mg/dl (8.5-10.1); Creatinine Clr Calc Pharmacy 21.5 ml/min; Est GFR (African American) 26.1 ml/min; Est GFR (Non-African American) 22.5 ml/min; Potassium 4.6 mmol/L (3.5-5.1); Total Protein 7.2 gm/dl (6.4-8.2)
[2020-10-09] MEDS ORDERED: GLUCOSE 40% GEL 15 GM TUBE PO PRN (09:34)
[2020-10-09] MEDS ORDERED: CARBOHYDRATES FOR HYPOGLYCEMIA PO PRN (09:34)
[2020-10-09] MEDS ORDERED: GLUCOSE 10 TABS/TUBE PO PRN (09:34)
[2020-10-09] MEDS ORDERED: GLUCAGON FOR INJ 1 MG VIAL SQ PRN (09:34)
[2020-10-09] MEDS ORDERED: DEXTROSE 50% 50 ML SYRINGE IV PRN (09:34)
[2020-10-09] MEDS: MULTIVITAMIN TAB PO SCH (11:01)
[2020-10-09] MEDS: APIXABAN 2.5 MG TAB PO SCH ×2 (11:01→20:38)
[2020-10-09] MEDS: LACTULOSE SYRUP 20 GM/30 ML UDC PO SCH ×3 (11:01→20:39)
[2020-10-09] MEDS: buPROPion XL 300 MG TABCR PO SCH (11:01)
[2020-10-09] MEDS: CEROVITE ADV FORMULA TAB PO SCH (11:02)
[2020-10-09] MEDS: CHOLECALCIFEROL 1,000 UNITS 25 MCG TAB PO SCH (11:02)
[2020-10-09] MEDS: rifAXIMin 550 MG TABLET PO SCH ×2 (11:03→20:38)
[2020-10-09] MEDS: PANTOprazole 40 MG TAB PO SCH (11:03)
[2020-10-09] MEDS: LORazepam 0.5 MG TAB PO PRN (15:48)
[2020-10-09] MEDS: ONDANSETRON INJ 2 MG/ML 2 ML VIAL IV PRN (15:48)
[2020-10-09] MEDS: MoRPHine SULFATE 4 MG/ML 1 ML CARP\\VIAL IV PRN (15:48)
--- NOTE | 2020-10-09 18:36 | Hospitalist Progress Note ---
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 Plan for repeat paracentesis on Sunday Monitor volume status Hyperkalemia Likely secondary to renal insufficiency Received calcium gluconate Monitor potassium levels Low potassium diet Normalized H/O hepatic vein/IVC filter thrombosis H/O Paroxysmal atrial flutter On Eliquis for anticoagulation CKD IV Baseline Cr ~1.7 -2.0 Evaluated by nephrology on prior admission Monitor renal function Bladder scan as needed Anemia of chronic disease Hemoglobin at baseline Monitor GERD Continue pantoprazole Anxiety/mood disorder Continue home medications Thrombocytopenia Secondary to liver disease Monitor Hyponatremia Chronic Monitor sodium levels DVT Px: Eliquis Code Status Full code Disposition Discharge home when stable Admission and Anticipated Discharge Date Admission Date: October 04, 2020 Subjective Patient is seen and examined at bedside States having poor appetite Feels very weak and tired Persistent abdominal distention Had bowel movement Denies any significant abdominal pain Also denies chest pain, dyspnea, dizziness Review of Systems Review of Systems: All systems reviewed & are unremarkable except as noted in HPI & below Physical Exam Physical Exam: Physical Exam: Vitals signs as noted above General Appearance:Moderately built and nourished, chronic ill appearing Head: normocephalic, Atraumatic Eyes: normal inspection, EOMI Neck: supple, Trachea midline Respiratory/Chest: Normal breath sounds, CTA Cardiovascular: S1, S2, + murmur Abdomen/GI:Soft, distended, Non tender, bowel sounds present Extremities/Musculoskeletal:normal inspection, 1-2+ B/L LE edema Neurologic/Psych:AAOX3, grossly no focal neurological deficits Skin: normal color, warm Results & Data Results & Data ([facility]) Vital Signs (Past 12 Hours) Vital Signs Temp Pulse Resp BP BP Pulse Ox 06/05/21 16:04 36.6 C 80 16 132/70 95 10/09/20 07:58 92/56 L 10/09/20 07:57 114/63 10/09/20 07:55 36.6 C 77 16 89/54 L 93 Laboratory Results Short CBC 10/09/20 Range/Units 06:27 WBC 10.31 (4.8-10.8) K/uL Hgb 8.5 L (12.0-16.0) g/dL Hct 25.4 L (37-47) % Plt Count 89 L (130-400) K/uL BMP 10/09/20 06:27 Sodium 131 L Potassium 4.6 Chloride 104 Carbon Dioxide 19 L BUN 28 H Creatinine 2.13 H Glucose 66 L Calcium 8.5 Liver Function 10/09/20 Range/Units 06:27 Total Bilirubin 5.9 H (0.2-1) mg/dl Direct Bilirubin 2.4 H (0-0.2) mg/dl AST 41 H (15-37) U/L ALT 25 (12-78) U/L Alkaline Phosphatase 127 H (45-117) U/L Albumin 2.8 L (3.4-5.0) gm/dl (1) Acute renal failure Acute renal failure type: unspecified Qualified Code(s): N17.9 - Acute kidney failure, unspecified
[2020-10-10 06:31] LABS: Hematocrit (blood only) 23.9 % (37-47); Hemoglobin 8.3 g/dL (12.0-16.0); Mean Corpuscular Hemoglobin 34.6 pg (25-34); Mean Corpuscular Hgb Conc 34.7 g/dL (32-36); Mean Corpuscular Volume 99.6 fL (80-100); Mean Platelet Volume 10.8 fL (7.4-10.4); Platelet Count 84 K/uL (130-400); RDW Coefficient of Variation 15.7 % (11.5-14.5); RDW Standard Deviation 57.5 fL (36.4-46.3); White Blood Count 7.95 K/uL (4.8-10.8)
[2020-10-10 06:44] LABS: INR 1.8 (0.9-1.1); Prothrombin Time 17.8 Seconds (9.0-12.0)
[2020-10-10 06:47] LABS: Albumin Level 2.3 gm/dl (3.4-5.0); BUN Creatinine Ratio 16.4 (10-20); Bilirubin Direct 2.1 mg/dl (0-0.2); Calcium 8.3 mg/dl (8.5-10.1); Creatinine Clr Calc Pharmacy 21.3 ml/min; Est GFR (African American) 25.8 ml/min; Est GFR (Non-African American) 22.3 ml/min; Potassium 4.7 mmol/L (3.5-5.1)
[2020-10-10 06:56] LABS: Bilirubin,Total 4.5 mg/dl (0.2-1); Total Protein 6.4 gm/dl (6.4-8.2)
[2020-10-10] MEDS: rifAXIMin 550 MG TABLET PO SCH ×2 (08:26→22:01)
[2020-10-10] MEDS: MULTIVITAMIN TAB PO SCH (08:26)
[2020-10-10] MEDS: CHOLECALCIFEROL 1,000 UNITS 25 MCG TAB PO SCH (08:26)
[2020-10-10] MEDS: APIXABAN 2.5 MG TAB PO SCH ×2 (08:26→22:01)
[2020-10-10] MEDS: CEROVITE ADV FORMULA TAB PO SCH (08:26)
[2020-10-10] MEDS: LACTULOSE SYRUP 20 GM/30 ML UDC PO SCH ×3 (08:26→22:02)
[2020-10-10] MEDS: PANTOprazole 40 MG TAB PO SCH (08:26)
[2020-10-10] MEDS: buPROPion XL 300 MG TABCR PO SCH (08:26)
--- NOTE | 2020-10-10 15:33 | Hospitalist Progress Note ---
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 evaluation for possible transplant Repeat USD showed moderate ascites Needs follow-up with GI upon discharge Patient requires paracentesis every 2 to 3 weeks as outpatient as well. Monitor volume status Plan for repeat paracentesis tomorrow We will give albumin prior to and after the procedure Hyperkalemia Likely secondary to renal insufficiency Received calcium gluconate Monitor potassium levels Low potassium diet Normalized H/O hepatic vein/IVC filter thrombosis H/O Paroxysmal atrial flutter On Eliquis for anticoagulation CKD IV Baseline Cr ~1.7 -2.0 Evaluated by nephrology on prior admission Monitor renal function Bladder scan as needed Anemia of chronic disease Hemoglobin at baseline Monitor GERD Continue pantoprazole Anxiety/mood disorder Continue home medications Thrombocytopenia Secondary to liver disease Monitor Hyponatremia Chronic Monitor sodium levels DVT Px: Eliquis Code Status Full code Disposition Discharge home when stable Admission and Anticipated Discharge Date Admission Date: October 04, 2020 Subjective Patient is seen and examined at bedside States feeling better today Sitting in chair during my encounter States feeling weak Plan for paracentesis tomorrow No new complaint Denies any significant abdominal pain, chest pain, dyspnea, dizziness Review of Systems Review of Systems: All systems reviewed & are unremarkable except as noted in HPI & below Physical Exam Physical Exam: Physical Exam: Vitals signs as noted above General Appearance:Moderately built and nourished, chronic ill appearing Head: normocephalic, Atraumatic Eyes: normal inspection, EOMI Neck: supple, Trachea midline Respiratory/Chest: Normal breath sounds, CTA Cardiovascular: S1, S2, + murmur Abdomen/GI:Soft, distended, Non tender, bowel sounds present Extremities/Musculoskeletal:normal inspection, 1-2+ B/L LE edema Neurologic/Psych:AAOX3, grossly no focal neurological deficits Skin: normal color, warm Results & Data Results & Data ([place]) Vital Signs (Past 12 Hours) Vital Signs Temp Pulse Resp BP Pulse Ox 10/10/20 08:00 36.7 C 77 18 115/62 95 Laboratory Results Short CBC 10/10/20 Range/Units 05:58 WBC 7.95 (4.8-10.8) K/uL Hgb 8.3 L (12.0-16.0) g/dL Hct 23.9 L (37-47) % Plt Count 84 L (130-400) K/uL BMP 10/10/20 05:58 Sodium 129 L Potassium 4.7 Chloride 102 Carbon Dioxide 18 L BUN 35 H Creatinine 2.15 H Glucose 71 Calcium 8.3 L Liver Function 10/10/20 Range/Units 05:58 Total Bilirubin 4.5 H (0.2-1) mg/dl Direct Bilirubin 2.1 H (0-0.2) mg/dl AST 36 (15-37) U/L ALT 21 (12-78) U/L Alkaline Phosphatase 109 (45-117) U/L Albumin 2.3 L (3.4-5.0) gm/dl (1) Acute renal failure Acute renal failure type: unspecified Qualified Code(s): N17.9 - Acute kidney failure, unspecified
[2020-10-11 06:42] LABS: INR 1.8 (0.9-1.1); Prothrombin Time 17.2 Seconds (9.0-12.0)
[2020-10-11 07:13] LABS: Albumin Level 2.2 gm/dl (3.4-5.0); BUN Creatinine Ratio 14.3 (10-20); Bilirubin Direct 1.8 mg/dl (0-0.2); Creatinine Clr Calc Pharmacy 19.4 ml/min; Est GFR (African American) 23.1 ml/min; Est GFR (Non-African American) 19.9 ml/min; Potassium 4.7 mmol/L (3.5-5.1)
[2020-10-11 07:22] LABS: Albumin Globulin Ratio 0.6 (0.9-2); Bilirubin,Total 3.2 mg/dl (0.2-1); Globulin 3.9 gm/dl (2.5-4.0); Total Protein 6.1 gm/dl (6.4-8.2)
[2020-10-11] MEDS: MULTIVITAMIN TAB PO SCH (09:17)
[2020-10-11] MEDS: PANTOprazole 40 MG TAB PO SCH (09:17)
[2020-10-11] MEDS: rifAXIMin 550 MG TABLET PO SCH ×2 (09:17→20:56)
[2020-10-11] MEDS: ALBUMIN 25% 12.5 GM/50 ML VIAL IV SCH ×4 (09:17→17:33)
[2020-10-11] MEDS: LACTULOSE SYRUP 20 GM/30 ML UDC PO SCH ×3 (09:17→20:56)
[2020-10-11] MEDS: APIXABAN 2.5 MG TAB PO SCH ×2 (09:18→20:56)
[2020-10-11] MEDS: CHOLECALCIFEROL 1,000 UNITS 25 MCG TAB PO SCH (09:18)
[2020-10-11] MEDS: CEROVITE ADV FORMULA TAB PO SCH (09:18)
[2020-10-11] MEDS: buPROPion XL 300 MG TABCR PO SCH (09:18)
--- NOTE | 2020-10-11 14:53 | Ultrasound Report ---
US paracentesis abd w/image CLINICAL HISTORY: 70 years-old Female with Ascites. Recurrent ascites COMPARISON: Ultrasound-guided paracentesis 10/05/2020 PROCEDURE: The procedure was explained to the patient in the care including the benefits and possible risks/complications. The patient gave verbal understanding and written consent was obtained. A time -out was performed prior to the start of the procedure. The patient was placed on the ultrasound table in the supine position. Using ultrasound guidance, an appropriate procedure site in the left lower abdomen was marked. This area was then prepped and drape d in the usual sterile fashion. Local anesthesia was achieved within 1% lidocaine. An 8-Hebrew Polar Rose is catheter was then inserted. Approximately 3.0 liters of clear, yellowish fluid was removed for the rapeutic purposes only. The catheter was removed and external pressure was held to achieve hemostasis. A sterile dressing was applied to the procedure site. The patient tolerated the procedure well without immediate complicati ons. IMPRESSION: Successful ultrasound-guided paracentesis with removal of 3.0 L ascitic fluid. ACT 112: Negative or not required by law. The above report was generated using voice recognition software. It may contain grammatical, syntax o r spelling errors. Electronically signed by: Warren Hess M.D. 10/11/2020 2:51 PM
--- NOTE | 2020-10-11 16:45 | Hospitalist Progress Note ---
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: (3) Hyperbilirubinemia: (4) Ascites of liver: (5) Nausea & vomiting: (6) Acute renal failure: (7) Weakness: (8) DVT prophylaxis: Primary sclerosing cholangitis Recurrent ascites Cirrhosis Hyperbilirubinemia MELD: 23 S/P abdominal paracentesis- Removed 3 liters on 10/05 and 3 L removed on 10/11 No SBP Continue lactulose, rifaximin Previously on diuretics--DCed by [facility] due to worsening renal function as per patient Pain control Monitor LFTs, INR Appreciate GI input Waiting for [facility] evaluation for possible transplant Needs follow-up with GI upon discharge Had repeat paracentesis today Received Albumin today Hyperkalemia Likely secondary to renal insufficiency Received calcium gluconate Monitor potassium levels Low potassium diet Normalized H/O hepatic vein/IVC filter thrombosis H/O Paroxysmal atrial flutter On Eliquis for anticoagulation Acute Kidney Injury on CKD IV Baseline Cr ~1.7 -2.0 Cr:2.36 Nephrology consulted for Input Monitor renal function Bladder scan as needed Anemia of chronic disease Hemoglobin at baseline Monitor GERD Continue pantoprazole Anxiety/mood disorder Continue home medications Thrombocytopenia Secondary to liver disease Monitor Hyponatremia Chronic Monitor sodium levels Worsening likely due to volume overload Sodium:127 today DVT Px: Eliquis Code Status Full code Disposition Discharge home when stable Admission and Anticipated Discharge Date Admission Date: October 04, 2020 Subjective Patient is seen and examined at bedside Continues to have tiredness, generalized weakness Had paracentesis earlier today No new complaints Denies any significant abdominal pain, chest pain, dyspnea, dizziness Review of Systems Review of Systems: All systems reviewed & are unremarkable except as noted in HPI & below Physical Exam Physical Exam: Physical Exam: Vitals signs as noted above General Appearance:Moderately built and nourished, chronic ill appearing Head: normocephalic, Atraumatic Eyes: normal inspection, EOMI Neck: supple, Trachea midline Respiratory/Chest: Normal breath sounds, CTA Cardiovascular: S1, S2, + murmur Abdomen/GI:Soft, distended, Non tender, bowel sounds present Extremities/Musculoskeletal:normal inspection, 1-2+ B/L LE edema Neurologic/Psych:AAOX3, grossly no focal neurological deficits Skin: normal color, warm Results & Data Results & Data ([facility]) Vital Signs (Past 12 Hours) Vital Signs Temp Pulse Pulse Resp BP BP Pulse Ox 10/11/20 15:45 36.4 C L 73 16 113/67 98 10/11/20 11:26 70 18 103/64 96 10/11/20 10:41 36.5 C 68 18 113/69 99 10/11/20 09:54 36.6 C 69 18 116/70 96 10/11/20 07:48 36.6 C 74 14 102/62 94 Laboratory Results [facility] 10/11/20 05:54 Sodium 127 L Potassium 4.7 Chloride 101 Carbon Dioxide 19 L BUN 34 H Creatinine 2.36 H Glucose 87 Calcium 8.0 L Liver Function 10/11/20 Range/Units 05:54 Total Bilirubin 3.2 H (0.2-1) mg/dl Direct Bilirubin 1.8 H (0-0.2) mg/dl AST 35 (15-37) U/L ALT 21 (12-78) U/L Alkaline Phosphatase 132 H (45-117) U/L Albumin 2.2 L (3.4-5.0) gm/dl (1) Acute renal failure Acute renal failure type: unspecified Qualified Code(s): N17.9 - Acute kidney failure, unspecified
--- NOTE | 2020-10-11 17:04 | Consultation Report ---
DATE OF CONSULTATION: 10/11/2020 REASON FOR CONSULT: Hyponatremia and acute renal failure. HISTORY OF PRESENT ILLNESS: The patient is a 70-year-old female with advanced liver disease secondary to sclerosing cholangitis who presented to the hospital a week ago because of nausea, fatigue, weakness, and vomiting. She could not keep anything down and was not eating any solid food and was not even drinking. Her serum sodium when she presented to the hospital was normal, but she has known history of chronic intermittent hyponatremia as well as multiple episodes of acute renal failure. Creatinine on admission was 1.9, which is similar to her baseline, which does tend to fluctuate. Since then, it has gone up slightly and this morning is 2.36 with a BUN of 34. Sodium has gone down to 127 over the last 6-7 days. The patient appears very very weak and frail. She was evaluated by [facility] for possible liver transplant, but she has not heard anything definitive as of now whether she is eligible for liver transplant. She has received albumin. It does not appear she has received any IV fluid nor any Lasix. The patient has poor appetite. She had paracentesis done on as well as today again, but she still has a lot of edema as well as ascites. PAST MEDICAL AND SURGICAL HISTORY: Includes primary sclerosing cholangitis, history of multiple episodes of acute renal failure, chronic ascites, liver cirrhosis due to primary biliary cholangitis. ALLERGIES: List was reviewed and includes PENICILLIN AND ADHESIVES. HOME MEDICATIONS: List was reviewed and does not include any diuretics. She was on diuretics until recently, but was stopped about 4 weeks ago. HOME MEDICATIONS: List was reviewed and is as per the reconciliation list. PAST SURGICAL HISTORY: Appendicectomy. SOCIAL HISTORY: She never smoked. She is and lives with her spouse. She does use a walker. REVIEW OF SYSTEMS: Unless stated otherwise, 12 systems reviewed and negative. PHYSICAL EXAMINATION: GENERAL: Elderly white female who appears ill chronically. She does have jaundice. She is not in any overt respiratory distress but is very weak. Speech is normal. She seems to be awake and alert and was able to give me detailed account of her medical problem. CHEST: Bilateral decreased breath sound. CARDIOVASCULAR: Regular rate and regular rhythm. Soft systolic murmur heard. ABDOMEN: Distended with significant ascites. EXTREMITIES: Shows 1+ edema bilaterally, pitting with very thin skin. VITAL SIGNS: Blood pressure is 103/64, pulse rate 70, temperature 36.5, 96% on room air. LABORATORY TESTS: From this morning shows serum sodium 127, creatinine 2.36, BUN is 34. Both hyponatremia as well as acute renal failure seems to be getting worse for the last 6 days. ASSESSMENT AND PLAN: A 70-year-old female with known liver cirrhosis, advanced type secondary to sclerosing cholangitis, now admitted with severe weakness, now has acute renal failure and worsening hyponatremia for which I have been consulted. 1. Acute renal failure. This is either secondary to acute tubular necrosis or hepatorenal syndrome. This is not a case of simple volume depletion. We are giving IV fluid will make a difference. In any case, she is actually fluid overloaded. 2. Hyponatremia. This is hypervolemic hyponatremia in the setting of worsening liver disease. Her MELD score is rising and she is being followed by GI as well as liver transplant at [facility] center. RECOMMENDATIONS: 1. Urinalysis with microscopy urine sodium, urine creatinine and urine osmolality. This will help sort out the different etiology of hyponatremia to some extent. 2. For now, continue to monitor daily labs, albumin with paracentesis. 3. Depending on the labs and the serum sodium trend, I will decide about the diuretics tomorrow.
[2020-10-12 06:38] LABS: Hematocrit (blood only) 22.6 % (37-47); Hemoglobin 7.8 g/dL (12.0-16.0); Mean Corpuscular Hemoglobin 34.1 pg (25-34); Mean Corpuscular Hgb Conc 34.5 g/dL (32-36); Mean Corpuscular Volume 98.7 fL (80-100); RDW Coefficient of Variation 15.4 % (11.5-14.5); RDW Standard Deviation 55.2 fL (36.4-46.3); Red Blood Count 2.29 M/uL (4.2-5.4); White Blood Count 4.77 K/uL (4.8-10.8)
[2020-10-12 06:45] LABS: INR 1.8 (0.9-1.1); Prothrombin Time 17.1 Seconds (9.0-12.0)
[2020-10-12 06:49] LABS: Platelet Count 76 K/uL (130-400)
[2020-10-12 07:07] LABS: Albumin Level 2.4 gm/dl (3.4-5.0); BUN Creatinine Ratio 14.7 (10-20); Calcium 8.1 mg/dl (8.5-10.1); Creatinine Clr Calc Pharmacy 22.1 ml/min; Est GFR (Non-African American) 23.3 ml/min; Potassium 4.6 mmol/L (3.5-5.1)
[2020-10-12 07:09] LABS: Albumin Globulin Ratio 0.7 (0.9-2); Bilirubin,Total 3.1 mg/dl (0.2-1); Globulin 3.6 gm/dl (2.5-4.0)
[2020-10-12] MEDS: APIXABAN 2.5 MG TAB PO SCH ×2 (07:43→20:02)
[2020-10-12] MEDS: buPROPion XL 300 MG TABCR PO SCH (07:43)
[2020-10-12] MEDS: MULTIVITAMIN TAB PO SCH (07:43)
[2020-10-12] MEDS: PANTOprazole 40 MG TAB PO SCH (07:43)
[2020-10-12] MEDS: rifAXIMin 550 MG TABLET PO SCH ×2 (07:43→20:02)
[2020-10-12] MEDS: CHOLECALCIFEROL 1,000 UNITS 25 MCG TAB PO SCH (07:43)
[2020-10-12] MEDS: LACTULOSE SYRUP 20 GM/30 ML UDC PO SCH ×3 (07:44→20:02)
[2020-10-12] MEDS: CEROVITE ADV FORMULA TAB PO SCH (07:44)
--- NOTE | 2020-10-12 07:56 | Nephrology Progress Note ---
Date of Service October 12, 2020 Assessment & Plan Admission and Anticipated Discharge Date Admission Date: October 04, 2020 Subjective No new issues. Labs somewhat better. GENERAL: Elderly white female who appears ill chronically. She does have jaundice. She is not in any overt respiratory distress but is very weak. Speech is normal. She seems to be awake and alert and was able to give me detailed account of her medical problem. CHEST: Bilateral decreased breath sound. CARDIOVASCULAR: Regular rate and regular rhythm. Soft systolic murmur heard. ABDOMEN: Distended with significant ascites. EXTREMITIES: Shows 1+ edema bilaterally, pitting with very thin skin. VITAL SIGNS: Blood pressure is 103/64, pulse rate 70, temperature 36.5, 96% on room air. LABORATORY TESTS: Both hyponatremia as well as acute renal failure seems to be slightly better today ASSESSMENT AND PLAN: A 70-year-old female with known liver cirrhosis, advanced type secondary to sclerosing cholangitis, now admitted with severe weakness, now has acute renal failure and worsening hyponatremia for which I have been consulted. 1. Acute renal failure. This is more likely secondary to acute tubular necrosis given the pattern of rise and now fall. She gets ATN frequently as expected given ESLD. This is not a case of simple volume depletion. W 2. Hyponatremia. This is hypervolemic hyponatremia in the setting of worsening liver disease. Her MELD score is rising and she is being followed by GI as well as liver transplant at [facility] center. RECOMMENDATIONS: 1. Labs better today. 2. For now, continue to monitor daily labs, albumin with paracentesis. 3. No diuretics and no iv fluid. 4 Fluid limit 1500 ml. Results & Data ([facility]) Vital Signs (Past 12 Hours) Vital Signs Temp Pulse Pulse Resp BP Pulse Ox 10/12/20 07:42 36.8 C 72 16 116/58 L 95 10/11/20 22:59 36.4 C L 72 16 102/53 L 96
--- NOTE | 2020-10-12 17:18 | Hospitalist Progress Note ---
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: (3) Hyperbilirubinemia: (4) Ascites of liver: (5) Nausea & vomiting: (6) Acute renal failure: (7) Weakness: (8) DVT prophylaxis: Primary sclerosing cholangitis Recurrent ascites Cirrhosis Hyperbilirubinemia MELD: 23 S/P abdominal paracentesis- Removed 3 liters on 10/05 and 3 L removed on 10/11 No SBP Received Albumin Continue lactulose, rifaximin Previously on diuretics--DCed by [facility] due to worsening renal function as per patient Pain control Monitor LFTs, INR Appreciate GI input Waiting for [facility] evaluation for possible transplant Needs follow-up with GI upon discharge Continue fluid restriction Hyperkalemia Likely secondary to renal insufficiency Received calcium gluconate Monitor potassium levels Low potassium diet Normalized H/O hepatic vein/IVC filter thrombosis H/O Paroxysmal atrial flutter On Eliquis for anticoagulation Acute Kidney Injury on CKD IV Baseline Cr ~1.7 -2.0 Likely acute tubular necrosis Cr:2.36>2.07 Monitor renal function Bladder scan as needed Appreciate nephrology input Anemia of chronic disease Hemoglobin at baseline Monitor GERD Continue pantoprazole Anxiety/mood disorder Continue home medications Thrombocytopenia Secondary to liver disease Monitor Hyponatremia Chronic Monitor sodium levels Worsened due to volume overload Sodium:127>131 Monitor DVT Px: Eliquis Code Status Full code Disposition PT/OT prior to discharge Admission and Anticipated Discharge Date Admission Date: October 04, 2020 Subjective Patient is seen and examined at bedside Renal function better Continues to complain of generalized weakness and tiredness Interested in going to rehab if accepted Denies any significant abdominal pain, chest pain, dyspnea, dizziness Review of Systems Review of Systems: All systems reviewed & are unremarkable except as noted in HPI & below Physical Exam Physical Exam: Physical Exam: Vitals signs as noted above General Appearance:Moderately built and nourished, chronic ill appearing Head: normocephalic, Atraumatic Eyes: normal inspection, EOMI Neck: supple, Trachea midline Respiratory/Chest: Normal breath sounds, CTA Cardiovascular: S1, S2, + murmur Abdomen/GI:Soft, distended, Non tender, bowel sounds present Extremities/Musculoskeletal:normal inspection, 1-2+ B/L LE edema Neurologic/Psych:AAOX3, grossly no focal neurological deficits Skin: normal color, warm Results & Data Results & Data ([facility]) Vital Signs (Past 12 Hours) Vital Signs Temp Pulse Resp BP Pulse Ox 10/12/20 15:16 36.8 C 76 16 115/63 97 10/12/20 07:42 36.8 C 72 16 116/58 L 95 Laboratory Results Short CBC 10/12/20 Range/Units 05:56 WBC 4.77 L (4.8-10.8) K/uL Hgb 7.8 L (12.0-16.0) g/dL Hct 22.6 L (37-47) % Plt Count 76 L (130-400) K/uL BMP 10/12/20 05:56 Sodium 131 L Potassium 4.6 Chloride 104 Carbon Dioxide 18 L BUN 30 H Creatinine 2.07 H Glucose 80 Calcium 8.1 L Liver Function 10/12/20 Range/Units 05:56 Total Bilirubin 3.1 H (0.2-1) mg/dl AST 31 (15-37) U/L ALT 20 (12-78) U/L Alkaline Phosphatase 120 H (45-117) U/L Albumin 2.4 L (3.4-5.0) gm/dl (1) Acute renal failure Acute renal failure type: unspecified Qualified Code(s): N17.9 - Acute kidney failure, unspecified
[2020-10-13 07:09] LABS: Hematocrit (blood only) 24.8 % (37-47); Hemoglobin 8.7 g/dL (12.0-16.0)
[2020-10-13 07:19] LABS: INR 1.8 (0.9-1.1); Prothrombin Time 17.3 Seconds (9.0-12.0)
[2020-10-13] MEDS: rifAXIMin 550 MG TABLET PO SCH (07:33)
[2020-10-13] MEDS: CHOLECALCIFEROL 1,000 UNITS 25 MCG TAB PO SCH (07:33)
[2020-10-13] MEDS: buPROPion XL 300 MG TABCR PO SCH (07:33)
[2020-10-13] MEDS: APIXABAN 2.5 MG TAB PO SCH (07:33)
[2020-10-13] MEDS: CEROVITE ADV FORMULA TAB PO SCH (07:34)
[2020-10-13] MEDS: LACTULOSE SYRUP 20 GM/30 ML UDC PO SCH (07:34)
[2020-10-13] MEDS: PANTOprazole 40 MG TAB PO SCH (07:34)
[2020-10-13] MEDS: MULTIVITAMIN TAB PO SCH (07:34)
[2020-10-13 07:40] LABS: Albumin Level 2.4 gm/dl (3.4-5.0); BUN Creatinine Ratio 15.1 (10-20); Calcium 7.8 mg/dl (8.5-10.1); Creatinine Clr Calc Pharmacy 24.2 ml/min; Est GFR (African American) 30.2 ml/min; Potassium 4.8 mmol/L (3.5-5.1)
[2020-10-13 07:45] LABS: Albumin Globulin Ratio 0.6 (0.9-2); Globulin 3.9 gm/dl (2.5-4.0); Total Protein 6.3 gm/dl (6.4-8.2)
--- NOTE | 2020-10-13 09:46 | Nephrology Progress Note ---
Date of Service October 13, 2020 Assessment & Plan Admission and Anticipated Discharge Date Admission Date: October 04, 2020 Subjective No new issues. Labs somewhat better. GENERAL: Elderly white female who appears ill chronically. She does have jaundice. She is not in any overt respiratory distress but is very weak. Speech is normal. She seems to be awake and alert and was able to give me detailed account of her medical problem. CHEST: Bilateral decreased breath sound. CARDIOVASCULAR: Regular rate and regular rhythm. Soft systolic murmur heard. ABDOMEN: Distended with significant ascites. EXTREMITIES: Shows 1+ edema bilaterally, pitting with very thin skin. VITAL SIGNS: Blood pressure is 103/64, pulse rate 70, temperature 36.5, 96% on room air. LABORATORY TESTS: Both hyponatremia as well as acute renal failure seems to be slightly better today ASSESSMENT AND PLAN: A 70-year-old female with known liver cirrhosis, advanced type secondary to sclerosing cholangitis, now admitted with severe weakness, now has acute renal failure and worsening hyponatremia for which I have been consulted. 1. Acute renal failure. This is more likely secondary to acute tubular necrosis given the pattern of rise and now fall. She gets ATN frequently as expected given ESLD. This is not a case of simple volume depletion. W 2. Hyponatremia. This is hypervolemic hyponatremia in the setting of worsening liver disease. Her MELD score is rising and she is being followed by GI as well as liver transplant at [facility] center. RECOMMENDATIONS: 1. Labs better today. 2. For now, continue to monitor daily labs, albumin with paracentesis. 3. No diuretics and no iv fluid. She claims [facility] told her not to take diuretics. 4 Fluid limit 1500 ml. Results & Data ([facility]) Vital Signs (Past 12 Hours) Vital Signs Temp Pulse Pulse Resp BP BP Pulse Ox 10/13/20 07:26 36.8 C 74 16 102/62 96 10/12/20 23:34 36.9 C 82 16 97/55 L 95
--- NOTE | 2020-10-13 13:05 | Hospitalist Progress Note ---
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: (3) Hyperbilirubinemia: (4) Ascites of liver: (5) Nausea & vomiting: (6) Acute renal failure: (7) Weakness: (8) DVT prophylaxis: Primary sclerosing cholangitis Recurrent ascites Cirrhosis Hyperbilirubinemia MELD: 23 S/P abdominal paracentesis- Removed 3 liters on 10/05 and 3 L removed on 10/11 No SBP Received Albumin Continue lactulose, rifaximin Previously on diuretics--DCed by [facility] due to worsening renal function as per patient Pain control Monitor LFTs, INR Appreciate GI input Waiting for [facility] evaluation for possible transplant Needs follow-up with GI upon discharge Continue fluid restriction Needs paracentesis possibly biweekly for ascites Hyperkalemia Likely secondary to renal insufficiency Received calcium gluconate Monitor potassium levels Low potassium diet Normalized H/O hepatic vein/IVC filter thrombosis H/O Paroxysmal atrial flutter On Eliquis for anticoagulation Acute Kidney Injury on CKD IV Baseline Cr ~1.7 -2.0 Likely acute tubular necrosis Cr:2.36>2.07>1.89 Monitor renal function Bladder scan as needed Appreciate nephrology input Anemia of chronic disease Hemoglobin at baseline Monitor GERD Continue pantoprazole Anxiety/mood disorder Continue home medications Thrombocytopenia Secondary to liver disease Monitor Hyponatremia Chronic Monitor sodium levels Worsened due to volume overload Sodium:127>131>132 Monitor DVT Px: Eliquis Code Status Full code Disposition Home with Home Health Admission and Anticipated Discharge Date Admission Date: October 04, 2020 Subjective Patient is seen and examined at bedside States feeling well today Ambulated in hallway without issues No new complaints Denies chest pain, dyspnea, dizziness, nausea, abdominal pain Eager to get discharged Review of Systems Review of Systems: All systems reviewed & are unremarkable except as noted in HPI & below Physical Exam Physical Exam: Physical Exam: Vitals signs as noted above General Appearance:Moderately built and nourished, chronic ill appearing Head: normocephalic, Atraumatic Eyes: normal inspection, EOMI Neck: supple, Trachea midline Respiratory/Chest: Normal breath sounds, CTA Cardiovascular: S1, S2, + murmur Abdomen/GI:Soft, distended, Non tender, bowel sounds present Extremities/Musculoskeletal:normal inspection, 1-2+ B/L LE edema improved Neurologic/Psych:AAOX3, grossly no focal neurological deficits Skin: normal color, warm Results & Data Results & Data ([facility]) Vital Signs (Past 12 Hours) Vital Signs Temp Pulse Pulse Pulse Pulse Resp BP 10/13/20 12:18 36.8 C 74 80 72 82 16 102/62 10/13/20 07:26 36.8 C 74 16 102/62 BP Pulse Ox 10/13/20 12:18 97/55 L 96 10/13/20 07:26 96 Laboratory Results Short CBC 10/13/20 Range/Units 06:26 Hgb 8.7 L (12.0-16.0) g/dL Hct 24.8 L (37-47) % BMP 10/13/20 06:26 Sodium 132 L Potassium 4.8 Chloride 106 Carbon Dioxide 21 BUN 29 H Creatinine 1.89 H Glucose 79 Calcium 7.8 L Liver Function 10/13/20 Range/Units 06:26 Total Bilirubin 4.0 H (0.2-1) mg/dl AST 36 (15-37) U/L ALT 19 (12-78) U/L Alkaline Phosphatase 145 H (45-117) U/L Albumin 2.4 L (3.4-5.0) gm/dl (1) Acute renal failure Acute renal failure type: unspecified Qualified Code(s): N17.9 - Acute kidney failure, unspecified
--- NOTE | 2020-10-13 13:11 | Discharge Summary ---
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 Since then she has been to [facility] for possible liver transplant evaluation. She had a paracentesis 3 weeks ago. Today she comes in secondary to weakness, fatigue, nausea, and vomiting. She could not keep anything down so she came in for evaluation. She has electrolyte imbalances she has acute kidney injury and dehydration. She will be placed in inpatient status and admitted today. GI will see in the morning for paracentesis and I will give her IV fluids overnight. Admission Exam Per Admitting Provider Physical Exam Gen-AAO x 3, NAD, Afebrile, jaundiced, weak, pleasant Head-NCAT, EOMI, PERRLA, Anicteric Sclera, No Posterior Pharyngeal Erythema Neck-Supple, No JVD, No Thyromegaly, No Masses, No LAD, No Bruits Lungs-Clear to Auscultation Bilaterally, No Rales, No Rhonchi, No Wheezing, No Crepitus Chest-No S4, +S1, +S2, No S3, No Murmurs, No Rubs, No Gallops, No Ectopy Abdomen-Soft, Bowel Sounds Present, Non Tender, Distended, No Hepatomegaly, no succussion splash No Splenomegaly, No Palpable Masses, No Rebound, No Rigidity, No Guarding Musculoskeletal-Full Range of Motion Bilaterally, No CVAT Extremities-No Cyanosis, No Clubbing, No Edema Nuero-Cranial Nerves II-XII grossly intact, Motor WNL, DTRs WNL, Strength WNL, Non Focal Psych-Normal Mood Principal Diagnosis Primary sclerosing cholangitis Recurrent ascites Acute Kidney Injury Thrombocytopenia Discharge Data Allergies Allergy/AdvReac Type Severity Reaction Status Date / Time Penicillins Allergy Mild Rash Verified 10/04/20 15:25 adhesive AdvReac Mild Redness of Verified 10/04/20 15:25 Skin Consultations 10/04/20 17:56 ED Decision to Admit Stat 10/04/20 18:23 Consult Gastroenterology Routine 10/11/20 09:47 Consult Nephrology Routine Procedures Performed CXR: Minimal increase left basilar markings, while nonspecific are likely atelectatic. Ordered Studies 10/05/20 09:19 US paracentesis abd w/image Routine 10/08/20 14:30 US abdomen ltd ascites Routine 10/11/20 US paracentesis abd w/image Routine Hospital Course (1) PSC (primary sclerosing cholangitis): (2) 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: (3) Hyperbilirubinemia: (4) Ascites of liver: s/p Paracentesis with removal of 3L ascitic fluid Torsemide 20mg daily and Aldactone 50mg po daily on HOLD due to dehydration, nausea/vomiting, poor oral intake; BP also on the lower side continue Lactulose and Rifaximin (5) Nausea & vomiting: (6) Acute renal failure: secondary to dehydration crea 1.9 on admission given IV fluids now back to baseline 1.7 (7) Weakness: secondary to nausea/vomiting n/v improving continue gently IV fluids PT/OT evaluation (8) DVT prophylaxis: Primary sclerosing cholangitis Recurrent ascites Cirrhosis Hyperbilirubinemia MELD: 23 S/P abdominal paracentesis- Removed 3 liters on 10/05 and 3 L removed on 10/11 No SBP Received Albumin Continue lactulose, rifaximin Previously on diuretics--DCed by [facility] due to worsening renal function as per patient Pain control Monitor LFTs, INR Appreciate GI input Waiting for [facility] evaluation for possible transplant Needs follow-up with GI upon discharge Continue fluid restriction Needs paracentesis possibly biweekly for ascites Hyperkalemia Likely secondary to renal insufficiency Received calcium gluconate Monitor potassium levels Low potassium diet Normalized H/O hepatic vein/IVC filter thrombosis H/O Paroxysmal atrial flutter On Eliquis for anticoagulation Acute Kidney Injury on CKD IV Baseline Cr ~1.7 -2.0 Likely acute tubular necrosis Cr:2.36>2.07>1.89 Monitor renal function Bladder scan as needed Appreciate nephrology input Anemia of chronic disease Hemoglobin at baseline Monitor GERD Continue pantoprazole Anxiety/mood disorder Continue home medications Thrombocytopenia Secondary to liver disease Monitor Hyponatremia Chronic Monitor sodium levels Worsened due to volume overload Sodium:127>131>132 Monitor DVT Px: Eliquis Code Status Full code Disposition Home with Home Health Total Time Total Time Spent Total Time Spent (In Minutes): 44 minutes Discharge Plan Discharge Items Patient Disposition: Home - Home Health Services Reason For Visit: ASCITES, WEAKNESS, FATIGUE Discharge Diagnosis: Primary sclerosing cholangitis Recurrent ascites Acute Kidney Injury Thrombocytopenia Activity: Per Instructions section Exercise/Sports: Gradually increase as tolerated Non-emergency contact: Primary Care Provider and Mobile Security Architect Call non-emergency contact if: you have any medication questions, your symptoms worsen, your pain is not controlled, your pain is worsening, your pain is concerning for you and you have a fever Follow-up/Referrals: Amber Jauregui CRNP [Nurse Practitioner] - (Date & Time 10/21/2020 2:00 PM Provider EMETERIO Sarmiento Department Gastroenterology, [facility] ) Laura Dale PA-C [Primary Care Provider] - (Date & Time 10/14/2020 9:20 AM Provider Laura Dale PA-C Department [facility] ) Aicha De La Paz MD [Hospitalist] - (Date & Time 10/21/2020 11:00 AM Provider Aicha De La Paz MD Department Hematology/Oncology [facility] ) Diet: Heart Healthy and Low Sodium (2gm) Fluids: 1500ml (6 cups) Addtl Attending Provider Instructions: Follow-up with your primary care physician Laura Dale PA-C on 10/14/2020 9:20 AM Follow-up with gastroenterology Amber Jauregui on 10/21/2020 2:00 PM as scheduled Follow-up with your oncologist Dr. Aicha De La Paz on 10/21/2020 11:00 AM Get paracentesis as outpatient as recommended by your stained glass window designer. Seek immediate medical attention if your symptoms reoccur or worsen Please take all medications as instructed on discharge list below. Please call if you have any questions or problems. You can reach a [facility] hospitalist on duty at [facility] 24 hours a day by calling [phone] Pending Studies at Discharge: No Stand-Alone Forms: My [facility] [employer], Smoking Cessation Medications and DC Order Prescriptions: Continued omeprazole 20 mg capsule,delayed release(DR/EC) 20 mg PO DAILY RF: 0 bupropion HCl [Wellbutrin XL] 300 mg tablet extended release 24 hr 300 mg PO DAILY RF: 0 cholecalciferol (vitamin D3) [Vitamin D3] 25 mcg (1,000 unit) Tablet 25 mcg PO DAILY RF: 0 Xifaxan 550 mg tablet 550 mg PO BID RF: 0 PreserVision AREDS-2 [id number] Capsule 1 tab PO QAM RF: 0 lorazepam 0.5 mg Tablet 0.5 mg PO Q6 PRN (Reason: Anxiety) RF: 0 ondansetron 4 mg tablet,disintegrating 4 mg PO Q8 PRN (Reason: Nausea And Vomiting) RF: 0 lactulose [Enulose] 10 gram/15 mL solution 30 ml PO TID Qty: 946 RF: 0 multivitamin Tablet 1 tab PO DAILY RF: 0 Eliquis 2.5 mg tablet 2.5 mg PO BID RF: 0 Discharge Orders: Discharge Order (Routine); Ordered 10/13/20 Ordered By: Abimael Cohen Admission Data Admit Date/Time: 10/04/20 17:01 Attending Provider: Abimael Cohen Admit Provider: Lowell Henry Primary Care Provider: Laura Dale Other Providers: Lowell Henry ; Dary Welsh ; Noemy Yanes ; Es Barragan ; Christina Shirley ; Greg Junior ; Fifi Mathew ; Magnus Pérez ; Jose Guadalupe Estrada ; Rain Thomas ; Antoinette Sharif ; Amber Jauregui ; Barbara Nava ; Randy Tabares ; Ziggy Hunt ; [facility] Other Interventions: Discharge Summary Assessment (RN) Last Done: 10/13/20 12:18
== END 2020-10-13 14:54 | disposition home health service (06) | DRG 444 ==
LOC: ED 12:43 → 3W 17:01 → SUATTDRO 17:01 → 3W 18:15